=== PATIENT | female | born 1945 | race Caucasian/White ===

== ENCOUNTER → 2017-09-23 11:36 | Outpatient (CLI) | payer BC, SELFPAY ==
[2017-09-23 14:30] LABS: Thyroid Stim Hormone (TSH) 2.58 uIU/mL (0.358-3.74)
== END ==
PROVIDERS: Family Provider Family Medicine; PCP Family Medicine; Visit Provider Family Medicine
DX: L65.9 Nonscarring hair loss, unspecified (principal)
CPT/HCPCS: 36415; 84443

== ENCOUNTER 2018-03-30 16:05 | Inpatient (IN) | payer BC, MEDICARE, SELFPAY ==
[2018-03-30] VITALS (25 sets, daily range): BP systolic 78–211; BP diastolic 54–114; PULSE 76–119; RESP 12–19; TEMP 35.9–37.4; O2SAT 95–100; BMI 26.6; BMI 25.9
[2018-03-30] MEDS: DiphenhydrAMINE 50 MG/ML Syringe IV (16:10)
[2018-03-30] MEDS: MethylPREDNISolone 125 MG/2 ML Vial IV (16:10)
--- NOTE | 2018-03-30 16:10 | ED.RN ---
PT ARRIVES TO ED WITH THICK AND SWOLLEN TONGUE. ER PHYSICIAN TO ROOM IMMEDIATELY. PT PLACED ON MONITOR. VERBAL ORDERS FOR INTUBATION. PT IV ESTABLISHED. 50 MG BENADRYL GIVEN IVP AND 125 MG SOLUMEDROL IVP, BY Sarahi ALDRICH RN. 20 MG ETOMIDATE IVP GIVEN BY Elen GRAVES RN.
--- NOTE | 2018-03-30 16:13 | EKG12_ITS ---
Test Reason : Blood Pressure : / mmHG Vent. Rate : 077 BPM Atrial Rate : 077 BPM P-R Int : 116 ms QRS Dur : 160 ms QT Int : 500 ms P-R-T Axes : 084 -78 096 degrees QTc Int : 565 ms Atrial-sensed ventricular-paced rhythm Abnormal ECG Confirmed by VESTA VELA ([id number]), production editor FERNANDO PADRON ([id number]) on 04/05/2018 1:42:02 PM Referred By: RU Confirmed By:VESTA VELA
--- NOTE | 2018-03-30 16:14 | ED.RN ---
Addendum entered by Holly Peres 03/30/18 16:24: 1614 is correct time of medication administration. Original Note: 1414 rocuronium 100 mg ivp given by kristen jin rn.
[2018-03-30] MEDS: Propofol 10MG/Ml 1,000 MG/100 ML Bottle 2.241 MG CONT INF (16:20)
[2018-03-30] MEDS: Propofol 200 MG/20 ML Vial 70 MG IV BOLUS (16:20)
--- NOTE | 2018-03-30 16:23 | ED.VISSUMM ---
- ER Visit Summary Date of Service: 03/30/18 Chief Complaint: Angioedema History of Present Illness: The patient is a 72 F who presents with her with swelling of her tongue. Patient reportedly just woke from a nap with tongue swelling. She is complaining of difficulty swallowing and is having trouble talking. Patient did have cardiac bypass surgery March 22. She is a history of A. fib, hypothyroidism, coronary artery disease, CHF. Patient had been on lisinopril but this was stopped 3 days ago. She was recently started on Lasix, potassium, and Percocet. states that she has been on Percocet in the past with no problems. Physical Examination: Blood pressure is 137/77, temperature 96.7, heart rate 82, respiratory rate 19, pulse ox 95% on room air. Patient sitting upright in bed. It is difficult to understand her when she is speaking. Head neck examination reveals angioedema to the tongue. I am unable to visualize the posterior pharynx on exam. Heart is regular rate and rhythm. Lung sounds are grossly clear. She has a healing midline chest incision. Skin examination was no rash or lesions. Test Results: CBC returns a white count 11.7. Chemistry studies unremarkable. Portable chest x-ray has not yet been formally read. ET tube and NG tube appear to be in good position. She has what appears to be fluid at the right base. Emergency Department Course and Treatment: Decision was made to intubate the patient immediately upon evaluation. Patient was placed on nasal cannula. She was given 20 mg of etomidate. She was intubated on second attempt with a 6.5 tube with glide scope visualization. Good color change was noted on capnography and equal breath sounds were noted bilaterally. Patient was given rocuronium and propofol drip. Prior to intubation patient was given Solu-Medrol, Pepcid, and Benadryl. Patient was discussed with hospitalist as well as atg architect. Treatment Plan: [] Disposition: Admit Impression: Angioedema with intubation by ED physician This note was generated with [employer] dictation software. It may contain incorrect words, spelling, and punctuation that were not noted in review of the chart prior to signing ED Disposition - Plan for ED Patient: Disposition: Acute Care Hospital [facility] Chief Complaint: Allergic Reaction
--- NOTE | 2018-03-30 16:24 | NURSING ---
ICU ANGIOEDEMA DANNY
[2018-03-30] MEDS: Rocuronium Bromide 50 MG/5 ML Vial 100 MG IV (16:26)
--- NOTE | 2018-03-30 16:26 | ED.DCSUM_ITS ---
- ER Visit Summary Date of Service: 03/30/18 Chief Complaint: Angioedema History of Present Illness: The patient is a 72 F who presents with her with swelling of her tongue. Patient reportedly just woke from a nap with tongue swelling. She is complaining of difficulty swallowing and is having trouble talking. Patient did have cardiac bypass surgery March 22. She is a history of A. fib, hypothyroidism, coronary artery disease, CHF. Patient had been on lisinopril but this was stopped 3 days ago. She was recently started on Lasix, potassium, and Percocet. states that she has been on Percocet in the past with no problems. Physical Examination: Blood pressure is 137/77, temperature 96.7, heart rate 82 , respiratory rate 19, pulse ox 95% on room air. Patient sitting upright in bed. It is difficult to understand her when she is speaking. Head neck examination reveals angioedema to the tongue. I am unable to visualize the posterior pharynx on exam. Heart is regular rate and rhythm. Lung sounds are grossly clear. She has a healing midline chest incision. Skin examination was no rash or lesions. Test Results: CBC returns a white count 11.7. Chemistry studies unremarkable. Portable chest x-ray has not yet been formally read. ET tube and NG tube appear to be in good position. She has what appears to be fluid at the right base. Emergency Department Course and Treatment: Decision was made to intubate the patient immediately upon evaluation. Patient was placed on nasal cannula. She was given 20 mg of etomidate. She was intubated on second attempt with a 6.5 tube with glide scope visualization. Good color change was noted on capnography and equal breath sounds were noted bilaterally. Patient was given rocuronium and propofol drip. Prior to intubation patient was given Solu-Medrol , Pepcid, and Benadryl. Patient was discussed with hospitalist as well as microgrinder operator. Treatment Plan: [] Disposition: Admit Impression: Angioedema with intubation by ED physician This note was generated with [employer] dictation software. It may contain incorrect words, spelling, and punctuation that were not noted in review of the chart prior to signing ED Disposition - Plan for ED Patient: Disposition: Acute Care Hospital [facility] Chief Complaint: Allergic Reaction
[2018-03-30] MEDS: Etomidate 20 MG/10 ML Vial IV (16:27)
--- NOTE | 2018-03-30 16:30 | RAD_ITS ---
STUDY: X-RAY CHEST REASON FOR EXAM: Female, 72 years old. Respiratory failure TECHNIQUE: Single AP portable view of the chest. COMPARISON: 2016 FINDINGS: EKG leads overlie the chest. Stable appearance of a lesser gradient pacemaker. Patient has been intubated, tip of the ET tube is 5 cm above the aristides, NG tube tip noted in the body the stomach. Lungs are expanded with opacification in the right lung base associated pleural effusion. Follow-up recommended to assure resolution Sternal cerclage wires and vascular clips are present from a prior sternotomy and coronary artery bypass graft procedure (CABG). Normal mediastinum and kika. Normal visualized pulmonary arteries. Normal visualized aortic arch and descending thoracic aorta. Normal visualized thoracic spine. Normal visualized ribs, clavicles, and shoulders. There is no demonstrated abnormality of the visualized soft tissue structures of the upper abdomen. RAD/Chest 1 View (Portable) IMPRESSION: Right lower lobe infiltrate with pleural effusion. Follow-up recommended to assure resolution Support lines and tubes as described. ET tube tip 5 cm above the aristides, NG tube tip in the body of the stomach Electronically Signed: Dipak Schmidt MD at 16:47 EDT , Service support ,
[2018-03-30 16:36] LABS: Absolute Lymphocyte Count 1.83 X10^3/ul (0.83-4.51); Absolute Neutrophil Count 7.7 X10^3/uL (2.0-7.7); Basophil# 0.06 X10^3/uL; Eosinophil# 0.69 X10^3/uL; Hematocrit 38.6 % (37-47); Hemoglobin 12.6 g/dl (12.0-15.0); Lymphocyte # 1.83 X10^3/ul (4.0); Mean Corp Hgb Conc 32.6 g/gl (32-36); Mean Corpuscular Hgb 30.3 pg (27.0-32.0); Mean Corpuscular Volume 92.8 fL (81-99); Mean Platelet Vol. 9.7 fl (6.2-12.0); Monocyte# 1.24 X10^3/uL; Neutrophil # 7.69 X10^3/uL (2.7-7.7); Platelet Count 377 K/mm3 (150-450); RBC Distribution Width CV 14.2 % (11.6-14.6); RBC Distribution Width SD 46.8 fl (35.1-43.9); Red Blood Count 4.16 M/mm3 (4.2-5.4); White Blood Count 11.7 K/mm3 (4.4-11.0)
[2018-03-30 16:37] LABS: Differential Indicated SCAN CRITERIA MET; POSITIVE COUNT NO; POSITIVE DIFFERENTIAL NO; POSITIVE MORPHOLOGY YES
[2018-03-30 16:38] LABS: Anion Gap 5 (5-15); BUN 23 mg/dL (7-18); BUN/Creat Ratio 27.7 RATIO (10-20); Calcium,Total 8.6 mg/dL (8.5-10.1); Chloride 102 mmol/L (98-107); Creatinine, Serum 0.83 mg/dL (0.55-1.02); EST Glomerular Filtration Rate 72 mL/min (>60); Est Glom Filt Rate - Afr Amer 87 mL/min (>60); Glucose 94 mg/dL (74-106); Potassium 4.9 mmol/L (3.5-5.1); Sodium Level 136 mmol/L (136-145)
--- NOTE | 2018-03-30 16:42 | NURSING ---
ICU 2 ANGIOEDEMA KOTSONIA
--- NOTE | 2018-03-30 17:20 | ED.RN ---
PT HR AND BP INCREASING. PT MOVING RESTLESS. THIS RN INFORMED DR. VENCES. VERBAL ORDER FOR 50MG PROPOFOL BOLUS GIVEN THROUGH RIGHT AC IV. PT STARTING TO SETTLE. WILL CONTINUE TO MONITOR.
[2018-03-30 17:26] LABS: Basophil 1 % (0-1); Eosinophil 3 % (0-5); Lymphocyte 21 % (19-41); Monocyte 5 % (0-10); Neutrophil-Band 6 % (0-5); Neutrophil-Segmented 64 % (47-70); Total Cells Counted 100 (MANUAL DIFF)
[2018-03-30 17:27] LABS: Platelet Estimate ADEQUATE (ADEQ); Reactive Lymphocyte 1+; Red Cell Morphology NORM C+C NORMAL (NORM C&C)
[2018-03-30 17:28] LABS: Scan Smear per Review Criteria MANUAL DIFF
--- NOTE | 2018-03-30 18:13 | PCM.HP.STD ---
Problem List (1) Angioedema Status: Acute (2) Atrial fibrillation Status: Chronic (3) Valvular heart disease Status: Chronic (4) Hypothyroidism Status: Chronic Qualifiers: (5) Mitral stenosis Status: Chronic History of Present Illness Date of Admission: 03/30/18 Chief Complaint: Tongue swelling The patient is a 72 year old F with a h/o afib, valve repair and recent CABG for CAD presented to the ER with tongue swelling. She is currently intubated so history is obtained from the medical record. She does not appear to have a family h/o hereditary edema. She was recently on lisinopril and was told to stop it by her doctor on wednesday. She woke up today with tongue swelling after her nap. She was intubated in the ER. Past Medical History Past Medical History (Chronic Problems): Chronic Problems Atrial fibrillation (Chronic) Valvular heart disease (Chronic) Hypothyroidism (Chronic) Acute CHF (Chronic) Mitral stenosis (Chronic) Allergies sulfamethoxazole Allergy (Verified 03/30/18 16:13) Rash Home Medications: Ambulatory Orders Medication Instructions Recorded Levothyroxine [Synthroid] 100 mcg PO DAILY 10/21/15 Venlafaxine HCl [Effexor] 37.5 mg PO DAILY 10/21/15 Warfarin [Coumadin] 5 mg PO DAILY 10/21/15 Albuterol Inhaler [Ventolin Hfa] 1 puff INHALATION Q4H PRN PRN #1 09/25/16 inhaler Aspirin E.C. [Ecotrin] 81 mg PO DAILY@0800 03/30/18 Atorvastatin Calcium [Lipitor] 10 mg PO QHS 03/30/18 Docusate Sodium [Colace] 100 mg PO BID 03/30/18 Dofetilide [Tikosyn] 500 mcg PO BID 03/30/18 Ipratropium/Albuterol Sulfate 3 ml INHALATION Q4HWA.RT 03/30/18 [Duoneb] Metoprolol Tartrate [Lopressor 25 mg PO BID 03/30/18 (beta harpal)] Multivit with Calcium,Iron,Min 1 tab PO DAILY 03/30/18 [Multiple Vitamins For Women] Oxycodone HCl/Acetaminophen 1 tablet PO Q6H PRN PRN 03/30/18 [Percocet 5/325] Polyethylene Glycol 3350 [[id number]] 510 gm PO DAILY 03/30/18 Surgical History: no surgical history, - Smoking Status: Former smoker - *Family History Maternal History Items: No pertinent history Paternal History Items: No pertinent history Review of Systems Unable to obtain accurate/complete ROS d/t: intubation and sedation VTE Information - Inpt Only VTE Present on Admission: No Patient Problems: Active and Suspected Problems Angioedema (Acute) - Physical Exam General: - - sedated and intubated HEENT: Atraumatic, Normocephalic Oral: Moist Mucosa Neck: No JVD Lungs: Clear to auscultation, Normal air movement, No rhonchi, No wheeze, No rales Cardiovascular: Regular rate, Regular Rhythm, Normal S1, Normal S2 Abdomen: Soft, Non-Distended, No Hepato-splenomegaly Neurological: - - Sedated and intubated Psych/Mental Status: - - Cannot assess, sedated and intubated Vital Signs Temp Pulse Resp BP Pulse Ox 98.7 F 96 13 122/81 H 98 03/30/18 17:22 03/30/18 17:45 03/30/18 17:45 03/30/18 17:22 03/30/18 17:45 Oxygen Delivery Method Mechanical Ventilator Laboratory Tests Past 24 Hrs 03/30/18 18:00 MRSA (PCR) Pending Assessment/Plan All Active Problems Angioedema (Acute) Osteoma (Acute) Left leg pain (Acute) Atrial fibrillation with RVR (Resolved) 1. Angioedema likely d/t LOUIS-I - Currently intubated and oxygenating well - No good treatment for angioedema, so will support hemodynamically and monitor - NPO - IVF@100 - PT/OT 2. CAD s/p CABG/A-fib/HTN/HLD - She is currently on tikosyn for her afib - C/w Metoprolol as well as he statin - She has had it ablated previously - C/w coumadin and monitor INR - BMP in the am 3. Hypothyroidism - TSH in the morning - C/w synthroid 4. Depression - c/w effexor 5. COPD - C/w duonebs and albuterol PRN DVT: Coumadin Diet: NPO Code Visit Inpatient E&M: 40339 Init Hosp L3
[2018-03-30 19:34] LABS: M R Staph aureus DNA By PCR Negative (Negative)
[2018-03-30 19:35] LABS: Probe Check PASS; Specimen Processing Control PASS
[2018-03-30 20:10] LABS: International Normalized Ratio 1.4; Prothrombin Time (Protime)PT. 16.9 SECONDS (11.7-14.9)
[2018-03-30] MEDS: Atorvastatin Calcium 10 MG Tablet PO (21:27)
[2018-03-30] MEDS: Famotidine 20 MG Tablet GT (21:27)
[2018-03-30] MEDS: Dofetilide 250 MCG Capsule 500 MCG PO (21:27)
[2018-03-30] MEDS: 0.9% NaCl Peripheral Flush Adult/Peds IV (21:27)
[2018-03-30] MEDS: Chlorhexidine 15 ML PO (21:28)
[2018-03-30] MEDS: DiphenhydrAMINE 12.5 MG/5 ML UDC 50 MG GT (23:21)
[2018-03-31] VITALS (57 sets, daily range): BP systolic 72–143; BP diastolic 46–90; PULSE 63–90; RESP 4–22; TEMP 36.7–37.7; O2SAT 96–100
[2018-03-31] MEDS: 0.9% Normal Saline 1,000 ML 999 ML IV (02:33)
[2018-03-31 03:54] LABS: Hematocrit 33.5 % (37-47); Mean Corp Hgb Conc 32.8 g/gl (32-36); Mean Corpuscular Hgb 30.5 pg (27.0-32.0); Mean Corpuscular Volume 92.8 fL (81-99); Mean Platelet Vol. 9.5 fl (6.2-12.0); Platelet Count 345 K/mm3 (150-450); RBC Distribution Width CV 13.9 % (11.6-14.6); RBC Distribution Width SD 46.1 fl (35.1-43.9); Red Blood Count 3.61 M/mm3 (4.2-5.4); White Blood Count 15.2 K/mm3 (4.4-11.0)
[2018-03-31 03:55] LABS: Scan Indicated on CBC? Y/N NO
[2018-03-31 03:57] LABS: Anion Gap 7 (5-15); BUN 25 mg/dL (7-18); BUN/Creat Ratio 34.1 RATIO (10-20); Calcium,Total 7.3 mg/dL (8.5-10.1); Chloride 109 mmol/L (98-107); Creatinine, Serum 0.73 mg/dL (0.55-1.02); EST Glomerular Filtration Rate 83 mL/min (>60); Est Glom Filt Rate - Afr Amer 100 mL/min (>60); Glucose 145 mg/dL (74-106); Potassium 5.3 mmol/L (3.5-5.1); Sodium Level 140 mmol/L (136-145)
[2018-03-31 04:13] LABS: International Normalized Ratio 1.5; Partial Thromboplast Time 143.1 Seconds (24.1-36.2); Prothrombin Time (Protime)PT. 18.3 SECONDS (11.7-14.9)
[2018-03-31 04:51] LABS: Partial Thromboplast Time 104.6 Seconds (24.1-36.2)
[2018-03-31] MEDS: CHLORHEXIDINE GLUC 2% CLOTH 1 EACH TOWELETTE TOPICAL (04:58)
[2018-03-31] MEDS: DiphenhydrAMINE 12.5 MG/5 ML UDC 50 MG GT ×3 (05:01→17:56)
[2018-03-31] MEDS: 0.9% NaCl Peripheral Flush Adult/Peds IV ×5 (05:01→18:08)
[2018-03-31] MEDS: Levothyroxine 100 MCG Tablet PO (05:01)
[2018-03-31] MEDS: Ipratropium/Albuterol Sulfate 3 ML AMPUL.NEB INHALATION (06:34)
[2018-03-31] MEDS: Aspirin 81 MG TAB.CHEW PO (09:07)
[2018-03-31] MEDS: Chlorhexidine 15 ML PO ×2 (09:07→21:21)
[2018-03-31] MEDS: Multivitamins,Ther W-Minerals Tablet 1 TABLET PO (09:07)
[2018-03-31] MEDS: Famotidine 20 MG Tablet GT ×2 (09:08→21:20)
--- NOTE | 2018-03-31 09:28 | PCM.PN.HOSP ---
Patient Problems: Active and Suspected Problems Angioedema (Acute) Subjective: Seen and examined. Discussed with the patient and . The patient was admitted yesterday with tongue and airway swelling consistent with angioedema for which she was intubated in ER. Patient is awake and alert but still intubated because of airway swelling. She had mitral valve replacement, aortic valve replacement, tricuspid valve repair left atrial appendage ligation on March 22, [address] Crane in [facility]. Her coronaries were clear as per the patient. Vitals/I&O's: Vital Signs Temp Pulse Resp BP Pulse Ox 98.7 F 86 20 H 111/71 98 03/31/18 06:30 03/31/18 08:00 03/31/18 08:00 03/31/18 08:00 03/31/18 08:00 Oxygen Delivery Method Mechanical Ventilator Weight: 164 lb 0.383 oz Body Mass Index (BMI) 25.9 Intake and Output for Last 24 Hours 03/29/18 03/30/18 03/31/18 23:59 23:59 23:59 Intake Total 1896.5 / 1896.5 Output Total 350 / 350 Balance 1546.5 / 1546.5 General: Alert, Cooperative HEENT: Atraumatic, PERRLA, EOMI, Normocephalic Oral: - - Intubated Neck: Supple, No JVD, Negative Carotid Bruits Lungs: Wheezes, - - On vent support mainly for airway protection Cardiovascular: Regular rate, Normal S1, Normal S2, No murmurs, - - Open heart surgery scar is healing Abdomen: Bowel Sounds Present, Soft, Non Tender Extremities: No edema, Capillary Refill Less than 3 Seconds Skin: No rashes, No breakdown Musculoskeletal: No Tenderness to Palpation of Joints or Extremities, Arthritic Changes Neurological: Cranial nerves II-XII grossly intact Psych/Mental Status: Normal Affect, Appropriate Laboratory Results 03/30/18 18:00: MRSA (PCR) Negative 03/30/18 19:25: PT 16.9 H, INR 1.4 03/30/18 19:25: APTT 36.0 03/31/18 03:25: WBC 15.2 H, RBC 3.61 L, Hgb 11.0 L, Hct 33.5 L, MCV 92.8, MCH 30.5, MCHC 32.8, RDW 13.9, RDW Differential 46.1 H, Plt Count 345, MPV 9.5 03/31/18 03:25: Sodium 140, Potassium 5.3 H, Chloride 109 H, Carbon Dioxide 24.0, Anion Gap 7, BUN 25 H, Creatinine 0.73, Estim Creat Clear Calc 48.30, Est GFR (MDRD) Af Amer 100, Est GFR (MDRD) Non-Af 83, BUN/Creatinine Ratio 34.1 H, Glucose 145 H, Calcium 7.3 L 03/31/18 03:25: PT 18.3 H, INR 1.5 03/31/18 03:25: APTT 143.1 H* 03/31/18 04:20: APTT 104.6 H* 03/31/18 08:50: APTT Pending Current Medications Albuterol Sulfate (Ventolin Aerosols) 2.5 mg INHALATION Q4H PRN PRN Reason: SOB &/OR WHEEZING Albuterol/Ipratropium (Duoneb) 3 ml INHALATION Q4HWA.RT [facility] Last Admin: 03/31/18 06:34 Dose: 3 ml Aspirin (Aspirin, Baby) 81 mg PO DAILY@0800 [facility] Last Admin: 03/31/18 09:07 Dose: 81 mg Atorvastatin Calcium (Lipitor) 10 mg PO QHS [facility] Last Admin: 03/30/18 21:27 Dose: 10 mg Chlorhexidine Gluconate () 15 ml PO BID [facility] Last Admin: 03/31/18 09:07 Dose: 15 ml Chlorhexidine Gluconate () 1 each TOPICAL DAILY [facility] Last Admin: 03/31/18 04:58 Dose: 1 each Diphenhydramine HCl (Benadryl Liquid) 50 mg GT Q6 [facility] Last Admin: 03/31/18 05:01 Dose: 50 mg Dofetilide (Tikosyn) 500 mcg PO BID [facility] Last Admin: 03/30/18 21:27 Dose: 500 mcg Famotidine (Pepcid) 20 mg GT BID [facility] Last Admin: 03/31/18 09:08 Dose: 20 mg Heparin Sodium (Porcine) (Heparin Na) 0 unit IV UD PRN PRN Reason: Protocol Fentanyl () 100 mls @ 2.5 mls/hr IV .Q40H [facility] Last Admin: 03/31/18 04:57 Dose: 2.5 mls/hr Sodium Chloride () 250 mls @ 15 mls/hr IV .[id number] PRN PRN Reason: SALINE FLUSH Heparin Sodium/Sodium Chloride () 25,000 unit in 250 mls @ 11 mls/hr IV .[id number] [facility]; As Directed PRN Reason: Protocol Last Admin: 03/30/18 21:36 Dose: 11 mls/hr Dexmedetomidine HCl 400 mcg/ (Sodium Chloride) 100 mls @ 9.11 mls/hr IV .[id number] [facility] PRN Reason: 0.5 MCG/KG/HR Last Admin: 03/31/18 01:39 Dose: 9.11 mls/hr Norepinephrine Bitartrate 8 mg (/ Dextrose) 258 mls @ 9.67 mls/hr IV .[id number] [facility]; 5 MCG/MIN PRN Reason: Protocol Last Admin: 03/31/18 02:41 Dose: 9.67 mls/hr Levothyroxine Sodium (Synthroid) 100 mcg PO DAILY@0600 [facility] Last Admin: 03/31/18 05:01 Dose: 100 mcg Magnesium Hydroxide (Milk Of Magnesia) 30 ml PO DAILY PRN PRN PRN Reason: Constipation Methylprednisolone (Solu-Medrol) 40 mg IV Q6 [facility] Last Admin: 03/31/18 05:01 Dose: 40 mg Metoprolol Tartrate (Lopressor (Beta Roque)) 25 mg PO BID [facility] Last Admin: 03/30/18 22:28 Dose: Not Given Multivitamins/Minerals (Multivitamin With Minerals) 1 tablet PO DAILY@0800 [facility] Last Admin: 03/31/18 09:07 Dose: 1 tablet Polyethylene Glycol (Miralax) 17 gm PO DAILY PRN PRN Reason: CONSTIPATION Sodium Chloride () 5 - 30 ml IV UD PRN PRN Reason: SALINE FLUSH Last Admin: 03/31/18 09:07 Dose: 10 ml Venlafaxine HCl (Effexor Xr) 37.5 mg PO DAILY [facility] Warfarin Sodium (Coumadin (Pbkc)) 5 mg PO DAILY@1700 [facility] Medical Necessity - Tobacco Use Smoking Status: Former smoker Tobacco Use: Cigarettes Assessment/Plan All Active Problems Angioedema (Acute) Osteoma (Acute) Left leg pain (Acute) Atrial fibrillation with RVR (Resolved) This 72-year-old female with history of persistent A. fib mitral stenosis with regurgitation and aortic stenosis with recent surgery bioprosthetic aortic valve replacement, MVR, maze procedure left atrial appendage ligation and tricuspid valve repair pacemaker on March 14, 2018 was admitted after she had tongue and airway swelling which led to intubation in ER for airway protection. Patient denies history of failure to eat more. Occasions reviewed there was question of lisinopril causing angioedema but she has been on lisinopril for long time and her cardiac surgeon Dr. Crane does not think lisinopril being the culprit. She is on Tikosyn metoprolol, aspirin, Effexor and Coumadin as per home medications. 1. Airway edema suggestive of angioedema, exact etiology unclear: Currently intubated on ventilator support. Political Advisor on board. Patient still has some wheezing and airway swelling so needs further vent support. On IV Solu-Medrol 40 mg every 6 hourly. On fentanyl drip. 2. Cardiac conditions: persistent A. fib mitral stenosis with regurgitation and aortic stenosis with recent surgery bioprosthetic aortic valve replacement, bioprosthetic mitral valve replacement, maze procedure left atrial appendage ligation and tricuspid valve repair pacemaker on March 14, 2018. Continue the cardiac medications as listed above including Tikosyn, metoprolol, aspirin and Coumadin. On bridging IV heparin has INR is subtherapeutic. 3. Hypothyroidism: Synthroid. 4. Other comorbidities include COPD and depression: On DuoNeb and albuterol as needed. Continue Effexor. Due to prophylaxis: On IV heparin drip and Coumadin
--- NOTE | 2018-03-31 10:16 | PCM.CON.CC ---
Problem List (1) Angioedema Status: Acute Qualifiers: Encounter type: initial encounter Qualified Code(s): T78.3XXA - Angioneurotic edema, initial encounter (2) Valvular heart disease Status: Chronic (3) Hypothyroidism Status: Chronic Qualifiers: (4) Mitral stenosis Status: Chronic Reason for Consult Date of Consultation: 03/31/18 Reason for Consultation: Angioedema History of Present Illness: The patient is a 72 year old F, with past medical history listed below, who presented to [facility] [place] on 03/30/2018 secondary to abrupt swelling of her tongue. Patient reports she was of her usual health and ate breakfast without difficulty. In the afternoon, patient had some peanut butter cookies, but then went to take a nap. Upon waking from a nap, patient was noted to have severe swelling of her tongue. On presentation to the emergency room, patient was noted to be 95% on room air, but had very difficult time trying to vocalize. Patient was immediately intubated with a 6.5 endotracheal tube with glide scope visualization. Patient was admitted to the intensive care unit for further monitoring. In the intensive care unit, patient was placed on Pepcid, Benadryl and IV steroids. Patient has tolerated this well with improvement in tongue swelling. Patient was not able to have a spontaneous breathing trial this morning and is denying any pain. Patient is currently communicating through paper and pencil. Patient denies any previous histories of angioedema. Patient does state that she got a full body rash after a pain medication in the past. Patient was on lisinopril, but had stopped this on Wednesday. Patient denies any other allergic type reactions. Patient has never been intubated previously. Patient did have an aortic and mitral valve bioprosthetic replacement completed in February at [facility]. Patient does report that she recently was initiated on Percocet. Patient is unclear if this was the medication that caused the body rash in the past. Patient sees Dr. Dallas at baseline. Review of systems otherwise negative ?10 systems. Past Medical History Past Medical History (Chronic Problems): Chronic Problems Atrial fibrillation (Chronic) Valvular heart disease (Chronic) Hypothyroidism (Chronic) Acute CHF (Chronic) Mitral stenosis (Chronic) Allergies sulfamethoxazole Allergy (Verified 03/30/18 16:13) Rash Home Medications: Ambulatory Orders Medication Instructions Recorded Levothyroxine [Synthroid] 100 mcg PO DAILY 10/21/15 Venlafaxine HCl [Effexor] 37.5 mg PO DAILY 10/21/15 Warfarin [Coumadin] 5 mg PO DAILY 10/21/15 Albuterol Inhaler [Ventolin Hfa] 1 puff INHALATION Q4H PRN PRN #1 09/25/16 inhaler Aspirin E.C. [Ecotrin] 81 mg PO DAILY@0800 03/30/18 Atorvastatin Calcium [Lipitor] 10 mg PO QHS 03/30/18 Docusate Sodium [Colace] 100 mg PO BID 03/30/18 Dofetilide [Tikosyn] 500 mcg PO BID 03/30/18 Ipratropium/Albuterol Sulfate 3 ml INHALATION Q4HWA.RT 03/30/18 [Duoneb] Metoprolol Tartrate [Lopressor 25 mg PO BID 03/30/18 (beta harpal)] Multivit with Calcium,Iron,Min 1 tab PO DAILY 03/30/18 [Multiple Vitamins For Women] Oxycodone HCl/Acetaminophen 1 tablet PO Q6H PRN PRN 03/30/18 [Percocet 5/325] Polyethylene Glycol 3350 [[id number]] 510 gm PO DAILY 03/30/18 Surgical History: no surgical history, - Smoking Status: Former smoker Tobacco Use: Cigarettes - *Family History Maternal History Items: No pertinent history Paternal History Items: No pertinent history Review of Systems Comment: See HPI Patient Problems: Active and Suspected Problems Angioedema (Acute) Objective: Chest x-ray shows endotracheal tube high in the chest. OG is in appropriate position. - Physical Exam General: Alert, Cooperative, No apparent distress, - - Communicating through written word. Appears stated age. HEENT: Atraumatic, PERRLA, EOMI, Normocephalic Oral: Moist Mucosa, No Gingival or Mucosal Lesions/ Ulcerations, - - Significantly swollen tongue with deviation to the left. Neck: Supple, No JVD, No Nodes, Trachea Midline Lungs: Clear to auscultation, Normal air movement, No rhonchi, No wheeze, No rales Cardiovascular: Regular rate, Regular Rhythm, Normal S1, Normal S2, No murmurs, No rub noted, No Gallop Abdomen: Bowel Sounds Present, Soft, Non Tender, Non-Distended Extremities: No clubbing, No cyanosis, No edema, Capillary Refill Less than 3 Seconds Skin: Incision - Midsternal incision appears clean, dry and intact. No exudate is appreciated. No fluctuance is noted. There is no subcutaneous emphysema noted Musculoskeletal: No Tenderness to Palpation of Joints or Extremities, No Muscle Wasting Lymphatic: No Cervical, Supraclavicular, or Inguinal Adenopathy Neurological: Cranial nerves II-XII grossly intact, Neuro grossly intact, Motor Exam 5/5 strength throughout Psych/Mental Status: Normal Affect, Appropriate Vital Signs Temp Pulse Resp BP Pulse Ox 37.3 C 90 19 H 96/78 97 03/31/18 09:00 03/31/18 09:00 03/31/18 09:00 03/31/18 09:00 03/31/18 09:00 Oxygen Delivery Method Mechanical Ventilator Weight: 74.4 kg Body Mass Index (BMI) 25.9 Intake and Output for Last 24 Hours 03/29/18 03/30/18 03/31/18 23:59 23:59 23:59 Intake Total 1896.5 / 1896.5 Output Total 350 / 350 Balance 1546.5 / 1546.5 Laboratory Tests Past 24 Hrs 03/30/18 03/30/18 03/30/18 18:00 19:25 19:25 WBC RBC Hgb Hct MCV MCH MCHC RDW RDW Differential Plt Count MPV PT 16.9 H INR 1.4 APTT 36.0 Sodium Potassium Chloride Carbon Dioxide Anion Gap BUN Creatinine Estim Creat Clear Calc Est GFR (MDRD) Af Amer Est GFR (MDRD) Non-Af BUN/Creatinine Ratio Glucose Calcium MRSA (PCR) Negative 03/31/18 03/31/18 03/31/18 03:25 03:25 03:25 WBC 15.2 H RBC 3.61 L Hgb 11.0 L Hct 33.5 L MCV 92.8 MCH 30.5 MCHC 32.8 RDW 13.9 RDW Differential 46.1 H Plt Count 345 MPV 9.5 PT 18.3 H INR 1.5 APTT Sodium 140 Potassium 5.3 H Chloride 109 H Carbon Dioxide 24.0 Anion Gap 7 BUN 25 H Creatinine 0.73 Estim Creat Clear Calc 48.30 Est GFR (MDRD) Af Amer 100 Est GFR (MDRD) Non-Af 83 BUN/Creatinine Ratio 34.1 H Glucose 145 H Calcium 7.3 L MRSA (PCR) 03/31/18 03/31/18 03/31/18 03:25 04:20 08:50 WBC RBC Hgb Hct MCV MCH MCHC RDW RDW Differential Plt Count MPV PT INR APTT 143.1 H* 104.6 H* 58.0 H Sodium Potassium Chloride Carbon Dioxide Anion Gap BUN Creatinine Estim Creat Clear Calc Est GFR (MDRD) Af Amer Est GFR (MDRD) Non-Af BUN/Creatinine Ratio Glucose Calcium MRSA (PCR) Assessment/Plan Active and Suspected Problems Angioedema (Acute) RECOMMENDATIONS: 1. Continue Pepcid, Benadryl and Solu-Medrol 2. Spontaneous breathing trial with leak test tomorrow. 3. Okay to use pressure support of 8 during spontaneous breathing trial given small endotracheal tube size 4. Attempt to obtain records from [facility] 5. Obtain CT scan of the neck if not improved in 24 hours 6. Continue heparin drip until INR therapeutic IMPRESSIONS: 1. Suspected angioedema Unclear etiology at this time. Patient was taken off of LOUIS inhibitors 3 days prior to swelling. Patient did have exposure to a peanut products just prior to swelling. Unclear if this represents an allergic reaction, but patient did not have any reported hives. Patient will continue on prednisone, Benadryl and Pepcid for now. If patient is not improving by tomorrow, CT scan of the neck may be necessary for evaluation of possible sublingual abscess, but no sore throat or other constitutional symptoms have been noted prior to yesterday afternoon. Patient did have a leukocytosis on presentation, but increase in WBC count is likely secondary to steroids at this point. 2. Recent aortic valve and mitral valve bioprosthetic placement Patient's INR was subtherapeutic on presentation. Patient has been placed on heparin drip. Continue with Coumadin with a goal of INR of greater than 2.5. Surgical site appears to be appropriate at this time. No indication for transfer to the patient's surgeon for evaluation. 3. Coronary artery disease status post CABG/A. fib/hypertension/hyperlipidemia Continue with medical management. Patient has been taken off of metoprolol this morning secondary to some decreased blood pressures. Patient can continue on Tikosyn through the OG tube. 4. Hypothyroidism/depression/reported COPD Complicates care, management, recovery and prognosis. Okay to use aerosols as needed. TIME: 32 minutes critical care time spent addressing patient's suspected angioedema, management of anticoagulation, review of all data and collaboration with care team. (5:30 AM to 6:30 AM) Code Visit 9xxxx: [id number] Critical care first hour
[2018-03-31] MEDS: Dofetilide 250 MCG Capsule 500 MCG GT ×2 (11:46→21:20)
[2018-03-31] MEDS: Venlafaxine HCl 75 MG Tablet 37.5 MG GT ×2 (11:47→21:20)
[2018-03-31 14:34] LABS: Pathologist Review Reviewed
[2018-03-31] MEDS: Lactated Ringers 1,000 ML 999 ML IV (14:57)
[2018-03-31 15:12] LABS: Partial Thromboplast Time 103.4 Seconds (24.1-36.2)
[2018-03-31 20:08] LABS: Partial Thromboplast Time 57.7 Seconds (24.1-36.2)
[2018-03-31] MEDS: Atorvastatin Calcium 10 MG Tablet GT (21:20)
[2018-04-01] VITALS (26 sets, daily range): BP systolic 80–121; BP diastolic 51–77; PULSE 61–93; RESP 12–20; TEMP 36–36.8; O2SAT 93–100
[2018-04-01] MEDS: DiphenhydrAMINE 12.5 MG/5 ML UDC 50 MG GT ×2 (00:12→05:08)
[2018-04-01] MEDS: 0.9% NaCl Peripheral Flush Adult/Peds IV (00:12)
[2018-04-01 01:55] LABS: Partial Thromboplast Time 65.6 Seconds (24.1-36.2)
[2018-04-01 04:17] LABS: Absolute Lymphocyte Count 1.06 X10^3/ul (0.83-4.51); Absolute Neutrophil Count 12.1 X10^3/uL (2.0-7.7); Basophil# 0.01 X10^3/uL; Basophil% 0.1 % (0-1); Hematocrit 31.7 % (37-47); Hemoglobin 10.2 g/dl (12.0-15.0); Lymphocyte # 1.06 X10^3/ul (4.0); Lymphocyte % 7.8 % (19-41); Mean Corp Hgb Conc 32.2 g/gl (32-36); Mean Corpuscular Volume 93.2 fL (81-99); Mean Platelet Vol. 9.3 fl (6.2-12.0); Monocyte# 0.39 X10^3/uL; Monocyte% 2.9 % (0-10); Neutrophil # 12.09 X10^3/uL (2.7-7.7); Neutrophil % 88.8 % (47-70); Platelet Count 279 K/mm3 (150-450); RBC Distribution Width CV 14.2 % (11.6-14.6); RBC Distribution Width SD 47.8 fl (35.1-43.9); White Blood Count 13.6 K/mm3 (4.4-11.0)
[2018-04-01 04:18] LABS: POSITIVE COUNT NO; POSITIVE DIFFERENTIAL NO; POSITIVE MORPHOLOGY NO
[2018-04-01 04:24] LABS: International Normalized Ratio 1.8; Prothrombin Time (Protime)PT. 20.9 SECONDS (11.7-14.9)
[2018-04-01 04:26] LABS: Partial Thromboplast Time 63.6 Seconds (24.1-36.2)
[2018-04-01 04:32] LABS: Anion Gap 8 (5-15); BUN 29 mg/dL (7-18); BUN/Creat Ratio 37.9 RATIO (10-20); Calcium,Total 7.9 mg/dL (8.5-10.1); Chloride 108 mmol/L (98-107); Creatinine, Serum 0.76 mg/dL (0.55-1.02); EST Glomerular Filtration Rate 79 mL/min (>60); Est Glom Filt Rate - Afr Amer 96 mL/min (>60); Glucose 136 mg/dL (74-106); Magnesium 2.3 mg/dL (1.6-2.6); Sodium Level 142 mmol/L (136-145)
[2018-04-01] MEDS: Levothyroxine 100 MCG Tablet GT (05:08)
[2018-04-01] MEDS: CHLORHEXIDINE GLUC 2% CLOTH 1 EACH TOWELETTE TOPICAL (05:09)
--- NOTE | 2018-04-01 06:41 | NURSING ---
Extubated via respiratory therapist at 0627, fentanyl and precedex discontinued, restraints discontinued, patient tolerated well.
--- NOTE | 2018-04-01 06:52 | NURSING ---
Extubated via respiratory therapist at 0627, fentanyl and precedex discontinued, restraints discontinued, patient tolerated well.
--- NOTE | 2018-04-01 07:56 | PCM.PN.INT ---
Subjective: Patient did well overnight. No acute issues were reported. Patient was able to have a spontaneous breathing trial this morning and large leak was noted. Patient was successfully extubated under my direct supervision. No bleeding complications have been noted overnight. General: Alert, Oriented x3, Cooperative, No apparent distress, Well developed, Well nourished, - - Speaks in full sentences. HEENT: Atraumatic, PERRLA, EOMI, Normocephalic, - - No scleral icterus or injection noted Oral: Moist Mucosa, No Gingival or Mucosal Lesions/ Ulcerations, - - Slightly enlarged tongue Neck: Supple, No JVD, No Nodes, Trachea Midline Lungs: Clear to auscultation, Normal air movement, No rhonchi, No wheeze, No rales Cardiovascular: Regular rate, Regular Rhythm, Normal S1, Normal S2, No murmurs, No rub noted, No Gallop Abdomen: Bowel Sounds Present, Soft, Non Tender, Non-Distended Extremities: No clubbing, No cyanosis, No edema, Capillary Refill Less than 3 Seconds Skin: No rashes, No breakdown Musculoskeletal: No Tenderness to Palpation of Joints or Extremities, No Muscle Wasting Lymphatic: No Cervical, Supraclavicular, or Inguinal Adenopathy Neurological: Cranial nerves II-XII grossly intact, Neuro grossly intact, Motor Exam 5/5 strength throughout, Sensory exam intact to light touch and pain Psych/Mental Status: Alert and oriented to time, place, person, mood and affect Vital Signs Temp Pulse Resp BP Pulse Ox 36.7 C 79 12 88/59 L 93 04/01/18 07:00 04/01/18 07:21 04/01/18 07:00 04/01/18 07:00 04/01/18 07:00 Oxygen Delivery Method Room Air Weight: 74.6 kg Body Mass Index (BMI) 25.9 Intake and Output for Last 24 Hours 03/30/18 03/31/18 04/01/18 23:59 23:59 23:59 Intake Total 2319.5 / 2319.5 249.7 / 249.7 Output Total 600 / 600 350 / 350 Balance 1719.5 / 1719.5 -100.3 / -100.3 Labs (Last 48 Hours) 03/30/18 03/30/18 03/30/18 18:00 19:25 19:25 WBC RBC Hgb Hct MCV MCH MCHC RDW RDW Differential Plt Count MPV Immature Gran % (Auto) Neut % (Auto) Lymph % (Auto) [place] % (Auto) Eos % (Auto) Baso % (Auto) Absolute Neuts (auto) Absolute Lymphs (auto) Total Counted PT 16.9 H INR 1.4 APTT 36.0 Sodium Potassium Chloride Carbon Dioxide Anion Gap BUN Creatinine Estim Creat Clear Calc Est GFR (MDRD) Af Amer Est GFR (MDRD) Non-Af BUN/Creatinine Ratio Glucose Calcium Phosphorus Magnesium MRSA (PCR) Negative 03/31/18 03/31/18 03/31/18 03:25 03:25 03:25 WBC 15.2 H RBC 3.61 L Hgb 11.0 L Hct 33.5 L MCV 92.8 MCH 30.5 MCHC 32.8 RDW 13.9 RDW Differential 46.1 H Plt Count 345 MPV 9.5 Immature Gran % (Auto) Neut % (Auto) Lymph % (Auto) [place] % (Auto) Eos % (Auto) Baso % (Auto) Absolute Neuts (auto) Absolute Lymphs (auto) Total Counted PT 18.3 H INR 1.5 APTT Sodium 140 Potassium 5.3 H Chloride 109 H Carbon Dioxide 24.0 Anion Gap 7 BUN 25 H Creatinine 0.73 Estim Creat Clear Calc 48.30 Est GFR (MDRD) Af Amer 100 Est GFR (MDRD) Non-Af 83 BUN/Creatinine Ratio 34.1 H Glucose 145 H Calcium 7.3 L Phosphorus Magnesium MRSA (PCR) 03/31/18 03/31/18 03/31/18 03:25 04:20 08:50 WBC RBC Hgb Hct MCV MCH MCHC RDW RDW Differential Plt Count MPV Immature Gran % (Auto) Neut % (Auto) Lymph % (Auto) [place] % (Auto) Eos % (Auto) Baso % (Auto) Absolute Neuts (auto) Absolute Lymphs (auto) Total Counted PT INR APTT 143.1 H* 104.6 H* 58.0 H Sodium Potassium Chloride Carbon Dioxide Anion Gap BUN Creatinine Estim Creat Clear Calc Est GFR (MDRD) Af Amer Est GFR (MDRD) Non-Af BUN/Creatinine Ratio Glucose Calcium Phosphorus Magnesium MRSA (PCR) 03/31/18 03/31/18 04/01/18 14:20 19:45 01:35 WBC RBC Hgb Hct MCV MCH MCHC RDW RDW Differential Plt Count MPV Immature Gran % (Auto) Neut % (Auto) Lymph % (Auto) [place] % (Auto) Eos % (Auto) Baso % (Auto) Absolute Neuts (auto) Absolute Lymphs (auto) Total Counted PT INR APTT 103.4 H* 57.7 H 65.6 H Sodium Potassium Chloride Carbon Dioxide Anion Gap BUN Creatinine Estim Creat Clear Calc Est GFR (MDRD) Af Amer Est GFR (MDRD) Non-Af BUN/Creatinine Ratio Glucose Calcium Phosphorus Magnesium MRSA (PCR) 04/01/18 04/01/18 04/01/18 04:10 04:10 04:10 WBC 13.6 H RBC 3.40 L Hgb 10.2 L Hct 31.7 L MCV 93.2 MCH 30.0 MCHC 32.2 RDW 14.2 RDW Differential 47.8 H Plt Count 279 MPV 9.3 Immature Gran % (Auto) 0.400 Neut % (Auto) 88.8 H Lymph % (Auto) 7.8 L [place] % (Auto) 2.9 Eos % (Auto) 0.0 Baso % (Auto) 0.1 Absolute Neuts (auto) 12.1 H Absolute Lymphs (auto) 1.06 Total Counted Not Reportable PT 20.9 H INR 1.8 APTT 63.6 H Sodium 142 Potassium 5.0 Chloride 108 H Carbon Dioxide 26.0 Anion Gap 8 BUN 29 H Creatinine 0.76 Estim Creat Clear Calc 48.30 Est GFR (MDRD) Af Amer 96 Est GFR (MDRD) Non-Af 79 BUN/Creatinine Ratio 37.9 H Glucose 136 H Calcium 7.9 L Phosphorus 4.0 Magnesium 2.3 MRSA (PCR) Medical Necessity - Tobacco Use Smoking Status: Former smoker Tobacco Use: Cigarettes Assessment/Plan All Active Problems Angioedema (Acute) Osteoma (Acute) Left leg pain (Acute) Atrial fibrillation with RVR (Resolved) RECOMMENDATIONS: 1. Continue Pepcid, Benadryl and steroids for 5 days 2. Bedside swallow evaluation 3. Incentive spirometer and increased activity as tolerated 4. Continue with heparin drip until therapeutic INR 5. Okay was transitioned to prednisone therapy if patient passes bedside swallow eval IMPRESSIONS: 1. Suspected angioedema Unclear etiology at this time. Patient was taken off of LOUIS inhibitors 3 days prior to swelling. Patient did have exposure to a peanut products just prior to swelling. Unclear if this represents an allergic reaction, but patient did not have any reported hives. Patient should continue on prednisone, Benadryl and Pepcid for 5 days in total. Will monitor in the intensive care unit through the day, but likely okay to go to the floor later this evening. 2. Recent aortic valve and mitral valve bioprosthetic placement Patient's INR was subtherapeutic on presentation. Patient has been placed on heparin drip. Continue with Coumadin with a goal of INR of greater than 2.5. Surgical site appears to be appropriate at this time. No indication for transfer to the patient's surgeon for evaluation. 3. Coronary artery disease status post CABG/A. fib/hypertension/hyperlipidemia Continue with medical management. Patient has been taken off of metoprolol this morning secondary to some decreased blood pressures. Patient can continue on Tikosyn through the OG tube. 4. Hypothyroidism/depression/reported COPD Complicates care, management, recovery and prognosis. Okay to use aerosols as needed. TIME: 31 minutes critical care time spent addressing patient's suspected angioedema, management of anticoagulation, review of all data and collaboration with care team. (6 AM to 7 AM) Code Visit 9xxxx: [id number] Critical care first hour
--- NOTE | 2018-04-01 08:00 | PN_ITS ---
Subjective: Patient did well overnight. No acute issues were reported. Patient was able to have a spontaneous breathing trial this morning and large leak was noted. Patient was successfully extubated under my direct supervision. No bleeding complications have been noted overnight. General: Alert, Oriented x3, Cooperative, No apparent distress, Well developed, Well nourished, - - Speaks in full sentences. HEENT: Atraumatic, PERRLA, EOMI, Normocephalic, - - No scleral icterus or injection noted Oral: Moist Mucosa, No Gingival or Mucosal Lesions/ Ulcerations, - - Slightly enlarged tongue Neck: Supple, No JVD, No Nodes, Trachea Midline Lungs: Clear to auscultation, Normal air movement, No rhonchi, No wheeze, No rales Cardiovascular: Regular rate, Regular Rhythm, Normal S1, Normal S2, No murmurs, No rub noted, No Gallop Abdomen: Bowel Sounds Present, Soft, Non Tender, Non-Distended Extremities: No clubbing, No cyanosis, No edema, Capillary Refill Less than 3 Seconds Skin: No rashes, No breakdown Musculoskeletal: No Tenderness to Palpation of Joints or Extremities, No Muscle Wasting Lymphatic: No Cervical, Supraclavicular, or Inguinal Adenopathy Neurological: Cranial nerves II-XII grossly intact, Neuro grossly intact, Motor Exam 5/5 strength throughout, Sensory exam intact to light touch and pain Psych/Mental Status: Alert and oriented to time, place, person, mood and affect Vital Signs Temp Pulse Resp BP Pulse Ox 36.7 C 79 12 88/59 L 93 04/01/18 07:00 04/01/18 07:21 04/01/18 07:00 04/01/18 07:00 04/01/18 07:00 Oxygen Delivery Method Room Air Weight: 74.6 kg Body Mass Index (BMI) 25.9 Intake and Output for Last 24 Hours 03/30/18 03/31/18 04/01/18 23:59 23:59 23:59 Intake Total 2319.5 / 2319.5 249.7 / 249.7 Output Total 600 / 600 350 / 350 Balance 1719.5 / 1719.5 -100.3 / -100.3 Labs (Last 48 Hours) 03/30/18 03/30/18 03/30/18 18:00 19:25 19:25 WBC RBC Hgb Hct MCV MCH MCHC RDW RDW Differential Plt Count MPV Immature Gran % (Auto) Neut % (Auto) Lymph % (Auto) [place] % (Auto) Eos % (Auto) Baso % (Auto) Absolute Neuts (auto) Absolute Lymphs (auto) Total Counted PT 16.9 H INR 1.4 APTT 36.0 Sodium Potassium Chloride Carbon Dioxide Anion Gap BUN Creatinine Estim Creat Clear Calc Est GFR (MDRD) Af Amer Est GFR (MDRD) Non-Af BUN/Creatinine Ratio Glucose Calcium Phosphorus Magnesium MRSA (PCR) Negative 03/31/18 03/31/18 03/31/18 03:25 03:25 03:25 WBC 15.2 H RBC 3.61 L Hgb 11.0 L Hct 33.5 L MCV 92.8 MCH 30.5 MCHC 32.8 RDW 13.9 RDW Differential 46.1 H Plt Count 345 MPV 9.5 Immature Gran % (Auto) Neut % (Auto) Lymph % (Auto) [place] % (Auto) Eos % (Auto) Baso % (Auto) Absolute Neuts (auto) Absolute Lymphs (auto) Total Counted PT 18.3 H INR 1.5 APTT Sodium 140 Potassium 5.3 H Chloride 109 H Carbon Dioxide 24.0 Anion Gap 7 BUN 25 H Creatinine 0.73 Estim Creat Clear Calc 48.30 Est GFR (MDRD) Af Amer 100 Est GFR (MDRD) Non-Af 83 BUN/Creatinine Ratio 34.1 H Glucose 145 H Calcium 7.3 L Phosphorus Magnesium MRSA (PCR) 03/31/18 03/31/18 03/31/18 03:25 04:20 08:50 WBC RBC Hgb Hct MCV MCH MCHC RDW RDW Differential Plt Count MPV Immature Gran % (Auto) Neut % (Auto) Lymph % (Auto) [place] % (Auto) Eos % (Auto) Baso % (Auto) Absolute Neuts (auto) Absolute Lymphs (auto) Total Counted PT INR APTT 143.1 H* 104.6 H* 58.0 H Sodium Potassium Chloride Carbon Dioxide Anion Gap BUN Creatinine Estim Creat Clear Calc Est GFR (MDRD) Af Amer Est GFR (MDRD) Non-Af BUN/Creatinine Ratio Glucose Calcium Phosphorus Magnesium MRSA (PCR) 03/31/18 03/31/18 04/01/18 14:20 19:45 01:35 WBC RBC Hgb Hct MCV MCH MCHC RDW RDW Differential Plt Count MPV Immature Gran % (Auto) Neut % (Auto) Lymph % (Auto) [place] % (Auto) Eos % (Auto) Baso % (Auto) Absolute Neuts (auto) Absolute Lymphs (auto) Total Counted PT INR APTT 103.4 H* 57.7 H 65.6 H Sodium Potassium Chloride Carbon Dioxide Anion Gap BUN Creatinine Estim Creat Clear Calc Est GFR (MDRD) Af Amer Est GFR (MDRD) Non-Af BUN/Creatinine Ratio Glucose Calcium Phosphorus Magnesium MRSA (PCR) 04/01/18 04/01/18 04/01/18 04:10 04:10 04:10 WBC 13.6 H RBC 3.40 L Hgb 10.2 L Hct 31.7 L MCV 93.2 MCH 30.0 MCHC 32.2 RDW 14.2 RDW Differential 47.8 H Plt Count 279 MPV 9.3 Immature Gran % (Auto) 0.400 Neut % (Auto) 88.8 H Lymph % (Auto) 7.8 L [place] % (Auto) 2.9 Eos % (Auto) 0.0 Baso % (Auto) 0.1 Absolute Neuts (auto) 12.1 H Absolute Lymphs (auto) 1.06 Total Counted Not Reportable PT 20.9 H INR 1.8 APTT 63.6 H Sodium 142 Potassium 5.0 Chloride 108 H Carbon Dioxide 26.0 Anion Gap 8 BUN 29 H Creatinine 0.76 Estim Creat Clear Calc 48.30 Est GFR (MDRD) Af Amer 96 Est GFR (MDRD) Non-Af 79 BUN/Creatinine Ratio 37.9 H Glucose 136 H Calcium 7.9 L Phosphorus 4.0 Magnesium 2.3 MRSA (PCR) Medical Necessity - Tobacco Use Smoking Status: Former smoker Tobacco Use: Cigarettes Assessment/Plan All Active Problems Angioedema (Acute) Osteoma (Acute) Left leg pain (Acute) Atrial fibrillation with RVR (Resolved) RECOMMENDATIONS: 1. Continue Pepcid, Benadryl and steroids for 5 days 2. Bedside swallow evaluation 3. Incentive spirometer and increased activity as tolerated 4. Continue with heparin drip until therapeutic INR 5. Okay was transitioned to prednisone therapy if patient passes bedside swallow eval IMPRESSIONS: 1. Suspected angioedema Unclear etiology at this time. Patient was taken off of LOUIS inhibitors 3 days prior to swelling. Patient did have exposure to a peanut products just prior to swelling. Unclear if this represents an allergic reaction, but patient did not have any reported hives. Patient should continue on prednisone , Benadryl and Pepcid for 5 days in total. Will monitor in the intensive care unit through the day, but likely okay to go to the floor later this evening. 2. Recent aortic valve and mitral valve bioprosthetic placement Patient's INR was subtherapeutic on presentation. Patient has been placed on heparin drip. Continue with Coumadin with a goal of INR of greater than 2.5. Surgical site appears to be appropriate at this time. No indication for transfer to the patient's surgeon for evaluation. 3. Coronary artery disease status post CABG/A. fib/hypertension/ hyperlipidemia Continue with medical management. Patient has been taken off of metoprolol this morning secondary to some decreased blood pressures. Patient can continue on Tikosyn through the OG tube. 4. Hypothyroidism/depression/reported COPD Complicates care, management, recovery and prognosis. Okay to use aerosols as needed. TIME: 31 minutes critical care time spent addressing patient's suspected angioedema , management of anticoagulation, review of all data and collaboration with care team. (6 AM to 7 AM) Code Visit 9xxxx: [id number] Critical care first hour
--- NOTE | 2018-04-01 08:07 | PCM.PN.HOSP ---
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 No fever. Heart rate in 70s. Map 68-76. No acute issues overnight. Vitals/I&O's: Vital Signs Temp Pulse Resp BP Pulse Ox 98.1 F 79 12 88/59 L 93 04/01/18 07:00 04/01/18 07:21 04/01/18 07:00 04/01/18 07:00 04/01/18 07:00 Oxygen Delivery Method Room Air Weight: 164 lb 7.437 oz Body Mass Index (BMI) 25.9 Intake and Output for Last 24 Hours 03/30/18 03/31/18 04/01/18 23:59 23:59 23:59 Intake Total 2319.5 / 2319.5 249.7 / 249.7 Output Total 600 / 600 350 / 350 Balance 1719.5 / 1719.5 -100.3 / -100.3 General: Alert, Oriented x3, Cooperative HEENT: Atraumatic, PERRLA, EOMI, Normocephalic Neck: Supple, No JVD, Negative Carotid Bruits Lungs: Normal air movement, Wheezes Cardiovascular: Regular rate, Regular Rhythm, Normal S1, Normal S2, No murmurs, - - Open heart surgery scar healing well Abdomen: Bowel Sounds Present, Soft, Non Tender, Non-Distended Extremities: No edema, Capillary Refill Less than 3 Seconds Skin: No rashes, No breakdown Musculoskeletal: No Tenderness to Palpation of Joints or Extremities Neurological: Cranial nerves II-XII grossly intact Psych/Mental Status: Normal Affect, Appropriate Laboratory Results 03/31/18 08:50: APTT 58.0 H 03/31/18 14:20: APTT 103.4 H* 03/31/18 19:45: APTT 57.7 H 04/01/18 01:35: APTT 65.6 H 04/01/18 04:10: PT 20.9 H, INR 1.8, APTT 63.6 H 04/01/18 04:10: WBC 13.6 H, RBC 3.40 L, Hgb 10.2 L, Hct 31.7 L, MCV 93.2, MCH 30.0, MCHC 32.2, RDW 14.2, RDW Differential 47.8 H, Plt Count 279, MPV 9.3, Immature Gran % (Auto) 0.400, Neut % (Auto) 88.8 H, Lymph % (Auto) 7.8 L, [place] % (Auto) 2.9, Eos % (Auto) 0.0, Baso % (Auto) 0.1, Absolute Neuts (auto) 12.1 H, Absolute Lymphs (auto) 1.06, Total Counted Not Reportable 04/01/18 04:10: Sodium 142, Potassium 5.0, Chloride 108 H, Carbon Dioxide 26.0, Anion Gap 8, BUN 29 H, Creatinine 0.76, Estim Creat Clear Calc 48.30, Est GFR (MDRD) Af Amer 96, Est GFR (MDRD) Non-Af 79, BUN/Creatinine Ratio 37.9 H, Glucose 136 H, Calcium 7.9 L, Phosphorus 4.0, Magnesium 2.3 Current Medications Albuterol Sulfate (Ventolin Aerosols) 2.5 mg INHALATION Q4H PRN PRN Reason: SOB &/OR WHEEZING Aspirin (Aspirin, Baby) 81 mg GT DAILY [facility] Atorvastatin Calcium (Lipitor) 10 mg GT QHS [facility] Last Admin: 03/31/18 21:20 Dose: 10 mg Chlorhexidine Gluconate () 15 ml PO BID [facility] Last Admin: 03/31/18 21:21 Dose: 15 ml Chlorhexidine Gluconate () 1 each TOPICAL DAILY [facility] Last Admin: 04/01/18 05:09 Dose: 1 each Diphenhydramine HCl (Benadryl Liquid) 50 mg GT Q6 [facility] Last Admin: 04/01/18 05:08 Dose: 50 mg Dofetilide (Tikosyn) 500 mcg GT BID [facility] Last Admin: 03/31/18 21:20 Dose: 500 mcg Famotidine (Pepcid) 20 mg GT BID [facility] Last Admin: 03/31/18 21:20 Dose: 20 mg Heparin Sodium (Porcine) (Heparin Na) 0 unit IV UD PRN PRN Reason: Protocol Sodium Chloride () 250 mls @ 15 mls/hr IV .[id number] PRN PRN Reason: SALINE FLUSH Heparin Sodium/Sodium Chloride () 25,000 unit in 250 mls @ 11 mls/hr IV .[id number] [place]; As Directed PRN Reason: Protocol Last Admin: 03/31/18 20:22 Dose: Not Given Levothyroxine Sodium (Synthroid) 100 mcg GT DAILY@0600 [facility] Last Admin: 04/01/18 05:08 Dose: 100 mcg Magnesium Hydroxide (Milk Of Magnesia) 30 ml PO DAILY PRN PRN PRN Reason: Constipation Methylprednisolone (Solu-Medrol) 40 mg IV Q6 [facility] Last Admin: 04/01/18 05:08 Dose: 40 mg Metoprolol Tartrate (Lopressor (Beta Roque)) 25 mg GT BID [facility] Last Admin: 03/31/18 21:22 Dose: Not Given Polyethylene Glycol (Miralax) 17 gm PO DAILY PRN PRN PRN Reason: CONSTIPATION Sodium Chloride () 5 - 30 ml IV UD PRN PRN Reason: SALINE FLUSH Last Admin: 04/01/18 00:12 Dose: 20 ml Venlafaxine HCl (Effexor) 37.5 mg GT BID [facility] Last Admin: 03/31/18 21:20 Dose: 37.5 mg Warfarin Sodium (Coumadin (Pbkc)) 5 mg GT DAILY@1700 [facility] Last Admin: 03/31/18 17:38 Dose: 5 mg Medical Necessity - Tobacco Use Smoking Status: Former smoker Tobacco Use: Cigarettes Assessment/Plan All Active Problems Angioedema (Acute) Osteoma (Acute) Left leg pain (Acute) Atrial fibrillation with RVR (Resolved) This 72-year-old female with history of persistent A. fib mitral stenosis with regurgitation and aortic stenosis with recent surgery bioprosthetic aortic valve replacement, MVR, maze procedure left atrial appendage ligation and tricuspid valve repair pacemaker on March 14, 2018 was admitted after she had tongue and airway swelling which led to intubation in ER for airway protection. Patient denies history of failure to eat more. Occasions reviewed there was question of lisinopril causing angioedema but she has been on lisinopril for long time and her cardiac surgeon Dr. Crane does not think lisinopril being the culprit. She is on Tikosyn metoprolol, aspirin, Effexor and Coumadin as per home medications. 1. Airway edema suggestive of angioedema, exact etiology unclear: The patient is extubated. Boarding House Cook on board. On IV Solu-Medrol 40 mg every 6 hourly. Continue Pepcid and Benadryl for complete H1 and H2 blockage. 2. Cardiac conditions: persistent A. fib mitral stenosis with regurgitation and aortic stenosis with recent surgery bioprosthetic aortic valve replacement, bioprosthetic mitral valve replacement, maze procedure left atrial appendage ligation and tricuspid valve repair pacemaker on March 14, 2018. Continue the cardiac medications as listed above including Tikosyn, metoprolol, aspirin and Coumadin. On bridging IV heparin has INR is subtherapeutic. Nares 1.8. 3. Hypothyroidism: Synthroid. 4. Other comorbidities include COPD and depression: On DuoNeb and albuterol as needed. Continue Effexor. Due to prophylaxis: On IV heparin drip and Coumadin Code Visit Inpatient E&M: 06630 [facility] Hosp L3
[2018-04-01] MEDS: Dofetilide 250 MCG Capsule 500 MCG PO ×2 (09:32→23:02)
[2018-04-01] MEDS: Metoprolol Tartrate 25 MG Tablet PO ×2 (09:32→23:02)
[2018-04-01] MEDS: Aspirin 81 MG TAB.CHEW PO (09:33)
[2018-04-01] MEDS: Venlafaxine XR 37.5 MG Capsule PO (09:33)
[2018-04-01] MEDS: Famotidine 20 MG Tablet PO ×2 (09:37→23:02)
[2018-04-01] MEDS: predniSONE 20 MG Tablet 40 MG PO (09:37)
--- NOTE | 2018-04-01 10:17 | CASEMGMT ---
RN CM assessment completed. See Link. DC Plan: Home Intro role of CM to patient, and son. Pt is independent @ home, has walker if needed. Pt was to begin Home Health which was set up by previous hospital on dc. Pt and do not know name, but nurse's name is Rosita @ [phone]. Message left with RN CM call back information , but no pt identifiers left on message. Mindy MATHEWN RN ACM
[2018-04-01] MEDS: DiphenhydrAMINE 25 MG Capsule 50 MG PO ×3 (12:29→23:05)
--- NOTE | 2018-04-01 15:55 | CASEMGMT ---
DANDY CHASE Note: attempted call to number for home health nurse. no answer. Patient and do not have name of agency. Pt is ambulatory, can return home without home health tomorrow. DANDY CHASE business card given to patient and if [facility] needs any information on dc, they can contact and information can be faxed on Wednesday.Mindy WEN RN ACM
[2018-04-01] MEDS: Atorvastatin Calcium 10 MG Tablet PO (23:02)
[2018-04-02] MEDS: Acetaminophen 500 MG Tablet 1000 MG PO (01:52)
[2018-04-02 04:29] VITALS: BP 116/67; PULSE 80; RESP 18; TEMP 36.6; O2SAT 97
[2018-04-02] MEDS: DiphenhydrAMINE 25 MG Capsule 50 MG PO ×2 (05:41→11:57)
[2018-04-02] MEDS: Levothyroxine 100 MCG Tablet PO (05:41)
[2018-04-02] MEDS: 0.9% NaCl Peripheral Flush Adult/Peds IV (05:46)
[2018-04-02 07:21] LABS: International Normalized Ratio 1.7; Prothrombin Time (Protime)PT. 20.4 SECONDS (11.7-14.9)
[2018-04-02 07:31] LABS: Absolute Lymphocyte Count 1.64 X10^3/ul (0.83-4.51); Absolute Neutrophil Count 10.2 X10^3/uL (2.0-7.7); Eosinophil# 0.09 X10^3/uL; Eosinophils% 0.7 % (0-5); Hematocrit 31.9 % (37-47); Hemoglobin 10.1 g/dl (12.0-15.0); Lymphocyte # 1.64 X10^3/ul (4.0); Lymphocyte % 12.5 % (19-41); Mean Corp Hgb Conc 31.7 g/gl (32-36); Mean Corpuscular Hgb 29.8 pg (27.0-32.0); Mean Corpuscular Volume 94.1 fL (81-99); Monocyte# 1.05 X10^3/uL; Neutrophil # 10.24 X10^3/uL (2.7-7.7); Neutrophil % 78.1 % (47-70); Platelet Count 382 K/mm3 (150-450); RBC Distribution Width CV 14.4 % (11.6-14.6); RBC Distribution Width SD 46.6 fl (35.1-43.9); Red Blood Count 3.39 M/mm3 (4.2-5.4); White Blood Count 13.1 K/mm3 (4.4-11.0)
[2018-04-02 07:33] LABS: POSITIVE COUNT NO; POSITIVE DIFFERENTIAL NO; POSITIVE MORPHOLOGY NO
[2018-04-02 07:35] VITALS: O2SAT 98
[2018-04-02 07:36] LABS: Anion Gap 7 (5-15); BUN 30 mg/dL (7-18); BUN/Creat Ratio 39.8 RATIO (10-20); Calcium,Total 8.1 mg/dL (8.5-10.1); Chloride 106 mmol/L (98-107); Creatinine, Serum 0.75 mg/dL (0.55-1.02); EST Glomerular Filtration Rate 80 mL/min (>60); Est Glom Filt Rate - Afr Amer 97 mL/min (>60); Glucose 79 mg/dL (74-106); Potassium 4.2 mmol/L (3.5-5.1); Sodium Level 139 mmol/L (136-145)
[2018-04-02 07:37] VITALS: PULSE 70
[2018-04-02 08:01] LABS: Partial Thromboplast Time 51.3 Seconds (24.1-36.2)
--- NOTE | 2018-04-02 09:36 | PN_ITS ---
Subjective: Patient transferred out of the intensive care unit yesterday. No acute issues were reported overnight. Patient has not had any bleeding complications reported. Patient feels her tongue is back to its normal size. General: Alert, Oriented x3, Cooperative, No apparent distress, Well developed, Well nourished, - - Anxious, but speaking in full sentences without stridor or hoarseness. HEENT: Atraumatic, PERRLA, EOMI, Normocephalic, - - No scleral icterus or injection noted. Oral: Moist Mucosa, No Gingival or Mucosal Lesions/ Ulcerations, - - Tongue appears normal. Neck: Supple, No JVD, No Nodes, Trachea Midline Lungs: Clear to auscultation, Normal air movement, No rhonchi, No wheeze, No rales, - - No scleral icterus or injection noted. Cardiovascular: Regular rate, Regular Rhythm, Normal S1, Normal S2, No murmurs, No rub noted, No Gallop Abdomen: Bowel Sounds Present, Soft, Non Tender, Non-Distended Extremities: No clubbing, No cyanosis, No edema, Capillary Refill Less than 3 Seconds Skin: No rashes, No breakdown Musculoskeletal: No Tenderness to Palpation of Joints or Extremities Lymphatic: No Cervical, Supraclavicular, or Inguinal Adenopathy Neurological: Cranial nerves II-XII grossly intact, Neuro grossly intact, Motor Exam 5/5 strength throughout Psych/Mental Status: Alert and oriented to time, place, person, mood and affect Vital Signs Temp Pulse Resp BP Pulse Ox 36.6 C 70 18 116/67 98 04/02/18 04:29 04/02/18 07:37 04/02/18 04:29 04/02/18 04:29 04/02/18 07:35 Oxygen Delivery Method Room Air Weight: 74.5 kg Body Mass Index (BMI) 25.9 Intake and Output for Last 24 Hours 03/31/18 04/01/18 04/02/18 23:59 23:59 23:59 Intake Total 2319.5 / 2319.5 1137.7 / 1137.7 712 / 712 Output Total 600 / 600 400 / 400 500 / 500 Balance 1719.5 / 1719.5 737.7 / 737.7 212 / 212 Labs (Last 48 Hours) 03/31/18 03/31/18 03/31/18 08:50 14:20 19:45 WBC RBC Hgb Hct MCV MCH MCHC RDW RDW Differential Plt Count MPV Immature Gran % (Auto) Neut % (Auto) Lymph % (Auto) [place] % (Auto) Eos % (Auto) Baso % (Auto) Absolute Neuts (auto) Absolute Lymphs (auto) Total Counted PT INR APTT 58.0 H 103.4 H* 57.7 H Sodium Potassium Chloride Carbon Dioxide Anion Gap BUN Creatinine Estim Creat Clear Calc Est GFR (MDRD) Af Amer Est GFR (MDRD) Non-Af BUN/Creatinine Ratio Glucose Calcium Phosphorus Magnesium 04/01/18 04/01/18 04/01/18 01:35 04:10 04:10 WBC 13.6 H RBC 3.40 L Hgb 10.2 L Hct 31.7 L MCV 93.2 MCH 30.0 MCHC 32.2 RDW 14.2 RDW Differential 47.8 H Plt Count 279 MPV 9.3 Immature Gran % (Auto) 0.400 Neut % (Auto) 88.8 H Lymph % (Auto) 7.8 L [place] % (Auto) 2.9 Eos % (Auto) 0.0 Baso % (Auto) 0.1 Absolute Neuts (auto) 12.1 H Absolute Lymphs (auto) 1.06 Total Counted Not Reportable PT 20.9 H INR 1.8 APTT 65.6 H 63.6 H Sodium Potassium Chloride Carbon Dioxide Anion Gap BUN Creatinine Estim Creat Clear Calc Est GFR (MDRD) Af Amer Est GFR (MDRD) Non-Af BUN/Creatinine Ratio Glucose Calcium Phosphorus Magnesium 04/01/18 04/02/18 04/02/18 04:10 07:03 07:05 WBC 13.1 H RBC 3.39 L Hgb 10.1 L Hct 31.9 L MCV 94.1 MCH 29.8 MCHC 31.7 L RDW 14.4 RDW Differential 46.6 H Plt Count 382 MPV 9.0 Immature Gran % (Auto) 0.700 Neut % (Auto) 78.1 H Lymph % (Auto) 12.5 L [place] % (Auto) 8.0 Eos % (Auto) 0.7 Baso % (Auto) 0.0 Absolute Neuts (auto) 10.2 H Absolute Lymphs (auto) 1.64 Total Counted Not Reportable PT 20.4 H INR 1.7 APTT Sodium 142 Potassium 5.0 Chloride 108 H Carbon Dioxide 26.0 Anion Gap 8 BUN 29 H Creatinine 0.76 Estim Creat Clear Calc 48.30 Est GFR (MDRD) Af Amer 96 Est GFR (MDRD) Non-Af 79 BUN/Creatinine Ratio 37.9 H Glucose 136 H Calcium 7.9 L Phosphorus 4.0 Magnesium 2.3 04/02/18 04/02/18 07:05 07:05 WBC RBC Hgb Hct MCV MCH MCHC RDW RDW Differential Plt Count MPV Immature Gran % (Auto) Neut % (Auto) Lymph % (Auto) [place] % (Auto) Eos % (Auto) Baso % (Auto) Absolute Neuts (auto) Absolute Lymphs (auto) Total Counted PT INR APTT 51.3 H Sodium 139 Potassium 4.2 Chloride 106 Carbon Dioxide 26.0 Anion Gap 7 BUN 30 H Creatinine 0.75 Estim Creat Clear Calc 48.30 Est GFR (MDRD) Af Amer 97 Est GFR (MDRD) Non-Af 80 BUN/Creatinine Ratio 39.8 H Glucose 79 Calcium 8.1 L Phosphorus Magnesium Medical Necessity - Tobacco Use Smoking Status: Former smoker Tobacco Use: Cigarettes Assessment/Plan All Active Problems Angioedema (Acute) Osteoma (Acute) Left leg pain (Acute) Atrial fibrillation with RVR (Resolved) RECOMMENDATIONS: 1. Continue Pepcid, Benadryl and steroids for 5 days total 2. Patient should have an EpiPen on discharge. Defer to hospitalist on outpatient allergy evaluation. 3. Hemodynamically stable on room air. Will sign off from a critical care perspective. IMPRESSIONS: 1. Suspected angioedema Unclear etiology at this time. Patient was taken off of [place] inhibitors 3 days prior to swelling. Patient did have exposure to a peanut products just prior to swelling. Unclear if this represents an allergic reaction, but patient did not have any reported hives. Patient should continue on prednisone , Benadryl and Pepcid for 5 days in total. Patient can be discharged from my perspective. 2. Recent aortic valve and mitral valve bioprosthetic placement Patient's INR was subtherapeutic on presentation. Patient remains on heparin drip. Continue with Coumadin with a goal of INR of greater than 2.5. Surgical site appears to be appropriate at this time. No indication for transfer to the patient's surgeon for evaluation. 3. Coronary artery disease status post CABG/A. fib/hypertension/ hyperlipidemia Continue with medical management. Okay to resume baseline medications. 4. Hypothyroidism/depression/reported COPD Complicates care, management, recovery and prognosis. Okay to use aerosols as needed. Code Visit Inpatient E&M: 58902 Subs Hosp L2
[2018-04-02 09:59] VITALS: BP 139/77; PULSE 85; RESP 18; TEMP 36.9; O2SAT 99
[2018-04-02] MEDS: Heparin Injection (Vial) 5,000 UNIT/ML VIAL IV (10:01)
[2018-04-02 10:03] VITALS: PULSE 85
[2018-04-02] MEDS: predniSONE 20 MG Tablet 40 MG PO (10:03)
[2018-04-02] MEDS: Famotidine 20 MG Tablet PO (10:03)
[2018-04-02] MEDS: Metoprolol Tartrate 25 MG Tablet PO (10:03)
[2018-04-02] MEDS: Dofetilide 250 MCG Capsule 500 MCG PO (10:04)
[2018-04-02] MEDS: Venlafaxine XR 37.5 MG Capsule PO (10:04)
[2018-04-02] MEDS: Aspirin 81 MG TAB.CHEW PO (10:05)
--- NOTE | 2018-04-02 10:28 | CASEMGMT ---
Lovenox 80 mg four syringes prescribed. Per [facility] website, this is covered as a Tier 4 drug. Attending notified.
--- NOTE | 2018-04-02 11:00 | PCM.DC ---
- Discharge Diagnoses Current Active Problems: Current Active and Chronic Problems Angioedema (Acute) You will use the following diet at home:: Cardiac Your food should be the consistency of: Regular Call your doctor if you observe: Fever of 101 or Higher, Shortness of breath, Swelling in the ankles, Chest pain Additional Instructions: F/U Dr. Crane, Cardiac surgeon in 2 weeks. Need bridging Lovenox 1 mg/kg body weight until INR is more than 2. Advised by Dr. Crane to keep INR between 2 and 3 Allergies/Adverse Reactions: Allergies sulfamethoxazole Allergy (Verified 03/30/18 16:13) Rash Medications to take at Discharge Levothyroxine [Synthroid] 100 mcg PO DAILY 10/21/15 Venlafaxine HCl [Effexor] 37.5 mg PO DAILY 10/21/15 Warfarin [Coumadin] 5 mg PO DAILY 10/21/15 Albuterol Inhaler [Ventolin Hfa] 1 puff INHALATION Q4H PRN PRN #1 inhaler 09/25/16 Aspirin E.C. [Ecotrin] 81 mg PO DAILY@0800 03/30/18 Atorvastatin Calcium [Lipitor] 10 mg PO QHS 03/30/18 Docusate Sodium [Colace] 100 mg PO BID 03/30/18 Dofetilide [Tikosyn] 500 mcg PO BID 03/30/18 Ipratropium/Albuterol Sulfate [Duoneb] 3 ml INHALATION Q4HWA.RT 03/30/18 Metoprolol Tartrate [Lopressor (beta harpal)] 25 mg PO BID 03/30/18 Multivit with Calcium,Iron,Min [Multiple Vitamins For Women] 1 tab PO DAILY 03/30/18 Oxycodone HCl/Acetaminophen [Percocet 5-325] 1 tablet PO Q6H PRN PRN 03/30/18 Polyethylene Glycol 3350 [[id number]] 510 gm PO DAILY 03/30/18 DiphenhydrAMINE [Benadryl] 50 mg PO Q6 capsule 04/02/18 Enoxaparin Sodium [Lovenox] 80 mg SQ BID #4 syringe 04/02/18 Famotidine [Pepcid] 20 mg PO BID tablet 04/02/18 Prednisone 40 mg PO DAILY #2 tab 04/02/18 The following prescriptions were given: Prednisone 40 mg PO DAILY #2 tab Enoxaparin Sodium [Lovenox] 80 mg SQ BID #4 syringe Primary Care Physician: Michael Dallas MD [Primary Care Provider] - Please follow up with your Primary Care Physician in: in 1-2 weeks Test Results: Test results from this visit will be discussed in further detail at your follow-up appointment, if applicable.
--- NOTE | 2018-04-02 13:15 | DCINST_ITS ---
- Discharge Diagnoses Current Active Problems: Current Active and Chronic Problems Angioedema (Acute) You will use the following diet at home:: Cardiac Your food should be the consistency of: Regular Call your doctor if you observe: Fever of 101 or Higher, Shortness of breath, Swelling in the ankles, Chest pain Additional Instructions: F/U Dr. Crane, Cardiac surgeon in 2 weeks. Need bridging Lovenox 1 mg/kg body weight until INR is more than 2. Advised by Dr. Crane to keep INR between 2 and 3 Allergies/Adverse Reactions: Allergies sulfamethoxazole Allergy (Verified 03/30/18 16:13) Rash Medications to take at Discharge Levothyroxine [Synthroid] 100 mcg PO DAILY 10/21/15 Venlafaxine HCl [Effexor] 37.5 mg PO DAILY 10/21/15 Warfarin [Coumadin] 5 mg PO DAILY 10/21/15 Albuterol Inhaler [Ventolin Hfa] 1 puff INHALATION Q4H PRN PRN #1 inhaler Aspirin E.C. [Ecotrin] 81 mg PO DAILY@0800 03/30/18 Atorvastatin Calcium [Lipitor] 10 mg PO QHS 03/30/18 Docusate Sodium [Colace] 100 mg PO BID 03/30/18 Dofetilide [Tikosyn] 500 mcg PO BID 03/30/18 Ipratropium/Albuterol Sulfate [Duoneb] 3 ml INHALATION Q4HWA.RT 03/30/18 Metoprolol Tartrate [Lopressor (beta harpal)] 25 mg PO BID 03/30/18 Multivit with Calcium,Iron,Min [Multiple Vitamins For Women] 1 tab PO DAILY 12/10 Oxycodone HCl/Acetaminophen [Percocet 5-325] 1 tablet PO Q6H PRN PRN 03/30/18 Polyethylene Glycol 3350 [[id number]] 510 gm PO DAILY 03/30/18 DiphenhydrAMINE [Benadryl] 50 mg PO Q6 capsule 04/02/18 Enoxaparin Sodium [Lovenox] 80 mg SQ BID #4 syringe 04/02/18 Famotidine [Pepcid] 20 mg PO BID tablet 04/02/18 Prednisone 40 mg PO DAILY #2 tab 04/02/18 The following prescriptions were given: Prednisone 40 mg PO DAILY #2 tab Enoxaparin Sodium [Lovenox] 80 mg SQ BID #4 syringe Primary Care Physician: Michael Dallas MD [Primary Care Provider] - Please follow up with your Primary Care Physician in: in 1-2 weeks Test Results: Test results from this visit will be discussed in further detail at your follow- up appointment, if applicable.
--- NOTE | 2018-04-02 13:15 | PCM.DC.SUM ---
Discharge Date and Diagnosis - Problem List Patient Problems: Active and Suspected Problems Angioedema (Acute) Date of Admission: 03/30/18 Date of Discharge: 04/02/18 - Primary Discharge Diagnosis Active and Suspected Problems Angioedema (Acute) 1. Airway edema with angioedema, exact etiology unclear, possible lisinopril OR peanuts: The patient was intubated for airway protection. 2. Cardiac conditions: persistent A. fib mitral stenosis with regurgitation and aortic stenosis with recent surgery bioprosthetic aortic valve replacement, bioprosthetic mitral valve replacement, maze procedure left atrial appendage ligation and tricuspid valve repair pacemaker on March 14, 2018. - Secondary Discharge Diagnosis Chronic Problems Atrial fibrillation (Chronic) Valvular heart disease (Chronic) Hypothyroidism (Chronic) Acute CHF (Chronic) Mitral stenosis (Chronic) Hospital Course and Treatment Operations: None Summary of Care Provided: [] This 72-year-old female with history of persistent A. fib, mitral stenosis with regurgitation and aortic stenosis with recent surgery bioprosthetic aortic valve replacement, MVR, maze procedure left atrial appendage ligation and tricuspid valve repair pacemaker on March 14, 2018 was admitted after she had tongue and airway swelling which led to intubation in ER for airway protection. Patient denies history of failure to eat more. Occasions reviewed there was question of lisinopril causing angioedema but she has been on lisinopril for long time and her cardiac surgeon Dr. Crane does not think lisinopril being the culprit. She is on Tikosyn metoprolol, aspirin, Effexor and Coumadin as per home medications. Patient was seen and examined today General: Alert, Oriented x3, Cooperative HEENT: Atraumatic, PERRLA, EOMI, Normocephalic Neck: Supple, No JVD, Negative Carotid Bruits Lungs: Normal air movement, No Wheezes/rales or rhonchi Cardiovascular: Regular rate, Regular Rhythm, Normal S1, Normal S2, No murmurs, - Open heart surgery scar healing well Abdomen: Bowel Sounds Present, Soft, Non Tender, Non-Distended Extremities: No edema, Capillary Refill Less than 3 Seconds Skin: No rashes, No breakdown Musculoskeletal: No Tenderness to Palpation of Joints or Extremities Neurological: Cranial nerves II-XII grossly intact Psych/Mental Status: Normal Affect, Appropriate 1. Airway edema suggestive of angioedema, exact etiology unclear, possible lisinopril OR peanuts: The patient is extubated. Welfare Administrator on board. On IV Solu-Medrol 40 mg every 6 hourly. Continue Pepcid and Benadryl for complete H1 and H2 blockage. Medications was changed to oral prednisone yesterday. Patient was recommended 2 more days of prednisone 40 mg daily, Benadryl and Pepcid. Prescription sent to [facility] pharmacy. EpiPen prescription also sent to pharmacy. 2. Cardiac conditions: persistent A. fib mitral stenosis with regurgitation and aortic stenosis with recent surgery bioprosthetic aortic valve replacement, bioprosthetic mitral valve replacement, maze procedure left atrial appendage ligation and tricuspid valve repair pacemaker on March 14, 2018. Continue the cardiac medications as listed above including Tikosyn, metoprolol, aspirin and Coumadin. On bridging IV heparin has INR is subtherapeutic. INR remains subtherapeutic 1.7. Extra 3 mg Coumadin dose given in the morning. Patient discharged on Lovenox 80 mg every 12 hourly, total 5 syringes along with Coumadin 5 mg. Follow-up INR on Wednesday and check with PCP to titrate THE dose of Coumadin. 3. Hypothyroidism: Synthroid. 4. Other comorbidities include COPD and depression: On DuoNeb and albuterol as needed. Continue Effexor. DVT prophylaxis: On IV heparin drip and Coumadin Discharge medication reconciliation done. Discharge follow-up instructions completed. Total time spent, exact 35 minutes on discharge meds reconciliation, examination, review of blood test and discussion with the patient and her on follow-up instructions with the PCP and cardiac surgeon. Need to check INR and titrate the dose of Coumadin was emphasized to the patient. Call your doctor if you observe: Fever of 101 or Higher, Shortness of breath, Swelling in the ankles, Chest pain Home Medications: Medications to take at Discharge Levothyroxine [Synthroid] 100 mcg PO DAILY 10/21/15 Venlafaxine HCl [Effexor] 37.5 mg PO DAILY 10/21/15 Warfarin [Coumadin] 5 mg PO DAILY 10/21/15 Albuterol Inhaler [Ventolin Hfa] 1 puff INHALATION Q4H PRN PRN #1 inhaler 09/25/16 Aspirin E.C. [Ecotrin] 81 mg PO DAILY@0800 03/30/18 Atorvastatin Calcium [Lipitor] 10 mg PO QHS 03/30/18 Docusate Sodium [Colace] 100 mg PO BID 03/30/18 Dofetilide [Tikosyn] 500 mcg PO BID 03/30/18 Ipratropium/Albuterol Sulfate [Duoneb] 3 ml INHALATION Q4HWA.RT 03/30/18 Metoprolol Tartrate [Lopressor (beta harpal)] 25 mg PO BID 03/30/18 Multivit with Calcium,Iron,Min [Multiple Vitamins For Women] 1 tab PO DAILY 03/30/18 Oxycodone HCl/Acetaminophen [Percocet 5-325] 1 tablet PO Q6H PRN PRN 03/30/18 Polyethylene Glycol 3350 [[id number]] 510 gm PO DAILY 03/30/18 DiphenhydrAMINE [Benadryl] 50 mg PO Q6 capsule 04/02/18 Enoxaparin Sodium [Lovenox] 80 mg SQ BID #4 syringe 04/02/18 Epinephrine [Epi Pen] 0.3 mg IM X1 #10 syringe 04/02/18 Famotidine [Pepcid] 20 mg PO BID tablet 04/02/18 Prednisone 40 mg PO DAILY #4 tab 04/02/18 Following Prescrptions Were Given to Patient: Epinephrine [Epi Pen] 0.3 mg IM X1 #10 syringe Prednisone 40 mg PO DAILY #4 tab Enoxaparin Sodium [Lovenox] 80 mg SQ BID #4 syringe Primary Care Physician: Michael Dallas MD [Primary Care Provider] - Please follow up with your Primary Care Physician in: in 1-2 weeks Medical Necessity - Tobacco Use Smoking Status: Former smoker Tobacco Use: Cigarettes Meaningful Use Info Meaningful Use Diagnoses (Choose all that apply): None applicable Code Visit Inpatient E&M: 66786 Disch Hosp
[2018-04-02 14:50] VITALS: BP 115/71; PULSE 64; RESP 18; TEMP 36.7; O2SAT 99
--- NOTE | 2018-04-04 14:34 | CASEMGMT ---
DANDY CHASE DC Phone call. DC DATE: 04/02/18 Disposition: home STRATA 3 Intro role of CM to patient via phone. Discussed Dc instructions, prescriptions, f/u. Pt states appt has been made and she does not have questions. DANDY CHASE asked if there were any suggestions for improving care and pt related an experience in ER. DANDY CHASE assured her information would be given to appropriate person. No further questions per pt. Mindy WEN RN ACM
== END 2018-04-02 16:06 | disposition home or self-care (01) | DRG 916 ==
LOC: ED 16:23 → ICU 16:33 → MS3 04-01 15:08
PROVIDERS: Emergency Medicine; Internal Medicine Critical Care Medicine; Admitting Provider Family Medicine; Emergency Provider Emergency Medicine; Family Provider Family Medicine; PCP Family Medicine; Visit Provider Internal Medicine
DX: T78.3XXA Angioneurotic edema, initial encounter (principal); I48.1 Persistent atrial fibrillation; E03.9 Hypothyroidism, unspecified; I25.10 Atherosclerotic heart disease of native coronary artery without angina pectoris; Z95.1 Presence of aortocoronary bypass graft; Z87.891 Personal history of nicotine dependence; Z95.3 Presence of xenogenic heart valve; Z95.0 Presence of cardiac pacemaker; J44.9 Chronic obstructive pulmonary disease, unspecified; F32.9 Major depressive disorder, single episode, unspecified; Z79.01 Long term (current) use of anticoagulants; I10 Essential (primary) hypertension
CPT/HCPCS: 31500; 31720; 36415; 51702; 71045; 80048; 83735; 84100; 85025; 85027; 85610; 85730; 87641; 93005; 94002; 94003; 94640; 94660; 95831; 97116; 97162; 97166; 97530; 97535; 97802; 99251; 99285; J7030; J7040; J7120; A4216; G0463

== ENCOUNTER → 2018-06-21 09:29 | Outpatient (CLI) | payer BC, SELFPAY ==
--- NOTE | 2018-06-21 10:36 | PCM.CR.HP2 ---
CR - History & Physical - General Arrival date:: 06/21/18 Arrival time:: 09:30 Date of Referral:: 06/21/18 Date of CR Evaluation:: 06/21/18 Referring Physician: COLE TODD Primary Diagnosis: 2 VALVES REPLACED, ONE VALVE REPARED AND 'TWEAKED THE ABLATION' - History of Present Cardiac Event Onset Date: Enter Onset Date of cardiac illnesses in Comment field below Current stable Angina Pectoris:: No Acute Myocardial Infarction within 12 months:: No Coronary Artery Bypass Graft:: No Heart valve replacement or repair:: Yes - Feb, AVR AND TRICUSPID REPAIR PTCA or coronary stenting:: No Heart or Heart-Lung Transplant:: No Heart Failure EF <35%:: No Were there any complications?: 'ALLERGIC REACTION' NOT SURE OF CAUSE, 3 DAYS AFTER VALVE REPAIR - Medications Home Medications: Ambulatory Orders Medication Instructions Recorded Levothyroxine [Synthroid] 100 mcg PO DAILY 10/21/15 Venlafaxine HCl [Effexor] 37.5 mg PO DAILY 10/21/15 Warfarin [Coumadin] 5 mg PO DAILY 10/21/15 Albuterol Inhaler [Ventolin Hfa] 1 puff INHALATION Q4H PRN PRN #1 09/25/16 inhaler Aspirin E.C. [Ecotrin] 81 mg PO DAILY@0800 03/30/18 Atorvastatin Calcium [Lipitor] 10 mg PO QHS 03/30/18 Docusate Sodium [Colace] 100 mg PO BID 03/30/18 Dofetilide [Tikosyn] 500 mcg PO BID 03/30/18 Ipratropium/Albuterol Sulfate 3 ml INHALATION Q4HWA.RT 03/30/18 [Duoneb] Metoprolol Tartrate [Lopressor 25 mg PO BID 03/30/18 (beta harpal)] Multivit with Calcium,Iron,Min 1 tab PO DAILY 03/30/18 [Multiple Vitamins For Women] Oxycodone HCl/Acetaminophen 1 tab PO Q6H PRN PRN 03/30/18 [Percocet 5-325] Polyethylene Glycol 3350 510 gm PO DAILY 03/30/18 DiphenhydrAMINE [Benadryl] 50 mg PO Q6 cap 04/02/18 Enoxaparin Sodium [Lovenox] 80 mg SQ BID #4 syringe 04/02/18 Epinephrine [Epi Pen] 0.3 mg IM X1 #10 syringe 04/02/18 Famotidine [Pepcid] 20 mg PO BID tab 04/02/18 - Allergies Allergies/Adverse Reactions: Allergies sulfamethoxazole Allergy (Verified 05/26/18 06:56) Rash oxycodone Adverse Reaction (Verified 06/21/18 10:43) Swelling - Sleep Disorder Evaluation Hx of Sleep Apnea: No Do you snore loudly (louder than talking or can be heard through closed doors)?: No Do you often feel tired/ fatigued/ sleepy during daytime?: Yes Has anyone observed you stop breathing during sleep?: No History of Hypertension (for STOP score): No STOP Results: Negative Advanced Directives - Advanced Directives Power of Toucher Up: No Living Will: No Advance Directives Information Provided: No Advance Directives on File: No DNR Order?:: No Additional Comments:: PT STATES SHE HAS FORMS AT HOME. ENCOURAGED TO LOOK OVER, FILL OUT AND BRING COPY TO [facility] MEDICAL RECORDS. Past Medical History - Past Medical Illness Medical History: Past Medical History (Last Updated 06/21/18 @ 10:46 by Renee Hogan, DANDY) Wheezing (Acute) R06.2 Dyspnea (Acute) R06.00 Angioedema (Acute) T78.3XXA Osteoma (Acute) D16.9 Left leg pain (Acute) M79.605 Atrial fibrillation (Chronic) I48.91 Valvular heart disease (Chronic) Hypothyroidism (Chronic) E03.9 Atrial fibrillation with RVR (Resolved) I48.91 Acute CHF (Chronic) I50.9 Respiratory distress (Inactive) R06.00 Pneumonia (Inactive) J18.9 Acute respiratory insufficiency (Inactive) R06.89 Mitral stenosis (Chronic) I05.0 Pacemaker Z95.0 - Past Surgical History Surgical History: Past Surgical History (Last Updated 06/21/18 @ 10:46 by Renee Hogan RN) H/O thyroidectomy Z98.890 Surgical History: no surgical history, - - Family History Summary Family History: Family History (Last Reviewed 05/26/18 @ 06:55 by Shonna Birmingham) Mother Liver disease Alcohol abuse Lung disease Social History - Smoking History Smoking Status: Former smoker Years Smokin Packs Smoked per Day: 1 - LESS THAN 1 PPD - Alcohol Use Alcohol Usage: No - Substance Abuse Hx Substance Use: No - Occupation Occupation (List type of work in comments):: Retired - Hobbies, Recreation, Social Activities Hobbies: Other - STATES SHE HAD 7 DOGS THAT SHE TAKES CARE OF Recreational Activities: I am able to engage in all my recreational activities Social Environment - Status Marital Status: - Current Living Arrangements Living Environment:: Spouse - Children How many children do you have?: 2 Do any of your children live nearby?: Yes - ONE CHILD LIVES AT HOME IN [place] - Safety Do you feel safe in your surroundings?: Yes Review of Systems - Review of Systems Hints: Right click = Denies ([place]ash). Left click = Reports ([place]) Review of Present Symptoms: Reports: Shortness of Breath with Exertion - PT FEELS LIKE SHE HAS TO REST AFTER ACTIVIES., PVD - HX OF A FIB AND BLOOD CLOTS IN LEG AND ARM., Fatigue - PREVIOUSLY MENTIONED, Heart Arrhythmia/Irregularities - HAD ABLATION AND 'TWEAK' OF ABLATION, ALSO CURRENTLY TAKES DOFETILLDE, Sleep - Normal, Sexual Changes. Denies: Shortness of Breath at Rest, Operative Discomfort, Angina, Wound Healing, Dizziness/Lightheadedness, Appetite - Normal, Appetite - Special Diet - Pain Is Patient Pain Free?: No Pain Location: chest - INCISIONAL DISCOMFORT Pain Level: 10 Risk Factor Assessment - Vital Signs Temperature: 98.6 F Respiratory Rate: 16 Pulse Ox: 94 Blood Pressure: 144/88 - Pulse Pulse Rate: 74 Pulse Rhythm: Regular - Diabetes Nutrition Referral for Diabetes: No - Obesity Height: 1.7 m - 67 IN Weight:: 69.672 kg Weight in Pounds: 153.6 lbs Weight Source: Stated by Patient Body Mass Index (BMI): 24.0 Nutritional Referral for Obesity: No - Physical Inactivity Physical Inactivity: Reg Exercise 30 min/day - HAS BEEN DOING SOME TEADMILL, 15-20 MIN AT HOME. - Risk Stratification Risk Guidelines: Lowest Risk: Risk Factor for Smoking, Risk Factor for Dyslipidemia, Risk Factor for Diabetes, Risk Factor for Obesity, Risk Factor for Hypertension, Risk Factor for Sedentary Lifestyle, Risk Factor for Depression - For Smoking Smoking Risk Guidelines: Smoking Low Risk: None or quit greater than 6 months ago. Smoking Moderate Risk: Smoker or quit 6 months or less ago. Smoking High Risk: Smoker - For Dyslipidemia Dyslipidemia Risk Guidelines: Low Risk: Moderate Risk: High Risk: 15-25% fat 25.1-29% fat >/= 30% fat. <7% sat fat 7-9% sat fat >9% sat fat. <150 mg chol 150-299 mg chol >/= 300 mg chol. LDL <100 LDL 100-129 LDL >/= 130. Chol/HDL ratio <5.0 Chol/HDL ratio 5.0-6.0 Chol/HDL ratio >6.0. Triglycerides <100 Triglycerides 100-149 Triglycerides >/= 150 - For Diabetes Mellitus Diabetes Risk Guidelines: Diabetes Low Risk: HgA1c <6.5% and/or FBG <120. Diabetes Moderate Risk: HgA1c 6.6-7.9% and/or FBG 120-180. Diabetes High Risk: HgA1c >/= 8% and/or FBG >180 - For Obesity/Overweight Obesity/Overweight Risk Guidelines: Obesity Low Risk: BMI <25.0. Obesity Moderate Risk: BMI 25-29.9. Obesity High Risk: BMI >/= 30.0 - For Hypertension Hypertension Risk Guidelines: Hypertension Low Risk: Systolic <120 and Diastolic <80. Hypertension Moderate Risk: Systolic 120-139 and Diastolic 80-89. Hypertension High Risk: Systolic >/= 140 and Diastolic >/= 90 - For Sedentary Lifestyle Sedentary Lifestyle Risk Guidelines: Sedentary Lifestyle Low Risk: >/= 1,500 kcal/week. Sedentary Lifestyle Moderate Risk: 700-1,499 kcal/week. Sedentary Lifestyle High Risk: < 700 kcal/week - For Depression Depression Risk Guidelines: Depression Low Risk: Not clinically depressed. Depression Moderate Risk: Mildly depressed. Depression High Risk: Clinically depressed - Family History Family History: Family History (Last Reviewed 05/26/18 @ 06:55 by Shonna [place]) Mother Liver disease Alcohol abuse Lung disease Motivation - Motivation to Participate On a scale of 1 to 10, how prepared are you to commit to attending program?: 10 What do you see as barriers to successfully being able to complete the program?: NONE What do you see as the benefits of succesfully completing the program? In other words, what do you hope to get out of participating in the program?: HOPEFULLY MORE ENERGY AND STAMINA Are there issues you are dealing with that will interfere with completing the program?: NONE Do you have a spouse or signficant other, family or friends who will help support you to complete the program?: SPOUSE
[2018-06-21 11:04] VITALS: BP 144/88; PULSE 74; RESP 16; TEMP 37; O2SAT 94; BMI 24.0
--- NOTE | 2018-06-21 11:48 | PCM.CR.ITP ---
General Information - General Information Admitting Diagnosis: AVR AND TRICUSPID VALVE REPAIR Special Needs: NONE - Education/Goals Barriers to Learning: None Individual Counseling: Initial Assessment: High Blood Pressure Cardiac Rehabilitation Goals: 1. Maintain the individual as the primary focus of care. 2. To improve the patient's quality of life. 3. Identification of cardiac risk factors and provide cardiac risk factor management. 4. Enhance the psychosocial status of the patient. 5. Reconditioning enough to allow the patient to resume customary activities. 6. Control symptoms of cardiac disease Scale for measuring improvement of personal goals: Enter appropriate number in Comments. 2 = Unchanged. 3 = Slightly Better. 4 = Moderate Improvement. 5 = Met my Goal Personal Goals: Initial Assessment: Improve energy level, Participate in home exercise program, Improve muscle strength and endurance Exercise - Initial Assessment - Visit Date of Eval: 06/21/18 - START 06/24/18 - Stages of Change Stages of Change:: Action - Exercise Prescription Mode:: Treadmill, Biodyne, Airdyne, NuStep, Arm Ergometer Angina with exercise?: No Target Heart Rate:: 104-111 - Hypertension Do any of the following apply?: Yes, Medication Resting Blood Pressure:: 144/88 - Intervention Home Exercise/Activity Goal:: Moderate Exercise 30 min/day x 5 days/wk - Education Goals:: Warm-up, RPE KVNG Scale, S/S, Safe Exercise, Self-Monitoring - Exercise Program Goals Exercise Program Goals: Aerobic Activity >30 min Nutrition - Initial Assessment - Program Goals Nutrition Program Goals: LDL <70. Total Cholesterol <200. HDL >45. Triglycerides <150. HgbA1C <7%. BMI <25 - Visit Date of Assessment:: 06/21/18 - Stages of Change Stages of Change:: Action - Diabetes Diabetes:: No - Weight Management Height: 5 ft 7 in Weight:: 153 lb 9.6 oz - Intervention Referral to dietitian:: No Referral to Diabetic Clinic:: No - Education Gave educational materials for:: Healthy eating Tobacco - Initial Assessment - Program Goals Tobacco Program Goals: Complete smoking cessation. Attend education classes. Improve Knowledge Test score - Stage of Change Stages of Change:: Action - Learning Barriers Learning Barriers: Ready to Learn - Family Support Do you have family support?: Yes - Tobacco Use Tobacco Use: Non-smoker Do you use smokeless tobacco?: No - Intervention Smoking Cessation Referral:: No Education Schedule Given:: Yes - Education Gave educational material for:: Coronary artery disease, Risk factors, Sexuality, Medical compliance, Cardiac A&P, Angina signs & symptoms Psychosocial - Initial Assess - Target Goals Target Goals: Assess presence or absence of depression. Using a valid screening tool, maximizes coping skills. Positive support system - Stages of Change Stages of Change:: Action - Psychosocial Test Tool Used:: HANDS Depression Questionnaire - Intervention PS - Interventions: Yes Attend Stress Management Classes, No Referral to Mental Health, No Referral to [facility] Case Management, No Referral to Physician, No Uses Stress Management Skills - Education Gave educational materials for:: Coping techniques, Signs & symptoms of depression, Stress management, Relaxation techniques - Patient/Program Goal Preventative Medication(s):: Aspirin, Beta harpal - Assistive Devices Assistive Devices:: None Fall Risk Assessed:: No Patient Health Questionnaire Initial Assessment 1. Little interest or pleasure in doing things: Not at all 2. Feeling down, depressed, or hopeless: Not at all 3. Trouble falling or staying asleep, or sleeping too much: Nearly every day 4. Feeling tired or having little energy: Several days 5. Poor appetite or overeating: Not at all 6. Feeling bad about yourself -- or that you are a failure or have let yourself or your family down: Not at all 7. Trouble concentrating on things, such as reading the newspaper or watching television: Not at all 8. Moving or speaking so slowly that other people could have noticed. Or the opposite - being so fidgety or restless that you have been moving around a lot more than usual: Not at all 9. Thoughts that you would be better off , or of hurting yourself in some way: Not at all Total Score: 4 TROY-Q SV Test - Statements CAD is a disease of the arteries in the heart: False Examples of risk factors for heart disease: True Angina is chest pain or discomfort: True The benefits of resistance training include: True Eating more meat and dairy products: False Anti-platelet medications such as aspirin are important: True The only effective way to manage stress: False An exercise warm-up slowly increases heart rate: True Prepared, processed foods usually have high sodium: True Depression is common after a heart attack: True The statin medications lower cholesterol: I Don't Know To control blood pressure, lower the amount of sodium: True If someone gets chest discomfort during walking: False Transfats are partially hydrogenated vegetable oils: True Sleep apnea that is not treated increases the risk: False To control cholesterol, one should become a vegetarian: False Someone knows if he/she is exercising at the right level: True Diabetes cannot be prevented with exercise & health eating: False Stress is a large risk for heart attack: I Don't Know A diet that can help lower blood pressure is rich in: True - Total Score Total Correct Responses: 18 Self-Efficacy Initial Assessment We would like to know how confident you are in doing certain activities. Please select your confidence level for:: Select your confidence level for the following using the scale 1-10 where 1 is not at all confident and 10 is totally confident. Your score is the average of all 6 responses. Fatigue: How confident are you that you can keep the fatigue caused by your disease from interfering with the things you want to do? Select Number: 8 Physical Discomfort or Pain: How confident are you that you can keep the physical discomfort or pain of your disease from interfering with the things you want to do? Select Number: 9 Emotional Distress: How confident are you that you can keep the emotional distress caused by your disease from interfering with the things you want to do? Select Number: 10 Other Symptoms or Health Problems: How confident are you that you can keep other symptoms or health problems from interfering with the things you want to do? Select Number: 9 Different Tasks and Activities: How confident are you that you can do the different tasks and activities needed to manage your health condition so as to reduce your need to see a doctor? Select Number: 9 Medication: How confident are you that you can do things other than just taking medication to reduce how much your illness affects your everyday life? Select Number: 10 Total Score:: 9 Nutrition Survey - Nutrition Survey Instructions Scoring Instructions: Scoring is as follows: Yes = 1 points. No = 0 point. Patient score that is >/=12 is considered to be at potential nutritional risk and could benefit from a referral to a registered dietitian. - Nutrition Survey Initial Have you lost >10 lbs over the past 2 months without trying?: No Are you following a special diet at home for diabetes, low fat, or low salt?: No Are you interested in meeting with a dietitian for help understanding your diet?: No Do you eat less than 3 meals a day?: Yes Do you eat fatty meats (kim, sausage, ribs, etc), fried foods, desserts, large amounts of salad dressings, margarine, butter, or cheese most days?: No Do you have food allergies? [Enter types in comment field]: No Do you eat in restaurants more than 3 times a week?: No Do you season food with salt, seasoning salt, or garlic salt?: No Do you used canned, boxed, frozen meals, or soups, seasoning packets?: No Total Score:: 1
[2018-06-21 12:03] VITALS: BP 144/88
--- OUTSIDE RECORDS SUMMARY | 2018-08-02 23:27 | XMS RPT_ITS ---
:1945 Author Organization [facility] Support Name Relationship Address Phone MOSHE THAKUR Unavailable Unavailable + MARIUM HALL Unavailable Unavailable + LYN FARRELL Unavailable Unavailable + R Unavailable Unavailable Unavailable BUDALEJOMELISSA Unavailable [address] [facility] + [place] [address] R Unavailable Unavailable Unavailable BUDALEJOMELISSA Unavailable [address] [facility] + [place] [address] R Unavailable Unavailable Unavailable MELISSA FARRELL Unavailable [address] + [place] [address] MOSHE THAKUR Unavailable Unavailable + MARIUM HALL Unavailable Unavailable + LYN FARRELL Unavailable Unavailable + R Unavailable Unavailable Unavailable BUDALEJOMELISSA Unavailable [address] + [place] [address] MOSHE THAKUR Unavailable Unavailable + MARIUM HALL Unavailable Unavailable + LNY FARRELL Unavailable Unavailable + R Unavailable Unavailable Unavailable BUDALEJOMELISSA Unavailable [address] + [place] [address] MOSHE THAKUR Unavailable Unavailable + MARIUM HALL Unavailable Unavailable + LYN FARRELL Unavailable Unavailable + R Unavailable Unavailable Unavailable MELISSA FARRELL Unavailable [address] + [place] [address] MOSHE THAKUR Unavailable Unavailable + MARIUM HALL Unavailable Unavailable + LYN FARRELL Unavailable Unavailable + OFE, MOSHE Unavailable Unavailable + DEEPAK MARIUM Unavailable Unavailable + LYN FARRELL Unavailable Unavailable + OFE, MOSHE Unavailable Unavailable + DEEPAKMARIUM Unavailable Unavailable + LYN FARRELL Unavailable Unavailable + OFE, MOSHE Unavailable Unavailable + DEEPAKMARIUM Unavailable Unavailable + LYN FARRELL Unavailable Unavailable + OFE, MOSHE Unavailable Unavailable + DEEPAK MARIUM Unavailable Unavailable + LYN FARRELL Unavailable Unavailable + OFE, MOSHE Unavailable Unavailable + MARIUM HALL Unavailable Unavailable + LYN FARRELL Unavailable Unavailable + OFE, MOSHE Unavailable Unavailable + DEEPAK MARIUM Unavailable Unavailable + LYN FARRELL Unavailable Unavailable + OFE, MOSHE Unavailable Unavailable + DEEPAK MARIUM Unavailable Unavailable + LYN FARRELL Unavailable Unavailable + OFE, MOSHE Unavailable Unavailable + MARIUM HALL Unavailable Unavailable + LYN FARRELL Unavailable Unavailable + OFE, MOSHE Unavailable Unavailable + MARIUM HALL Unavailable Unavailable + BUDLYN Unavailable Unavailable + R Unavailable Unavailable Unavailable MELISSA FARRELL Unavailable [address] + [place] [address] R Unavailable Unavailable Unavailable MELISSA FARRELL Unavailable [address] + [place] [address] R Unavailable Unavailable Unavailable MELISSA FARRELL Unavailable [address] + [place] [address] R Unavailable Unavailable Unavailable BUDMELISSA LAMBERT Unavailable [address] + [place] [address] R Unavailable Unavailable Unavailable BUDMELISSA LAMBERT Unavailable [address] + [place] [address] R Unavailable Unavailable Unavailable BUDMELISSA LAMBERT Unavailable [address] + [place] [address] OFE, MOSHE Unavailable Unavailable + MARIUM HALL Unavailable Unavailable + BUDLYN Unavailable Unavailable + OFE, MOSHE Unavailable Unavailable + MARIUM HALL Unavailable Unavailable + BUD LYN Unavailable Unavailable + OFE, MOSHE Unavailable Unavailable + MARIUM HALL Unavailable Unavailable + LYN FARRELL Unavailable Unavailable + OFE, MOSHE Unavailable Unavailable + MARIUM HALL Unavailable Unavailable + LYN FARRELL Unavailable Unavailable + CLIFFFORD, MOSHE Unavailable Unavailable + MARIUM HALL Unavailable Unavailable + BUDSIDDHARTHAE Unavailable Unavailable + CLIFFFORD, MOSHE Unavailable Unavailable + MARIUM HALL Unavailable Unavailable + BUD LYN Unavailable Unavailable + CLIFFFORD, MOSHE Unavailable Unavailable + MARIUM HALL Unavailable Unavailable + LYN FARRELL Unavailable Unavailable + CLIFFFORD, MOSHE Unavailable Unavailable + MARIUM HALL Unavailable Unavailable + BUD LYN Unavailable Unavailable + CLIFFFORD, MOSHE Unavailable Unavailable + MARIUM HALL Unavailable Unavailable + LYN FARRELL Unavailable Unavailable + CLIFFFORD, MOSHE Unavailable Unavailable + MARIUM HALL Unavailable Unavailable + LYN FARRELL Unavailable Unavailable + CLIFFFORD, MOSHE Unavailable Unavailable + MARIUM HALL Unavailable Unavailable + LYN FARRELL Unavailable Unavailable + CLIFFFORD, MOSHE Unavailable Unavailable + MARIUM HALL Unavailable Unavailable + LYN FARRELL Unavailable Unavailable + CLIFFFORD, MOSHE Unavailable Unavailable + MARIUM HALL Unavailable Unavailable + LYN FARRELL Unavailable Unavailable + CLIFFFORD, MOSHE Unavailable Unavailable + MARIUM HALL Unavailable Unavailable + LYN FARRELL Unavailable Unavailable + CLIFFFORD, MOSHE Unavailable Unavailable + MARIUM HALL Unavailable Unavailable + LYN FARRELL Unavailable Unavailable + CLIFFFORD, MOSHE Unavailable Unavailable + MARIUM HALL Unavailable Unavailable + LYN FARRELL Unavailable Unavailable + CLIFFFORD, MOSHE Unavailable Unavailable + MARIUM HALL Unavailable Unavailable + LYN FARRELL Unavailable Unavailable + CLIFFFORD, MOSHE Unavailable Unavailable + MARIUM HALL Unavailable Unavailable + SIDDHARTHA FARRELLE Unavailable Unavailable + CLIFFFORD, MOSHE Unavailable Unavailable + MARIUM HALL Unavailable Unavailable + BUDLYN Unavailable Unavailable + CLIFFFORD, MOSHE Unavailable Unavailable + MARIUM HALL Unavailable Unavailable + LYN FARRELL Unavailable Unavailable + CLVARUN MOSHE Unavailable Unavailable + MARIUM HALL Unavailable Unavailable + LYN FARRELL Unavailable Unavailable + CLVARUN MOSHE Unavailable Unavailable + DEEPAK MARIUM Unavailable Unavailable + LYN FARRELL Unavailable Unavailable + R Unavailable Unavailable Unavailable MELISSA FARRELL Unavailable [address] + [place] [address] CLVARUN MOSHE Unavailable Unavailable + DEEPAK MARIUM Unavailable Unavailable + LYN FARRELL Unavailable Unavailable + NICCI MOSHE Unavailable Unavailable + DEEPAK MARIUM Unavailable Unavailable + LYN FARRELL Unavailable Unavailable + MOSHE GRAJEDA Unavailable Unavailable + DEEPAK MARIUM Unavailable Unavailable + LYN FARRELL Unavailable Unavailable + NICCI MOSHE Unavailable Unavailable + DEEPAK MARIUM Unavailable Unavailable + LYN FARRELL Unavailable Unavailable + CLVARUN MOSHE Unavailable Unavailable + DEEPAK MARIUM Unavailable Unavailable + LYN FARRELL Unavailable Unavailable + Care Team Providers Name Role Phone Michael Dallas Attending Unavailable Michael Dallas Primary Care Unavailable Michael Dallas Primary Care Unavailable Melvin Paige Admitting Unavailable Mario Wallace Consulting Unavailable Rell Jackson Attending Unavailable Melvin Paige Admitting Unavailable Melvin Paige Attending Unavailable Michael Dallas Primary Care Unavailable Mario Wallace Consulting Unavailable Melvin Paige Consulting Unavailable Melvin Paige Admitting Unavailable Rell Jackson Attending Unavailable Michael Dallas Primary Care Unavailable Mario Wallace Consulting Unavailable Manuel, Rell Consulting Unavailable Kotsonis, Melvin F Admitting Unavailable Manuel, Rell Attending Unavailable Burt, Michael Primary Care Unavailable Mario Wallace Consulting Unavailable Manuel, Rell Consulting Unavailable Rodrigo, Mario Attending Unavailable Kotsonis, Melvin F Referring Unavailable Rodrigo, Mario Attending Unavailable Kotsonis, Melvin F Referring Unavailable Teresa Roland Attending Unavailable Vahe Knutson D.O. Attending Unavailable Dallas, Michael Referring Unavailable Effron, Lonnie Attending Unavailable Effron, Lonnie Referring Unavailable Dallas, Michael Primary Care Unavailable Effron, Lonnie Attending Unavailable Effron, Lonnie Referring Unavailable Dallas, Michael Primary Care Unavailable Effron, Lonnie Attending Unavailable Effron, Lnonie Referring Unavailable Dallas, Michael Primary Care Unavailable Vahe Knutson D.O. 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 Ree Cummins Attending Unavailable Effron, Dr. Lonnie Flores Referring Unavailable UNKNOWN, PCP Primary Care Unavailable Hoit, Dr. Martín French Attending Unavailable UNKNOWN, PCP Referring Unavailable UNKNOWN, PCP Primary Care Unavailable Jerzy, Dr. Junior Fuentes Admitting Unavailable Jerzy, Dr. Junior Fuentes Attending Unavailable Effron, Dr. Lonnie Flores Referring Unavailable UNKNOWN, PCP Primary Care Unavailable Bozena, Dr. Ree Cummins Attending Unavailable UNKNOWN, PCP Referring Unavailable UNKNOWN, PCP Primary Care Unavailable Bozena, Dr. Ree Cummins Attending Unavailable Sleik, Dr. German Cordero Referring Unavailable UNKNOWN, PCP Primary Care Unavailable Effron, Dr. Lonnie Flores Attending Unavailable Sleik, Dr. German Cordero Referring Unavailable UNKNOWN, PCP Primary Care Unavailable Effron, Dr. Lonnie Flores Attending Unavailable Dallas, Dr. Michael Ponce Referring Unavailable UNKNOWN, PCP Primary Care Unavailable Effron, Dr. Lonnie Flores Attending Unavailable Sleik, Dr. German Cordero Referring Unavailable UNKNOWN, PCP Primary Care Unavailable Subramanian, Ms. Brandy Fair Admitting Unavailable Subramanian, Ms. Brandy Fair Attending Unavailable Jerzy, Dr. Junior Fuentes Referring Unavailable UNKNOWN, PCP Primary Care Unavailable Blayne, Dr. Louis Boykin Attending Unavailable UNKNOWN, PCP Primary Care Unavailable Blayne, Dr. Louis Boykin Admitting Unavailable Blayne, Dr. Louis Boykin Attending Unavailable Effron, Dr. Lonnie Flores Referring Unavailable UNKNOWN, PCP Primary Care Unavailable [place], Dr. Ree Cummins Attending Unavailable Effron, Dr. Lonnie Flores Referring Unavailable UNKNOWN, PCP Primary Care Unavailable [place], Dr. Ree Cummins Attending Unavailable UNKNOWN, PCP Referring Unavailable UNKNOWN, PCP Primary Care Unavailable Effron, Dr. Lonnie Flores Admitting Unavailable Effron, Dr. Lonnie Flores Attending Unavailable Blayne, Dr. Louis Boykin Referring Unavailable UNKNOWN, PCP Primary Care Unavailable Bozena, Dr. Ree Cummins Attending Unavailable Effron, Dr. Lonnie Flores Referring Unavailable UNKNOWN, PCP Primary Care Unavailable Blayne, Dr. Louis Boykin Admitting Unavailable Blayne, Dr. Louis Boykin Attending Unavailable Effron, Dr. Lonnie Flores Referring Unavailable UNKNOWN, PCP Primary Care Unavailable Blayne, Dr. Louis Boykin Attending Unavailable UNKNOWN, PCP Primary Care Unavailable Blayne, Dr. Louis Boykin Attending Unavailable UNKNOWN, PCP Primary Care Unavailable Blayne, Dr. Louis Boykin Attending Unavailable UNKNOWN, PCP Primary Care Unavailable Blayne, Dr. Louis Boykin Admitting Unavailable Blayne, Dr. Louis Boykin Attending Unavailable Effron, Dr. Lonnie Flores Referring Unavailable UNKNOWN, PCP Primary Care Unavailable [place], Dr. Ree Cummins Attending Unavailable Effron, Dr. Lonnie Flores Referring Unavailable UNKNOWN, PCP Primary Care Unavailable Effron, Dr. Lonnie Flores Attending Unavailable Effron, Dr. Lonnie Flores Referring Unavailable UNKNOWN, PCP Primary Care Unavailable [place], Dr. Ree Cummins Attending Unavailable *SELF, REFERRED Referring Unavailable UNKNOWN, PCP Primary Care Unavailable Effron, Dr. Lonnie Flores Admitting Unavailable Effron, Dr. Lonnie Flores Attending Unavailable Effron, Dr. Lonnie Flores Referring Unavailable UNKNOWN, PCP Primary Care Unavailable [place], Dr. Ree Cummins Attending Unavailable Effron, Dr. Lonnie Flores Referring Unavailable UNKNOWN, PCP Primary Care Unavailable Bozena, Dr. Ree Cummins Attending Unavailable Effron, Dr. Lonnie Flores Referring Unavailable UNKNOWN, PCP Primary Care Unavailable Bozena, Dr. Ree Cummins Attending Unavailable Effron, Dr. Lonnie Flores Referring Unavailable UNKNOWN, PCP Primary Care Unavailable [place], Dr. Ree Cummins Attending Unavailable Effron, Dr. Lonnie Flores Referring Unavailable UNKNOWN, PCP Primary Care Unavailable Bozena, Dr. Ree Cummins Attending Unavailable Effron, Dr. Lonnie Flores Referring Unavailable UNKNOWN, PCP Primary Care Unavailable [place], Dr. Ree Cummins Attending Unavailable Effron, Dr. Lonnie Flores Referring Unavailable UNKNOWN, PCP Primary Care Unavailable [place], Dr. Ree Cummins Attending Unavailable Effron, Dr. Lonnie Flores Referring Unavailable UNKNOWN, PCP Primary Care Unavailable Bozena, Dr. Ree Cummins Attending Unavailable UNKNOWN, PCP Referring Unavailable UNKNOWN, PCP Primary Care Unavailable [place], Dr. Ree Cummins Attending Unavailable *SELF, REFERRED Referring Unavailable UNKNOWN, PCP Primary Care Unavailable Bozena, Dr. Ree Cummins Attending Unavailable Effron, Dr. Lonnie Flores Referring Unavailable UNKNOWN, PCP Primary Care Unavailable Bozena, Dr. Ree Cummins Attending Unavailable UNKNOWN, PCP Referring Unavailable UNKNOWN, PCP Primary Care Unavailable [place], Dr. Ree Cummins Attending Unavailable Effron, Dr. Lonnie Flores Referring Unavailable UNKNOWN, PCP Primary Care Unavailable Bozena, Dr. Ree Cummins Attending Unavailable UNKNOWN, PCP Referring Unavailable UNKNOWN, PCP Primary Care Unavailable Effron, Dr. Lonnie Flores Attending Unavailable UNKNOWN, PCP Primary Care Unavailable Effron, Dr. Lonnie Flores Referring Unavailable Effron, Dr. Lonnie lFores Attending Unavailable Sleik, Dr. German Cordero Referring Unavailable UNKNOWN, PCP Primary Care Unavailable Effron, Dr. Lonnie Flores Attending Unavailable Sleik, Dr. German Cordero Referring Unavailable UNKNOWN, PCP Primary Care Unavailable [facility], Ms. Brandy Fair Admitting Unavailable [facility], Ms. Brandy Fair Attending Unavailable Jerzy, Dr. Junior Fuentes Referring Unavailable UNKNOWN, PCP Primary Care Unavailable PROBLEMS PROBLEMS DATE TYPE CONDITION / CODE ATTENDING STATUS SOURCE 07/06/2018 Unknown R91.1 - Solitary Vahe Brown, Active [facility] pulmonary nodule / [facility] R91.1(ICD-10) Hospital Repository 05/04/2018 Final diagnosis Unspecified atrial Ms. [facility] (discharge) fibrillation / [facility] I48.91(ICD-10) Repository 05/04/2018 Final diagnosis Encounter for Ms. [facility] (discharge) therapeutic drug [facility] level monitoring / Repository Z51.81(ICD-10) 05/04/2018 Final diagnosis Other collar runner Marilynn, . Manda Major (discharge) (current) drug [facility] therapy / Repository Z79.899(ICD-10) 05/04/2018 Final diagnosis Presence of cardiac Ms MarilynnCharles Active [place] (discharge) pacemaker / [facility] Z95.0(ICD-10) Repository 04/22/[address] Manda Pulido diagnosis (valve) stenosis / [facility] I35.0(ICD-10) Repository 04/22/[address] Manda Pulido diagnosis stenosis / [facility] I05.0(ICD-10) Repository 04/22/2018 Final diagnosis Nonrheumatic aortic Dr. Manda Pulido (discharge) (valve) stenosis / [facility] I35.0(ICD-10) Repository 04/22/2018 Final diagnosis Rheumatic mitral Dr. Manda Pulido (discharge) stenosis / [facility] I05.0(ICD-10) Repository 04/22/2018 Final diagnosis Other specified Dr. 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 Manda Pulido (discharge) other diseases of [facility] the circulatory Repository system / Z86.79(ICD-10) 04/19/2018 Final diagnosis Paroxysmal atrial Dr. Manda Seals [facility] (discharge) fibrillation / [facility] I48.0(ICD-10) Repository 04/12/2018 Final diagnosis Anaphylactic shock, Dr. Manda Crane (discharge) unspecified, initial [facility] encounter / Repository T78.2XXA(ICD-10) 04/12/2018 Final diagnosis Nonrheumatic aortic Dr. Manda Crane (discharge) (valve) [facility] insufficiency / Repository I35.1(ICD-10) 04/12/2018 Final diagnosis Rheumatic mitral Dr. 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 / I25.10(ICD-10) 04/14/2018 Unknown I48.91 - Unspecified Rodrigo, Mario Active [facility] atrial fibrillation Community / I48.91(ICD-10) Hospital Repository 04/14/2018 Unknown I10 - Essential Rodrigo, Mario Active [facility] (primary) Community hypertension / Hospital I10(ICD-10) Repository 04/14/2018 Unknown E78.5 - Rodrigo, Mario Active [facility] Hyperlipidemia, Community unspecified / Hospital E78.5(ICD-10) Repository 04/14/2018 Unknown E03.9 - Rodrigo, Mario Active [facility] Hypothyroidism, Community unspecified / Hospital E03.9(ICD-10) Repository 04/14/2018 Unknown F32.9 - Major Rodrigo, Mario Active [facility] depressive disorder, Community single episode, Hospital unspecified / Repository F32.9(ICD-10) 03/28/2018 Final diagnosis 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 Blayne Active [facility] (discharge) use of [facility] anticoagulants / Repository Z79.01(ICD-10) 03/28/[address] 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 Blayne Active [place] (discharge) edema / [facility] J81.0(ICD-10) Repository 03/28/[address] Blayne Active [facility] (discharge) posthemorrhagic [facility] anemia / D62(ICD-10) Repository 03/28/2018 Final diagnosis Atelectasis / Dr. Manda Pulido (discharge) J98.11(ICD-10) [facility] Repository 03/28/[address] Manda Pulido (discharge) hypothyroidism / [facility] E89.0(ICD-10) Repository 03/28/2018 Final diagnosis Thrombocytopenia, Dr. Manda Pulido [facility] (discharge) unspecified / [facility] D69.6(ICD-10) Repository 03/28/2018 Final diagnosis Hypokalemia / Dr. Manda Pulido (discharge) E87.6(ICD-10) [facility] Repository 03/28/2018 Final diagnosis Fluid overload, Dr. Manda Pulido [facility] (discharge) unspecified / [facility] E87.70(ICD-10) Repository 03/28/2018 Final diagnosis Hypomagnesemia / Dr. Manda Pulido (discharge) E83.42(ICD-10) [facility] Repository 03/28/2018 Final diagnosis Major depressive Dr. Manda Pulido [facility] (discharge) disorder, single [facility] episode, unspecified Repository / F32.9(ICD-10) 03/28/2018 Final diagnosis Essential (primary) Dr. Manda Pulido [facility] (discharge) hypertension / [facility] I10(ICD-10) Repository 03/28/2018 Final diagnosis Personal history of Dr. Manda Pulido (discharge) nicotine dependence [facility] / Z87.891(ICD-10) Repository 03/28/2018 Final diagnosis Personal history of Dr. Manda Pulido (discharge) malignant neoplasm [facility] of thyroid / Repository Z85.850(ICD-10) 03/28/2018 Final diagnosis Personal history of Dr. Manda Pulido (discharge) other venous [facility] thrombosis and Repository embolism / Z86.718(ICD-10) 03/08/[address] Manda Pulido diagnosis examination and [facility] observation for oth Repository reasons / Z04.8(ICD-10) 03/08/2018 Final diagnosis Encounter for Dr. Manda Pulido (discharge) examination and [facility] observation for oth Repository reasons / Z04.8(ICD-10) 03/08/[address] Manda Pulido [facility] diagnosis insufficiency / [facility] I07.1(ICD-10) Repository 03/08/2018 Final diagnosis Rheumatic tricuspid Dr. Blayne Active [facility] (discharge) insufficiency / [facility] I07.1(ICD-10) Repository 01/24/2018 Final diagnosis Embolism and Dr. Cole Active [facility] (discharge) thrombosis of [facility] arteries of the Repository upper extremities / I74.2(ICD-10) 11/16/2017 Active Encounter for NA Active [place] screening for [facility] osteoporosis / [place] Z13.820(ICD-10) Repository 11/16/2017 Active Encounter for NA Active [place] screening mammogram [facility] for malignant [place] neoplasm of breast / Repository Z12.31(ICD-10) 11/11/2017 Active Unknown / ISABELA FINLEY Active [place] UNK(Unknown) ([employer]) [facility] [place] Repository 09/30/[address] Jerzy [facility] diagnosis fibrillation / [facility] I48.1(ICD-10) [place] Repository 09/30/2017 Final diagnosis Persistent atrial Dr. Jerzy Active [facility] (discharge) fibrillation / [facility] I48.1(ICD-10) [place] Repository PROCEDURES PROCEDURES DATE CODE DESCRIPTION STATUS SOURCE 03/22/2018 [id number](ICD10- [id number] Completed [facility] Hospitals Repository 03/22/2018 [id number](ICD10- 50096OJ Completed [facility] Repository 03/22/2018 [id number](ICD10- 36KE66C Completed [facility] Repository 03/22/2018 [id number](ICD10- 38WD9PI Completed [facility] Repository 03/22/2018 [id number](ICD10- [id number] Completed [facility] Repository 03/22/2018 [id number](ICD10- [id number] Completed [facility] Repository RESULTS RESULTS OFFICE VISIT Observed: 07/12/2018 Status: UNK Source: [place] (CARDIOLOGY) 2:49 PM HOSPITALS REPOSITORY Chief Complaint MARSHALL FARRELL is being seen for a cardiovascular evaluation. History of Present Illness This 73-year-old woman is now 4 months status post elective mitral valve replacement, aortic valve replacement, tricuspid valve repair and a Maze procedure. Dofetilide has been resumed. After discharge from the hospital, she was admitted to an outside hospital with an anaphylactic reaction, and required intubation and assisted ventilation for several days. The reaction may have been secondary to oxyco done, lisinopril was also withdrawn. At her last office visit, we did not resume lisinopril and we discontinued atorvastatin. The patient does not have evidence for coronary artery disease. We resumed t he low-dose digoxin, which had been utilized for many years for control of the patient's atrial fibrillation. She was seen in Electrophysiology follow-up on May 04, 2018, and her medications were no t adjusted. There was some discussion of discontinuation of dofetilide, 6 months following surgery, since she did not undergo a Maze procedure. The patient is asymptomatic. She has been participating in phase II cardiac rehabilitation. She specifically denies palpitations and exertional chest discomfort. She is not dyspneic with usual daily activities. There are no spiritual/cultural practices/values/needs that are important to know Initial Fall Risk Screening: MARSHALL has not fallen in the last 6 months. Her fall did not result in injury. MARSHALL does not have a fear of falling. She does not need assistance with sitting, standing or walking. Does not need ass istance walking in her home. She does not need assistance in an unfamiliar setting. The patient is not using an assistive device. Advance directives: Living Will: No living will on file. Healthcare POA: No healthcare proxy on file. Domestic Violence Screen: Does not feel threatened or abused physically, emotionally or sexually. Do you feel UNSAFE? The patient feels safe in the home. Active Problems Aortic stenosis (424.1) (I35.0) September 05, 2015: Moderate aortic valve thickening, with mild aortic valve stenosis and mild aortic valve regurgitation. Peak gradient 38 mmHg, mean gradient 22.5 mmHg, aortic valve area 1.45 cm. 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 Atrial fibrillation (427.31) (I48.91) History of Catheter Ablation Atrial Fibrillation December 24, 2015: Catheter ablation of atrial fibrillation. Dr. Bertrand. Mitral stenosis (394.0) (I05.0) Moderate aortic regurgitation (424.1) (I35.1) Multiple Valve Surgery March 22, thousand 18: Mitral valve replacement, aortic valve replacement, tricuspid valve repair, Maze procedure. 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 Tricuspid regurgitation (397.0) (I07.1) Visit for monitoring Tikosyn therapy (V58.83,V58.69) (Z51.81,Z79.899) Warfarin anticoagulation (V58.61) (Z79.01) Abnormal finding in urine (791.9) (R82.90) Anaphylactic reaction (995.0) (T78.2XXA) possible relationship to oxycodone. Anxiety (300.00) (F41.9) Bone lesion (733.90) (M89.9) Bursitis of left hip (726.5) (M70.72) Chronic cough (786.2) (R05) Coagulopathy (286.9) (D68.9) Hypothyroidism (244.9) (E03.9) Malignant neoplasm of thyroid gland (193) (C73) Added by Problem List Migration; 2013-02-17; Moved to [facility] Jun 23 2013 9:06PM Surgical History History of Catheter Ablation Atrial Fibrillation December 24, 2015: Catheter ablation of atrial fibrillation. Dr. Bertrand. History of Elective Cardioversion April,. January,. September,. History of Thyroid Surgery Total Thyroidectomy September 2004 History of Transluminal Valvular Angioplasty Mitral Valve October,. 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) Current Meds Aspirin EC 81 MG Oral Tablet Delayed Release; TAKE 1 TABLET DAILY; Therapy: [id number] to (Evaluate:09Oct2018) Recorded Dispense: 30 Days ; #:30 Tablet Delayed Release; Refill: 5;For: Aortic stenosis; LARRY = N; Record; Last Updated By: Jennifer Paige; 07/12/2018 2:48:04 PM Multi For Her Oral Capsule; TAKE 1 CAPSULE DAILY; Therapy: (Recorded:40Van1953) to Recorded Dispense: 0 Days ; #: Sufficient Capsule; Refill: 0;For: Health Maintenance; LARRY = N; Record; Last Updated By: Jennifer Paige; 04/17/2015 10:40:35 AM Levothyroxine Sodium 100 MCG Oral Tablet; TAKE 1 TABLET IN THE AM ON AN EMPTY STOMACH; Therapy: 14Siu3342 to (Evaluate:54Qoq7467) Requested for: 06Ivh8910; Last Rx:[id number] Ordered Rx By: Sharif Srivastava; Dispense: 90 Days ; #:90 TAB; Refill: 3;For: Hypothyroidism; LARRY = N; Verified Transmission to [facility] Amoxicillin 500 MG Oral Tablet; TAKE 4 TABLETS 1 HOUR BEFORE DENTAL APPOINTMENT; Therapy: 17May2018 to (Evaluate:21May2018) Requested for: 17May2018; Last Rx:17May2018 Ordered Rx By: Lonnie Crane; Dispense: 2 Days ; #:8 Tablet; Refill: 1;For: Mitral stenosis; LARRY = N; Verified Transmission to [facility]; Last Updated By: Scar Aguillon; 05/17/2018 10:53:09 AM Digox 125 MCG Oral Tablet; TAKE 1 TABLET BY MOUTH DAILY; Therapy: [id number] to (Evaluate:07Jan2019) Recorded Rx By: Lonnie Crane; Dispense: 90 Days ; #:90 Tablet; Refill: 2;For: Paroxysmal atrial fibrillation; LARRY = N; Record Dofetilide 500 MCG Oral Capsule; Take 1 capsule twice daily; Therapy: 11Jan2017 to (Evaluate:10Jrf6753) Requested for: 21Jan2018; Last Rx:21Jan2018; Status: ACTIVE - Retrospective By Protocol Authorization Ordered Rx By: Junior Bertrand; Dispense: 90 Days ; #:180 Capsule; Refill: 1;For: Paroxysmal atrial fibrillation; LARRY = N; [facility]; Last Updated By: Movirtu; 01/21/2018 4:17:41 PM Metoprolol Tartrate 25 MG Oral Tablet; take 1 tablet by mouth twice a day; Therapy: 03Dec2015 to (Evaluate:17Jun2019) Requested for: 22Jun2018; Last Rx:22Jun2018 Ordered Rx By: Lonnie Crane; Dispense: 90 Days ; #:180 Tablet; Refill: 3;For: Paroxysmal atrial fibrillation; LARRY = N; Verified Transmission to [facility]; Last Updated By: Movirtu; 06/22/2018 11:01:24 AM Warfarin Sodium 5 MG Oral Tablet; TAKE 1/2 TAB ON WEDNESDAY- WEDNESDAY AND WEDNESDAY 2 TABS ON REMAINING DAYS OR DIRECTED; Therapy: 31Aug2013 to (Evaluate:03Dec2017) Requested for: 08Dec2016; Last Rx:08Dec2016 Ordered Rx By: Lonnie Crane; Dispense: 90 Days ; #:225 Tablet; Refill: 3;For: Paroxysmal atrial fibrillation; LARRY = N; Ver[facility] EpiPen 2-Mariusz 0.3 MG/0.3ML Injection Solution Auto-injector; INJECT 0.3ML INTRAMUSCULARLY DIRECTED; Therapy: 12Apr2018 to Recorded Dispense: 0 Days ; #: Sufficient Solution Auto-injector; Refill: 0; LARRY = N; Record; Last Updated By: Jennifer Paige; 04/12/2018 3:34:35 PM Venlafaxine HCl - 37.5 MG Oral Tablet; TAKE 1 TABLET DAILY; Therapy: 31Aug2013 to Recorded Dispense: 0 Days ; #: Sufficient Tablet; Refill: 0; LARRY = N; Record; Last Updated By: Jessica Chang; 08/31/2013 12:07:39 PM Allergies ciprofloxacin Adverse Reaction; Nausea; Recorded By: Jennifer Paige; 04/12/2018 3:28:09 PM Sulfa Drugs Allergy; Rash; Updated By: Jennifer Paige; 01/24/2018 2:29:43 PM Social History Exercises sporadically Walks 2 miles 3 -4 times weekly. Former smoker (V15.82) (Z87.891) Quit smoking 20-25 years ago. History of Full-time employment [employer] Retired Single-family home Review of Systems Constitutional: not feeling tired, no fever, no chills and no recent weight loss. ENT: no hearing loss. Cardiovascular: as noted in HPI. All other systems have been reviewed and are negative for the presenting complaint. Vitals Vital Signs Recorded: [id number] 02:10PM Heart Rate73 Cbnjbnmb062, LUE, Sitting Xhxcgywcs74, LUE, Sitting Height5 ft 6.5 in Zyavdw847 lb 9 oz BMI Lzxyccewag52.26 BSA Calculated1.79 O2 Yhskiapztk24, RA Pain Scale0/10 Physical Exam She appeared well. The neck veins were not distended at 30, and there were no bruits. The lungs were clear. The heart sounds were regular. Second sound was not prominent. There was a grade 2 systolic mu rmur along the LV outflow tract. No diastolic murmur. No S3. No peripheral edema. Results/Data ECG May 04, 2018 reviewed and shows electronic ventricular pacemaker. Diagnoses/Problems Aortic stenosis (424.1) (I35.0) September 05, 2015: Moderate aortic valve thickening, with mild aortic valve stenosis and mild aortic valve regurgitation. Peak gradient 38 mmHg, mean gradient 22.5 mmHg, aortic valve area 1.45 cm. Mitral stenosis (394.0) (I05.0) S/P AVR (aortic valve replacement) (V43.3) (Z95.2) S/P mitral valve replacement (V43.3) (Z95.2) Atrial fibrillation (427.31) (I48.91) Impressions The patient is doing remarkably well, nearly 4 months status post multiple valve surgery, as outlined. No evidence for recurrent atrial arrhythmia. She is comfortable with the current medication regimen . Since she remains on warfarin, low-dose aspirin can be withdrawn. We will check a metabolic panel and a magnesium level today. She will be seen in Electrophysiology follow-up next October, and we will s ee her next February, 1 year following surgery, with an echocardiogram at that visit to serve as a long-term baseline. Orders Aortic stenosis Stop: Aspirin EC 81 MG Oral Tablet Delayed Release Dispense: 30 Days ; #:30 Tablet Delayed Release; Refill: 5;For: Aortic stenosis; LARRY = N; Record; Last Updated By: Lonnie Crane; 07/12/2018 2:48:04 PM Aortic stenosis, Mitral stenosis, S/P AVR (aortic valve replacement), S/P mitral valve replacement, S/P tricuspid valve repair Echocardiogram; Status:Hold For - Exact Date,Scheduling; Requested for:With next appointment; Perform:[facility] ([place]);Ordered; For:Aortic stenosis, Mitral stenosis, S/P AVR (aortic valve replacement), S/P mitral valve replacement, S/P tricuspid valve repair; Ordered By:Lonnie Crane; Atrial fibrillation Basic Metabolic Panel; Specimen Source:Blood (BLD); Status:Active; Requested for:83Jul1542; Perform:Lab Services - Lab To Draw (Blood Test); Due:10Oct2018;Ordered; For:Atrial fibrillation; Ordered By:Lonnie Crane; Magnesium, Serum; Specimen Source:Blood (BLD); Status:Active; Requested for:52Ioc6298; Perform:Lab Services - Lab To Draw (Blood Test); Due:10Oct2018;Ordered; For:Atrial fibrillation; Ordered By:Lonnie Crane; Counseling The patient was counseled regarding diagnostic results and instructions for management. total time of encounter was 25 minutes and 15 minutes was spent counseling. Signatures Electronically signed by : Lonnie Crane MD; Jul 12 2018 2:49PM EST (Author) PULMONARY VISIT REPORT Observed: 07/06/2018 Status: F Source: [place] 10:29 AM [facility] REPOSITORY [facility] Pulmonary Medicine of [address] [place] [address] OFFICE VISIT Date of Service: 07/06/18 MR#: [id number] Acct: [id number] Name: MARSHALL FARRELL Rep #: [id number] : 1945 Provider: Vahe Knutson D.O. Age/Sex: 73/F Location: [facility] [place] Status: Signed Assessment AND Plan 1. Pulmonary nodule R91.1 Plan The patient has known subcentimeter pulmonary nodules noted on 2 separate CAT scans previously. Per the updated Fleischner Society recommendations, will obtain one last CT chest. If the patient's pulmonary nodules remain unchanged from prior chest imaging, no additional follow-up would be indicated. The patient will follow up with our nurse practitioner to review the results of her repeat CT chest. Orders Orders: Plan Detail Follow Up 1 Month (CSM) HPI HPI Comments Details: The patient is a 73-year-old female who presents to the clinic today for a routine scheduled follow-up office visit. If you recall, I initially saw the patient while she was admitted to the hospital in August 2016 with acute hypoxic respiratory insufficiency and atrial fibrillation. During that hospitalization, a CT of the chest showed emphysematous changes as well as a subcentimeter angulated density in the anterior right middle lobe. The patient is a former smoker and has been told previously that she had COPD. However, pulmonary function testing completed in October 2016 was essentially within normal limits. A walking oximetry study also completed at that time revealed no evidence of exertional hypoxemia. Alpha- 1 antitrypsin testing was negative. Methacholine challenge completed in November 2016 was negative for bronchial hyperresponsiveness. The patient subsequently underwent repeat chest imaging with a contrasted chest CT which demonstrated stable appearing bilateral lung nodules, which remained subcentimeter in size. Today, the patient reports that she recently underwent valvular heart surgery in February at [facility]. The residual shortness of breath that she had experienced previously has actually improved following surgery. She denies the presence of a cough, chest tightness or wheezing. Her weight has remained stable. She denies fevers, chills or night sweats. Intake Vital Signs07/06/18 Blood Pressure 140/80 H 07/06/18 Blood Pressure Location Lt brachial 07/06/18 Blood Pressure Position Sitting 07/06/18 Height 5 ft 7 in 07/06/18 Weight: 150 lb Intake Visit Reasons: 1 Y FU Accompanied by: Self Allergies sulfamethoxazole Allergy (Verified 07/06/18 09:27) Rash oxycodone Adverse Reaction (Verified 07/06/18 09:27) Swelling Medications Levothyroxine [Synthroid] 100 mcg PO DAILY 10/21/15 [History Confirmed 07/06/18] Venlafaxine HCl [Effexor] 37.5 mg PO DAILY 10/21/15 [History Confirmed 07/06/18] Warfarin [Coumadin] 5 mg PO DAILY 10/21/15 [History Confirmed 07/06/18] Albuterol Inhaler [Ventolin Hfa] 1 puff INHALATION Q4H PRN PRN #1 inhaler 09/25/16 [Rx Confirmed 07/06/18] Aspirin E.C. [Ecotrin] 81 mg PO DAILY@0800 03/30/18 [History Confirmed 07/06/18] Dofetilide [Tikosyn] 500 mcg PO BID 03/30/18 [History Confirmed 07/06/18] Metoprolol Tartrate [Lopressor (beta harpal)] 25 mg PO BID 03/30/18 [History Confirmed 07/06/18] Multivit with Calcium,Iron,Min [Multiple Vitamins For Women] 1 tab PO DAILY 03/30/18 [History Confirmed 07/06/18] PFSH Medical History Wheezing (Acute) Dyspnea (Acute) Angioedema (Acute) Osteoma (Acute) Left leg pain (Acute) Atrial fibrillation (Chronic) Valvular heart disease (Chronic) Hypothyroidism (Chronic) Atrial fibrillation with RVR (Resolved) Acute CHF (Chronic) Respiratory distress (Inactive) Pneumonia (Inactive) Acute respiratory insufficiency (Inactive) Mitral stenosis (Chronic) Pacemaker (Acute) Surgical History H/O thyroidectomy (Acute) Family History Mother Liver disease Alcohol abuse Lung disease Social History Smoking Status: Former smoker how long ago did patient quit smokin, 1ppd second hand exposure: Yes Review of Systems Const CONSTITUTIONAL: Negative anorexia, body ache, chills, daytime sleepiness, fever(s), night sweats, oral thrush, stops breathing during sleep, weight loss, sleeping in chair, fatigue, weight loss, weight gain, frequent colds, seasonal allergies, other, headache(s) or orthopnea EETM Ear Nose Throat Mouth: Positive hearing normal and nasal discharge; negative hard of hearing, hoarseness, dry mouth in morning, change in vision, itchy eyes, eye pain, swallowing Difficulty, ear pain, nose bleed, headache(s), mouth pain, nasal congestion, post nasal drip, sinus pain, sinus pressure, sore throat or other Cardio Cardiovascular: Positive murmur; negative chest pain, chest pain at rest, chest pain with activity, irregular heart rhythm, edema, shortness of breath when lying down, palpitations or other Resp Respiratory: Positive as per HPI and shortness of breath shortness of breath: Positive with activity; negative pain with cough, wheezing, chest congestion, cough, chest tightness, pain on inspiration, inhalers, increase use of rescue inhalers, snoring, apnea or other Gastro Gastrointestional: Negative bloody stools, change in appetite, difficulty swallowing, reflux, hematemesis, melena stool, loose stool, constipation or other Genitourinary: Negative blood in urine, nocturia, pain with urination or other Musc Musculoskeletal: Negative body pain, back pain, neck pain or other Skin/Breast Skin/Breast: Negative dry skin, itching, rash, unusual bruising, breast lump or other Neuro Neurological: Negative restless legs, confusion, weakness or other Psych Psychocological: Negative abnormal sleep pattern, anxiety, thoughts of hurting self/others, hopelessness or other Lymph Lymphatic: Negative easy bleeding, easy bruising, swollen lymph nodes or other Exam Const Constitutional: Positive conversant, cooperative, in no acute respiratory distress, well developed, well nourished and good hygiene Head Head: Positive normocephalic and atraumatic; negative cyanosis of lips/distal nose Eyes Eye: Positive clear conjunctiva; negative nystagmus or scleral abnormality Ears Ear: Positive hearing normal and external ears normal; negative hard of hearing Nose Nose: Positive external nose normal; negative epistaxis Mouth Mouth: Positive oral mucosae normal and posterior oropharynx is adequate; negative no lesions or post nasal drip Mallampati Score: II: Mallampati Score Neck Neck: Positive normal visual inspection and trachea midline; negative lymphadenopathy Chest Wall Chest: Positive symmetric chest movement Normal AP diameter. Resp lung sounds: Positive clear to auscultation and good air exchange; negative wheezes, rhonchi or rales Cardio Cardiac: Positive regular rate, regular rhythm, S1 normal, S2 normal and murmur; negative rub or gallop GI GI: Positive normal bowel sounds Soft without distention Genitourinary: Positive deferred Musc Musculoskeletal: Positive steady gait Skin Pulmonary Skin Exam: Positive intact; negative lesion, ulcers, dermal atrophy or rash Pulses Pulse: Yes Pedal pulses present: Extremities Extremities: No clubbing, No cyanosis, No edema Neuro Neurologic: Yes conversant, Yes no focal neuro deficits, Yes cooperative Lymph Lymphatic: No lymphadenopathy Psych Appearance: Positive grossly normal Mental Status: Positive mental status grossly normal Mood: Positive congruent mood Affect: Positive normal affect Coding Level of Care Code Off vis,est,level 3 Diagnoses Pulmonary nodule R91.1 07/06/18 1029 <Electronically signed by Vahe Knutson DO> Date Vahe Knutson DO Cosigner Signature: Date (if applicable) CC: Michael Dallas MD CR - HISTORY AND Observed: 06/21/2018 Status: F Source: [place] PHYSICAL 2:20 PM [facility] REPOSITORY [facility] Cardiac Rehab [address] [place] [address] CR - History AND Physical MR#: [id number] Acct: [id number] Name: MARSHALL FARRELL Rep #: [id number] : 1945 73 From: Renee Hogan RN PCP: Michael Dallas MD DOS: 06/21/18 CR - History AND Physical - General Arrival date:: 06/21/18 Arrival time:: 09:30 Date of Referral:: 06/21/18 Date of CR Evaluation:: 06/21/18 Referring Physician: COLE TODD Primary Diagnosis: 2 VALVES REPLACED, ONE VALVE REPARED AND 'TWEAKED THE ABLATION' - History of Present Cardiac Event Onset Date: Enter Onset Date of cardiac illnesses in Comment field below Current stable Angina Pectoris:: No Acute Myocardial Infarction within 12 months:: No Coronary Artery Bypass Graft:: No Heart valve replacement or repair:: Yes - Feb, AVR AND TRICUSPID REPAIR PTCA or coronary stenting:: No Heart or Heart-Lung Transplant:: No Heart Failure EF <35%:: No Were there any complications?: 'ALLERGIC REACTION' NOT SURE OF CAUSE, 3 DAYS AFTER VALVE REPAIR - Medications Home Medications: Ambulatory Orders Medication Instructions Recorded Levothyroxine [Synthroid] 100 mcg PO DAILY 10/21/15 - Allergies Allergies/Adverse Reactions: Allergies sulfamethoxazole Allergy (Verified 05/26/18 06:56) Rash oxycodone Adverse Reaction (Verified 06/21/18 10:43) Swelling - Sleep Disorder Evaluation Hx of Sleep Apnea: No Do you snore loudly (louder than talking or can be heard through closed doors)?: No Do you often feel tired/ fatigued/ sleepy during daytime?: Yes Has anyone observed you stop breathing during sleep?: No History of Hypertension (for STOP score): No STOP Results: Negative Advanced Directives - Advanced Directives Power of Retail Selling Floor Leader: No Living Will: No Advance Directives Information Provided: No Advance Directives on File: No DNR Order?:: No Additional Comments:: PT STATES SHE HAS FORMS AT HOME. ENCOURAGED TO LOOK OVER, FILL OUT AND BRING COPY TO [facility] MEDICAL RECORDS. Past Medical History - Past Medical Illness Medical History: Past Medical History (Last Updated 06/21/18 @ 10:46 by Renee Hogan RN) Wheezing (Acute) R06.2 Dyspnea (Acute) R06.00 Angioedema (Acute) T78.3XXA Osteoma (Acute) D16.9 Left leg pain (Acute) M79.605 Atrial fibrillation (Chronic) I48.91 Valvular heart disease (Chronic) Hypothyroidism (Chronic) E03.9 Atrial fibrillation with RVR (Resolved) I48.91 Acute CHF (Chronic) I50.9 Respiratory distress (Inactive) R06.00 Pneumonia (Inactive) J18.9 Acute respiratory insufficiency (Inactive) R06.89 Mitral stenosis (Chronic) I05.0 Pacemaker Z95.0 - Past Surgical History Surgical History: Past Surgical History (Last Updated 06/21/18 @ 10:46 by Renee Hogan RN) H/O thyroidectomy Z98.890 Surgical History: no surgical history, - - Family History Summary Family History: Family History (Last Reviewed 05/26/18 @ 06:55 by Shonna Patiño) Mother Liver disease Alcohol abuse Lung disease Social History - Smoking History Smoking Status: Former smoker Years Smokin Packs Smoked per Day: 1 - LESS THAN 1 PPD - Alcohol Use Alcohol Usage: No - Substance Abuse Hx Substance Use: No - Occupation Occupation (List type of work in comments):: Retired - Hobbies, Recreation, Social Activities Hobbies: Other - STATES SHE HAD 7 DOGS THAT SHE TAKES CARE OF Recreational Activities: I am able to engage in all my recreational activities Social Environment - Status Marital Status: - Current Living Arrangements Living Environment:: Spouse - Children How many children do you have?: 2 Do any of your children live nearby?: Yes - ONE CHILD LIVES AT HOME IN [place] - Safety Do you feel safe in your surroundings?: Yes Review of Systems - Review of Systems Hints: Right click = Denies (Slash). Left click = Reports ([place]) Review of Present Symptoms: Reports: Shortness of Breath with Exertion - PT FEELS LIKE SHE HAS TO REST AFTER ACTIVIES., PVD - HX OF A FIB AND BLOOD CLOTS IN LEG AND ARM., Fatigue - PREVIOUSLY MENTIONED, Heart Arrhythmia/Irregularities - HAD ABLATION AND 'TWEAK' OF ABLATION, ALSO CURRENTLY TAKES DOFETILLDE, Sleep - Normal, Sexual Changes. Denies: Shortness of Breath at Rest, Operative Discomfort, Angina, Wound Healing, Dizziness/Lightheadedness, Appetite - Normal, Appetite - Special Diet - Pain Is Patient Pain Free?: No Pain Location: chest - INCISIONAL DISCOMFORT Pain Level: 10 Risk Factor Assessment - Vital Signs Temperature: 98.6 F Respiratory Rate: 16 Pulse Ox: 94 Blood Pressure: 144/88 - Pulse Pulse Rate: 74 Pulse Rhythm: Regular - Diabetes Nutrition Referral for Diabetes: No - Obesity Height: 1.7 m - 67 IN Weight:: 69.672 kg Weight in Pounds: 153.6 lbs Weight Source: Stated by Patient Body Mass Index (BMI): 24.0 Nutritional Referral for Obesity: No - Physical Inactivity Physical Inactivity: Reg Exercise 30 min/day - HAS BEEN DOING SOME TEADMILL, 15-20 MIN AT HOME. - Risk Stratification Risk Guidelines: Lowest Risk: Risk Factor for Smoking, Risk Factor for Dyslipidemia, Risk Factor for Diabetes, Risk Factor for Obesity, Risk Factor for Hypertension, Risk Factor for Sedentary Lifestyle, Risk Factor for Depression - For Smoking Smoking Risk Guidelines: Smoking Low Risk: None or quit greater than 6 months ago. Smoking Moderate Risk: Smoker or quit 6 months or less ago. Smoking High Risk: Smoker - For Dyslipidemia Dyslipidemia Risk Guidelines: Low Risk: Moderate Risk: High Risk: 15-25% fat 25.1-29% fat >/= 30% fat. <7% sat fat 7-9% sat fat >9% sat fat. <150 mg chol 150-299 mg chol >/= 300 mg chol. LDL <100 LDL 100-129 LDL >/= 130. Chol/HDL ratio <5.0 Chol/HDL ratio 5.0-6.0 Chol/HDL ratio >6.0. Triglycerides <100 Triglycerides 100-149 Triglycerides >/= 150 - For Diabetes Mellitus Diabetes Risk Guidelines: Diabetes Low Risk: HgA1c <6.5% and/or FBG <120. Diabetes Moderate Risk: HgA1c 6.6-7.9% and/or FBG 120- 180. Diabetes High Risk: HgA1c >/= 8% and/or FBG >180 - For Obesity/Overweight Obesity/Overweight Risk Guidelines: Obesity Low Risk: BMI <25.0. Obesity Moderate Risk: BMI 25-29.9. Obesity High Risk: BMI >/= 30.0 - For Hypertension Hypertension Risk Guidelines: Hypertension Low Risk: Systolic <120 and Diastolic <80. Hypertension Moderate Risk: Systolic 120-139 and Diastolic 80-89. Hypertension High Risk: Systolic >/= 140 and Diastolic >/= 90 - For Sedentary Lifestyle Sedentary Lifestyle Risk Guidelines: Sedentary Lifestyle Low Risk: >/= 1,500 kcal/week. Sedentary Lifestyle Moderate Risk: 700-1,499 kcal/week. Sedentary Lifestyle High Risk: < 700 kcal/week - For Depression Depression Risk Guidelines: Depression Low Risk: Not clinically depressed. Depression Moderate Risk: Mildly depressed. Depression High Risk: Clinically depressed - Family History Family History: Family History (Last Reviewed 05/26/18 @ 06:55 by Shonna Patiño) Mother Liver disease Alcohol abuse Lung disease Motivation - Motivation to Participate On a scale of 1 to 10, how prepared are you to commit to attending program?: 10 What do you see as barriers to successfully being able to complete the program?: NONE What do you see as the benefits of succesfully completing the program? In other words, what do you hope to get out of participating in the program?: HOPEFULLY MORE ENERGY AND STAMINA Are there issues you are dealing with that will interfere with completing the program?: NONE Do you have a spouse or signficant other, family or friends who will help support you to complete the program?: SPOUSE 06/21/18 1106 <Electronically signed by Renee Hogan RN> Date Renee Hogan RN Outcome assessment reviewed. Exercise plan approved as documented. Treatment plan and goals support patient needs/abilities. Continue with current plan. I certify the patient demonstrates improvement and remains willing and capable of participation. the patient continues to benefit from cardiac rehab services/training. The patient may continue at current intensity, endurance and modality and progress per protocol. 06/21/18 1420 <Electronically signed by Frank Smith MD> Cosigner Signature: Date Frank Smith MD CC: Signed ANTICOAGULATION MONITORING Observed: 06/21/2018 Status: UNK [facility]: [facility] 2:02 PM HOSPITALS REPOSITORY Today's INR [id number] IO INR2.5 Target INR range2-3 SourceAMS History of Present Illness Patient identification verified with 2 patient identifiers. Anticoagulation Monitoring Service: [facility]. Enrollment/Re-enrollment date: September 04, 2018. The patient is being seen as a follow-up for anticoagulation monitoring. Target INR 2-3. Monitoring practitioner Lonnie Crane MD. INR monitoring is per [facility] protocol. The patient is on anticoagulation due to atrial fibrillation/flutter. The patient is currently taking warfarin Tablet strength and color: 5 mg(Roane) Interval History: Patient was last seen: June 07, 2018. Previous INR was 3. Incoming total weekly dose 45 mg. Today's Clinic INR: [facility] INR 2.5. Since last visit, the patient reports no bleeding. The patient did not experience clinically relevant bleeding. The patient did not experience other minor bleeding. Since last visit, The patient has not experienced thrombotic event. The patient reports no change in medication. She reports no change in alcohol consumption. She reports no change in Vitamin K consumption. The patient has taken Warfarin as directed. Management: The patient's INR is within target range. Will maintain dose. Next follow up appointment in 4 week(s). Outgoing total weekly dose 45 mg. Patient instructed to call in interim with questions, concerns and changes. Discussion/Summary You are currently taking Warfarin. Your tablet strength and color: 5 mg(Roane) Next Appointment: Friday, July 20, 2018. Time: 11: 30 am. Location: [facility], [address] [place] [address]. Your INR today is within range . You will continue to take your dose as instructed above. Visit information Please call in interim with questions, concerns and changes. Do tell your provider when you get sick, hurt, or get a cut that will not stop bleeding. If you have any bleeding, trauma, falls and/or other medical concerns, call your doctor or seek medical attention right away. Results/Data Coumadin Printed in Appendix #1 below. *Diagnosis/Problems 1. Atrial fibrillation (427.31) (I48.91) Signatures Electronically signed by : Tory Kent R.N.; Jun 21 2018 2:02PM EST (Author) Appendix #1 Coumadin Patient: MARSHALL FARRELL; : 1945; [id number] 01:[id number] 01:[id number] 02:[id number] 11:[id number] 10:35AM IO PT/INR PT + INR, Plasma PT/INR (POC) Coagulation Screen Current Dose New Dose Recheck in Patient Notified Comments IO INR2.5331.44.1 PT, INR Target INR -66-14-32-32-3 ANTICOAGULATION MONITORING Observed: 06/07/2018 Status: UNK [facility] 1:15 PM HOSPITALS REPOSITORY Today's INR [id number] IO INR3 Target INR range2-3 SourceAMS History of Present Illness Patient identification verified with 2 patient identifiers. Anticoagulation Monitoring Service: [facility]. Enrollment/Re-enrollment date: September 04, 2018. The patient is being seen as a follow-up for anticoagulation monitoring. Target INR 2-3. Monitoring practitioner Lonnie Crane MD. INR monitoring is per [facility] protocol. The patient is on anticoagulation due to atrial fibrillation/flutter. The patient is currently taking warfarin Tablet strength and color: 5 mg(Roane) Interval History: Patient was last seen: May 24, 2018. Previous INR was 3. Incoming total weekly dose 45 mg. Today's Clinic INR: [facility] INR 3. Since last visit, the patient reports no bleeding. The patient did not experience clinically relevant bleeding. The patient did not experience other minor bleeding. Since last visit, The patient has not experienced thrombotic event. The patient reports no change in medication. She reports no change in alcohol consumption. She reports no change in Vitamin K consumption. The patient has taken Warfarin as directed. Management: The patient's INR is within target range. Will maintain dose. Next follow up appointment in 2 week(s). Outgoing total weekly dose 45 mg. Patient instructed to call in interim with questions, concerns and changes. Discussion/Summary You are currently taking Warfarin. Your tablet strength and color: 5 mg(Roane) Next Appointment: Thursday, June 21, 2018. Time: 1: 15 pm. Location: [facility], [address] [place] [address]. Your INR today is within range . You will continue to take your dose as instructed above. Visit information Please call in interim with questions, concerns and changes. Do tell your provider when you get sick, hurt, or get a cut that will not stop bleeding. If you have any bleeding, trauma, falls and/or other medical concerns, call your doctor or seek medical attention right away. Results/Data Coumadin Printed in Appendix #1 below. *Diagnosis/Problems 1. Atrial fibrillation (427.31) (I48.91) Appendix #1 Coumadin Patient: MARSHALL FARRELL; : 1945; [id number] 01:[id number] 02:[id number] 11:[id number] 10:[id number] 10:[id number] 04:11AM IO PT/INR PT + INR, Plasma PT/INR (POC) Coagulation Screen Current Dose New Dose Recheck in Patient Notified Comments IO [id number] PT, INR1.3 Target INR [id number] ANTICOAGULATION MONITORING Observed: 05/24/2018 Status: UNK [facility]: [facility] 2:18 PM HOSPITALS REPOSITORY Today's INR [id number] IO INR3 Target INR range2-3 SourceAMS History of Present Illness Patient identification verified with 2 patient identifiers. Anticoagulation Monitoring Service: [facility]. Enrollment/Re-enrollment date: September 04, 2018. The patient is being seen as a follow-up for anticoagulation monitoring. Target INR 2-3. Monitoring practitioner Lonnie Crane MD. INR monitoring is per [facility] protocol. The patient is on anticoagulation due to atrial fibrillation/flutter. The patient is currently taking warfarin Tablet strength and color: 5 mg(Roane) Interval History: Patient was last seen: May 13, 2018. Previous INR was 1.4. Incoming total weekly dose 45 mg. Today's Clinic INR: [facility] INR 1.4. Since last visit, the patient reports no bleeding. The patient did not experience clinically relevant bleeding. The patient did not experience other minor bleeding. Since last visit, The patient has not experienced thrombotic event. The patient reports no change in medication. She reports no change in alcohol consumption. She reports no change in Vitamin K consumption. The patient has taken Warfarin as directed. Management: The patient's INR is within target range. Will maintain dose. Next follow up appointment in 2 week(s). PT LAST VISIT WAS 2 WEEKS AGO. Outgoing total weekly dose 45 mg. Patient instructed to call in interim with questions, concerns and changes. Patient educated on signs of bleeding/clotting. Discussion/Summary You are currently taking Warfarin. Your tablet strength and color: 5 mg(Roane) Next Appointment: Thursday, June 07, 2018. Time: 1: 00 pm. Location: [facility], [address] [place] [address]. Your INR today is within range . You will continue to take your dose as instructed above. Visit information Please call in interim with questions, concerns and changes. Do tell your provider when you get sick, hurt, or get a cut that will not stop bleeding. If you have any bleeding, trauma, falls and/or other medical concerns, call your doctor or seek medical attention right away. Results/Data Coumadin Printed in Appendix #1 below. *Diagnosis/Problems 1. Atrial fibrillation (427.31) (I48.91) Signatures Electronically signed by : Brandy Paulson R.N.; May 24 2018 2:18PM EST (Author) Appendix #1 Coumadin Patient: BUD MARSHALL; : 1945; [id number] 02:[id number] 11:[id number] 10:[id number] 10:[id number] 04:[id number] 04:11AM IO PT/INR PT + INR, Plasma PT/INR (POC) Coagulation Screen Current Dose New Dose Recheck in Patient Notified Comments IO [id number] PT, INR1.3 Target INR [id number] ANTICOAGULATION MONITORING Observed: 05/13/2018 Status: UNK [facility] 11:23 AM HOSPITALS REPOSITORY Today's INR [id number] IO INR1.4 Target INR range2-3 SourceAMS History of Present Illness Patient identification verified with 2 patient identifiers. Anticoagulation Monitoring Service: [facility]. Enrollment/Re-enrollment date: September 04, 2018. The patient is being seen as a follow-up for anticoagulation monitoring. Target INR 2-3. Monitoring practitioner Lonnie Crane MD. INR monitoring is per [facility] protocol. The patient is on anticoagulation due to atrial fibrillation/flutter. The patient is currently taking warfarin Tablet strength and color: 5 mg(Roane) Interval History: Patient was last seen: May 06, 2018. Previous INR was 4.1. Two doses were held and TWD was reduced at time of last appointment. Incoming total weekly dose 40 mg. Today's Clinic INR: [facility] INR 1.4. Since last visit, the patient reports no bleeding. The patient did not experience clinically relevant bleeding. The patient did not experience other minor bleeding. Since last visit, The patient has not experienced thrombotic event. The patient reports no change in medication. She reports no change in alcohol consumption. She reports no change in Vitamin K consumption. The patient has taken Warfarin as directed. Patient has taken 5 doses of warfarin since restarting warfarin post a 2 dose hold for supratherapeutic INR. Management: The patient's INR is subtherapeutic. Will increase TWD by approx. 10-15%. Next follow up appointment in 3-5 day(s). Outgoing total weekly dose 45 mg. Patient instructed to call in interim with questions, concerns and changes. Patient educated on signs of bleeding/clotting. Discussion/Summary You are currently taking Warfarin. Your tablet strength and color: 5 mg(Roane) Next Appointment: Friday, May 18, 2018. Time: 2: 45 pm. Location: [facility], . Your INR today is lower than your target range, you may be at risk for forming blood clots. Change your dosing as instructed above. Visit information Please call in interim with questions, concerns and changes. Do tell your provider when you get sick, hurt, or get a cut that will not stop bleeding. If you have any bleeding, trauma, falls and/or other medical concerns, call your doctor or seek medical attention right away. Results/Data Coumadin Printed in Appendix #1 below. *Diagnosis/Problems 1. Atrial fibrillation (427.31) (I48.91) Appendix #1 Coumadin Patient: MARSHALL FARRELL; : 1945; [id number] 11:[id number] 10:[id number] 10:[id number] 04:[id number] 02:20PM IO PT/INR PT + INR, Plasma PT/INR (POC) Coagulation Screen Current Dose New Dose Recheck in Patient Notified Comments IO [id number] PT, INR Target INR [id number] OFFICE VISIT Observed: 05/11/2018 Status: UNK Source: [facility] (CARDIOLOG[facility]) 10:03 AM HOSPITALS REPOSITORY Chief Complaint MARSHALL FARRELL is being seen for a 6mo month follow-up of atrial fibrillation and s/p Tikosyn loading. History of Present Illness Pleasant 72 yo WF with hx anxiety, AR, , embolism (ulnar, peroneal 2008), hypothyroid (partial thyroidectomy 2005), rheumatic mitral stenosis s/p valvuloplasty 2015, Dual chamber PPM (sick sinus syndr ome), PAF then became persistent had PVI + Tikosyn 11/2015. Was doing generally well from arrhythmia standpoint. She forgot to take her Tikosyn for several days and needed to be hospitalized to have relo ading. Her device was interrogated during hospital stay and was functioning wnl, battery life was at 2yrs. 11/03/17 1mo post Tikosyn reloading. She is doing overall well. Does have occasional flip flop, skip beats on occasion that take her breath away briefly, last a few seconds. Denies any sob at rest, MARKS , syncope, LH, edema, orthopnea, fever/chills, n/v. She has noticed since reloading Tikosyn a dull ache around the apex region of the heart that comes and goes for a minute, occurs about 5-10x day. No a ssociated symptoms with these. She has not changed her exercise or weight lifting routine. Her energy and stamina are unchanged. TODAY 6mo s/p Tikosyn reloading. She is 1 1/2 mo s/p OHS (MVR,AVR and TV repair w/ MAZE) by Dr. Pulido. She was readmitted for anaphylactic shock (LOUIS inhibitor vs oxycodone) that required intubation x2 days. Since then she has been feeling better. She was restarted back on low dose dig per Dr. Crane. Still with some fatigue, but small improvement in her endurance. Has not been exerting herself si nce surgery/healing. She would like to start cardiac rehab. Denies cp, sob, palpitations, LH, syncope, orthopnea, edema, fever/chills. ECG 11/03/17 A paced 64 bpm, V sensed, one PVC,1st degree AVB, TARA 250ms, QRS 84 ms, LAFB QTc 440ms (manual) ECG 09/30/17 SR 61 bpm, TARA 248ms, 1st degree AVB QRS 84ms, QTc 467ms, PACs ECHO 01/2018 EF 60-65%, mod LVH, sev MR, mod sev , mod TR RENE 09/27/17 no thrombus, EF 55% ECHO 05/2016 EF 55-60%, DD, LA sev dilat, MV mod thickened and rheumatic, mod-sev AR, mod AR CATH 01/2015 normal coronaries, norm LVF There are no spiritual/cultural practices/values/needs that are important to know Initial Fall Risk Screening: MARSHALL has not fallen in the last 6 months. Her fall did not result in injury. MARSHALL does not have a fear of falling. She does not need assistance with sitting, standing or walking. Does not need ass istance walking in her home. She does not need assistance in an unfamiliar setting. The patient is not using an assistive device. Advance directives: Living Will: No living will on file. Healthcare POA: No healthcare proxy on file. *Active Problems Abnormal finding in urine (791.9) (R82.90) Anaphylactic reaction (995.0) (T78.2XXA) possible relationship to oxycodone. Anxiety (300.00) (F41.9) Aortic stenosis (424.1) (I35.0) September 05, 2015: Moderate aortic valve thickening, with mild aortic valve stenosis and mild aortic valve regurgitation. Peak gradient 38 mmHg, mean gradient 22.5 mmHg, aortic valve area 1.45 cm. 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 Bone lesion (733.90) (M89.9) Bursitis of left hip (726.5) (M70.72) History of Catheter Ablation Atrial Fibrillation December 24, 2015: Catheter ablation of atrial fibrillation. Dr. Bertrand. Chronic cough (786.2) (R05) Coagulopathy (286.9) (D68.9) Hypothyroidism (244.9) (E03.9) Malignant neoplasm of thyroid gland (193) (C73) Added by Problem List Migration; 2013-02-17; Moved to 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 Tricuspid regurgitation (397.0) (I07.1) Warfarin anticoagulation (V58.61) (Z79.01) Atrial fibrillation (427.31) (I48.91) Surgical History History of Catheter Ablation Atrial Fibrillation December 24, 2015: Catheter ablation of atrial fibrillation. Dr. Bertrand. History of Elective Cardioversion April,. January,. September,. History of Thyroid Surgery Total Thyroidectomy September 2004 History of Transluminal Valvular Angioplasty Mitral Valve October,. 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) Current Meds Aspirin EC 81 MG Oral Tablet Delayed Release; TAKE 1 TABLET DAILY; Therapy: 51Dcp9377 to (Evaluate:09Oct2018) Recorded Dispense: 30 Days ; #:30 Tablet Delayed Release; Refill: 5;For: Aortic stenosis; LARRY = N; Record; Last Updated By: Jennifer Paige; 04/12/2018 3:31:56 PM Multi For Her Oral Capsule; TAKE 1 CAPSULE DAILY; Therapy: (Recorded:86Lxp9084) to Recorded Dispense: 0 Days ; #: Sufficient Capsule; Refill: 0;For: Health Maintenance; LARRY = N; Record; Last Updated By: Jennifer Paige; 04/17/2015 10:40:35 AM Levothyroxine Sodium 100 MCG Oral Tablet; TAKE 1 TABLET IN THE AM ON AN EMPTY STOMACH; Therapy: 10Axd7251 to (Evaluate:74Rdt1783) Requested for: 48Mur9969; Last Rx:[id number] Ordered Rx By: Sharif Srivastava; Dispense: 90 Days ; #:90 TAB; Refill: 3;For: Hypothyroidism; LARRY = N; Verified Transmission to [facility] Digox 125 MCG Oral Tablet; TAKE 1 TABLET BY MOUTH DAILY; Therapy: 94Wcz8199 to (Evaluate:07Jan2019) Recorded Rx By: Lonnie Crane; Dispense: 90 Days ; #:90 Tablet; Refill: 2;For: Paroxysmal atrial fibrillation; LARRY = N; Record Dofetilide 500 MCG Oral Capsule; Take 1 capsule twice daily; Therapy: 75Eoq3117 to (Evaluate:34Yqy8040) Requested for: 21Jan2018; Last Rx:21Jan2018; Status: ACTIVE - Retrospective By Protocol Authorization Ordered Rx By: Junior Bertrand; Dispense: 90 Days ; #:180 Capsule; Refill: 1;For: Paroxysmal atrial fibrillation; LARRY = N; Verified Transmission to [facility]; Last Updated By: Scar Aguillon; 01/21/2018 4:17:41 PM Metoprolol Tartrate 25 MG Oral Tablet; Take one tablet by mouth twice-a-day; Therapy: 03Dec2015 to (Last Rx:25Jun2017) Requested for: 25Jun2017 Ordered Rx By: Lonnie Crane; Dispense: 0 Days ; #:180 Tablet; Refill: 3;For: Paroxysmal atrial fibrillation; LARRY = N; Verified Transmission to [facility] Warfarin Sodium 5 MG Oral Tablet; TAKE 1/2 TAB ON WEDNESDAY- WEDNESDAY AND WEDNESDAY 2 TABS ON REMAINING DAYS OR DIRECTED; Therapy: 31Aug2013 to (Evaluate:03Dec2017) Requested for: 08Dec2016; Last Rx:08Dec2016 Ordered Rx By: Lonnie Crane; Dispense: 90 Days ; #:225 Tablet; Refill: 3;For: Paroxysmal atrial fibrillation; LARRY = N; Verified Transmission to [facility] EpiPen 2-Mariusz 0.3 MG/0.3ML Injection Solution Auto-injector; INJECT 0.3ML INTRAMUSCULARLY DIRECTED; Therapy: 12Apr2018 to Recorded Dispense: 0 Days ; #: Sufficient Solution Auto-injector; Refill: 0; LARRY = N; Record; Last Updated By: Jennifer Paige; 04/12/2018 3:34:35 PM Venlafaxine HCl - 37.5 MG Oral Tablet; TAKE 1 TABLET DAILY; Therapy: 31Aug2013 to Recorded Dispense: 0 Days ; #: Sufficient Tablet; Refill: 0; LARRY = N; Record; Last Updated By: Jessica Chang; 08/31/2013 12:07:39 PM Allergies ciprofloxacin Adverse Reaction; Nausea; Recorded By: Jennifer Paige; 04/12/2018 3:28:09 PM Sulfa Drugs Allergy; Rash; Updated By: Jennifer Paige; 01/24/2018 2:29:43 PM Family History Family history of Family history of lung cancer (V16.1) (Z80.1) Family history of lung cancer (V16.1) (Z80.1) Social History Exercises sporadically Walks 2 miles 3 -4 times weekly. Former smoker (V15.82) (Z87.891) Quit smoking 20-25 years ago. History of Full-time employment [employer] Single-family home Review of Systems Constitutional: as noted in HPI, not feeling poorly, not feeling tired, no fever and no chills. Eyes: no eyesight problems and no eye pain. ENT: no hearing loss, no sore throat and no nosebleeds. Cardiovascular: as noted in HPI, no tightness or heavy pressure, no shortness of breath, no lower extremity edema and no intermittent leg claudication. Respiratory: as noted in HPI, no chronic cough, no shortness of breath during exertion, no shortness of breath, no orthopnea and no postural nocturnal dyspnea. Gastrointestinal: no change in bowel habits, no diarrhea, no blood in stools, no nausea, no vomiting and no abdominal pain. Genitourinary: no urinary frequency and no hematuria. Musculoskeletal: no myalgias. Skin: no skin rashes and no skin lesions. Neurological: no dizziness, no seizures, no frequent falls and no fainting. Psychiatric: no depression, no anxiety and not suicidal. Endocrine: thyroid disorder, but no diabetes mellitus. Hematologic/Lymphatic: does not bruise easily. Vitals Vital Signs Recorded: 04May2018 11:15AM Heart Rate67 Bvoilwqg391, LUE, Sitting Ucwfcdzqa89, LUE, Sitting Height5 ft 6.5 in Jxsgpl968 lb 7 oz BMI Yvkowlizap08.92 BSA Calculated1.78 O2 Itcuflvrdu10 Physical Exam Constitutional: alert and in no acute distress. Eyes: no erythema, swelling or discharge from the eye . Neck: neck is supple, symmetric, trachea midline, no masses . Pulmonary: no increased work of breathing or signs of respiratory distress and lungs clear to auscultation. Cardiovascular: carotid pulses 2+ bilaterally with no bruit , JVP was normal, no thrills , the heart rate was normal the rhythm was regular, abnormal S1, abnormal S2. Holosystolic murmur heard best ove r apex but radiating throughout., pedal pulses 2+ bilaterally and no edema . Pacemaker/ICD Implant site has healed without signs of infection. Abdomen: abdomen non-tender, no masses and no hepatomegaly . Musculoskeletal: normal gait. Skin: skin warm and dry, normal skin turgor . Psychiatric judgment and insight is normal , oriented to person, place and time , recent and remote memory intact and normal mood and affect . Results/Data LABS 10/10/14 K 4.0, Mg 2.2, Cr. 0.6, INR 3.0, Dig 0.21 (not replaced in hospital) Scores and Scales GMG0QV2-FQGt 1. Heart Failure or EF is less than or equal to 35%? No (0 pt) 2. Hypertension? No (0 pt) 3. Age? Between 65-74 (1 pt) 4. Diabetes? No (0 pt) 5. Stroke, TIA, or Systemic Emboli? Yes (2 pt) 6. Vascular Disease? No (0 pt) 7. Gender? Female (1 pt) Total Risk Score: The OCF1GV3-EOXr Score is 4 which corresponds to High Risk. Diagnoses/Problems Visit for monitoring Tikosyn therapy (V58.83,V58.69) (Z51.81,Z79.899) Presence of cardiac pacemaker (V45.01) (Z95.0)1 April,: Indication was tachy-alden syndrome.1 History of Catheter Ablation Atrial Fibrillation1 December 24, 2015: Catheter ablation of atrial fibrillation. Dr. 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 S/p AVR, MVR and TV repair and MAZE 02/2018, had readmit for anaphylaxis (ACEI vs. oxycodone) intubated x2days, then good recovering. Pt 6mo s/p reloading of Tikosyn (forgot to take medication for 4 days) and s/p MVR/AVR, TV repair + MAZE doing well from arrhythmia standpoint so far. ECG today shows she is Atrial sensing and Vpacing. Historically she Vpaces approx 10-40% of time. 66 bpm w/ stable BP. QTc 540ms (PACED QRS) on Tikosyn. She is also on Digoxin and metoprolol. No bleeding on warfarin and INR remains stable. Will continue with antiarrhythmic while healing post op period and reevaluate possibly stopping Tikosyn at 6mo, although pt expresses she would like to stay on it indefinitely. Will also look at Vpacing burden at that time, may consider decreasing some of her AV robby blocking agents if this remains high. Plan: Continue Tikosyn for now Continue Digoxin Continue Metoprolol [facility] (close to [place] if possible) F/u EP 6mo w/ device check same day Labs in 6 mo if remains on Tikosyn (keep K >4, mg >2 and stable renal fxn) can do at PCP. Pt reviewed and plan discussed with Dr. Bertrand Plan: Continue Tikosyn 500 mcg q 12 hrs Continue Coumadin and f/u Coumadin clinic f/u EP 6 mo w/ device check same day labs 3-6 mo while on Tikosyn (recently done) make all providers aware on Tikosyn especially if changing any antidepressant/anxiety or QT prolonging medications Pt reviewed and discussed with collaborating physician Dr. Bertrand Orders Visit for monitoring Tikosyn therapy Electrocardiogram 12 Lead; Status:Active; Requested for:04May2018; Perform:[facility]; Due:02Aug2018;Ordered; For:Visit for monitoring Tikosyn therapy; Ordered By:Brandy Subramanian; Patient Instructions Continue Tikosyn for now Continue Digoxin Continue Metoprolol Continue Coumadin [facility] (close to [place] if possible) Dr. Crane office arranging F/u EP 6mo w/ device check same day .. If you have any questions please do not hesitate to contact my office. End of Encounter Meds Aspirin EC 81 MG Oral Tablet Delayed Release; TAKE 1 TABLET DAILY; Therapy: 38Wdx6769 to (Evaluate:09Oct2018) Recorded Digox 125 MCG Oral Tablet; TAKE 1 TABLET BY MOUTH DAILY; Therapy: 64Vyo9050 to (Evaluate:07Jan2019) Recorded Dofetilide 500 MCG Oral Capsule; Take 1 capsule twice daily; Therapy: 33Xqy1882 to (Evaluate:37Bfp0589) Requested for: 21Jan2018; Last Rx:21Jan2018; Status: ACTIVE - Retrospective By Protocol Authorization Ordered EpiPen 2-Mariusz 0.3 MG/0.3ML Injection Solution Auto-injector (EPINEPHrine); INJECT 0.3ML INTRAMUSCULARLY DIRECTED; Therapy: 65Gxy9885 to Recorded Levothyroxine Sodium 100 MCG Oral Tablet; TAKE 1 TABLET IN THE AM ON AN EMPTY STOMACH; Therapy: 35Ust0208 to (Evaluate:13Skq7593) Requested for: 55Dpa2728; Last Rx:84Phk1108 Ordered Metoprolol Tartrate 25 MG Oral Tablet; Take one tablet by mouth twice-a-day; Therapy: 08Gcv5442 to (Last Rx:23Ltd0695) Requested for: 66Lls1338 Ordered Multi For Her Oral Capsule; TAKE 1 CAPSULE DAILY; Therapy: (Recorded:05Igd2116) to Recorded Venlafaxine HCl - 37.5 MG Oral Tablet; TAKE 1 TABLET DAILY; Therapy: 29Ton2958 to Recorded Warfarin Sodium 5 MG Oral Tablet; TAKE 1/2 TAB ON WEDNESDAY-WEDNESDAY AND WEDNESDAY 2 TABS ON REMAINING DAYS OR DIRECTED; Therapy: 07Mly2710 to (Evaluate:98Ima1084) Requested for: 09Mpr1449; Last Rx:[id number] Ordered Signatures Electronically signed by : KRISTIN Car; May 11 2018 10:03AM EST (Author) ANTICOAGULATION MONITORING Observed: 05/06/2018 Status: UNK [facility]: [facility] 10:46 AM HOSPITALS REPOSITORY Today's INR [id number] IO INR4.1 Target INR range2-3 SourceAMS History of Present Illness Patient identification verified with 2 patient identifiers. Anticoagulation Monitoring Service: [facility]. Enrollment/Re-enrollment date: September 04, 2018. The patient is being seen as a follow-up for anticoagulation monitoring. Target INR 2-3. Monitoring practitioner Lonnie Crane MD. INR monitoring is per [facility] protocol. The patient is on anticoagulation due to atrial fibrillation/flutter. The patient is currently taking warfarin Tablet strength and color: 5 mg(Roane) Interval History: Patient was last seen: April 28, 2018. Previous INR was 3.2. TWD was reduced at time of last appointment; however, patient states that she misunderstood instructions and did not reduce dose as instructed. Incoming total weekly dose 45 mg. Today's Clinic INR: [facility] INR 4.1. Since last visit, the patient reports no bleeding. The patient did not experience clinically relevant bleeding. The patient did not experience other minor bleeding. Since last visit, The patient has not experienced thrombotic event. The patient reports no change in medication. She reports no change in alcohol consumption. She reports no change in Vitamin K consumption. The patient did not take Warfarin as directed. She took an extra tablet by mistake. See above notation. There is no identifiable cause for out of range INR. Management: The patient's INR is supratherapeutic. Hold 2 doses. Will decrease dose per protocol by approximately 15% Next follow up appointment in 1 week(s). Outgoing total weekly dose 40 mg. Patient instructed to call in interim with questions, concerns and changes. Patient educated on signs of bleeding/clotting. Patient educated on compliance with dosing, follow up appointments, and prescribed plan of care. Discussion/Summary You are currently taking Warfarin. Your tablet strength and color: 5 mg(Roane) Please do not take any warfarin today, Wednesday, May 06, 2018, or tomorrow, Wednesday, May 07, 2018. Next Appointment: Wednesday, May 13, 2018. Time: 10: 45 am. Location: [facility], [address] [place] [address]. Your INR today is higher than your target range, you may be at risk for bleeding. Please hold Coumadin/Warfarin dose(s) for 2 day(s). Change your dosing as instructed above. Visit information Please call in interim with questions, concerns and changes. Do tell your provider when you get sick, hurt, or get a cut that will not stop bleeding. If you have any bleeding, trauma, falls and/or other medical concerns, call your doctor or seek medical attention right away. Results/Data Coumadin Printed in Appendix #1 below. *Diagnosis/Problems 1. Atrial fibrillation (427.31) (I48.91) Signatures Electronically signed by : Tory Kent R.N.; May 06 2018 10:46AM EST (Author) Appendix #1 Coumadin Patient: MARSHALL FARRELL; : 1945; [id number] 10:57JY26Ybt4069 10:14CZ33Mlp9948 04:29VZ19Pgr1844 02:06SH01Qgg9025 03:49PM IO PT/INR PT + INR, Plasma PT/INR (POC) Coagulation Screen Current Dose New Dose Recheck in Patient Notified Comments IO INR4.13.22.93.61.6 PT, INR Target INR [id number] ANTICOAGULATION MONITORING Observed: 04/28/2018 Status: UNK [facility] 10:27 AM HOSPITALS REPOSITORY Today's INR [id number] IO INR3.2 Target INR range2-3 SourceAMS History of Present Illness Patient identification verified with 2 patient identifiers. Anticoagulation Monitoring Service: [facility]. Enrollment/Re-enrollment date: September 04, 2018. The patient is being seen as a follow-up for anticoagulation monitoring. Target INR 2-3. Monitoring practitioner Lonnei Crane MD. INR monitoring is per [facility] protocol. The patient is on anticoagulation due to atrial fibrillation/flutter. The patient is currently taking warfarin Tablet strength and color: 5 mg(Roane) Interval History: Patient was last seen: April 19, 2018. Previous INR was 2.9. Incoming total weekly dose 45 mg. Today's Clinic INR: [facility] INR 3.2. Since last visit, the patient reports no bleeding. The patient did not experience clinically relevant bleeding. The patient did not experience other minor bleeding. Since last visit, The patient has not experienced thrombotic event. The patient reports no change in medication. She reports no change in alcohol consumption. She reports no change in Vitamin K consumption. The patient has taken Warfarin as directed. Management: The patient's INR is supratherapeutic. Will decrease dose per protocol by approximately 5% Next follow up appointment in 1 week(s). Outgoing total weekly dose 42.5 mg. Patient instructed to call in interim with questions, concerns and changes. Patient educated on signs of bleeding/clotting. Discussion/Summary You are currently taking Warfarin. Your tablet strength and color: 5 mg(Roane) Next Appointment: Sunday, May 06, 2018. Time: 10: 30 am. Location: [facility], . Your INR today is higher than your target range, you may be at risk for bleeding. Change your dosing as instructed above. Visit information Please call in interim with questions, concerns and changes. Do tell your provider when you get sick, hurt, or get a cut that will not stop bleeding. If you have any bleeding, trauma, falls and/or other medical concerns, call your doctor or seek medical attention right away. Results/Data Coumadin Printed in Appendix #1 below. *Diagnosis/Problems 1. Atrial fibrillation (427.31) (I48.91) Signatures Electronically signed by : Tory Kent R.N.; Apr 28 2018 10:27AM EST (Author) Appendix #1 Coumadin Patient: MARSHALL FARRELL; : 1945; [id number] 10:69KE76Wds0236 04:11CX49Gfz4423 02:34ZF73Dtu5172 03:46CD42Zuq6054 04:11AM IO PT/INR PT + INR, Plasma PT/INR (POC) Coagulation Screen Current Dose New Dose Recheck in Patient Notified Comments IO INR3.22.93.61.6 PT, INR1.3 Target INR -04-81-32-3 OFFICE VISIT (CARDIAC Observed: 04/22/2018 Status: UNK Source: [facility]) 10:45 AM HOSPITALS REPOSITORY Chief Complaint Patient is here for P/OP visit. History of Present Illness There are no spiritual/cultural practices/values/needs that are important to know Initial Fall Risk Screening: MARSHALL has not fallen in the last 6 months. The patient is not using an assistive device. Advance directives: Living Will: No living will on file. Healthcare POA: No healthcare proxy on file. Active Problems Abnormal finding in urine (791.9) (R82.90) Anaphylactic reaction (995.0) (T78.2XXA) possible relationship to oxycodone. Anxiety (300.00) (F41.9) Aortic stenosis (424.1) (I35.0) September 05, 2015: Moderate aortic valve thickening, with mild aortic valve stenosis and mild aortic valve regurgitation. Peak gradient 38 mmHg, mean gradient 22.5 mmHg, aortic valve area 1.45 cm. 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 Atrial fibrillation (427.31) (I48.91) Bone lesion (733.90) (M89.9) Bursitis of left hip (726.5) (M70.72) History of Catheter Ablation Atrial Fibrillation December 24, 2015: Catheter ablation of atrial fibrillation. Dr. Bertrand. Chronic cough (786.2) (R05) Coagulopathy (286.9) (D68.9) Hypothyroidism (244.9) (E03.9) Malignant neoplasm of thyroid gland (193) (C73) Added by Problem List Migration; 2013-02-17; Moved to 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) Surgical History History of Catheter Ablation Atrial Fibrillation December 24, 2015: Catheter ablation of atrial fibrillation. Dr. Bertrand. History of Elective Cardioversion April,. January,. September,. History of Thyroid Surgery Total Thyroidectomy September 2004 History of Transluminal Valvular Angioplasty Mitral Valve October,. Family History Family history of Family history of lung cancer (V16.1) (Z80.1) Family history of lung cancer (V16.1) (Z80.1) Social History Exercises sporadically Walks 2 miles 3 -4 times weekly. Former smoker (V15.82) (Z87.891) Quit smoking 20-25 years ago. History of Full-time employment [employer] Retired Single-family home Allergies ciprofloxacin Adverse Reaction; Nausea; Recorded By: Jennifer Paige; 04/12/2018 3:28:09 PM Sulfa Drugs Allergy; Rash; Updated By: Jennifer Paige; 01/24/2018 2:29:43 PM Current Meds Aspirin EC 81 MG Oral Tablet Delayed Release; TAKE 1 TABLET DAILY; Therapy: 12Apr2018 to (Evaluate:09Oct2018) Recorded Dispense: 30 Days ; #:30 Tablet Delayed Release; Refill: 5;For: Aortic stenosis; LARRY = N; Record; Last Updated By: Jennifer Paige; 04/12/2018 3:31:56 PM Multi For Her Oral Capsule; TAKE 1 CAPSULE DAILY; Therapy: (Recorded:90Fzi5138) to Recorded Dispense: 0 Days ; #: Sufficient Capsule; Refill: 0;For: Health Maintenance; LARRY = N; Record; Last Updated By: Jennifer Paige; 04/17/2015 10:40:35 AM Levothyroxine Sodium 100 MCG Oral Tablet; TAKE 1 TABLET IN THE AM ON AN EMPTY STOMACH; Therapy: 87Nfb6031 to (Evaluate:30Unn2518) Requested for: 12Rde2015; Last Rx:[id number] Ordered Rx By: Sharif Srivastava; Dispense: 90 Days ; #:90 TAB; Refill: 3;For: Hypothyroidism; LARRY = N; Verified Transmission to [facility] Digox 125 MCG Oral Tablet; TAKE 1 TABLET BY MOUTH DAILY; Therapy: 12Apr2018 to (Evaluate:07Jan2019) Recorded Rx By: Lonnie Crane; Dispense: 90 Days ; #:90 Tablet; Refill: 2;For: Paroxysmal atrial fibrillation; LARYR = N; Record Dofetilide 500 MCG Oral Capsule; Take 1 capsule twice daily; Therapy: 11Jan2017 to (Evaluate:25Xhn2751) Requested for: 21Jan2018; Last Rx:21Jan2018; Status: ACTIVE - Retrospective By Protocol Authorization Ordered Rx By: Junior Bertrand; Dispense: 90 Days ; #:180 Capsule; Refill: 1;For: Paroxysmal atrial fibrillation; LARRY = N; [facility]; Last Updated By: Scar Aguillon; 01/21/2018 4:17:41 PM Metoprolol Tartrate 25 MG Oral Tablet; Take one tablet by mouth twice-a-day; Therapy: 03Dec2015 to (Last Rx:25Jun2017) Requested for: 25Jun2017 Ordered Rx By: Lonnie Crane; Dispense: 0 Days ; #:180 Tablet; Refill: 3;For: Paroxysmal atrial fibrillation; LARRY = N; Verified Transmission to [facility] Warfarin Sodium 5 MG Oral Tablet; TAKE 1/2 TAB ON WEDNESDAY- WEDNESDAY AND WEDNESDAY 2 TABS ON REMAINING DAYS OR DIRECTED; Therapy: 31Aug2013 to (Evaluate:03Dec2017) Requested for: 08Dec2016; Last Rx:08Dec2016 Ordered Rx By: Lonnie Crane; Dispense: 90 Days ; #:225 Tablet; Refill: 3;For: Paroxysmal atrial fibrillation; LARRY = N; Verified Transmission to [facility] EpiPen 2-Mariusz 0.3 MG/0.3ML Injection Solution Auto-injector; INJECT 0.3ML INTRAMUSCULARLY DIRECTED; Therapy: 12Apr2018 to Recorded Dispense: 0 Days ; #: Sufficient Solution Auto-injector; Refill: 0; LARRY = N; Record; Last Updated By: Jennifer Paige; 04/12/2018 3:34:35 PM Venlafaxine HCl - 37.5 MG Oral Tablet; TAKE 1 TABLET DAILY; Therapy: 31Aug2013 to Recorded Dispense: 0 Days ; #: Sufficient Tablet; Refill: 0; LARRY = N; Record; Last Updated By: Jessica Chang; 08/31/2013 12:07:39 PM Vitals Vital Signs Recorded: 22Apr2018 09:38AM Heart Rate66 Tyitwagd972, LUE, Sitting Qtsfpbije30, LUE, Sitting Height5 ft 6.5 in Tjcrbi286 lb 1 oz BMI Stzlhjmzyf53.49 BSA Calculated1.8 O2 Zmbhzhxmlv66 Diagnoses/Problems S/P tricuspid valve repair (V45.89) (Z98.890) S/P mitral valve replacement (V43.3) (Z95.2) S/P Maze operation for atrial fibrillation (V45.89) (Z98.890,Z86.79) S/P AVR (aortic valve replacement) (V43.3) (Z95.2) Provider Impressions 4 weeks following mitral valve replacement with 31 Epic, aortic valve replacement with 23 freestyle, tricuspid valve repair with 31 ATS and Maze procedure. Prior pacemaker implantation. Surprisingly une ventful recovery. Chest x-ray today shows normal cardiac silhouette with sharp costophrenic angles and clear lungs. And with us in one year. We will continue Coumadin but could ultimately be switched to other agents. cc: Lonnie Dallas M.D. Dear Lonnie, As you know, Samantha Nicolerito cardiac surgery at [facility] 03/22/18 for severe rheumatic valvular disease. At surgery the mitral valve was replaced with a 31 mm Epic p cardiac rehabili tation program. Physical examination discloses a stable sternum with well-healed incisions and chest x-ray is clear with sharp costophrenic angles and a normal size cardiac silhouette. I would like to see Marshall again in one year and will be happy to follow her through you in the interim. I will be happy to see her again at any time. If we can demonstrate atrial contraction we have t he option of discontinuing her Coumadin and, if it needs to be continued, could be switched to another agent if need be. Please do not hesitate to call if you have any other questions. Thanks again for having us involved with this very pleasant couple. Sincerely yours, Louis Pulido MDorcine stented prosthesis, the aortic valve with a 23 mm freestyle bioprosthetic aortic root in the modified sub-coronary position,and the tricuspid valve was repaired with a 31 ATS rin g interrupted at the site of the conducting bundle. A Maze procedure was performed with removal of the left atrial appendage as well. Despite the complexity of her surgery her postoperative recovery has been pleasantly uneventful. She returns today fully ambulatory and anxious to. End of Encounter Meds Aspirin EC 81 MG Oral Tablet Delayed Release; TAKE 1 TABLET DAILY; Therapy: 04Rxv5374 to (Evaluate:09Oct2018) Recorded Digox 125 MCG Oral Tablet; TAKE 1 TABLET BY MOUTH DAILY; Therapy: 27Nnl9917 to (Evaluate:07Jan2019) Recorded Dofetilide 500 MCG Oral Capsule; Take 1 capsule twice daily; Therapy: 11Jan2017 to (Evaluate:07Fou6994) Requested for: 21Jan2018; Last Rx:21Jan2018; Status: ACTIVE - Retrospective By Protocol Authorization Ordered EpiPen 2-Mariusz 0.3 MG/0.3ML Injection Solution Auto-injector; INJECT 0.3ML INTRAMUSCULARLY DIRECTED; Therapy: 12Apr2018 to Recorded Levothyroxine Sodium 100 MCG Oral Tablet; TAKE 1 TABLET IN THE AM ON AN EMPTY STOMACH; Therapy: 97Xqx5030 to (Evaluate:12Xfm8457) Requested for: 46Ajq3003; Last Rx:91Vql4483 Ordered Metoprolol Tartrate 25 MG Oral Tablet; Take one tablet by mouth twice-a-day; Therapy: 76Jib8065 to (Last Rx:83Fyo6979) Requested for: 85Puo4832 Ordered Multi For Her Oral Capsule; TAKE 1 CAPSULE DAILY; Therapy: (Recorded:90Lvk6239) to Recorded Venlafaxine HCl - 37.5 MG Oral Tablet; TAKE 1 TABLET DAILY; Therapy: 51Bqp9585 to Recorded Warfarin Sodium 5 MG Oral Tablet; TAKE 1/2 TAB ON WEDNESDAY-WEDNESDAY AND WEDNESDAY 2 TABS ON REMAINING DAYS OR DIRECTED; Therapy: 84Yog0381 to (Evaluate:19Tfx8167) Requested for: 52But5146; Last Rx:40Cov3799 Ordered CHEST 2 VIEW PA AND Observed: 04/22/2018 Status: F Source: [facility] 9:37 AM HOSPITALS REPOSITORY Patient Name: MARSHALL FARRELL STUDY: CHEST 2 VIEW PA AND LAT; 04/22/2018 9:37 am INDICATION: Signs/Symptoms: P/OP. COMPARISON: Chest x-ray dated 03/25/2018 ACCESSION NUMBER(S): [id number] ORDERING CLINICIAN: LOUIS PULIDO FINDINGS: Lines, tubes, and devices:Dual chamber left sided pacemaker device is present with leads terminating overlying the expected positions of the right atrium and right ventricle. Status post mitral and tricuspid valve repair. Lungs and pleura: The lungs are clear of focal consolidation. There are no sizeable pleural effusion or pneumothorax. Cardiomediastinal silhouette: Stable mildly enlarged cardiomediastinal silhouette. Other:No acute osseous abnormality. Status post median sternotomy. IMPRESSION: No acute cardiopulmonary process. Electronically signed by: STEFANIE MOSS MD ANTICOAGULATION MONITORING Observed: 04/19/2018 Status: UNK [facility] 4:07 PM HOSPITALS REPOSITORY Today's INR 17Fmj5427 IO INR2.9 Target INR range2-3 SourceAMS History of Present Illness Patient identification verified with 2 patient identifiers. Anticoagulation Monitoring Service: [facility]. Enrollment/Re-enrollment date: September 04, 2018. The patient is being seen as a follow-up for anticoagulation monitoring. Target INR 2-3. Monitoring practitioner Lonnie Crane MD. INR monitoring is per [facility] protocol. The patient is on anticoagulation due to atrial fibrillation/flutter. The patient is currently taking warfarin Tablet strength and color: 5 mg(Roane) Interval History: Patient was last seen: April 12, 2018. Previous INR was 3.6. One dose was held and TWD was reduced at time of last appointment. Incoming total weekly dose 45 mg. Today's Clinic INR: [facility] INR 2.9. Since last visit, the patient reports no bleeding. The patient did not experience clinically relevant bleeding. The patient did not experience other minor bleeding. Since last visit, The patient has not experienced thrombotic event. The patient reports no change in medication. She reports no change in alcohol consumption. She reports no change in Vitamin K consumption. The patient has taken Warfarin as directed. Management: The patient's INR is within target range. Will maintain dose. Next follow up appointment in 1 week(s). Outgoing total weekly dose 45 mg. Patient instructed to call in interim with questions, concerns and changes. Discussion/Summary You are currently taking Warfarin. Your tablet strength and color: 5 mg(Roane) Next Appointment: Thursday, April 26, 2018. Time: 2: 15 pm. Location: [facility], . Your INR today is within range . You will continue to take your dose as instructed above. Visit information Please call in interim with questions, concerns and changes. Do tell your provider when you get sick, hurt, or get a cut that will not stop bleeding. If you have any bleeding, trauma, falls and/or other medical concerns, call your doctor or seek medical attention right away. Results/Data Coumadin Printed in Appendix #1 below. *Diagnosis/Problems 1. Paroxysmal atrial fibrillation (427.31) (I48.0) Signatures Electronically signed by : Tory Kent R.N.; Apr 19 2018 4:07PM EST (Author) Appendix #1 Coumadin Patient: MARSHALL FARRELL; : 1945; [id number] 04:72BL24Gnb2530 02:44KK04Flh7811 03:81UK35Ncm8018 04:06CP19Gzr5755 04:47AM IO PT/INR PT + INR, Plasma PT/INR (POC) Coagulation Screen Current Dose New Dose Recheck in Patient Notified Comments IO INR2.93.61.6 PT, INR1.3 1.1 Target INR -71-66-3 OFFICE VISIT Observed: 04/12/2018 Status: UNK Source: [facility] (CARDIOLOGY) 3:58 PM HOSPITALS REPOSITORY Chief Complaint MARSHALL FARRELL is being seen for a cardiovascular evaluation. History of Present Illness The patient presents for an initial cardiology visit, 3 weeks following elective mitral valve replacement, aortic valve replacement, tricuspid valve repair and a Maze procedure. Dofetilide was resumed. She was discharged on the sixth postoperative day. She was readmitted to an outside hospital with an anaphylactic reaction, and required intubation and assisted ventilation for more than 2 days. The reaction may have been too oxycodone. However, lisinop ril was also withdrawn. She is now doing quite well, and she notes minimal incisional discomfort and no significant dyspnea. There are no spiritual/cultural practices/values/needs that are important to know Initial Fall Risk Screening: MARSHALL has not fallen in the last 6 months. Her fall did not result in injury. MARSHALL does not have a fear of falling. She does not need assistance with sitting, standing or walking. Does not need ass istance walking in her home. She does not need assistance in an unfamiliar setting. The patient is not using an assistive device. Advance directives: Living Will: No living will on file. Healthcare POA: No healthcare proxy on file. Domestic Violence Screen: Does not feel threatened or abused physically, emotionally or sexually. Do you feel UNSAFE? The patient feels safe in the home. Depression/Suicide Screening: During the past 2 weeks, the patient has not felt down, depressed or hopeless. During the past 2 weeks, the patient has not felt little interest or pleasure in doing things. She has no thoughts of harming self. She has not had thoughts of harming others. Patient Education: The patient denies that they or the person with them has problems with hearing, speaking, seeing, moving around or learning The patient is comfortable filling out medical forms. Tobacco Screening: MARSHALL does not use tobacco. Has not used tobacco in the past 6 months. Active Problems Aortic stenosis (424.1) (I35.0) September 05, 2015: Moderate aortic valve thickening, with mild aortic valve stenosis and mild aortic valve regurgitation. Peak gradient 38 mmHg, mean gradient 22.5 mmHg, aortic valve area 1.45 cm. 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 Atrial fibrillation (427.31) (I48.91) History of Catheter Ablation Atrial Fibrillation December 24, 2015: Catheter ablation of atrial fibrillation. Dr. Bertrand. 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 Tricuspid regurgitation (397.0) (I07.1) Warfarin anticoagulation (V58.61) (Z79.01) Abnormal finding in urine (791.9) (R82.90) Anaphylactic reaction (995.0) (T78.2XXA) Anxiety (300.00) (F41.9) Bone lesion (733.90) (M89.9) Bursitis of left hip (726.5) (M70.72) Chronic cough (786.2) (R05) Coagulopathy (286.9) (D68.9) Hypothyroidism (244.9) (E03.9) Malignant neoplasm of thyroid gland (193) (C73) Added by Problem List Migration; 2013-02-17; Moved to [facility] Jun 23 2013 9:06PM Surgical History History of Catheter Ablation Atrial Fibrillation December 24, 2015: Catheter ablation of atrial fibrillation. Dr. Bertrand. History of Elective Cardioversion April,. January,. September,. History of Thyroid Surgery Total Thyroidectomy September 2004 History of Transluminal Valvular Angioplasty Mitral Valve October,. 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) Current Meds Aspirin EC 81 MG Oral Tablet Delayed Release; TAKE 1 TABLET DAILY; Therapy: 24Luk2371 to (Evaluate:09Oct2018) Recorded Dispense: 30 Days ; #:30 Tablet Delayed Release; Refill: 5;For: Aortic stenosis; LARRY = N; Record; Last Updated By: Jennifer Paige; 04/12/2018 3:31:56 PM Multi For Her Oral Capsule; TAKE 1 CAPSULE DAILY; Therapy: (Recorded:30Xwh7687) to Recorded Dispense: 0 Days ; #: Sufficient Capsule; Refill: 0;For: Health Maintenance; LARRY = N; Record; Last Updated By: Jennifer Paige; 04/17/2015 10:40:35 AM Levothyroxine Sodium 100 MCG Oral Tablet; TAKE 1 TABLET IN THE AM ON AN EMPTY STOMACH; Therapy: 93Lbp0385 to (Evaluate:56Tfb4446) Requested for: 19Iye3260; Last Rx:70Pdp4319 Ordered Rx By: Sharif Srivastava; Dispense: 90 Days ; #:90 TAB; Refill: 3;For: Hypothyroidism; LARRY = N; Verified Transmission to [facility] Digox 125 MCG Oral Tablet; TAKE 1 TABLET BY MOUTH DAILY; Therapy: 63Vzm2276 to (Evaluate:07Jan2019) Recorded Rx By: Lonnie Crane; Dispense: 90 Days ; #:90 Tablet; Refill: 2;For: Paroxysmal atrial fibrillation; LARRY = N; Record Dofetilide 500 MCG Oral Capsule; Take 1 capsule twice daily; Therapy: 11Jan2017 to (Evaluate:84Ppm4608) Requested for: 21Jan2018; Last Rx:21Jan2018; Status: ACTIVE - Retrospective By Protocol Authorization Ordered Rx By: Junior Bertrand; Dispense: 90 Days ; #:180 Capsule; Refill: 1;For: Paroxysmal atrial fibrillation; LARRY = N; Verified Transmission to [facility]; Last Updated By: Scar Aguillon; 01/21/2018 4:17:41 PM Metoprolol Tartrate 25 MG Oral Tablet; Take one tablet by mouth twice-a-day; Therapy: 03Dec2015 to (Last Rx:25Jun2017) Requested for: 25Jun2017 Ordered Rx By: Lonnie Crane; Dispense: 0 Days ; #:180 Tablet; Refill: 3;For: Paroxysmal atrial fibrillation; LARRY = N; Verified Transmission to [facility] Warfarin Sodium 5 MG Oral Tablet; TAKE 1/2 TAB ON WEDNESDAY- WEDNESDAY AND WEDNESDAY 2 TABS ON REMAINING DAYS OR DIRECTED; Therapy: 31Aug2013 to (Evaluate:03Dec2017) Requested for: 08Dec2016; Last Rx:08Dec2016 Ordered Rx By: Lonnie Crane; Dispense: 90 Days ; #:225 Tablet; Refill: 3;For: Paroxysmal atrial fibrillation; LARRY = N; Verified Transmission to [facility] Atorvastatin Calcium 10 MG Oral Tablet; take 1 tablet by mouth EVERY NIGHT AT BEDTIME; Therapy: 12Apr2018 to (Evaluate:09Zeh9317) Recorded Dispense: 90 Days ; #:90 Tablet; Refill: 3; LARRY = N; Record; Last Updated By: Jennifer Paige; 04/12/2018 3:47:03 PM EpiPen 2-Mariusz 0.3 MG/0.3ML Injection Solution Auto-injector; INJECT 0.3ML INTRAMUSCULARLY DIRECTED; Therapy: 20Kjj2195 to Recorded Dispense: 0 Days ; #: Sufficient Solution Auto-injector; Refill: 0; LARRY = N; Record; Last Updated By: Jennifer Paige; 04/12/2018 3:34:35 PM Venlafaxine HCl - 37.5 MG Oral Tablet; TAKE 1 TABLET DAILY; Therapy: 13Goa9018 to Recorded Dispense: 0 Days ; #: Sufficient Tablet; Refill: 0; LARRY = N; Record; Last Updated By: Jessica Chang; 08/31/2013 12:07:39 PM Allergies Sulfa Drugs Allergy; Rash; Updated By: Jennifer Paige; 01/24/2018 2:29:43 PM Family History Family history of Family history of lung cancer (V16.1) (Z80.1) Family history of lung cancer (V16.1) (Z80.1) Social History Exercises sporadically Walks 2 miles 3 -4 times weekly. Former smoker (V15.82) (Z87.891) Quit smoking 20-25 years ago. History of Full-time employment [employer] Retired Single-family home Vitals Vital Signs Recorded: 98Bzv4397 03:17PM Heart Rate72 Jtbwlyhm090, RUE, Sitting Fewpnsxjd57, RUE, Sitting Height5 ft 6.5 in Eexrpl719 lb 6 oz BMI Efdvlxdurp97.38 BSA Calculated1.8 O2 Icpidzcvxw28, RA Physical Exam She was alert and oriented, and in no acute distress. The neck veins were not distended. The lungs were clear. The heart sounds were regular. There was a grade 3 ejection systolic murmur along the LV ou tflow tract. The midline incision was well approximated and was nontender. There was no edema. All Results/Data Complete Blood Count + Hamuyueuzoiv03Wvq9552 04:11AMNon Ambulatory, Provider Ordering Provider: FRANCIS LOGAN [id number] Test NameResultFlagReference White Blood Cell Count8.5 x10E9/L4.4 - 11.3 Red Blood Cell Count3.67 x10E12/LLSee Below Reference Range: 4.00 - 5.20 Nucleated Erythrocyte Count0.0 /100 WBC0.0-0.0 Oxygjlmihq46.2 g/dLLSee Below Reference Range: 12.0 - 16.0 HCT34.0 %LSee Below Reference Range: 36.0 - 46.0 MCV93 fL80 - 100 MCHC32.9 g/dLSee Below Reference Range: 32.0 - 36.0 Platelet Afqiw951 x10E9/L150 - 450 RDW-CV13.4 %See Below Reference Range: 11.5 - 14.5 Neutrophil %65.8 %See Below Reference Range: 40.0 - 80.0 % Automated Immature Gran1.1 %0.0 - 0.9 Percent differential counts (%) should be interpreted in the context of the absolute cell counts (cells/L). Lymphocyte %14.8 %See Below Reference Range: 13.0 - 44.0 Monocyte %11.7 %2.0 - 10.0 Eosinophil %5.9 %0.0 - 6.0 Basophil %0.7 %0.0 - 2.0 Neutrophil Count5.58 x10E9/LHSee Below Reference Range: 1.60 - 5.50 Lymphocyte Count1.25 x10E9/LSee Below Reference Range: 0.80 - 3.00 Monocyte Count0.99 x10E9/LHSee Below Reference Range: 0.05 - 0.80 Eosinophil Count0.50 x10E9/LHSee Below Reference Range: 0.00 - 0.40 Basophil Count0.06 x10E9/LSee Below Reference Range: 0.00 - 0.10 Diagnoses/Problems Anaphylactic reaction (995.0) (T78.2XXA) possible relationship to oxycodone. Paroxysmal atrial fibrillation (427.31) (I48.0) Aortic stenosis (424.1) (I35.0) September 05, 2015: Moderate aortic valve thickening, with mild aortic valve stenosis and mild aortic valve regurgitation. Peak gradient 38 mmHg, mean gradient 22.5 mmHg, aortic valve area 1.45 cm. Atrial fibrillation (427.31) (I48.91) History of Catheter Ablation Atrial Fibrillation December 24, 2015: Catheter ablation of atrial fibrillation. Dr. Bertrand. 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 We are pleased that she had a very uncomplicated hospital course. We anticipate substantial clinical improvement. We reviewed her medication list. We discontinued atorvastatin, since she does not have any coronary vascular disease. We resumed a low-dose of digoxin, which had been utilized for many years for control of the atrial fibrillation. He continues on metoprolol, dofetilide, aspirin and warfarin anticoagulation. Follow-up will be in 3 months. Orders Unlinked Stop: Atorvastatin Calcium 10 MG Oral Tablet Dispense: 90 Days ; #:90 Tablet; Refill: 3; LARRY = N; Record; Last Updated By: Lonnie Crane; 04/12/2018 3:47:03 PM Patient Instructions Discontinue atorvastatin. Do not resume lisinopril. Begin digoxin 0.125 mg daily. Follow-up with cardiothoracic surgery. Return visit in 3 months. Call with questions. End of Encounter Meds Aspirin EC 81 MG Oral Tablet Delayed Release; TAKE 1 TABLET DAILY; Therapy: 16Zpv3802 to (Evaluate:09Oct2018) Recorded Digox 125 MCG Oral Tablet; TAKE 1 TABLET BY MOUTH DAILY; Therapy: 27Quh8049 to (Evaluate:07Jan2019) Recorded Dofetilide 500 MCG Oral Capsule; Take 1 capsule twice daily; Therapy: 11Jan2017 to (Evaluate:81Mys6929) Requested for: 21Jan2018; Last Rx:21Jan2018; Status: ACTIVE - Retrospective By Protocol Authorization Ordered EpiPen 2-Mariusz 0.3 MG/0.3ML Injection Solution Auto-injector; INJECT 0.3ML INTRAMUSCULARLY DIRECTED; Therapy: 77Pwi0558 to Recorded Levothyroxine Sodium 100 MCG Oral Tablet; TAKE 1 TABLET IN THE AM ON AN EMPTY STOMACH; Therapy: 00Qgj1069 to (Evaluate:76Srp8560) Requested for: 15Lnn2050; Last Rx:13Dqd0738 Ordered Metoprolol Tartrate 25 MG Oral Tablet; Take one tablet by mouth twice-a-day; Therapy: 99Gko4819 to (Last Rx:62Shl2218) Requested for: 95Uxh8201 Ordered Multi For Her Oral Capsule; TAKE 1 CAPSULE DAILY; Therapy: (Recorded:83Gpm6234) to Recorded Venlafaxine HCl - 37.5 MG Oral Tablet; TAKE 1 TABLET DAILY; Therapy: 52Opt6866 to Recorded Warfarin Sodium 5 MG Oral Tablet; TAKE 1/2 TAB ON WEDNESDAY-WEDNESDAY AND WEDNESDAY 2 TABS ON REMAINING DAYS OR DIRECTED; Therapy: 46Cgc2004 to (Evaluate:38Dvk3084) Requested for: 78Nfn6895; Last Rx:71Yiy2060 Ordered Signatures Electronically signed by : Lonnie Crane MD; Apr 12 2018 3:58PM EST (Author) ANTICOAGULATION MONITORING Observed: 04/12/2018 Status: UNK [facility]: [facility] 2:29 PM HOSPITALS REPOSITORY Today's INR 89Dcp0357 IO INR3.6 Target INR range2-3 SourceAMS History of Present Illness Patient identification verified with 2 patient identifiers. Anticoagulation Monitoring Service: [facility]. Enrollment/Re-enrollment date: September 04, 2018. The patient is being seen as a follow-up for anticoagulation monitoring. Target INR 2-3. Monitoring practitioner Lonnie Crane MD. INR monitoring is per AMS protocol. The patient is on anticoagulation due to atrial fibrillation/flutter. The patient is currently taking warfarin Tablet strength and color: 5 mg(Roane) Interval History: Patient was last seen: April 05, 2018. Previous INR was 1.6. Incoming total weekly dose 47.5 mg. Today's Clinic INR: AMS INR 3.6. Since last visit, the patient reports no bleeding. The patient did not experience clinically relevant bleeding. The patient did not experience other minor bleeding. Since last visit, The patient has not experienced thrombotic event. The patient reports no change in medication. The patient stopped or started narcotics. She reports no change in alcohol consumption. She reports changes in Vitamin K consumption. PT HAS NOT HAD AN APPETITE AND HAS NOT EATEN MANY GREEN VEGETABLES SINCE SURGERY. PT WILL RESUME CONSISTENT AMOUNT OF VITAMIN K RICH FOODS TODAY. The patient has taken Warfarin as directed. Management: The patient's INR is supratherapeutic. Hold 1 dose. Will decrease dose per protocol by approximately Next follow up appointment in 1 week(s). Outgoing total weekly dose 45 mg. Patient instructed to call in interim with questions, concerns and changes. Discussion/Summary You are currently taking Warfarin. Your tablet strength and color: 5 mg(Roane) Next Appointment: April 19, 2018. Time: 3: 45 pm. Location: [facility], . Your INR today is higher than your target range, you may be at risk for bleeding. Please hold Coumadin/Warfarin dose(s) for 1 day(s). Change your dosing as instructed above. RESUME CONSISTENT AMOUNT OF GREEN VEGETABLES. Visit information Please call in interim with questions, concerns and changes. Do tell your provider when you get sick, hurt, or get a cut that will not stop bleeding. If you have any bleeding, trauma, falls and/or other medical concerns, call your doctor or seek medical attention right away. Results/Data Coumadin Printed in Appendix #1 below. *Diagnosis/Problems 1. Atrial fibrillation (427.31) (I48.91) Signatures Electronically signed by : Ashley Alonzo R.N.; Apr 12 2018 2:29PM EST (Author) Appendix #1 Coumadin Patient: MARSHALL FARRELL; : 1945; [id number] 02:34CR05Teg7942 03:08HS85Rva7286 04:26OL83Jzj6450 04:72PX87Gwf9352 01:20PM IO PT/INR PT + INR, Plasma PT/INR (POC) Coagulation Screen Current Dose New Dose Recheck in Patient Notified Comments IO INR3.61.6 PT, INR1.3 1.1 1.1 Target INR range2-32-3 DISCHARGE SUMMARY Observed: 04/08/2018 Status: F Source: [place] 7:55 AM [facility] Medical Records Department [address] [place] [address] Discharge Summary 04/02/18 1315 MR#: [id number] Acct: [id number] Name: MARSHALL FARRELL Rep #: [id number] : 1945 72 From: Rell Jackson MD PCP: Michael Dallas MD Status: DIS IN Y Location[place] [facility] [facility] [place] [id number] ADDENDUM by Rell Jackson MD on 04/08/18 at 0755 Code Visit Angioedema with transient anaphylactic shock: pt was on levophed drip for short time because of angioedema and anaphylactic shock 04/08/18 0755 <Electronically signed by Rell Jackson MD> Date Rell Jackson MD cc: Michael Dallas MD; Rell Jackson MD * Signed Discharge Date and Diagnosis - Problem List Patient Problems: Active and Suspected Problems Angioedema (Acute) Date of Admission: 03/30/18 Date of Discharge: 04/02/18 - Primary Discharge Diagnosis Active and Suspected Problems Angioedema (Acute) 1. Airway edema with angioedema, exact etiology unclear, possible lisinopril OR peanuts: The patient was intubated for airway protection. 2. Cardiac conditions: persistent A. fib mitral stenosis with regurgitation and aortic stenosis with recent surgery bioprosthetic aortic valve replacement, bioprosthetic mitral valve replacement, maze procedure left atrial appendage ligation and tricuspid valve repair pacemaker on March 14, 2018. - Secondary Discharge Diagnosis Chronic Problems Atrial fibrillation (Chronic) Valvular heart disease (Chronic) Hypothyroidism (Chronic) Acute CHF (Chronic) Mitral stenosis (Chronic) Hospital Course and Treatment Operations: None Summary of Care Provided: [] This 72-year-old female with history of persistent A. fib, mitral stenosis with regurgitation and aortic stenosis with recent surgery bioprosthetic aortic valve replacement, MVR, maze procedure left atrial appendage ligation and tricuspid valve repair pacemaker on March 14, 2018 was admitted after she had tongue and airway swelling which led to intubation in ER for airway protection. Patient denies history of failure to eat more. Occasions reviewed there was question of lisinopril causing angioedema but she has been on lisinopril for long time and her cardiac surgeon Dr. Crane does not think lisinopril being the culprit. She is on Tikosyn metoprolol, aspirin, Effexor and Coumadin as per home medications. Patient was seen and examined today General: Alert, Oriented x3, Cooperative HEENT: Atraumatic, PERRLA, EOMI, Normocephalic Neck: Supple, No JVD, Negative Carotid Bruits Lungs: Normal air movement, No Wheezes/rales or rhonchi Cardiovascular: Regular rate, Regular Rhythm, Normal S1, Normal S2, No murmurs, - Open heart surgery scar healing well Abdomen: Bowel Sounds Present, Soft, Non Tender, Non-Distended Extremities: No edema, Capillary Refill Less than 3 Seconds Skin: No rashes, No breakdown Musculoskeletal: No Tenderness to Palpation of Joints or Extremities Neurological: Cranial nerves II-XII grossly intact Psych/Mental Status: Normal Affect, Appropriate 1. Airway edema suggestive of angioedema, exact etiology unclear, possible lisinopril OR peanuts: The patient is extubated. Oncology Pharmacist on board. On IV Solu-Medrol 40 mg every 6 hourly. Continue Pepcid and Benadryl for complete H1 and H2 blockage. Medications was changed to oral prednisone yesterday. Patient was recommended 2 more days of prednisone 40 mg daily, Benadryl and Pepcid. Prescription sent to [facility] pharmacy. EpiPen prescription also sent to pharmacy. 2. Cardiac conditions: persistent A. fib mitral stenosis with regurgitation and aortic stenosis with recent surgery bioprosthetic aortic valve replacement, bioprosthetic mitral valve replacement, maze procedure left atrial appendage ligation and tricuspid valve repair pacemaker on March 14, 2018. Continue the cardiac medications as listed above including Tikosyn, metoprolol, aspirin and Coumadin. On bridging IV heparin has INR is subtherapeutic. INR remains subtherapeutic 1.7. Extra 3 mg Coumadin dose given in the morning. Patient discharged on Lovenox 80 mg every 12 hourly, total 5 syringes along with Coumadin 5 mg. Follow-up INR on Wednesday and check with PCP to titrate THE dose of Coumadin. 3. Hypothyroidism: Synthroid. 4. Other comorbidities include COPD and depression: On DuoNeb and albuterol as needed. Continue Effexor. DVT prophylaxis: On IV heparin drip and Coumadin Discharge medication reconciliation done. Discharge follow- up instructions completed. Total time spent, exact 35 minutes on discharge meds reconciliation, examination, review of blood test and discussion with the patient and her on follow-up instructions with the PCP and cardiac surgeon. Need to check INR and titrate the dose of Coumadin was emphasized to the patient. Call your doctor if you observe: Fever of 101 or Higher, Shortness of breath, Swelling in the ankles, Chest pain Home Medications: Medications to take at Discharge Levothyroxine [Synthroid] 100 mcg PO DAILY 10/21/15 Venlafaxine HCl [Effexor] 37.5 mg PO DAILY 10/21/15 Warfarin [Coumadin] 5 mg PO DAILY 10/21/15 Albuterol Inhaler [Ventolin Hfa] 1 puff INHALATION Q4H PRN PRN #1 inhaler 09/25/16 Aspirin E.C. [Ecotrin] 81 mg PO DAILY@0800 03/30/18 Atorvastatin Calcium [Lipitor] 10 mg PO QHS 03/30/18 Docusate Sodium [Colace] 100 mg PO BID 03/30/18 Dofetilide [Tikosyn] 500 mcg PO BID 03/30/18 Ipratropium/Albuterol Sulfate [Duoneb] 3 ml INHALATION Q4HWA.RT 03/30/18 Metoprolol Tartrate [Lopressor (beta harpal)] 25 mg PO BID 03/30/18 Multivit with Calcium,Iron,Min [Multiple Vitamins For Women] 1 tab PO DAILY 03/30/18 Oxycodone HCl/Acetaminophen [Percocet 5-325] 1 tablet PO Q6H PRN PRN 03/30/18 Polyethylene Glycol 3350 [Dvj3283] 510 gm PO DAILY 03/30/18 DiphenhydrAMINE [Benadryl] 50 mg PO Q6 capsule 04/02/18 Enoxaparin Sodium [Lovenox] 80 mg SQ BID #4 syringe 04/02/18 Epinephrine [Epi Pen] 0.3 mg IM X1 #10 syringe 04/02/18 Famotidine [Pepcid] 20 mg PO BID tablet 04/02/18 Prednisone 40 mg PO DAILY #4 tab 04/02/18 Following Prescrptions Were Given to Patient: Epinephrine [Epi Pen] 0.3 mg IM X1 #10 syringe Prednisone 40 mg PO DAILY #4 tab Enoxaparin Sodium [Lovenox] 80 mg SQ BID #4 syringe Primary Care Physician: Michael Dallas MD [Primary Care Provider] - Please follow up with your Primary Care Physician in: in 1- 2 weeks Medical Necessity - Tobacco Use Smoking Status: Former smoker Tobacco Use: Cigarettes Meaningful Use Info Meaningful Use Diagnoses (Choose all that apply): None applicable Code Visit Inpatient E AND M: 14013 Disch Hosp 04/02/18 1606 <Electronically signed by Rell Jackson MD> Date Rell Jackson MD Cosigner Signature (if applicable): Date CC: Michael Dallas MD; Rell Jackson MD Signed ANTICOAGULATION MONITORING Observed: 04/05/2018 Status: UNK [facility] 4:01 PM HOSPITALS REPOSITORY Today's INR [id number] IO INR1.6 Target INR range2-3 SourceAMS History of Present Illness Patient identification verified with 2 patient identifiers. Anticoagulation Monitoring Service: [facility]. Enrollment/Re-enrollment date: September 04, 2018. The patient is being seen as a follow-up for anticoagulation monitoring. Target INR 2-3. Monitoring practitioner Lonnie Crane MD. INR monitoring is per AMS protocol. The patient is on anticoagulation due to atrial fibrillation/flutter. The patient is currently taking warfarin Tablet strength and color: 5 mg(Roane) Interval History: Patient was last seen: February 15, 2018. Previous INR was 2.4. Several INRs via lab have been reported since last appointment; most recent INR 1.3 on March 28, 2018. Patient recently underwent aortic and mitral valve replacement, tricuspi d valve repair, resection of left atrial appendage with Maze procedure. Patient was re-hospitalized s/p discharge from surgery for treatment of angioedema with intubation s/p a possible reaction to a narcotic medication. Incoming total weekly dose 47.5 mg. Today's Clinic INR: AMS INR 1.6. Since last visit, the patient reports no bleeding. The patient did not experience clinically relevant bleeding. The patient did not experience other minor bleeding. Since last visit, The patient has not experienced thrombotic event. The patient reports a change in medication. The patient stopped or started narcotics. Patient was taking narcotic pain medication s/p surgery; however, has since discontinued use. Patient is no longer taking Lisinopril. She reports no change in alcohol consumption. She reports no change in Vitamin K consumption. The patient did not take Warfarin as directed. She missed 1 or more doses for a procedure. She reports a dose was missed since last visit. See above notations. Patient restarted warfarin therapy s/p marvin ve surgery; however, missed at least one dose during re-hospitalization and intubation. Management: The patient's INR is supratherapeutic. Will maintain current dose. Next follow up appointment in 2-4 day(s). Outgoing total weekly dose 47.5 mg. Patient instructed to call in interim with questions, concerns and changes. Patient educated on interactions between medications and warfarin. Patient educated on signs of bleeding/clotting. Discussion/Summary You are currently taking Warfarin. Your tablet strength and color: 5 mg(Roane) Next Appointment: Sunday, April 08, 2018. Time: 11: 00 am. Location: [facility], . Your INR today is lower than your target range, you may be at risk for forming blood clots. Maintain your dose as you were taking it. Visit information Please call in interim with questions, concerns and changes. Do tell your provider when you get sick, hurt, or get a cut that will not stop bleeding. Taking a new medication may change your INR. Please inform your provider of any medication changes. If you have any bleeding, trauma, falls and/or other medical concerns, call your doctor or seek medical attention right away. Results/Data Coumadin Printed in Appendix #1 below. *Diagnosis/Problems 1. Atrial fibrillation (427.31) (I48.91) Signatures Electronically signed by : Tory Kent R.N.; Apr 05 2018 4:01PM EST (Author) Appendix #1 Coumadin Patient: MARSHALL FARRELL; : 1945; [id number] 03:[id number] 04:[id number] 04:[id number] 01:01VH34Lup3303 10:00AM IO PT/INR PT + INR, Plasma PT/INR (POC) Coagulation Screen Current Dose New Dose Recheck in Patient Notified Comments IO INR1.6 PT, INR1.3 1.1 1.1 1.1 Target INR range2-3 12 LEAD ELECTROCARDIOGRAM Observed: 04/05/2018 Status: F Source: [place] 1:42 PM [facility] REPOSITORY [facility] Cardiovascular Services [address] [place] [address] 12 Lead EKG 03/30/18 1638 MR#: [id number] Acct: [id number] Name: MARSHALL FARRELL Rep #: [id number] : 1945 72 From: Kobe Vela MD Attending Dr: Rell Jackson MD Status: DIS IN Ordering Dr: Iraj Javed MD Date: 03/30/18 Location: [facility] Sex: F C Admitted: 03/30/18 Test Reason : Blood Pressure : / mmHG Vent. Rate : 077 BPM Atrial Rate : 077 BPM P-R Int : 116 ms QRS Dur : 160 ms QT Int : 500 ms P-R-T Axes : 084 -78 096 degrees QTc Int : 565 ms Atrial-sensed ventricular-paced rhythm Abnormal ECG Confirmed by KOBE VELA ([id number]), deputy editor in chief FERNANDO PADRON ([id number]) on 04/05/2018 1:42:02 PM Referred By: RU Confirmed By:KOBE VELA 04/05/18 1342 Date Kobe Vela MD CC: Michael Dallas MD; Rell Jackson MD; Iraj Javed MD Signed DISCHARGE INSTRUCTION Observed: 04/02/2018 Status: F Source: [place] 1:15 PM [facility] REPOSITORY [facility] Medical Records Department [address] [place] [address] Instructions for Home/Discharge Instructions 04/02/18 1100 MR#: [id number] Acct: [id number] Name: BUDMARSHALL J Rep #: [id number] : 1945 72 From: Rell Jackson MD PCP: Michael Dallas MD Status: ADM IN ADDENDUM by Rell Jackson MD on 04/02/18 at 1315 To check INR on 04/04/2018 and follow with PCP to adjust the dose of Coumadin accordingly. Date Rell Jackson MD cc: Mario Wallace MD; Michael Dallas MD * Signed - Discharge Diagnoses Current Active Problems: Current Active and Chronic Problems Angioedema (Acute) You will use the following diet at home:: Cardiac Your food should be the consistency of: Regular Call your doctor if you observe: Fever of 101 or Higher, Shortness of breath, Swelling in the ankles, Chest pain Additional Instructions: F/U Dr. Crane, Cardiac surgeon in 2 weeks. Need bridging Lovenox 1 mg/kg body weight until INR is more than 2. Advised by Dr. Crane to keep INR between 2 and 3 Allergies/Adverse Reactions: Allergies sulfamethoxazole Allergy (Verified 03/30/18 16:13) Rash Medications to take at Discharge Levothyroxine [Synthroid] 100 mcg PO DAILY 10/21/15 Venlafaxine HCl [Effexor] 37.5 mg PO DAILY 10/21/15 Warfarin [Coumadin] 5 mg PO DAILY 10/21/15 Albuterol Inhaler [Ventolin Hfa] 1 puff INHALATION Q4H PRN PRN #1 inhaler 09/25/16 Aspirin E.C. [Ecotrin] 81 mg PO DAILY@0800 03/30/18 Atorvastatin Calcium [Lipitor] 10 mg PO QHS 03/30/18 Docusate Sodium [Colace] 100 mg PO BID 03/30/18 Dofetilide [Tikosyn] 500 mcg PO BID 03/30/18 Ipratropium/Albuterol Sulfate [Duoneb] 3 ml INHALATION Q4HWA.RT 03/30/18 Metoprolol Tartrate [Lopressor (beta harpal)] 25 mg PO BID 03/30/18 Multivit with Calcium,Iron,Min [Multiple Vitamins For Women] 1 tab PO DAILY 03/30/18 Oxycodone HCl/Acetaminophen [Percocet 5-325] 1 tablet PO Q6H PRN PRN 03/30/18 Polyethylene Glycol 3350 [Zyh2113] 510 gm PO DAILY 03/30/18 DiphenhydrAMINE [Benadryl] 50 mg PO Q6 capsule 04/02/18 Enoxaparin Sodium [Lovenox] 80 mg SQ BID #4 syringe 04/02/18 Famotidine [Pepcid] 20 mg PO BID tablet 04/02/18 Prednisone 40 mg PO DAILY #2 tab 04/02/18 The following prescriptions were given: Prednisone 40 mg PO DAILY #2 tab Enoxaparin Sodium [Lovenox] 80 mg SQ BID #4 syringe Primary Care Physician: Michael Dallas MD [Primary Care Provider] - Please follow up with your Primary Care Physician in: in 1- 2 weeks Test Results: Test results from this visit will be discussed in further detail at your follow-up appointment, if applicable. 04/02/18 1315 <Electronically signed by Rell Jackson MD> Date Rell Jackson MD CC: Mario Wallace MD; Michael Dallas MD PROTHROMBIN TIME W/INR Collected: 04/02/2018 Status: F Source: [place] 7:05 AM [facility] REPOSITORY TYPE CODE TESTS RESULT OUT OF RANGE REFERENCE UNITS LAB L300.4150 11.7-14.9 SECONDS High PROTIME 20.4 LAB L300.4200 Normal INR 1.7 Performed By: #### L300.3900 #### [facility] [address] [place], [address] BASIC METABOLIC Collected: 04/02/2018 Status: F Source: [place] PROFILE (BMP) 7:05 AM [facility] REPOSITORY TYPE CODE TESTS RESULT OUT OF RANGE REFERENCE UNITS LAB L501.0100 74-106 mg/dL Normal GLU 79 Result Comment: Please note revised GLUCOSE reference range effective 2017. LAB L501.1000 7-18 mg/dL High BUN 30 LAB L501.1100 0.55-1.02 mg/dL Normal CREAT,SERUM 0.75 Result Comment: The validity of the calculated GFR AND GFRAA in patients over 70 years has not been determined. Clinical correlation is essential. LAB L501.1110 >60 mL/min Normal EST GFR 80 Result Comment: Non- GFR Calc LAB L501.1115 >60 mL/min Normal EST GFR - AA 97 Result Comment: GFR Calc LAB L501.1255 ml/min Normal Estimated CRCL 48.30 LAB L501.1300 10-20 RATIO High BUN/CRE 39.8 LAB L501.2200 8.5-10 mg/dL Low .1 CA 8.1 LAB L501.5300 136-14 mmol/L Normal 5 NA 139 LAB L501.5600 3.5-5. mmol/L Normal 1 K 4.2 LAB L501.5900 98-107 mmol/L Normal CL 106 LAB L501.6100 21.0-3 mmol/L Normal 2.0 CO2 26.0 LAB L501.6200 5-15 Normal GAP 7 Performed By: #### L500.2500 #### [facility] [address] [place], [address] PARTIAL THROMBOPLAST Collected: 04/02/2018 Status: F Source: [place] TIME 7:05 AM [facility] REPOSITORY TYPE CODE TESTS RESULT OUT OF REFERENCE UNITS RANGE LAB L300.4310 24.1-36.2 Seconds High PTT 51.3 Performed By: #### L300.4310 #### [facility] [address] [place], [address] CBC W/DIFF, AUTOMATED Collected: 04/02/2018 Status: F Source: [place] 7:03 AM [facility] REPOSITORY TYPE CODE TESTS RESULT OUT OF RANGE REFERENCE UNITS LAB L100.1000 4.4-11.0 K/mm3 High WBC 13.1 LAB L100.1200 4.2-5.4 M/mm3 Low RBC 3.39 LAB L100.1300 12.0-15.0 g/dl Low HGB 10.1 LAB L100.1400 37-47 % Low HCT 31.9 LAB L100.1500 81-99 fL Normal MCV 94.1 LAB L100.1600 27.0-32.0 pg Normal MCH 29.8 LAB L100.1700 32-36 g/gl Low MCHC 31.7 LAB L100.1810 11.6-14.6 % Normal RDW CV 14.4 LAB L100.1820 35.1-43.9 fl High RDW SD 46.6 LAB L100.1900 150-450 K/mm3 Normal PLT 382 LAB L100.2000 6.2-12.0 fl Normal MPV 9.0 LAB L100.2100 47-70 % High NEUT% 78.1 LAB L100.2200 19-41 % Low LY% 12.5 LAB L100.2300 0-10 % Normal MONO% 8.0 LAB L100.2400 0-5 % Normal EO% 0.7 LAB L100.2500 0-1 % Normal BASO% 0.0 LAB L100.2550 0.0-0.9 % Normal IM GRAN % 0.700 Result Comment: IG% - Immature Granulocytes (promyelocytes, myelocytes and metamyelocytes) > 1% indicates that a LEFT SHIFT is Present. LAB L100.2620 2.0-7.7 X10 3/uL High Absolute Neut 10.2 LAB L100.2720 0.83-4.51 X10 3/ul Normal Absolute Lymph 1.64 Performed By: #### L100.0100 #### [facility] [address] [facility] [place], [address] CONSULTATION Observed: 04/01/2018 Status: F Source: [place] 5:33 AM [facility] REPOSITORY [facility] Medical Records Department [address] [place] [address] Consultation 03/31/18 1016 MR#: [id number] Acct: [id number] Name: MARSHALL FARRELL Rep #: [id number] : 1945 72 From: Mario Wallace MD PCP: Michael Dallas MD Status: ADM IN Y Location: ICU ICU02-1 Problem List (1) Angioedema Status: Acute Qualifiers: Encounter type: initial encounter Qualified Code(s): T78.3XXA - Angioneurotic edema, initial encounter (2) Valvular heart disease Status: Chronic (3) Hypothyroidism Status: Chronic Qualifiers: (4) Mitral stenosis Status: Chronic Reason for Consult Date of Consultation: 03/31/18 Reason for Consultation: Angioedema History of Present Illness: The patient is a 72 year old F, with past medical history listed below, who presented to [facility] on 03/30/2018 secondary to abrupt swelling of her tongue. Patient reports she was of her usual health and ate breakfast without difficulty. In the afternoon, patient had some peanut butter cookies, but then went to take a nap. Upon waking from a nap, patient was noted to have severe swelling of her tongue. On presentation to the emergency room, patient was noted to be 95% on room air, but had very difficult time trying to vocalize. Patient was immediately intubated with a 6.5 endotracheal tube with glide scope visualization. Patient was admitted to the intensive care unit for further monitoring. In the intensive care unit, patient was placed on Pepcid, Benadryl and IV steroids. Patient has tolerated this well with improvement in tongue swelling. Patient was not able to have a spontaneous breathing trial this morning and is denying any pain. Patient is currently communicating through paper and pencil. Patient denies any previous histories of angioedema. Patient does state that she got a full body rash after a pain medication in the past. Patient was on lisinopril, but had stopped this on Wednesday. Patient denies any other allergic type reactions. Patient has never been intubated previously. Patient did have an aortic and mitral valve bioprosthetic replacement completed in February at [facility]. Patient does report that she recently was initiated on Percocet. Patient is unclear if this was the medication that caused the body rash in the past. Patient sees Dr. Dallas at baseline. Review of systems otherwise negative 10 systems. Past Medical History Past Medical History (Chronic Problems): Chronic Problems Atrial fibrillation (Chronic) Valvular heart disease (Chronic) Hypothyroidism (Chronic) Acute CHF (Chronic) Mitral stenosis (Chronic) Allergies sulfamethoxazole Allergy (Verified 03/30/18 16:13) Rash Home Medications: Ambulatory Orders Medication Instructions Recorded Levothyroxine [Synthroid] 100 mcg PO DAILY 10/21/15 Surgical History: no surgical history, - Smoking Status: Former smoker Tobacco Use: Cigarettes - *Family History Maternal History Items: No pertinent history Paternal History Items: No pertinent history Review of Systems Comment: See HPI Patient Problems: Active and Suspected Problems Angioedema (Acute) Objective: Chest x-ray shows endotracheal tube high in the chest. OG is in appropriate position. - Physical Exam General: Alert, Cooperative, No apparent distress, - - Communicating through written word. Appears stated age. HEENT: Atraumatic, PERRLA, EOMI, Normocephalic Oral: Moist Mucosa, No Gingival or Mucosal Lesions/ Ulcerations, - - Significantly swollen tongue with deviation to the left. Neck: Supple, No JVD, No Nodes, Trachea Midline Lungs: Clear to auscultation, Normal air movement, No rhonchi, No wheeze, No rales Cardiovascular: Regular rate, Regular Rhythm, Normal S1, Normal S2, No murmurs, No rub noted, No Gallop Abdomen: Bowel Sounds Present, Soft, Non Tender, Non-Distended Extremities: No clubbing, No cyanosis, No edema, Capillary Refill Less than 3 Seconds Skin: Incision - Midsternal incision appears clean, dry and intact. No exudate is appreciated. No fluctuance is noted. There is no subcutaneous emphysema noted Musculoskeletal: No Tenderness to Palpation of Joints or Extremities, No Muscle Wasting Lymphatic: No Cervical, Supraclavicular, or Inguinal Adenopathy Neurological: Cranial nerves II-XII grossly intact, Neuro grossly intact, Motor Exam 5/5 strength throughout Psych/Mental Status: Normal Affect, Appropriate Vital Signs Temp Pulse Resp BP Pulse Ox 37.3 C 90 19 H 96/78 97 03/31/18 09:00 03/31/18 09:00 03/31/18 09:00 03/31/18 09:00 03/31/18 09:00 Oxygen Delivery Method Mechanical Ventilator Weight: 74.4 kg Body Mass Index (BMI) 25.9 Intake and Output for Last 24 Hours Intake Total 1896.5 / 1896.5 Output Total 350 / 350 Balance 1546.5 / 1546.5 Laboratory Tests Past 24 Hrs WBC RBC Hgb WBC 15.2 H RBC 3.61 L Hgb 11.0 L Hct 33.5 L MCV 92.8 MCH 30.5 MCHC 32.8 RDW 13.9 RDW Differential 46.1 H WBC RBC Hgb Assessment/Plan Active and Suspected Problems Angioedema (Acute) RECOMMENDATIONS: 1. Continue Pepcid, Benadryl and Solu-Medrol 2. Spontaneous breathing trial with leak test tomorrow. 3. Okay to use pressure support of 8 during spontaneous breathing trial given small endotracheal tube size 4. Attempt to obtain records from [facility] 5. Obtain CT scan of the neck if not improved in 24 hours 6. Continue heparin drip until INR therapeutic IMPRESSIONS: 1. Suspected angioedema Unclear etiology at this time. Patient was taken off of [place] inhibitors 3 days prior to swelling. Patient did have exposure to a peanut products just prior to swelling. Unclear if this represents an allergic reaction, but patient did not have any reported hives. Patient will continue on prednisone, Benadryl and Pepcid for now. If patient is not improving by tomorrow, CT scan of the neck may be necessary for evaluation of possible sublingual abscess, but no sore throat or other constitutional symptoms have been noted prior to yesterday afternoon. Patient did have a leukocytosis on presentation, but increase in WBC count is likely secondary to steroids at this point. 2. Recent aortic valve and mitral valve bioprosthetic placement Patient's INR was subtherapeutic on presentation. Patient has been placed on heparin drip. Continue with Coumadin with a goal of INR of greater than 2.5. Surgical site appears to be appropriate at this time. No indication for transfer to the patient's surgeon for evaluation. 3. Coronary artery disease status post CABG/A. fib/hypertension/hyperlipidemia Continue with medical management. Patient has been taken off of metoprolol this morning secondary to some decreased blood pressures. Patient can continue on Tikosyn through the OG tube. 4. Hypothyroidism/depression/reported COPD Complicates care, management, recovery and prognosis. Okay to use aerosols as needed. TIME: 32 minutes critical care time spent addressing patient's suspected angioedema, management of anticoagulation, review of all data and collaboration with care team. (5:30 AM to 6:30 AM) Code Visit 9xxxx: [id number] Critical care first hour 04/01/18 0533 <Electronically signed by Mario Wallace MD> Date Mario Wallace MD Cosigner Signature (if applicable): Date CC: Mario Wallace MD; Michael Dallas MD Signed CBC W/DIFF, AUTOMATED Collected: 04/01/2018 Status: F Source: [place] 4:10 AM [facility] REPOSITORY TYPE CODE TESTS RESULT OUT OF RANGE REFERENCE UNITS LAB L100.1000 4.4-11.0 K/mm3 High WBC 13.6 LAB L100.1200 4.2-5.4 M/mm3 Low RBC 3.40 LAB L100.1300 12.0-15.0 g/dl Low HGB 10.2 LAB L100.1400 37-47 % Low HCT 31.7 LAB L100.1500 81-99 fL Normal MCV 93.2 LAB L100.1600 27.0-32.0 pg Normal MCH 30.0 LAB L100.1700 32-36 g/gl Normal MCHC 32.2 LAB L100.1810 11.6-14.6 % Normal RDW CV 14.2 LAB L100.1820 35.1-43.9 fl High RDW SD 47.8 LAB L100.1900 150-450 K/mm3 Normal PLT 279 LAB L100.2000 6.2-12.0 fl Normal MPV 9.3 LAB L100.2100 47-70 % High NEUT% 88.8 LAB L100.2200 19-41 % Low LY% 7.8 LAB L100.2300 0-10 % Normal MONO% 2.9 LAB L100.2400 0-5 % Normal EO% 0.0 LAB L100.2500 0-1 % Normal BASO% 0.1 LAB L100.2550 0.0-0.9 % Normal IM GRAN % 0.400 Result Comment: IG% - Immature Granulocytes (promyelocytes, myelocytes and metamyelocytes) > 1% indicates that a LEFT SHIFT is Present. LAB L100.2620 2.0-7.7 X10 3/uL High Absolute Neut 12.1 LAB L100.2720 0.83-4.51 X10 3/ul Normal Absolute Lymph 1.06 Performed By: #### L100.0100 #### [facility] [address] [place], [address] PROTHROMBIN TIME W/INR Collected: 04/01/2018 Status: F Source: [place] 4:10 AM [facility] REPOSITORY TYPE CODE TESTS RESULT OUT OF RANGE REFERENCE UNITS LAB L300.4150 11.7-14.9 SECONDS High PROTIME 20.9 LAB L300.4200 Normal INR 1.8 Performed By: #### L300.3900, L300.4310 #### [facility] [address] [place], [address] PARTIAL THROMBOPLAST Collected: 04/01/2018 Status: F Source: [place] TIME 4:10 AM [facility] REPOSITORY TYPE CODE TESTS RESULT OUT OF REFERENCE UNITS RANGE LAB L300.4310 24.1-36.2 Seconds High PTT 63.6 Performed By: #### L300.3900, L300.4310 #### [facility] [address] [place], [place], [address] BASIC METABOLIC Collected: 04/01/2018 Status: F Source: [place] PROFILE (BMP) 4:10 AM [facility] REPOSITORY TYPE CODE TESTS RESULT OUT OF RANGE REFERENCE UNITS LAB L501.0100 74-106 mg/dL High GLU 136 Result Comment: Fasting Glucose result greater than or equal to 126 mg/dL suggests DIABETES MELLITUS per A.D.A. criteria. Please note revised GLUCOSE reference range effective 2017. LAB L501.1000 7-18 mg/dL High BUN 29 LAB L501.1100 0.55-1.02 mg/dL Normal CREAT,SERUM 0.76 Result Comment: The validity of the calculated GFR AND GFRAA in patients over 70 years has not been determined. Clinical correlation is essential. LAB L501.1110 >60 mL/min Normal EST GFR 79 Result Comment: Non- GFR Calc LAB L501.1115 >60 mL/min Normal EST GFR - AA 96 Result Comment: GFR Calc LAB L501.1255 ml/min Normal Estimated CRCL 48.30 LAB L501.1300 10-20 RATIO High BUN/CRE 37.9 LAB L501.2200 8.5-10 mg/dL Low .1 CA 7.9 LAB L501.5300 136-14 mmol/L Normal 5 NA 142 LAB L501.5600 3.5-5. mmol/L Normal 1 K 5.0 LAB L501.5900 98-107 mmol/L High CL 108 LAB L501.6100 21.0-3 mmol/L Normal 2.0 CO2 26.0 LAB L501.6200 5-15 Normal GAP 8 Performed By: #### L500.2500, L501.2300, L501.5200 #### [facility] [address] [place], [place], [address] PHOSPHORUS Collected: 04/01/2018 Status: F Source: [place] 4:10 AM [facility] REPOSITORY TYPE CODE TESTS RESULT OUT OF RANGE REFERENCE UNITS LAB L501.2300 2.5-4.9 mg/dL Normal PHOS 4.0 Performed By: #### L500.2500, L501.2300, L501.5200 #### [facility] [address] [place], [address] MAGNESIUM Collected: 04/01/2018 Status: F Source: [place] 4:10 AM [facility] REPOSITORY TYPE CODE TESTS RESULT OUT OF RANGE REFERENCE UNITS LAB L501.5200 1.6-2.6 mg/dL Normal MG 2.3 Performed By: #### L500.2500, L501.2300, L501.5200 #### [facility] [address] [place], [address] PARTIAL THROMBOPLAST Collected: 04/01/2018 Status: F Source: [place] TIME 1:35 AM [facility] REPOSITORY TYPE CODE TESTS RESULT OUT OF REFERENCE UNITS RANGE LAB L300.4310 24.1-36.2 Seconds High PTT 65.6 Performed By: #### L300.4310 #### [facility] [address] [place], [address] PARTIAL THROMBOPLAST Collected: 03/31/2018 Status: F Source: [place] TIME 7:45 PM [facility] REPOSITORY TYPE CODE TESTS RESULT OUT OF REFERENCE UNITS RANGE LAB L300.4310 24.1-36.2 Seconds High PTT 57.7 Performed By: #### L300.4310 #### [facility] [address] [place], [address] PARTIAL THROMBOPLAST Collected: 03/31/2018 Status: C Source: [place] TIME 2:20 PM [facility] REPOSITORY TYPE CODE TESTS RESULT OUT OF REFERENCE UNITS RANGE LAB L300.4310 24.1-36.2 Seconds High alert PTT 103.4 Result Comment: CRITICAL VALUE VERIFIED. CALLED TO SHONNA PATIÑO 03/31/18 Imelda Mendenhall. RESULTS READ BACK BY SHONNA . AMENDED REPORT 03/31/18 1512 PTT previously reported as: 103.4 *H Seconds Performed By: #### L300.4310 #### [facility] [address] [place], [address] PARTIAL THROMBOPLAST Collected: 03/31/2018 Status: F Source: [place] TIME 8:50 AM [facility] REPOSITORY TYPE CODE TESTS RESULT OUT OF REFERENCE UNITS RANGE LAB L300.4310 24.1-36.2 Seconds High PTT 58.0 Performed By: #### L300.4310 #### [facility] [address] [place], [place], [address] PARTIAL THROMBOPLAST Collected: 03/31/2018 Status: F Source: [place] TIME 4:20 AM [facility] REPOSITORY TYPE CODE TESTS RESULT OUT OF REFERENCE UNITS RANGE LAB L300.4310 24.1-36.2 Seconds High alert PTT 104.6 Result Comment: CRITICAL VALUE VERIFIED. CALLED TO DANDY NEVES ICU 03/31/18 0451 Candy Chavira. RESULTS READ BACK BY SAME . Performed By: #### L300.4310 #### [facility] [address] [place], [place], [id number] CBC-COMPLETE BLOOD CNT Collected: 03/31/2018 Status: F Source: NO DIFF 3:25 AM [facility] REPOSITORY TYPE CODE TESTS RESULT OUT OF RANGE REFERENCE UNITS LAB L100.1000 4.4-11.0 K/mm3 High WBC 15.2 LAB L100.1200 4.2-5.4 M/mm3 Low RBC 3.61 LAB L100.1300 12.0-15.0 g/dl Low HGB 11.0 LAB L100.1400 37-47 % Low HCT 33.5 LAB L100.1500 81-99 fL Normal MCV 92.8 LAB L100.1600 27.0-32.0 pg Normal MCH 30.5 LAB L100.1700 32-36 g/gl Normal MCHC 32.8 LAB L100.1810 11.6-14.6 % Normal RDW CV 13.9 LAB L100.1820 35.1-43.9 fl High RDW SD 46.1 LAB L100.1900 150-450 K/mm3 Normal PLT 345 LAB L100.2000 6.2-12.0 fl Normal MPV 9.5 Performed By: #### L100.0500 #### [facility] [address] [place], [place], [id number] BASIC METABOLIC Collected: 03/31/2018 Status: F Source: [place] PROFILE (BMP) 3:25 AM [facility] REPOSITORY TYPE CODE TESTS RESULT OUT OF RANGE REFERENCE UNITS LAB L501.0100 74-106 mg/dL High GLU 145 Result Comment: Fasting Glucose result greater than or equal to 126 mg/dL suggests DIABETES MELLITUS per A.D.A. criteria. Please note revised GLUCOSE reference range effective 2017. LAB L501.1000 7-18 mg/dL High BUN 25 LAB L501.1100 0.55-1.02 mg/dL Normal CREAT,SERUM 0.73 Result Comment: The validity of the calculated GFR AND GFRAA in patients over 70 years has not been determined. Clinical correlation is essential. LAB L501.1110 >60 mL/min Normal EST GFR 83 Result Comment: Non- GFR Calc LAB L501.1115 >60 mL/min Normal EST GFR - AA 100 Result Comment: GFR Calc LAB L501.1255 ml/min Normal Estimated CRCL 48.30 LAB L501.1300 10-20 RATIO High BUN/CRE 34.1 LAB L501.2200 8.5-10 mg/dL Low .1 CA 7.3 LAB L501.5300 136-14 mmol/L Normal 5 NA 140 LAB L501.5600 3.5-5. mmol/L High 1 K 5.3 LAB L501.5900 98-107 mmol/L High CL 109 LAB L501.6100 21.0-3 mmol/L Normal 2.0 CO2 24.0 LAB L501.6200 5-15 Normal GAP 7 Performed By: #### L500.2500 #### [facility] [address] [place], [place], [address] PROTHROMBIN TIME W/INR Collected: 03/31/2018 Status: F Source: [place] 3:25 AM [facility] REPOSITORY TYPE CODE TESTS RESULT OUT OF RANGE REFERENCE UNITS LAB L300.4150 11.7-14.9 SECONDS High PROTIME 18.3 LAB L300.4200 Normal INR 1.5 Performed By: #### L300.3900 #### [facility] [address] [place], [address] PARTIAL THROMBOPLAST Collected: 03/31/2018 Status: F Source: [place] TIME 3:25 AM [facility] REPOSITORY TYPE CODE TESTS RESULT OUT OF REFERENCE UNITS RANGE LAB L300.4310 24.1-36.2 Seconds High alert PTT 143.1 Result Comment: CRITICAL VALUE VERIFIED. CALLED TO DANDY SALDAÑA ICU 03/31/18 0411 Candy Chavira. RESULTS READ BACK BY SAME . Performed By: #### L300.4310 #### [facility] [address] [facility] [place], [address] EMERGENCY DEPARTMENT Observed: 03/31/2018 Status: F Source: [place] SUMMARY 12:43 AM [facility] REPOSITORY [facility] Medical Records Department [address] [place] [address] Emergency Department Summary 03/30/18 1623 MR#: [id number] Acct: [id number] Name: MARSHALL FARRELL Rep #: [id number] : 1945 72 From: Ginna Patel MD PCP: Michael Dallas MD Status: ADM IN - ER Visit Summary Date of Service: 03/30/18 Chief Complaint: Angioedema History of Present Illness: The patient is a 72 F who presents with her with swelling of her tongue. Patient reportedly just woke from a nap with tongue swelling. She is complaining of difficulty swallowing and is having trouble talking. Patient did have cardiac bypass surgery March 22. She is a history of A. fib, hypothyroidism, coronary artery disease, CHF. Patient had been on lisinopril but this was stopped 3 days ago. She was recently started on Lasix, potassium, and Percocet. states that she has been on Percocet in the past with no problems. Physical Examination: Blood pressure is 137/77, temperature 96.7, heart rate 82, respiratory rate 19, pulse ox 95% on room air. Patient sitting upright in bed. It is difficult to understand her when she is speaking. Head neck examination reveals angioedema to the tongue. I am unable to visualize the posterior pharynx on exam. Heart is regular rate and rhythm. Lung sounds are grossly clear. She has a healing midline chest incision. Skin examination was no rash or lesions. Test Results: CBC returns a white count 11.7. Chemistry studies unremarkable. Portable chest x-ray has not yet been formally read. ET tube and NG tube appear to be in good position. She has what appears to be fluid at the right base. Emergency Department Course and Treatment: Decision was made to intubate the patient immediately upon evaluation. Patient was placed on nasal cannula. She was given 20 mg of etomidate. She was intubated on second attempt with a 6.5 tube with glide scope visualization. Good color change was noted on capnography and equal breath sounds were noted bilaterally. Patient was given rocuronium and propofol drip. Prior to intubation patient was given Solu-Medrol, Pepcid, and Benadryl. Patient was discussed with hospitalist as well as automotive parts interpreter. Treatment Plan: [] Disposition: Admit Impression: Angioedema with intubation by ED physician This note was generated with [employer] dictation software. It may contain incorrect words, spelling, and punctuation that were not noted in review of the chart prior to signing ED Disposition - Plan for ED Patient: Disposition: Acute Care Hospital [facility] Chief Complaint: Allergic Reaction What to do if you have Problems For any increased pain, shortness of breath, bleeding, nausea or vomiting, chest pain, or any unexpected problems, contact your Primary Care Provider. Call [facility] ([phone]) or report to the closest Emergency Room. Call 911 if necessary. 03/31/18 0043 <Electronically signed by Ginna Patel MD> Date Ginna Patel MD Cosigner Signature (If Indicated): Date CC: Michael Dallas MD PROTHROMBIN TIME W/INR Collected: 03/30/2018 Status: F Source: [place] 7:25 PM [facility] REPOSITORY TYPE CODE TESTS RESULT OUT OF RANGE REFERENCE UNITS LAB L300.4150 11.7-14.9 SECONDS High PROTIME 16.9 LAB L300.4200 Normal INR 1.4 Performed By: #### L300.3900 #### [facility] [address] [place], [address] PARTIAL THROMBOPLAST Collected: 03/30/2018 Status: F Source: [place] TIME 7:25 PM [facility] REPOSITORY TYPE CODE TESTS RESULT OUT OF RANGE REFERENCE UNITS LAB L300.4310 24.1-36.2 Seconds Normal PTT 36.0 Performed By: #### L300.4310 #### [facility] [address] [place], [address] HISTORY AND PHYSICAL Observed: 03/30/2018 Status: F Source: [place] EXAM 6:34 PM [facility] REPOSITORY [facility] Medical Records Department [address] [place] [address] History and Physical 03/30/18 1813 MR#: [id number] Acct: [id number] Name: MARSHALL FARRELL Rep #: [id number] : 1945 72 From: Melvin Paige MD PCP: Michael Dallas MD Status: ADM IN Y Location: ICU ICU02-1 Problem List (1) Angioedema Status: Acute (2) Atrial fibrillation Status: Chronic (3) Valvular heart disease Status: Chronic (4) Hypothyroidism Status: Chronic Qualifiers: (5) Mitral stenosis Status: Chronic History of Present Illness Date of Admission: 03/30/18 Chief Complaint: Tongue swelling The patient is a 72 year old F with a h/o afib, valve repair and recent CABG for CAD presented to the ER with tongue swelling. She is currently intubated so history is obtained from the medical record. She does not appear to have a family h/o hereditary edema. She was recently on lisinopril and was told to stop it by her doctor on wednesday. She woke up today with tongue swelling after her nap. She was intubated in the ER. Past Medical History Past Medical History (Chronic Problems): Chronic Problems Atrial fibrillation (Chronic) Valvular heart disease (Chronic) Hypothyroidism (Chronic) Acute CHF (Chronic) Mitral stenosis (Chronic) Allergies sulfamethoxazole Allergy (Verified 03/30/18 16:13) Rash Home Medications: Ambulatory Orders Medication Instructions Recorded Levothyroxine [Synthroid] 100 mcg PO DAILY 10/21/15 Surgical History: no surgical history, - Smoking Status: Former smoker - *Family History Maternal History Items: No pertinent history Paternal History Items: No pertinent history Review of Systems Unable to obtain accurate/complete ROS d/t: intubation and sedation VTE Information - Inpt Only VTE Present on Admission: No Patient Problems: Active and Suspected Problems Angioedema (Acute) - Physical Exam General: - - sedated and intubated HEENT: Atraumatic, Normocephalic Oral: Moist Mucosa Neck: No JVD Lungs: Clear to auscultation, Normal air movement, No rhonchi, No wheeze, No rales Cardiovascular: Regular rate, Regular Rhythm, Normal S1, Normal S2 Abdomen: Soft, Non-Distended, No Hepato-splenomegaly Neurological: - - Sedated and intubated Psych/Mental Status: - - Cannot assess, sedated and intubated Vital Signs Temp Pulse Resp BP Pulse Ox 98.7 F 96 13 122/81 H 98 03/30/18 17:22 03/30/18 17:45 03/30/18 17:45 03/30/18 17:22 03/30/18 17:45 Oxygen Delivery Method Mechanical Ventilator Laboratory Tests Past 24 Hrs MRSA (PCR) Pending Assessment/Plan All Active Problems Angioedema (Acute) Osteoma (Acute) Left leg pain (Acute) Atrial fibrillation with RVR (Resolved) 1. Angioedema likely d/t LOUIS-I - Currently intubated and oxygenating well - No good treatment for angioedema, so will support hemodynamically and monitor - NPO - IVF@100 - PT/OT 2. CAD s/p CABG/A-fib/HTN/HLD - She is currently on tikosyn for her afib - C/w Metoprolol as well as he statin - She has had it ablated previously - C/w coumadin and monitor INR - BMP in the am 3. Hypothyroidism - TSH in the morning - C/w synthroid 4. Depression - c/w effexor 5. COPD - C/w duonebs and albuterol PRN DVT: Coumadin Diet: NPO Code Visit Inpatient E AND M: 07001 Init Hosp L3 03/30/18 3762 <Electronically signed by Mevlin Paige MD> Date Melvin Paige MD [facility] Signature: Date (if applicable) CC: Melvin Paige MD; Michael Dallas MD Signed M R STAPH AUREUS Collected: 03/30/2018 Status: F Source: [place] DNA BY PCR 6:00 PM [facility] REPOSITORY TYPE CODE TESTS RESULT OUT OF RANGE REFERENCE UNITS LAB L8200.1100 Negative Normal MRSA Negative RESULT Performed By: #### L8200.1000 #### [facility] [address] [facility] [place], [address] CHEST 1 VIEW Observed: 03/30/2018 Status: F Source: [place] (PORTABLE) 4:15 PM [facility] REPOSITORY [facility] Imaging Services [address] [place] [address] Chest 1 View (Portable) MR#: [id number] Acct: [id number] Name: KATRINA FARRELLKyler Smith Rep #: [id number] : 1945 F 72 From: Ruddy Schmidt MD PCP: Michael Dallas MD Status: DIS IN Study: Chest 1 View (Portable) Date of Exam: 03/30/18 Exam# [id number] Ordering Dr: Iraj Javed MD STUDY: X-RAY CHEST REASON FOR EXAM: Female, 72 years old. Respiratory failure TECHNIQUE: Single AP portable view of the chest. COMPARISON: 2016 FINDINGS: EKG leads overlie the chest. Stable appearance of a lesser gradient pacemaker. Patient has been intubated, tip of the ET tube is 5 cm above the aristides, NG tube tip noted in the body the stomach. Lungs are expanded with opacification in the right lung base associated pleural effusion. Follow-up recommended to assure resolution Sternal cerclage wires and vascular clips are present from a prior sternotomy and coronary artery bypass graft procedure (CABG). Normal mediastinum and kika. Normal visualized pulmonary arteries. Normal visualized aortic arch and descending thoracic aorta. Normal visualized thoracic spine. Normal visualized ribs, clavicles, and shoulders. There is no demonstrated abnormality of the visualized soft tissue structures of the upper abdomen. RAD/Chest 1 View (Portable) IMPRESSION: Right lower lobe infiltrate with pleural effusion. Follow- up recommended to assure resolution Support lines and tubes as described. ET tube tip 5 cm above the aristides, NG tube tip in the body of the stomach Electronically Signed: Dipak Schmidt MD at 16:47 EDT , Service support , CC: Michael Dallas MD; Iraj Javed MD Bed Control Specialist: Signed CBC W/DIFF, AUTOMATED Collected: 03/30/2018 Status: C Source: [place] 4:13 PM [facility] REPOSITORY TYPE CODE TESTS RESULT OUT OF RANGE REFERENCE UNITS LAB L100.1000 4.4-11.0 K/mm3 High WBC 11.7 LAB L100.1200 4.2-5.4 M/mm3 Low RBC 4.16 LAB L100.1300 12.0-15.0 g/dl Normal HGB 12.6 LAB L100.1400 37-47 % Normal HCT 38.6 LAB L100.1500 81-99 fL Normal MCV 92.8 LAB L100.1600 27.0-32.0 pg Normal MCH 30.3 LAB L100.1700 32-36 g/gl Normal MCHC 32.6 LAB L100.1810 11.6-14.6 % Normal RDW CV 14.2 LAB L100.1820 35.1-43.9 fl High RDW SD 46.8 LAB L100.1900 150-450 K/mm3 Normal PLT 377 LAB L100.2000 6.2-12.0 fl Normal MPV 9.7 LAB L100.2620 2.0-7.7 X10 3/uL Normal Absolute Neut 7.7 LAB L100.2720 0.83-4.51 X10 3/ul Normal Absolute Lymph 1.83 LAB L100.3100 MANUAL DIFF Normal CELLS COUNTED 100 LAB L100.3200 47-70 % 64 Normal SEGS LAB L100.3300 0-5 % High 6 BAND LAB L100.3800 19-41 % 21 Normal LYMPH LAB L100.3900 0-10 % 5 Normal MONOCYTE LAB L100.4000 0-5 % 3 Normal EOS LAB L100.4100 0-1 % 1 Normal BASOPHIL LAB L100.4700 1+ Normal REACTIVE LYMPH LAB L100.5500 ADEQ Normal PLT EST ADEQUATE LAB L100.7000 NORM C AND C NORMAL Normal RED CELL MORPH NORM C+C LAB L100.9900 Normal PATH REV Reviewed Result Comment: Leukocytosis. Clinical correlation necessary. Samy Murillo M.D. 03/31/18 AMENDED REPORT 03/31/18 1434 PATH REV previously reported as: Kelly yadav Performed By: #### L100.0100 #### [facility] [address] [place], [address] BASIC METABOLIC Collected: 03/30/2018 Status: F Source: [place] PROFILE ([facility]) 4:13 PM [facility] REPOSITORY TYPE CODE TESTS RESULT OUT OF RANGE REFERENCE UNITS LAB L501.0100 74-106 mg/dL Normal GLU 94 Result Comment: Please note revised GLUCOSE reference range effective 2017. LAB L501.1000 7-18 mg/dL High BUN 23 LAB L501.1100 0.55-1.02 mg/dL Normal CREAT,SERUM 0.83 Result Comment: The validity of the calculated GFR AND GFRAA in patients over 70 years has not been determined. Clinical correlation is essential. LAB L501.1110 >60 mL/min Normal EST GFR 72 Result Comment: Non- GFR Calc LAB L501.1115 >60 mL/min Normal EST GFR - AA 87 Result Comment: GFR Calc LAB L501.1255 ml/min Normal Estimated CRCL 58.20 LAB L501.1300 10-20 RATIO High BUN/CRE 27.7 LAB L501.2200 8.5-10 mg/dL Normal .1 CA 8.6 LAB L501.5300 136-14 mmol/L Normal 5 NA 136 LAB L501.5600 3.5-5. mmol/L Normal 1 K 4.9 Result Comment: Slight Hemolysis, Result may be falsely increased. LAB L501.5900 98-107 mmol/L Normal CL 102 LAB L501.6100 21.0-32.0 mmol/L Normal CO2 29.0 LAB L501.6200 5-15 Normal 5 GAP Performed By: #### L500.2500 #### [facility] [place], [address] DISCHARGE SUMMARY Observed: 03/28/2018 Status: COMPLETED Source: [place] 10:26 [facility]IT[facility] Send Summary: Discharge Summary Providers: Provider RoleProvider Name ? AttendingLouis Pulido Note Recipients: Lonnie Crane MD Nielsen, Michael gAuero MD - [id number] [] Discharge: Summary: Admission Date: .22-Mar-2018 05:37:00 Discharge Date: 28-Mar-2018 Attending Physician at Discharge: Louis Pulido Admission Reason: Elective MV replacement; AV replacement(1) Final Discharge Diagnoses: Aortic valve stenosis, Bioprosthetic aortic valve replacement during current hospitalization, Bioprosthetic mitral valve replacement, current hospitalization, Mitral stenosis with regurgitation, Persistent atrial fibrillation, S/P Maze operation for atrial fibrillation, S/P tricuspid valve repair, Procedures: Date: 22-Mar-2018 14:18:00 Procedure Name: Mitral Valve replacement with 31 mm Epic valve Aortic Valve replacement with 23 mm freestyle valve Tricuspid valve repair with 31mm ATS ring MAZE procedure Left atrial appendage ligation Condition at Discharge: Satisfactory Disposition at Discharge: Home Health Care - New Vital Signs: T PRBPSpO2 [id number]/7194% Date/Time03/28 8:009 8:009 8:009 8:009 8:00 Range(36.1C - 36.8C ) (74 - 85 ) (18 - 18 ) (98 - 119 )/ (62 - 82 ) (92% - 96% ) Physical Exam: Constitutional: sitting up in chair, alert and cooperative; NAD Eyes: Sclera clear ENMT: mucous membranes moist Head/Neck: Neck supple Respiratory/Thorax: resps unlabored, lungs diminished bilaterally; on room air sternum stable Cardiovascular: RRR, no murmurs Tele: Paced 80s Gastrointestinal: Round, soft, non-tender, no masses palpable, +BS. Postop BM 03/26 Genitourinary: voiding without difficulty Musculoskeletal: MORAN, generalized weakness Extremities: no edema, well perfused Neurological: alert, oriented x3; no focal deficits Psychological: Appropriate mood and behavior Skin: [place], warm and dry. 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 Hospital Course: Marshall Farrell is a 72 year old female with a past medical history significant for rheumatic disease as a child, mitral stenosis (s/p balloon valvuloplasty in 2015), severe mitral regurgitation, moderate tricuspid regurgitation, aortic regurgitation with preserved LV and RV function, and paroxysmal atrial fibrillation with peripheral emboli to right and left leg but no cerebral symptoms. She remains on treatment for atrial fibrillation with dofetilide. Her most recent ECHO (January 2017) showed normal ejection fraction with moderate aortic stenosis (dimensionless index of 0.36), mild to moderate tricuspid regurgitation, and moderate mitral valve stenosis. Since taking difetilide, she notes a dull ache around the apex region of the heart that lasts a minute, occurs 5-10x a day, and has no associated symptoms. She denies SOB at rest, MARKS syncope, LH, edema, orthopnea, fevers/chills, nausea/vomiting. She was [facility] s/p MVR, AVR, TVR, resection of left atrial appendage with Maze procedure with Dr. Pulido on 03/22/2018. 03/22/18 OPERATION/PROCEDURE: with Dr. Pulido 1. Mitral valve replacement: #31 Epic. 2. Aortic valve replacement: #23 freestyle. 3. Tricuspid valve repair: #31 ATS ring. 4. Maze procedure. CTICU course: uncomplicated Transferred to T3 03/23 Floor Course: -diuresed for volume overload s/p cardiac surgery; preop weight 69.1 kg, discharge weight 70.8 kg -continue lasix 20 mg by mouth x 10 days after discharge with potassium supplement -EP consulted for afib, was started on amiodarone which was discontinued before restarting Tikosyn -holding home digoxin -started coumadin for valve procedure and afib, goal INR 2- 3, anticipated duration at least 6 weeks for valves or longer if indicated for afib -started ASA, low dose statin; continued BB -holding home lisinopril, can restart as BP allows -post-op device check for PPM -PT eval recommended home with PT at discharge -discharged patient home with family assistance, home care nurse, and PT 03/28 HISTORY: PMHx: Aortic insufficiency (moderate) aortic stenosis paroxysmal atrial fibrillation (s/p ablation 2015) DVT RUE/RLE s/p embolization R ulnar and peroneal arteries (2008) HTN Mitral regurgitation (moderate) Mitral stenosis (moderate, s/p balloon valvuloplastry 2015 Rheumatic heart disease 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, 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 Depression SHx: Thyroidectomy (2004) Subcutaneous pacemaker insertion (1999) Translumial valvular angioplasty of mitral (2015) SoHx: No EtOH, drugs Quit smoking 1997 (pack year?) FHx: Lung cancer Allergies: Sulfamethoxazole (rash) Ciprofloxacin (other) Home medications: Digoxin 125 mcg daily dofetilide 500 mcg daily levothyroxine 100 mcg daily Lisinopril 10 mg daily metoprolol 25 mg twice daily multivitamin 1 tab daily venlafaxine 37.5 mg daily warfarin 5 mg Mon/Fri and 7.5mg on remaining days Immunizations: Immunizations: 27-Sep-2017 .Influenza- Influenza Virus: Immunizations, 27-Sep-2017 .Pneumonia- Pneumococcal polysaccharide vaccine: Immunizations, 2017 Discharge Information: and Continuing Care: Discharge Instructions: Activity: activity as tolerated. Continue to increase activity and use incentive spirometer, cough and deep breathing. Pace activities as tolerated. Avoid heavy physical exertion and lifting. Balance rest periods with activity. All refills will be obtained from the Primary Care Physician or Mending Carrier. For chest tightness or pain, extreme shortness of breath, coughing up frothy sputum or fainting. GO DIRECTLY TO THE EMERGENCY ROOM OR CALL 911 IF YOU HAVE ANY OF THESE SYMPTOMS. No pushing, pulling, or lifting objects greater than 10 pounds for 3 months. MAY shower. MAY NOT drive for 4 to 6 weeks, until follow up visit with the surgeon. Maintain a daily weight log. Use same scale, before breakfast, after voiding Please notify the cardiac surgeon's office if you are readmitted to any hospital within 30 days Nutrition/Diet: Low Sodium Labs: Lab Test(s): Basic Metabolic Panel, CBC, Magnesium Date To Be Drawn: Once the week following discharge Call Results To: Dr. Crane and Dr Vora Comments: do not draw PT/INR, to be followed at [facility] Coumadin [facility] Wound Care: Cleanse incisions with soap and water daily. No dressing, leave open to air. No lotions, creams or tub soaks Respiratory: Oxygen: Incentive spirometer 10x/hr while awake Additional Orders: Vital Signs: Every visit Weight: daily Infectious Disease: PPD Status: not given MRSA: no VRE: no C. Diff: no Other Resistant Organism: no Isolation Type: none Home Care Certification: Home Care Agency: Home Team Skilled Disciplines Ordered: RN/AUXILIARY OPERATOR, PT Home Care Services: Home Care Skilled Service: assessment, follow up teaching, labs, medication, Rehab (PT/OT/SP eval and treat), weight check, wound care Follow Up Appointments: Coumadin (Warfarin) Follow-Up Monitoring: Follow-Up Monitoring Locations (Clinic): [facility], [address], [address] [place] [address], [facility], phone: [phone] Physician/Dept/Service: [facility] Follow-Up Appointment 01: Physician/Dept/Service: Dr. Michael Dallas, PCP Scheduled Date/Time: 31-Mar-2018 15:00 Location: [address] , [address], [place]. [address] Follow-Up Appointment 02: Physician/Dept/Service: Dr. Lonnie Crane, Cardiology Scheduled Date/Time: 12-Apr-2018 15:00 Location: [facility], [address], [address] [address] Follow-Up Appointment 03: Physician/Dept/Service: Dr. Pulido- Cardiac Surgeon Location: [facility], [address] Discharge Medications: Home Medication levothyroxine 100 mcg (0.1 mg) oral tablet - 1 tab(s) orally once a day venlafaxine 37.5 mg oral tablet - 1 cap(s) orally once a day Multiple Vitamins oral tablet - 1 tab(s) orally once a day dofetilide 500 mcg oral capsule - 1 cap(s) orally every 12 hours Aspirin Enteric Coated 81 mg oral delayed release tablet - 1 tab(s) orally once a day metoprolol tartrate 25 mg oral tablet - 1 tab(s) orally every 12 hours warfarin 5 mg oral tablet - 1 tab(s) orally once a day; goal INR 2-3 atorvastatin 10 mg oral tablet - 1 tab(s) orally once a day Lasix 20 mg oral tablet - 1 tab(s) orally once a day x 10 days K-Tab 20 mEq oral tablet, extended release - 1 tab(s) orally once a day x 10 days ; to be taken with lasix PRN Medication Percocet 5/325 oral tablet - 1 tab(s) orally every 6 hours x 5 days, As Needed for severe surgical pain. May take regular Tylenol when no longer taking Percocet. G89.18 Colace 100 mg oral capsule - 1 cap(s) orally 2 times a day, As Needed - for constipation. May buy over the counter. polyethylene glycol 3350 oral powder for reconstitution - 17 gram(s) orally once a day, As Needed - for constipation. May buy over the counter. Lab Results - Pending: None Radiology Results - Pending: None Signature/Cosignature/Attestation: Provider/Team Contact Info-Pager [id number] cardiac surgery Electronic Signatures: Radha Howe (PAC) (Signed 28-Mar-2018 10:32) Authored: Immunizations, Signature/Cosignature/Attestation, Ongoing Care, Summary Content, Send Summary Louis Pulido) (Signed 07-Apr-2018 13:26) Co-Signer: Immunizations, Signature/Cosignature/Attestation, Ongoing Care, Summary Content, Send Summary Last Updated: 07-Apr-2018 13:26 by Louis Pulido) DAILY PROGRESS Observed: Status: COMPLETED Source: [facility] 03/28/2018 10:21 [facility] Service: Electrophysiology Subjective Data: MARSHALL FARRELL is a 72 year old Female who is Hospital Day # 7 and POD #6 for Mitral Valve replacement with 31 mm Epic valve;Aortic Valve replacement with 23 mm freestyle valve;Tricuspid valve repair with 31mm ATS ring;MAZE procedure;Left atrial appendage ligation. Overnight Events: Patient had an uneventful night. Objective Data: Objective Information: ---- Intake and Output ----- Mn/Dy/Year TimeIntakeOutputNet Mar 28, 2018 6:00 [id number] Mar 27, 2018 10:00 [id number] Mar 27, 2018 2:00 [id number] The Intake and Output Totals for the last 24 hours are: [facility] [id number] Physical Exam: Constitutional: Well developed, awake/alert/oriented x3, no distress, alert and cooperative Head/Neck: Neck supple, no apparent injury, thyroid without mass or tenderness, No JVD, trachea midline, no bruits Respiratory/Thorax: Patent airways, CTAB, normal breath sounds with good chest expansion, thorax symmetric Cardiovascular: Regular, rate and rhythm, no murmurs, 2+ equal pulses of the extremities, normal S 1and S 2 Gastrointestinal: Nondistended, soft, non-tender, no rebound tenderness or guarding, no masses palpable, no organomegaly, +BS, no bruits Musculoskeletal: ROM intact, no joint swelling, normal strength Skin: Warm and dry, no lesions, no rashes. Medication: Medications: Continuous Medications No continuous medications are active Scheduled Medications 1. Acetaminophen: 650 mg Oral Every 6 Hours 2. Aspirin Chewable: 81 mg Oral Daily 3. Atorvastatin: 10 mg Oral Daily 4. Dofetilide: 500 microgram(s) Oral Every 12 Hours 5. Furosemide Injectable: 40 mg IntraVenous Push 2 Times a Day 6. Heparin SubCutaneous: 5000 unit(s) SubCutaneous Every 8 Hours 7. Iron Polysaccharide Complex: 150 mg Oral Daily 8. Levothyroxine: 100 microgram(s) Oral Daily 9. Metoprolol Tartrate: 25 mg Oral Every 12 Hours 10. Multivitamin with Minerals: 1 tablet(s) Oral Daily 11. Polyethylene Glycol: 17 gram(s) Oral 3 Times a Day 12. Sodium Chloride 0.9% Injectable Flush: 1.5 mL IntraVenous Flush Every 8 Hours and as Needed 13. Venlafaxine: 37.5 mg Oral Daily 14. Warfarin: 5 mg Oral Daily PRN Medications 1. Bisacodyl Rectal: 10 mg Rectal Daily 2. Ondansetron Injectable: 4 mg IntraVenous Push Every 8 Hours 3. oxyCODONE Immediate Release: 2.5 mg Oral Every 4 Hours 4. oxyCODONE Immediate Release: 5 mg Oral Every 4 Hours Assessment and Plan: Assessment: 72 year-old F who was here for Mitral Valve replacement with 31 mm Epic valve; Aortic Valve replacement with 23 mm freestyle valve; Tricuspid valve repair with 31mm ATS ring; MAZE procedure; and Left atrial appendage ligation. PMHx of rheumatic disease c/b mitral stenosis (s/p balloon valvuloplasty in 2016), severe MR, moderate TR, AR with preserved LV and RV function, and paroxysmal Afib (on Dofetilide 500 mcg BID as outpt- currently held) c/b peripheral emboli to right and left leg but no cerebral symptoms. EP consulted regarding afib management. EKG V-paced and QTC 465 at baseline. Today's QTc is stable. Recommendations - Continue dofetilide 500mg BID - Stable for discharge today from an EP standpoint. Signature/Cosignature/Attestation: Attending AttestationI saw and evaluated the patient. I personally obtained the schultz and critical portions of the history and physical exam or was physically present for schultz and critical portions performed by the resident/fellow. I reviewed the resident/fellow?s documentation and discussed the patient with the resident/fellow. I agree with the resident/fellow?s medical decision making as documented in the resident?s note. I personally evaluated the patient (as noted in the above attestation) on 28-Mar-2018 Comments/ Additional Findings I spent 25 minutes with this patient. Greater than 50% of this time was spent in counseling and/or coordination of care Electronic Signatures: Anthony Peacock ( (Fellow)) (Signed 28-Mar-2018 10:25) Authored: Service, Subjective Data, Objective Data, Assessment and Plan, Signature/Cosignature/Attestation Reese Calzada) (Signed 28-Mar-2018 18:31) Authored: Signature/Cosignature/Attestation Co-Signer: Service, Subjective Data, Objective Data, Assessment and Plan, Signature/Cosignature/Attestation Last Updated: 28-Mar-2018 18:31 by Reese Calzada) DAILY PROGRESS Observed: 03/28/2018 Status: COMPLETED Source: [facility] 8:13 AM [facility] REPOSITORY Service: Cardiac Surgery Subjective Data: MARSHALL FARRELL is a 72 year old Female who is Hospital Day # 7 and POD #6 for Mitral Valve replacement with 31 mm Epic valve;Aortic Valve replacement with 23 mm freestyle valve;Tricuspid valve repair with 31mm ATS ring;MAZE procedure;Left atrial appendage ligation. Overnight Events: Patient had an uneventful night. Additional Information: States that she is feeling well this am, endorses incisional pain but it is well controlled with pain medications; eager for discharge Objective Data: Objective Information: T PRBPSpO2 [id number]% Date/Time03/28 4: 4: 4: 4: 4:00 Range(36.1C - 36.8C ) (74 - 85 ) (18 - 18 ) (98 - 119 )/ (62 - 82 ) (92% - 96% ) Weights 03/28 4:00: Weight in kg (Weight (kg)) 70.8 03/28 4:00: Weight in lbs ((lbs)) 156.1 ---- Intake and Output ----- Mn/Dy/Year TimeIntakeOutputNet Mar 28, 2018 6:00 [id number] Mar 27, 2018 10:00 [id number] Mar 27, 2018 2:00 [id number] The Intake and Output Totals for the last 24 hours are: IntakeOutputNet [id number] Physical Exam: Constitutional: sitting up in chair, alert and cooperative; NAD Eyes: Sclera clear ENMT: mucous membranes moist Head/Neck: Neck supple Respiratory/Thorax: resps unlabored, lungs diminished bilaterally; on room air sternum stable Cardiovascular: RRR, no murmurs Tele: Paced 80s Gastrointestinal: Round, soft, non-tender, no masses palpable, +BS. Postop BM 03/26 Genitourinary: voiding without difficulty Musculoskeletal: MORAN, generalized weakness Extremities: no edema, well perfused Neurological: alert, oriented x3; no focal deficits Psychological: Appropriate mood and behavior Skin: [place], warm and dry. Midline sternotomy incision, well approximated, LELIA, no erythema or drainage. Medication: Medications: Continuous Medications No continuous medications are active Scheduled Medications 1. Acetaminophen: 650 mg Oral Every 6 Hours 2. Aspirin Chewable: 81 mg Oral Daily 3. Atorvastatin: 10 mg Oral Daily 4. Dofetilide: 500 microgram(s) Oral Every 12 Hours 5. Furosemide Injectable: 40 mg IntraVenous Push 2 Times a Day 6. Heparin SubCutaneous: 5000 unit(s) SubCutaneous Every 8 Hours 7. Iron Polysaccharide Complex: 150 mg Oral Daily 8. Levothyroxine: 100 microgram(s) Oral Daily 9. Metoprolol Tartrate: 25 mg Oral Every 12 Hours 10. Multivitamin with Minerals: 1 tablet(s) Oral Daily 11. Polyethylene Glycol: 17 gram(s) Oral 3 Times a Day 12. Potassium Chloride Extended Release: 40 mEq Oral Once 13. Sodium Chloride 0.9% Injectable Flush: 1.5 mL IntraVenous Flush Every 8 Hours and as Needed 14. Venlafaxine: 37.5 mg Oral Daily 15. Warfarin: 5 mg Oral Daily PRN Medications 1. Bisacodyl Rectal: 10 mg Rectal Daily 2. Ondansetron Injectable: 4 mg IntraVenous Push Every 8 Hours 3. oxyCODONE Immediate Release: 2.5 mg Oral Every 4 Hours 4. oxyCODONE Immediate Release: 5 mg Oral Every 4 Hours Recent Lab Results: Results: I have reviewed these laboratory results: Coagulation Screen 28-Mar-2018 04:11:00 ResultValue Prothrombin Time, Plasma 14.2 H International Normalized Ratio, Plasma 1.3 H Activated Partial Thromboplastin Time 26 Complete Blood Count + Differential 28-Mar-2018 04:11:00 ResultValue White Blood Cell Count 8.5 Nucleated Erythrocyte Count 0.0 Red Blood Cell Count 3.67 L HGB 11.2 L HCT 34.0 L MCV 93 MCHC 32.9 PLT 204 RDW-CV 13.4 Neutrophil % 65.8 Immature Granulocytes % 1.1 Lymphocyte % 14.8 Monocyte % 11.7 Eosinophil % 5.9 Basophil % 0.7 Neutrophil Count 5.58 H Lymphocyte Count 1.25 Monocyte Count 0.99 H Eosinophil Count 0.50 H Basophil Count 0.06 Renal Function Panel 28-Mar-2018 04:11:00 ResultValue Glucose, Serum 108 H NA 137 K 4.0 CL 100 Bicarbonate, Serum 26 Anion Gap, Serum 15 BUN 17 CREAT 0.57 GFR-Non >60 GFR- >60 Calcium, Serum 8.4 L Phosphorus, Serum 2.8 ALB 3.3 L Magnesium, Serum 28-Mar-2018 04:11:00 ResultValue Magnesium, Serum 2.09 Radiology Results: Results: Xray Chest 2 View PA + Lateral [Mar 25 2018 2:06PM] Impression: 1. Persistent bibasilar pleural effusion and atelectasis. No sizable pneumothorax. 2. Postsurgical changes and medical appliances as described above. Assessment and Plan: Comorbidities: Comorbidity: anemia Anemia: acute blood loss anemia Assessment: Marshall Farrell is a 72 year old female with a past medical history significant for rheumatic disease as a child, mitral stenosis (s/p balloon valvuloplasty in 2016), severe mitral regurgitation, moderate tricuspid regurgitation, aortic regurgitation with preserved LV and RV function, and paroxysmal atrial fibrillation with peripheral emboli to right and left leg but no cerebral symptoms. She remains on treatment for atrial fibrillation with dofetilide. Her most recent ECHO (January 2017) showed normal ejection fraction with moderate aortic stenosis (dimensionless index of 0.36), mild to moderate tricuspid regurgitation, and moderate mitral valve stenosis. Since taking difetilide, she notes a dull ache around the apex region of the heart that lasts a minute, occurs 5-10x a day, and has no associated symptoms. She denies SOB at rest, MARKS syncope, LH, edema, orthopnea, fevers/chills, nausea/vomiting. She was admitted to [facility]ICU s/p MVR, AVR, TVR, resection of left atrial appendage with Maze procedure with Dr. Pulido on 03/22/2018. 03/22/18 OPERATION/PROCEDURE: with Dr. Pulido 1. Mitral valve replacement: #31 Epic. 2. Aortic valve replacement: #23 freestyle. 3. Tricuspid valve repair: #31 ATS ring. 4. Maze procedure. CTICU course: uncomplicated Transferred to T3 03/23 Impression and Plan POD #6 s/p AVR. 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 If QTc stable 03/28 likely ok for discharge from their standpoint -03/28 EP reviewed EKG from this am, states ok to discharge today - holding home digoxin - continue AC with Coumadin, goal INR 2.0- 3.0 - adjust as needed Acute postop blood loss anemia - Hct 34, 37.9, 30.2, 33.5 - Mv and iron - daily CBC while in hospital Fluid Volume status- Preop wt 69.1 - wt 70.8, x, (76.2, 75.3) - Lasix 40mg IV BID - Add ACEi as BP permits - replace lytes as needed for hypokalemia/ hypomagnesemia - replaced K 9/ - daily weights; I and O's - daily renal panel Hx Surgical Hypothyroidism s/p Follicular Carcinoma and thyroidectomy - continue synthroid - follow up with PCP for TSH level after discharge Hx Hypertension - SBP last 24 hours 100s-110s -continue BB - continue holding lisinopril 10mg daily -adjust medications as needed Hx Depression - continue venlafaxine 37.5mg daily Dispo - PT recs home with PT - not ready for discharge - anticipate discharge today after input from EP Signature/Cosignature/Attestation: Provider/Team Contact Info-Pager [id number] cardiac surgery Electronic Signatures: Radha Howe (PAC) (Signed 28-Mar-2018 08:37) Authored: Service, Subjective Data, Objective Data, Assessment and Plan, Signature/Cosignature/Attestation Last Updated: 28-Mar-2018 08:37 by Radha Howe (PAC) CBC AND DIFFERENTIAL Collected: 03/28/2018 Status: F Source: [place] 4:11 AM [facility] REPOSITORY TYPE CODE TESTS RESULT OUT OF REFERENCE UNITS RANGE LAB WBCR(LOINC 4.4 - 11.3 x10E9/L ) WBC 8.5 LAB NRBC(LOINC 0.0-0.0 /100 WBC ) NUCLEATED RBC 0.0 LAB RBCCT(LOIN 4.00 - 5.20 x10E12/L C) Low RBC 3.67 LAB HGB(LOINC) 12.0 - 16.0 g/dL Low HGB 11.2 LAB HCT(LOINC) 36.0 - 46.0 % Low HCT 34.0 LAB MCV(LOINC) 80 - 100 fL MCV 93 LAB MCHC2(LOIN 32.0 - 36.0 g/dL C) MCHC 32.9 LAB PLTCT(LOIN 150 - 450 x10E9/L C) PLT 204 LAB RDWCV(LOIN 11.5 - 14.5 % C) RDW-CV 13.4 LAB NEUT(LOINC 40.0 - 80.0 % ) % NEUTROPHIL 65.8 LAB IG(LOINC) 0.0 - 0.9 % % AUTOMATED 1.1 IMMATURE GRAN Result Comment: Percent differential counts (%) should be interpreted in the context of the absolute cell counts (cells/L). LAB LYMPH(LOINC) 13.0 - % 44.0 % LYMPHOCYTE 14.8 LAB MONO(LOINC) 2.0 - 10.0 % % MONOCYTE 11.7 LAB EOS(LOINC) 0.0 - 6.0 % % EOSINOPHIL 5.9 LAB BASO(LOINC) 0.0 - 2.0 % % BASOPHIL 0.7 LAB #NEUT(LOINC) 1.60 - x10E9/L 5.50 NEUTROPHIL High 5.58 LAB #LYMP(LOINC) 0.80 - x10E9/L 3.00 LYMPHOCYTE 1.25 LAB #MONO(LOINC) 0.05 - x10E9/L 0.80 MONOCYTE High 0.99 LAB #EOS(LOINC) 0.00 - x10E9/L 0.40 EOSINOPHIL High 0.50 LAB #BASO(LOINC) 0.00 - x10E9/L 0.10 BASOPHIL 0.06 Performed By: #### CBCDF #### [facility] [id number] [place] [address] COAGULATION SCREEN Collected: 03/28/2018 Status: F Source: [place] 4:11 [facility] REPOSITORY TYPE CODE TESTS RESULT OUT OF REFERENCE UNITS RANGE LAB PT(LOINC) 9.8 - 12.7 sec PROTHROMBIN High TIME 14.2 LAB INR(LOINC) 0.9 - 1.1 PT, INR High 1.3 LAB APTT(LOINC 25 - 36 sec ) APTT 26 Result Comment: THE APTT IS NO LONGER USED FOR MONITORING UNFRACTIONATED HEPARIN THERAPY. FOR MONITORING HEPARIN THERAPY, USE THE HEPARIN ASSAY. Performed By: #### COAGS #### [facility] [address] [place] [address] MAGNESIUM Collected: 03/28/2018 Status: F Source: [place] 4:11 [facility] REPOSITORY TYPE CODE TESTS RESULT OUT OF REFERENCE UNITS RANGE LAB MG(LOINC) 1.60 - 2.40 mg/dL MAGNESIUM 2.09 Performed By: #### MG #### [facility] [address] [place] [address] RENAL FUNCTION PANEL Collected: 03/28/2018 Status: F Source: [place] 4:11 [facility] REPOSITORY TYPE CODE TESTS RESULT OUT OF REFERENCE UNITS RANGE LAB GLU(LOINC) 74 - 99 mg/dL GLUCOSE High 108 LAB SOD(LOINC) 136 - 145 mmol/L SODIUM 137 LAB K(LOINC) 3.5 - 5.3 mmol/L POTASSIUM 4.0 LAB CHLOR(LOIN 98 - 107 mmol/L C) CHLORIDE 100 LAB BIC(LOINC) 21 - 32 mmol/L BICARBONATE 26 LAB ANGAP(LOIN 10 - 20 mmol/L C) ANION GAP 15 LAB UREA(LOINC 6 - 23 mg/dL ) UREA NITROGEN 17 LAB CREA(LOINC 0.50 - 1.05 mg/dL ) CREATININE 0.57 LAB GFRFN(LOIN >60 mL/min/1.7 C) 3m2 GFR-NON AM. >60 LAB GFRAA(LOIN >60 mL/min/1.7 C) 3m2 GFR- AM. >60 Result Comment: CALCULATIONS OF ESTIMATED GFR ARE PERFORMED USING THE MDRD STUDY EQUATION FOR THE IDMS-TRACEABLE CREATININE METHODS. CLIN CHEM 2007;53:766-72 LAB CA(LOINC) 8.6 - 10.6 mg/dL CALCIUM Low 8.4 LAB PHOS(LOINC) 2.5 - 4.9 mg/dL PHOSPHORUS 2.8 Result Comment: The performance characteristics of phosphorus testing in heparinized plasma have been validated by the individual laboratory site where testing is performed. Testing on heparinized plasma is not approved by the FDA; however, such approval is not necessary. LAB ALB(LOINC) 3.4 - 5.0 g/dL Low ALBUMIN 3.3 Performed By: #### RENAL #### [facility] [address] [place] [address] GLUCOSE-POCT Collected: 03/27/2018 Status: F Source: [place] 1:36 PM [facility] REPOSITORY TYPE CODE TESTS RESULT OUT OF RANGE REFERENCE UNITS LAB GLUP(LOINC) 74 - 99 mg/dL High 109 GLUCOSE-POCT Performed By: #### GLUPO #### [facility] [address] [place] [address] DAILY PROGRESS Observed: 03/27/2018 Status: COMPLETED Source: [facility]IAC SURGERY 12:55 PM [facility] REPOSITORY Service: Cardiac Surgery Subjective Data: MARSHALL FARRELL is a 72 year old Female who is Hospital Day # 6 and POD #5 for Mitral Valve replacement with 31 mm Epic valve;Aortic Valve replacement with 23 mm freestyle valve;Tricuspid valve repair with 31mm ATS ring;MAZE procedure;Left atrial appendage ligation. Overnight Events: Patient had an uneventful night. Additional Information: feeling well EP following for tikosyn Objective Data: Objective Information: T PRBPSpO2 [id number]/6796% Date/Time03/27 11: 11: 11: 11: 11:00 Range(36.2C - 36.7C ) (70 - 94 ) (18 - 20 ) (101 - 139 )/ (65 - 82 ) (92% - 96% ) ---- Intake and Output ----- Mn/Dy/Year [facility]Int[facility]Outro[facility] hospital[facility] Mar 27, 2018 6:00 [id number] Mar 26, 2018 10:00 [id number] Mar 26, 2018 2:00 [id number] The Intake and Output Totals for the last 24 hours are: [facility] hospital[facility] [id number] Physical Exam: Constitutional: in chair, appears comfortable, NAD Eyes: Sclera clear ENMT: mucous membranes moist, no apparent injury, no lesions seen Head/Neck: Neck supple, no apparent injury, no JVD, trachea midline. Respiratory/Thorax: resps unlabored, lungs diminished bilaterally sternum stable Cardiovascular: Regular, rate and rhythm, no murmurs, 2+ equal pulses of the extremities, no S3, S4. Tele: Paced 70s Gastrointestinal: Round, soft, non-tender, no masses palpable, +BS. Postop BM 03/26 Genitourinary: voiding clear yellow without difficulty, denies dysuria Musculoskeletal: MORAN Extremities: trace edema, well perfused Neurological: alert, oriented x3, MORAN, no focal deficits Psychological: Appropriate mood and behavior Skin: [place], warm and dry. Midline sternotomy incision, well approximated, no erythema or drainage. Medication: Medications: Continuous Medications No continuous medications are active Scheduled Medications 1. Acetaminophen: 650 mg Oral Every 6 Hours 2. Aspirin Chewable: 81 mg Oral Daily 3. Atorvastatin: 10 mg Oral Daily 4. Dofetilide: 500 microgram(s) Oral Every 12 Hours 5. Furosemide Injectable: 40 mg IntraVenous Push 2 Times a Day 6. Heparin SubCutaneous: 5000 unit(s) SubCutaneous Every 8 Hours 7. Insulin Lispro Customizable Corrective Scale: unit(s) SubCutaneous 3 Times a Day With Meals 8. Iron Polysaccharide Complex: 150 mg Oral Daily 9. Levothyroxine: 100 microgram(s) Oral Daily 10. Metoprolol Tartrate: 25 mg Oral Every 12 Hours 11. Multivitamin with Minerals: 1 tablet(s) Oral Daily 12. Polyethylene Glycol: 17 gram(s) Oral 3 Times a Day 13. Potassium Chloride Extended Release: 40 mEq Oral Every 6 Hours 14. Sodium Chloride 0.9% Injectable Flush: 1.5 mL IntraVenous Flush Every 8 Hours and as Needed 15. Venlafaxine: 37.5 mg Oral Daily 16. Warfarin: 5 mg Oral Daily PRN Medications 1. Bisacodyl Rectal: 10 mg Rectal Daily 2. Dextrose 50% in Water Injectable: 25 gram(s) IntraVenous Push Every 15 Minutes 3. Glucagon Injectable: 1 mg IntraMuscular Every 15 Minutes 4. Ondansetron Injectable: 4 mg IntraVenous Push Every 8 Hours 5. oxyCODONE Immediate Release: 2.5 mg Oral Every 4 Hours 6. oxyCODONE Immediate Release: 5 mg Oral Every 4 Hours Recent Lab Results: Results: I have reviewed these laboratory results: Coagulation Screen 27-Mar-2018 04:47:00 ResultValue Prothrombin Time, Plasma 12.4 International Normalized Ratio, Plasma 1.1 Activated Partial Thromboplastin Time 27 Complete Blood Count + Differential 27-Mar-2018 04:47:00 ResultValue White Blood Cell Count 8.2 Nucleated Erythrocyte Count 0.0 Red Blood Cell Count 4.10 HGB 12.4 HCT 37.9 MCV 92 MCHC 32.7 PLT 230 RDW-CV 13.7 Neutrophil % 73.8 Immature Granulocytes % 0.7 Lymphocyte % 14.1 Monocyte % 7.9 Eosinophil % 2.8 Basophil % 0.7 Neutrophil Count 6.04 H Lymphocyte Count 1.16 Monocyte Count 0.65 Eosinophil Count 0.23 Basophil Count 0.06 Renal Function Panel 27-Mar-2018 04:47:00 ResultValue Glucose, Serum 105 H NA 137 K 3.9 CL 98 Bicarbonate, Serum 31 Anion Gap, Serum 12 BUN 17 CREAT 0.62 GFR-Non >60 GFR- >60 Calcium, Serum 8.8 Phosphorus, Serum 2.1 L ALB 3.7 Magnesium, Serum 27-Mar-2018 04:47:00 ResultValue Magnesium, Serum 2.32 Radiology Results: Results: Xray Chest 2 View PA + Lateral [Mar 25 2018 2:06PM] Impression: 1. Persistent bibasilar pleural effusion and atelectasis. No sizable pneumothorax. 2. Postsurgical changes and medical appliances as described above. Assessment and Plan: Comorbidities: Comorbidity: anemia Anemia: acute blood loss anemia Assessment: Marshall Farrell is a 72 year old female with a past medical history significant for rheumatic disease as a child, mitral stenosis (s/p balloon valvuloplasty in 2015), severe mitral regurgitation, moderate tricuspid regurgitation, aortic regurgitation with preserved LV and RV function, and paroxysmal atrial fibrillation with peripheral emboli to right and left leg but no cerebral symptoms. She remains on treatment for atrial fibrillation with dofetilide. Her most recent ECHO (January 2017) showed normal ejection fraction with moderate aortic stenosis (dimensionless index of 0.36), mild to moderate tricuspid regurgitation, and moderate mitral valve stenosis. Since taking difetilide, she notes a dull ache around the apex region of the heart that lasts a minute, occurs 5-10x a day, and has no associated symptoms. She denies SOB at rest, MARKS syncope, LH, edema, orthopnea, fevers/chills, nausea/vomiting. She was admitted to [facility] CTICU s/p MVR, AVR, TVR, resection of left atrial appendage with Maze procedure with Dr. Pulido on 03/22/2018. 03/22/18 OPERATION/PROCEDURE: with Dr. Pulido 1. Mitral valve replacement: #31 Epic. 2. Aortic valve replacement: #23 freestyle. 3. Tricuspid valve repair: #31 ATS ring. 4. Maze procedure. CTICU course: uncomplicated Transferred to T3 03/23 Impression and Plan POD #5 s/p AVR. 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 If QTc stable 03/28 likely ok for discharge from their standpoint - holding home digoxin - continue AC with Coumadin, goal INR 2.0- 3.0 - adjust as needed Acute postop blood loss anemia - Hct 37.9, 30.2, 33.5 - Mv and iron - daily CBC while in hospital Fluid Volume status- Preop wt 69.1 - wt not done (76.2, 75.3) - Lasix 40mg IV BID - Add ACEi as BP permits - replace lytes as needed for hypokalemia/ hypomagnesemia - daily weights; I and O's - daily renal panel Hx Surgical Hypothyroidism s/p Follicular Carcinoma and thyroidectomy - continue synthroid - follow up with PCP for TSH level after discharge Hx Hypertension - SBP last 24 hours 112- 135 - continue holding lisinopril 10mg daily Hx Depression - continue venlafaxine 37.5mg daily Dispo - PT recs home with PT - not ready for discharge - anticipate discharge 1-2 days after Tikosyn reload complete and further diuresis Signature/Cosignature/Attestation: Provider/Team Contact Info-Pager [id number] cardiac surgery Electronic Signatures: Isabela Edwards ([employer]) (Signed 27-Mar-2018 13:04) Authored: Service, Subjective Data, Objective Data, Assessment and Plan, Signature/Cosignature/Attestation Last Updated: 27-Mar-2018 13:04 by Isabela Edwards ([employer]) DAILY PROGRESS Observed: Status: COMPLETED Source: [facility] 03/27/2018 9:57 AM [facility]IT[facility] REPOSITORY Service: Electrophysiology Subjective Data: MARSHALL FARRELL is a 72 year old Female who is Hospital Day # 6 and POD #5 for Mitral Valve replacement with 31 mm Epic valve;Aortic Valve replacement with 23 mm freestyle valve;Tricuspid valve repair with 31mm ATS ring;MAZE procedure;Left atrial appendage ligation. Overnight Events: Patient had an uneventful night. Objective Data: Objective Information: ---- Intake and Output ----- Mn/Dy/Year TimeIntakeOutputNet Mar 27, 2018 6:00 [id number] Mar 26, 2018 10:00 [id number] Mar 26, 2018 2:00 [id number] The Intake and Output Totals for the last 24 hours are: IntakeOutputNet [id number] Physical Exam: Constitutional: Well developed, awake/alert/oriented x3, no distress, alert and cooperative Head/Neck: Neck supple, no apparent injury, thyroid without mass or tenderness, No JVD, trachea midline, no bruits Respiratory/Thorax: Patent airways, CTAB, normal breath sounds with good chest expansion, thorax symmetric Cardiovascular: Regular, rate and rhythm, no murmurs, 2+ equal pulses of the extremities, normal S 1and S 2 Gastrointestinal: Nondistended, soft, non-tender, no rebound tenderness or guarding, no masses palpable, no organomegaly, +BS, no bruits Musculoskeletal: ROM intact, no joint swelling, normal strength Skin: Warm and dry, no lesions, no rashes. Medication: Medications: Continuous Medications No continuous medications are active Scheduled Medications 1. Acetaminophen: 650 mg Oral Every 6 Hours 2. Aspirin Chewable: 81 mg Oral Daily 3. Atorvastatin: 10 mg Oral Daily 4. Dofetilide: 500 microgram(s) Oral Every 12 Hours 5. Furosemide Injectable: 40 mg IntraVenous Push 2 Times a Day 6. Heparin SubCutaneous: 5000 unit(s) SubCutaneous Every 8 Hours 7. Insulin Lispro Customizable Corrective Scale: unit(s) SubCutaneous 3 Times a Day With Meals 8. Iron Polysaccharide Complex: 150 mg Oral Daily 9. Levothyroxine: 100 microgram(s) Oral Daily 10. Metoprolol Tartrate: 25 mg Oral Every 12 Hours 11. Multivitamin with Minerals: 1 tablet(s) Oral Daily 12. Polyethylene Glycol: 17 gram(s) Oral 3 Times a Day 13. Potassium Chloride Extended Release: 40 mEq Oral Every 6 Hours 14. Sodium Chloride 0.9% Injectable Flush: 1.5 mL IntraVenous Flush Every 8 Hours and as Needed 15. Venlafaxine: 37.5 mg Oral Daily 16. Warfarin: 5 mg Oral Daily PRN Medications 1. Bisacodyl Rectal: 10 mg Rectal Daily 2. Dextrose 50% in Water Injectable: 25 gram(s) IntraVenous Push Every 15 Minutes 3. Glucagon Injectable: 1 mg IntraMuscular Every 15 Minutes 4. Ondansetron Injectable: 4 mg IntraVenous Push Every 8 Hours 5. oxyCODONE Immediate Release: 2.5 mg Oral Every 4 Hours 6. oxyCODONE Immediate Release: 5 mg Oral Every 4 Hours Recent Lab Results: Results: I have reviewed these laboratory results: Coagulation Screen 27-Mar-2018 04:47:00 ResultValue Prothrombin Time, Plasma 12.4 International Normalized Ratio, Plasma 1.1 Activated Partial Thromboplastin Time 27 Complete Blood Count + Differential 27-Mar-2018 04:47:00 ResultValue White Blood Cell Count 8.2 Nucleated Erythrocyte Count 0.0 Red Blood Cell Count 4.10 HGB 12.4 HCT 37.9 MCV 92 MCHC 32.7 PLT 230 RDW-CV 13.7 Neutrophil % 73.8 Immature Granulocytes % 0.7 Lymphocyte % 14.1 Monocyte % 7.9 Eosinophil % 2.8 Basophil % 0.7 Neutrophil Count 6.04 H Lymphocyte Count 1.16 Monocyte Count 0.65 Eosinophil Count 0.23 Basophil Count 0.06 Renal Function Panel 27-Mar-2018 04:47:00 ResultValue Glucose, Serum 105 H NA 137 K 3.9 CL 98 Bicarbonate, Serum 31 Anion Gap, Serum 12 BUN 17 CREAT 0.62 GFR-Non >60 GFR- >60 Calcium, Serum 8.8 Phosphorus, Serum 2.1 L ALB 3.7 Magnesium, Serum 27-Mar-2018 04:47:00 ResultValue Magnesium, Serum 2.32 Assessment and Plan: Assessment: 72 year-old F who was here for Mitral Valve replacement with 31 mm Epic valve; Aortic Valve replacement with 23 mm freestyle valve; Tricuspid valve repair with 31mm ATS ring; MAZE procedure; and Left atrial appendage ligation. PMHx of rheumatic disease c/b mitral stenosis (s/p balloon valvuloplasty in 2016), severe MR, moderate TR, AR with preserved LV and RV function, and paroxysmal Afib (on Dofetilide 500 mcg BID as outpt- currently held) c/b peripheral emboli to right and left leg but no cerebral symptoms. EP consulted regarding afib management. EKG V-paced and QTC 465 at baseline. Today's QTc is 487ms. Recommendations: - Continue dofetilide 500 mg BID 8AM and 8PM. Currently has received 2 doses. - Avoid hypokalemia and hypomagnesemia (goal serum K > 4, Mg > 2) - Please avoid any medication that can prolong QT - Please obtain EKG per order - Since we are just restarting her home dose of Tikosyn, if ECG normal tomorrow, she will be stable for discharge. Signature/Cosignature/Attestation: Attending AttestationI saw and evaluated the patient. I personally obtained the schultz and critical portions of the history and physical exam or was physically present for schultz and critical portions performed by the resident/fellow. I reviewed the resident/fellow?s documentation and discussed the patient with the resident/fellow. I agree with the resident/fellow?s medical decision making as documented in the resident?s note. I personally evaluated the patient (as noted in the above attestation) on 27-Mar-2018 Comments/ Additional Findings I spent 25 minutes with this patient. Greater than 50% of this time was spent in counseling and/or coordination of care Electronic Signatures: Anthony Peacock (Fellow)) (Signed 27-Mar-2018 12:05) Authored: Service, Subjective Data, Objective Data, Assessment and Plan, Signature/Cosignature/Attestation Reese Calzada) (Signed 27-Mar-2018 18:06) Authored: Signature/Cosignature/Attestation Co-Signer: Service, Subjective Data, Objective Data, Assessment and Plan, Signature/Cosignature/Attestation Last Updated: 27-Mar-2018 18:06 by Reese Calzada) GLUCOSE-POCT Collected: 03/27/2018 Status: F Source: [place] 7:57 [facility]POS[facility] TYPE CODE TESTS RESULT OUT OF RANGE REFERENCE UNITS LAB GLUP(LOINC) 74 - 99 mg/dL 97 GLUCOSE-POCT Performed By: #### GLUPO #### [facility] [address] [place] [address] CBC AND DIFFERENTIAL Collected: 03/27/2018 Status: F Source: [place] 4:47 [facility] REPOSITORY TYPE CODE TESTS RESULT OUT OF REFERENCE UNITS RANGE LAB WBCR(LOINC 4.4 - 11.3 x10E9/L ) WBC 8.2 LAB NRBC(LOINC 0.0-0.0 /100 WBC ) NUCLEATED RBC 0.0 LAB RBCCT(LOIN 4.00 - 5.20 x10E12/L C) RBC 4.10 LAB HGB(LOINC) 12.0 - 16.0 g/dL HGB 12.4 LAB HCT(LOINC) 36.0 - 46.0 % HCT 37.9 LAB MCV(LOINC) 80 - 100 fL MCV 92 LAB MCHC2(LOIN 32.0 - 36.0 g/dL C) MCHC 32.7 LAB PLTCT(LOIN 150 - 450 x10E9/L C) PLT 230 LAB RDWCV(LOIN 11.5 - 14.5 % C) RDW-CV 13.7 LAB NEUT(LOINC 40.0 - 80.0 % ) % NEUTROPHIL 73.8 LAB IG(LOINC) 0.0 - 0.9 % % AUTOMATED 0.7 IMMATURE GRAN Result Comment: Percent differential counts (%) should be interpreted in the context of the absolute cell counts (cells/L). LAB LYMPH(LOINC) 13.0 - % 44.0 % LYMPHOCYTE 14.1 LAB MONO(LOINC) 2.0 - 10.0 % % MONOCYTE 7.9 LAB EOS(LOINC) 0.0 - 6.0 % % EOSINOPHIL 2.8 LAB BASO(LOINC) 0.0 - 2.0 % % BASOPHIL 0.7 LAB #NEUT(LOINC) 1.60 - x10E9/L 5.50 NEUTROPHIL High 6.04 LAB #LYMP(LOINC) 0.80 - x10E9/L 3.00 LYMPHOCYTE 1.16 LAB #MONO(LOINC) 0.05 - x10E9/L 0.80 MONOCYTE 0.65 LAB #EOS(LOINC) 0.00 - x10E9/L 0.40 EOSINOPHIL 0.23 LAB #BASO(LOINC) 0.00 - x10E9/L 0.10 BASOPHIL 0.06 Performed By: #### CBCDF #### [facility] [address] [place] [address] COAGULATION SCREEN Collected: 03/27/2018 Status: F Source: [address] REPOSITORY TYPE CODE TESTS RESULT OUT OF REFERENCE UNITS RANGE LAB PT(LOINC) 9.8 - 12.7 sec PROTHROMBIN TIME 12.4 LAB INR(LOINC) 0.9 - 1.1 PT, INR 1.1 LAB APTT(LOINC 25 - 36 sec ) APTT 27 Result Comment: THE APTT IS NO LONGER USED FOR MONITORING UNFRACTIONATED HEPARIN THERAPY. FOR MONITORING HEPARIN THERAPY, USE THE HEPARIN ASSAY. Performed By: #### COAGS #### [facility] [address] [place] [id number] MAGNESIUM Collected: 03/27/2018 Status: F Source: [address] REPOSITORY TYPE CODE TESTS RESULT OUT OF REFERENCE UNITS RANGE LAB MG(LOINC) 1.60 - 2.40 mg/dL MAGNESIUM 2.32 Performed By: #### MG #### [facility] [address] [place] [id number] RENAL FUNCTION PANEL Collected: 03/27/2018 Status: F Source: [address] REPOSITORY TYPE CODE TESTS RESULT OUT OF REFERENCE UNITS RANGE LAB GLU(LOINC) 74 - 99 mg/dL GLUCOSE High 105 LAB SOD(LOINC) 136 - 145 mmol/L SODIUM 137 LAB K(LOINC) 3.5 - 5.3 mmol/L POTASSIUM 3.9 LAB CHLOR(LOIN 98 - 107 mmol/L C) CHLORIDE 98 LAB BIC(LOINC) 21 - 32 mmol/L BICARBONATE 31 LAB ANGAP(LOIN 10 - 20 mmol/L C) ANION GAP 12 LAB UREA(LOINC 6 - 23 mg/dL ) UREA NITROGEN 17 LAB CREA(LOINC 0.50 - 1.05 mg/dL ) CREATININE 0.62 LAB GFRFN(LOIN >60 mL/min/1.7 C) 3m2 GFR-NON AM. >60 LAB GFRAA(LOIN >60 mL/min/1.7 C) 3m2 GFR- AM. >60 Result Comment: CALCULATIONS OF ESTIMATED GFR ARE PERFORMED USING THE MDRD STUDY EQUATION FOR THE IDMS-TRACEABLE CREATININE METHODS. CLIN CHEM 2007;53:766-72 LAB CA(LOINC) 8.6 - 10.6 mg/dL CALCIUM 8.8 LAB PHOS(LOINC) 2.5 - 4.9 mg/dL PHOSPHORUS Low 2.1 Result Comment: The performance characteristics of phosphorus testing in heparinized plasma have been validated by the individual laboratory site where testing is performed. Testing on heparinized plasma is not approved by the FDA; however, such approval is not necessary. LAB ALB(LOINC) 3.4 - 5.0 g/dL ALBUMIN 3.7 Performed By: #### RENAL #### [facility] [address] [place] [address] COAGULATION SCREEN Collected: 03/27/2018 Status: CANCELLED Source: [place] 12:30 [facility] REPOSITORY Order Comment: TEST COAGULATION SCREEN WAS CANCELLED, 03/28/2018 19:50 NO SPECIMEN RECEIVED IN LAB. TYPE CODE TESTS RESULT OUT OF REFERENCE UNITS RANGE LAB PT(LOINC) PROTHROMBIN TIME Canceled LAB INR(LOINC) PT, INR Canceled LAB APTT(LOINC ) APTT Canceled Result Comment: THE APTT IS NO LONGER USED FOR MONITORING UNFRACTIONATED HEPARIN THERAPY. FOR MONITORING HEPARIN THERAPY, USE THE HEPARIN ASSAY. Performed By: #### COAGS #### [facility] [address] [place] [address] MAGNESIUM Collected: 03/27/2018 Status: CANCELLED Source: [place] 12:30 [facility] REPOSITORY Order Comment: TEST MAGNESIUM WAS CANCELLED, 03/28/2018 19:50 NO SPECIMEN RECEIVED IN LAB. TYPE CODE TESTS RESULT OUT OF REFERENCE UNITS RANGE LAB MG(LOINC) MAGNESIUM Canceled Performed By: #### MG #### [facility] [address] [place] [address] CBC AND DIFFERENTIAL Collected: 03/27/2018 Status: CANCELLED Source: [place] 12:30 [facility] REPOSITORY Order Comment: TEST CBC AND DIFFERENTIAL WAS CANCELLED, 03/28/2018 19:50 NO SPECIMEN RECEIVED IN LAB. TYPE CODE TESTS RESULT OUT OF REFERENCE UNITS RANGE LAB WBCR(LOINC ) WBC Canceled LAB NRBC(LOINC ) NUCLEATED RBC Canceled LAB RBCCT(LOIN C) RBC Canceled LAB HGB(LOINC) HGB Canceled LAB HCT(LOINC) HCT Canceled LAB MCV(LOINC) MCV Canceled LAB MCHC2(LOIN C) MCHC Canceled LAB PLTCT(LOIN C) PLT Canceled LAB RDWCV(LOIN C) RDW-CV Canceled LAB NEUT(LOINC ) % NEUTROPHIL Canceled LAB IG(LOINC) % AUTOMATED Canceled IMMATURE GRAN Result Comment: Percent differential counts (%) should be interpreted in the context of the absolute cell counts (cells/L). LAB LYMPH(LOINC) % LYMPHOCYTE Canceled LAB MONO(LOINC) % MONOCYTE Canceled LAB EOS(LOINC) % EOSINOPHIL Canceled LAB BASO(LOINC) % BASOPHIL Canceled LAB #NEUT(LOINC) NEUTROPHIL Canceled LAB #LYMP(LOINC) LYMPHOCYTE Canceled LAB #MONO(LOINC) MONOCYTE Canceled LAB #EOS(LOINC) EOSINOPHIL Canceled LAB #BASO(LOINC) BASOPHIL Canceled LAB MDIF(LOINC) DIFFERENTIAL Canceled Performed By: #### CBCDF #### [facility] [address] [place] [address] RENAL FUNCTION PANEL Collected: 03/27/2018 Status: CANCELLED Source: [place] 12:30 AM [facility] REPOSITORY Order Comment: TEST RENAL FUNCTION PANEL WAS CANCELLED, 03/28/2018 19:50 NO SPECIMEN RECEIVED IN LAB. TYPE CODE TESTS RESULT OUT OF REFERENCE UNITS RANGE LAB GLU(LOINC) GLUCOSE Canceled LAB SOD(LOINC) SODIUM Canceled LAB K(LOINC) POTASSIUM Canceled LAB CHLOR(LOIN C) CHLORIDE Canceled LAB BIC(LOINC) BICARBONATE Canceled LAB ANGAP(LOIN C) ANION GAP Canceled LAB UREA(LOINC ) UREA NITROGEN Canceled LAB CREA(LOINC ) CREATININE Canceled LAB GFRFN(LOIN C) GFR-NON AM. Canceled LAB GFRAA(LOIN C) GFR- AM. Canceled Result Comment: CALCULATIONS OF ESTIMATED GFR ARE PERFORMED USING THE MDRD STUDY EQUATION FOR THE IDMS-TRACEABLE CREATININE METHODS. CLIN CHEM 2007;53:766-72 LAB CA(LOINC) CALCIUM Canceled LAB PHOS(LOINC) PHOSPHORUS Canceled Result Comment: The performance characteristics of phosphorus testing in heparinized plasma have been validated by the individual laboratory site where testing is performed. Testing on heparinized plasma is not approved by the FDA; however, such approval is not necessary. LAB ALB(LOINC) Canceled ALBUMIN Performed By: #### RENAL #### [facility] [address] [place] [id number] GLUCOSE-POCT Collected: 03/26/2018 Status: F Source: [place] 8:23 PM [facility] REPOSITORY TYPE CODE TESTS RESULT OUT OF RANGE REFERENCE UNITS LAB GLUP(LOINC) 74 - 99 mg/dL High 106 GLUCOSE-POCT Performed By: #### GLUPO #### [facility] [address] [place] [id number] CLINICAL INTERVENTION - Observed: 03/26/2018 Status: UNK Source: [facility] 6[facility]55 [facility] REPOSITORY Pharmacist's Clinical Intervention: Active and Pending Medications: Potassium Chloride Extended Release, Tablet, Extended Release DOSE = 20 mEq Oral Once Clinician Notes: please give with a snack, 26-Mar-2018, Active Pharmacist intervention: Contacted physician, Spoke with Jarek Vaz SKI PATROLLER. Explained that I saw patient's k level was 4.5 and was questioning if she would like to give another dose. Per SKI PATROLLER, lab was slightly hemolyzed as well as patient is getting 40mg IV lasix tonight, which previously dropped postassium 1.0 point. Wished to continue with order Type of recommendation: Order clarification Time Required: 1 - 5 minutes Electronic Signatures: Ozzy De La Cruz ([facility]) (Signed 26-Mar-2018 18:57) Authored: Pharmacist's Clinical Intervention Last Updated: 26-Mar-2018 18:57 by Ozzy De La Cruz ([facility]) GLUCOSE-POCT Collected: 03/26/2018 Status: F Source: [place] 6:13 PM [facility] REPOSITORY TYPE CODE TESTS RESULT OUT OF RANGE REFERENCE UNITS LAB GLUP(LOINC) 74 - 99 mg/dL High 120 GLUCOSE-POCT Performed By: #### GLUPO #### [facility] [address] [place] [address] POTASSIUM Collected: 03/26/2018 Status: F Source: [place] 5:09 PM [facility] REPOSITORY TYPE CODE TESTS RESULT OUT OF REFERENCE UNITS RANGE LAB K(LOINC) 3.5 - 5.3 mmol/L POTASSIUM 4.5 Result Comment: MILD HEMOLYSIS DETECTED. The result may be falsely elevated due to hemolysis or other interferents. Clinical correlation is recommended. Repeat testing may be considered. Performed By: #### K #### [facility] [address] [place] [address] DAILY PROGRESS Observed: Status: COMPLETED Source: [place] NOTE-ELECTROPHYSIOLOGY 03/26/2018 1:22 PM [facility] REPOSITORY Service: Electrophysiology Subjective Data: MARSHALL FARRELL is a 72 year old Female who is Hospital Day # 5 and POD #4 for Mitral Valve replacement with 31 mm Epic valve;Aortic Valve replacement with 23 mm freestyle valve;Tricuspid valve repair with 31mm ATS ring;MAZE procedure;Left atrial appendage ligation. Overnight Events: Patient had an uneventful night. Objective Data: Objective Information: ---- Intake and Output ----- Mn/Dy/Year TimeIntakeOutputNet Mar 26, 2018 6:00 [id number] Mar 25, 2018 10:00 [id number] Mar 25, 2018 2:00 [id number] The Intake and Output Totals for the last 24 hours are: IntakeOutputNet [id number] Physical Exam: Constitutional: Well developed, awake/alert/oriented x3, no distress, alert and cooperative Head/Neck: Neck supple, no apparent injury, thyroid without mass or tenderness, No JVD, trachea midline, no bruits Respiratory/Thorax: Patent airways, CTAB, normal breath sounds with good chest expansion, thorax symmetric Cardiovascular: Regular, rate and rhythm, no murmurs, 2+ equal pulses of the extremities, normal S 1and S 2 Gastrointestinal: Nondistended, soft, non-tender, no rebound tenderness or guarding, no masses palpable, no organomegaly, +BS, no bruits Musculoskeletal: ROM intact, no joint swelling, normal strength Skin: Warm and dry, no lesions, no rashes. Medication: Medications: Continuous Medications No continuous medications are active Scheduled Medications 1. Acetaminophen: 650 mg Oral Every 6 Hours 2. Aspirin Chewable: 81 mg Oral Daily 3. Atorvastatin: 10 mg Oral Daily 4. Furosemide Injectable: 40 mg IntraVenous Push 2 Times a Day 5. Heparin SubCutaneous: 5000 unit(s) SubCutaneous Every 8 Hours 6. Insulin Lispro Customizable Corrective Scale: unit(s) SubCutaneous 3 Times a Day With Meals 7. Iron Polysaccharide Complex: 150 mg Oral Daily 8. Levothyroxine: 100 microgram(s) Oral Daily 9. Metoprolol Tartrate: 25 mg Oral Every 12 Hours 10. Multivitamin with Minerals: 1 tablet(s) Oral Daily 11. Polyethylene Glycol: 17 gram(s) Oral 3 Times a Day 12. Sodium Chloride 0.9% Injectable Flush: 1.5 mL IntraVenous Flush Every 8 Hours and as Needed 13. Venlafaxine: 37.5 mg Oral Daily 14. Warfarin: 2.5 mg Oral Daily PRN Medications 1. Bisacodyl Rectal: 10 mg Rectal Daily 2. Dextrose 50% in Water Injectable: 25 gram(s) IntraVenous Push Every 15 Minutes 3. Glucagon Injectable: 1 mg IntraMuscular Every 15 Minutes 4. Ondansetron Injectable: 4 mg IntraVenous Push Every 8 Hours 5. oxyCODONE Immediate Release: 2.5 mg Oral Every 4 Hours 6. oxyCODONE Immediate Release: 5 mg Oral Every 4 Hours Currently Suspended Medications 1. Dofetilide: 500 microgram(s) Oral Every 12 Hours Assessment and Plan: Assessment: 72 year-old F who is Hospital Day # 4 and ICU Day #4 and POD #4 for Mitral Valve replacement with 31 mm Epic valve;Aortic Valve replacement with 23 mm freestyle valve; Tricuspid valve repair with 31mm ATS ring; MAZE procedure; and [facility] append[facility] stenosis (s/p balloon valvuloplasty in 2016), severe MR, moderate TR, AR with preserved LV and RV function, and paroxysmal Afib (on Dofetilide 500 mcg BID as outpt- currently held) c/b peripheral emboli to right and left leg but no cerebral symptoms. EP consulted regarding afib management Currently V-paced and on IV amiodarone ggt. Patient was in afib elle-op and was placed on IV amiodarone for Afib in the OR. Digoxin and dofetilide currently held. Pt currently w/ V-paced HR 80s, weaned off pressors. EKG V-paced and QTC 465 at baseline. Did not recieve Tikosyn yesterday. Recommendations: - started dofetilide 500 mg BID 8AM and 8PM. first dose will be 8PM, order placed - Avoid hypokalemia and hypomagnesemia (goal serum K > 4, Mg > 2) - Please avoid any medication that can prolong QT - Please obtain EKG per order Signature/Cosignature/Attestation: Attending AttestationI saw and evaluated the patient. I personally obtained the schultz and critical portions of the history and physical exam or was physically present for schultz and critical portions performed by the resident/fellow. I reviewed the resident/fellow?s documentation and discussed the patient with the resident/fellow. I agree with the resident/fellow?s medical decision making as documented in the resident?s note. I personally evaluated the patient (as noted in the above attestation) on 26-Mar-2018 Comments/ Additional Findings I spent 25 minutes with this patient. Greater than 50% of this time was spent in counseling and/or coordination of care Electronic Signatures: Anthony Peacock (Fellow)) (Signed 26-Mar-2018 13:28) Authored: Service, Subjective Data, Objective Data, Assessment and Plan, Signature/Cosignature/Attestation Reese Calzada) (Signed 27-Mar-2018 18:05) Authored: Signature/Cosignature/Attestation Co-Signer: Service, Subjective Data, Objective Data, Assessment and Plan, Signature/Cosignature/Attestation Last Updated: 27-Mar-2018 18:05 by Reese Calzada) CBC AND DIFFERENTIAL Collected: 03/26/2018 Status: F Source: [place] 1:20 [facility] REPOSITORY TYPE CODE TESTS RESULT OUT OF REFERENCE UNITS RANGE LAB WBCR(LOINC 4.4 - 11.3 x10E9/L ) WBC 8.0 LAB NRBC(LOINC 0.0-0.0 /100 WBC ) NUCLEATED RBC 0.0 LAB RBCCT(LOIN 4.00 - 5.20 x10E12/L C) Low RBC 3.77 LAB HGB(LOINC) 12.0 - 16.0 g/dL Low HGB 11.4 LAB HCT(LOINC) 36.0 - 46.0 % Low HCT 35.0 LAB MCV(LOINC) 80 - 100 fL MCV 93 LAB MCHC2(LOIN 32.0 - 36.0 g/dL C) MCHC 32.6 LAB PLTCT(LOIN 150 - 450 x10E9/L C) PLT 171 LAB RDWCV(LOIN 11.5 - 14.5 % C) RDW-CV 13.8 LAB NEUT(LOINC 40.0 - 80.0 % ) % NEUTROPHIL 72.2 LAB IG(LOINC) 0.0 - 0.9 % % AUTOMATED 0.6 IMMATURE GRAN Result Comment: Percent differential counts (%) should be interpreted in the context of the absolute cell counts (cells/L). LAB LYMPH(LOINC) 13.0 - % 44.0 % LYMPHOCYTE 13.1 LAB MONO(LOINC) 2.0 - 10.0 % % MONOCYTE 9.4 LAB EOS(LOINC) 0.0 - 6.0 % % EOSINOPHIL 4.2 LAB BASO(LOINC) 0.0 - 2.0 % % BASOPHIL 0.5 LAB #NEUT(LOINC) 1.60 - x10E9/L 5.50 NEUTROPHIL High 5.79 LAB #LYMP(LOINC) 0.80 - x10E9/L 3.00 LYMPHOCYTE 1.05 LAB #MONO(LOINC) 0.05 - x10E9/L 0.80 MONOCYTE 0.75 LAB #EOS(LOINC) 0.00 - x10E9/L 0.40 EOSINOPHIL 0.34 LAB #BASO(LOINC) 0.00 - x10E9/L 0.10 BASOPHIL 0.04 Performed By: #### CBCDF #### [facility] [address] [place] [address] MAGNESIUM Collected: 03/26/2018 Status: F Source: [place] 1:20 [facility] REPOSITORY TYPE CODE TESTS RESULT OUT OF REFERENCE UNITS RANGE LAB MG(LOINC) 1.60 - 2.40 mg/dL MAGNESIUM 2.33 Performed By: #### MG #### [facility] [address] [place] [address] RENAL FUNCTION PANEL Collected: 03/26/2018 Status: F Source: [place] 1:20 [facility] REPOSITORY TYPE CODE TESTS RESULT OUT OF REFERENCE UNITS RANGE LAB GLU(LOINC) 74 - 99 mg/dL GLUCOSE 95 LAB SOD(LOINC) 136 - 145 mmol/L SODIUM 139 LAB K(LOINC) 3.5 - 5.3 mmol/L POTASSIUM 3.5 LAB CHLOR(LOIN 98 - 107 mmol/L C) CHLORIDE 98 LAB BIC(LOINC) 21 - 32 mmol/L BICARBONATE 30 LAB ANGAP(LOIN 10 - 20 mmol/L C) ANION GAP 15 LAB UREA(LOINC 6 - 23 mg/dL ) UREA NITROGEN 20 LAB CREA(LOINC 0.50 - 1.05 mg/dL ) CREATININE 0.56 LAB GFRFN(LOIN >60 mL/min/1.7 C) 3m2 GFR-NON AM. >60 LAB GFRAA(LOIN >60 mL/min/1.7 C) 3m2 GFR- AM. >60 Result Comment: CALCULATIONS OF ESTIMATED GFR ARE PERFORMED USING THE MDRD STUDY EQUATION FOR THE IDMS-TRACEABLE CREATININE METHODS. CLIN CHEM 2007;53:766-72 LAB CA(LOINC) 8.6 - 10.6 mg/dL CALCIUM Low 8.3 LAB PHOS(LOINC) 2.5 - 4.9 mg/dL PHOSPHORUS Low 2.3 Result Comment: The performance characteristics of phosphorus testing in heparinized plasma have been validated by the individual laboratory site where testing is performed. Testing on heparinized plasma is not approved by the FDA; however, such approval is not necessary. LAB ALB(LOINC) 3.4 - 5.0 g/dL ALBUMIN 3.7 Performed By: #### RENAL #### [facility] [address] [place] [address] COAGULATION SCREEN Collected: 03/26/2018 Status: F [facility]: [facility] 1[facility] RE[facility] TYPE CODE TESTS RESULT OUT OF REFERENCE UNITS RANGE LAB PT(LOINC) 9.8 - 12.7 sec PROTHROMBIN TIME 12.3 LAB INR(LOINC) 0.9 - 1.1 PT, INR 1.1 LAB APTT(LOINC 25 - 36 sec ) APTT 27 Result Comment: THE APTT IS NO LONGER USED FOR MONITORING UNFRACTIONATED HEPARIN THERAPY. FOR MONITORING HEPARIN THERAPY, USE THE HEPARIN ASSAY. Performed By: #### COAGS #### [facility] [address] [place] [address] CLINICAL EVENT Observed: 03/26/2018 Status: UNK Source: [place] NOTE-EPICARDIAL WIRE PULL 1:07 PM [facility] REPOSITORY Event: Topic: epicardial wire pull Details: Epicardial wires pulled out at 1230 w/o difficulty. Pt tolerated procedure well w/o evidence of immediate complication. BRx1hr with q15min VS. TELE x4hrs post pull. Provider / Team Contact Information: Provider/Team Contact Info-Pager Number: cardiac surgery [phone] Electronic Signatures: Jarek Vaz ([employer]) (Signed 26-Mar-2018 13:08) Authored: Event, Provider / Team Contact Information Last Updated: 26-Mar-2018 13:08 by Jarek Vaz ([employer]) GLUCOSE-POCT Collected: 03/26/2018 Status: F Source: [place] 11:34 AM [facility] REPOSITORY TYPE CODE TESTS RESULT OUT OF RANGE REFERENCE UNITS LAB GLUP(LOINC) 74 - 99 mg/dL High 152 GLUCOSE-POCT Performed By: #### GLUPO #### [facility] [address] [place] [address] DAILY PROGRESS Observed: 03/26/2018 Status: COMPLETED Source: [facility]CARDIAC SURGERY 10:46 AM [facility] REPOSITORY Service: Cardiac Surgery Subjective Data: MARSHALL FARRELL is a 72 year old Female who is Hospital Day # 5 and POD #4 for Mitral Valve replacement with 31 mm Epic valve;Aortic Valve replacement with 23 mm freestyle valve;Tricuspid valve repair with 31mm ATS ring;MAZE procedure;Left atrial appendage ligation. Overnight Events: Patient had an uneventful night. Objective Data: Objective Information: ---- Intake and Output ----- Mn/Dy/Year TimeIntakeOutputNet Mar 26, 2018 6:00 [id number] Mar 25, 2018 10:00 [id number] Mar 25, 2018 2:00 [id number] The Intake and Output Totals for the last 24 hours are: IntakeOutcesarNet [id number] T PRBPSpO2 [id number]/7997% Date/Time03/26 6: 6: 6:4503/26 6:4503/26 6:45 Range(36C - 36.5C ) (72 - 80 ) (18 - 20 ) (112 - 139 )/ (67 - 79 ) (92% - 97% ) Pain with Activity reported at 03/26 8:40: 6 Pain at Rest reported at 03/26 8:40: 6 Weights 03/26 3:00: Weight in kg (Weight (kg)) 76.2 03/26 3:00: Weight in lbs ((lbs)) 168.1 Physical Exam: Constitutional: Awake and alert, oriented x3, sitting in the chair in no distress, cooperative. Eyes: Sclera clear ENMT: mucous membranes moist, no apparent injury, no lesions seen Head/Neck: Neck supple, no apparent injury, no JVD, trachea midline. Respiratory/Thorax: Lungs diminished bibasilar with coarse crackles bilaterally, thorax symmetric. Instructed IS, on RA. sternum stable Cardiovascular: Regular, rate and rhythm, no murmurs, 2+ equal pulses of the extremities, no S3, S4. Tele: Paced 70s Gastrointestinal: Round, soft, non-tender, no masses palpable, +BS. No BM yet Genitourinary: voiding clear yellow without difficulty, denies dysuria Musculoskeletal: ROM intact, no joint swelling, weak. Extremities: Well perfused, 1+ bilateral lower extremity edema. Neurological: alert and oriented x3, intact senses, motor, response and reflexes, weak. Psychological: Appropriate mood and behavior Skin: [place], warm and dry. Midline sternotomy incision, well approximated, no erythema or drainage. Pacemaker wires capped. Medication: Medications: Continuous Medications No continuous medications are active Scheduled Medications 1. Acetaminophen: 650 mg Oral Every 6 Hours 2. Aspirin Chewable: 81 mg Oral Daily 3. Atorvastatin: 10 mg Oral Daily 4. Furosemide Injectable: 40 mg IntraVenous Push 2 Times a Day 5. Heparin SubCutaneous: 5000 unit(s) SubCutaneous Every 8 Hours 6. Insulin Lispro Customizable Corrective Scale: unit(s) SubCutaneous 3 Times a Day With Meals 7. Iron Polysaccharide Complex: 150 mg Oral Daily 8. Levothyroxine: 100 microgram(s) Oral Daily 9. Metoprolol Tartrate: 25 mg Oral Every 12 Hours 10. Multivitamin with Minerals: 1 tablet(s) Oral Daily 11. Polyethylene Glycol: 17 gram(s) Oral 3 Times a Day 12. Sodium Chloride 0.9% Injectable Flush: 1.5 mL IntraVenous Flush Every 8 Hours and as Needed 13. Venlafaxine: 37.5 mg Oral Daily 14. Warfarin: 2.5 mg Oral Daily PRN Medications 1. Bisacodyl Rectal: 10 mg Rectal Daily 2. Dextrose 50% in Water Injectable: 25 gram(s) IntraVenous Push Every 15 Minutes 3. Glucagon Injectable: 1 mg IntraMuscular Every 15 Minutes 4. Ondansetron Injectable: 4 mg IntraVenous Push Every 8 Hours 5. oxyCODONE Immediate Release: 2.5 mg Oral Every 4 Hours 6. oxyCODONE Immediate Release: 5 mg Oral Every 4 Hours Currently Suspended Medications 1. Dofetilide: 500 microgram(s) Oral Every 12 Hours Recent Lab Results: Results: I have reviewed these laboratory results: Glucose_POCT 26-Mar-2018 06:47:00 ResultValue Glucose-POCT 97 Assessment and Plan: Comorbidities: Comorbidity: anemia Anemia: acute blood loss anemia Assessment: Marshall Farrell is a 72 year old female with a past medical history significant for rheumatic disease as a child, mitral stenosis (s/p balloon valvuloplasty in 2016), severe mitral regurgitation, moderate tricuspid regurgitation, aortic regurgitation with preserved LV and RV function, and paroxysmal atrial fibrillation with peripheral emboli to right and left leg but no cerebral symptoms. She remains on treatment for atrial fibrillation with dofetilide. Her most recent ECHO (January 2017) showed normal ejection fraction with moderate aortic stenosis (dimensionless index of 0.36), mild to moderate tricuspid regurgitation, and moderate mitral valve stenosis. Since taking difetilide, she notes a dull ache around the apex region of the heart that lasts a minute, occurs 5-10x a day, and has no associated symptoms. She denies SOB at rest, MARKS syncope, LH, edema, orthopnea, fevers/chills, nausea/vomiting. She was admitted to [facility] CTICU s/p MVR, AVR, TVR, resection of left atrial appendage with Maze procedure with Dr. Pulido on 03/22/2018. 03/22/18 OPERATION/PROCEDURE: with Dr. Pulido 1. Mitral valve replacement: #31 Epic. 2. Aortic valve replacement: #23 freestyle. 3. Tricuspid valve repair: #31 ATS ring. 4. Maze procedure. CTICU course: uncomplicated Transferred to T3 03/23 Impression and Plan POD#4 s/p AVR. 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; Paroxsymal Afib - paced 70s - Metoprolol 25mg PO BID - EP consulted in CTICU for Afib - 03/26 Transfer to for reload home Dofetilide 500mg PO BID per EP discretion - 03/26 amiodarone level prior to restarting Tikosyn, QTC, recalculated by EP, okay to start Tikosyn - holding home digoxin - continue AC with Coumadin, goal INR 2.0- 3.0 - adjust as needed Acute postop blood loss anemia - Hct 30.2, 33.5 - Mv and iron - daily CBC while in hospital Fluid Volume status- Preop wt 69.1 - wt 76.2, 75.3 - Lasix 40mg IV BID - Add ACEi as BP permits - replace lytes as needed for hypokalemia/ hypomagnesemia - daily weights; I and O's - daily renal panel Hx Surgical Hypothyroidism s/p Follicular Carcinoma and thyroidectomy - continue synthroid - follow up with PCP for TSH level after discharge Hx Hypertension - SBP last 24 hours 112- 135 - continue holding lisinopril 10mg daily Hx Depression - continue venlafaxine 37.5mg daily Dispo - PT recs home with PT - not ready for discharge - anticipate discharge after Tikosyn reload complete and further diuresis Signature/Cosignature/Attestation: Provider/Team Contact Info-Pager Numbercardiac surgery [phone] Electronic Signatures: Jarek Vaz ([employer]) (Signed 26-Mar-2018 14:53) Authored: Service, Subjective Data, Objective Data, Assessment and Plan, Signature/Cosignature/Attestation Last Updated: 26-Mar-2018 14:53 by Jarek Vaz ([employer]) CBC Collected: 03/26/2018 Status: F Source: [facility] 10:00 AM [facility] REPOSITORY TYPE CODE TESTS RESULT OUT OF REFERENCE UNITS RANGE LAB WBCR(LOINC 4.4 - 11.3 x10E9/L ) WBC 8.0 LAB NRBC(LOINC 0.0-0.0 /100 WBC ) NUCLEATED RBC 0.0 LAB RBCCT(LOIN 4.00 - 5.20 x10E12/L C) Low RBC 3.28 LAB HGB(LOINC) 12.0 - 16.0 g/dL Low HGB 10.0 LAB HCT(LOINC) 36.0 - 46.0 % Low HCT 30.2 LAB MCV(LOINC) 80 - 100 fL MCV 92 LAB MCHC2(LOIN 32.0 - 36.0 g/dL C) MCHC 33.1 LAB PLTCT(LOIN 150 - 450 x10E9/L C) Low PLT 146 LAB RDWCV(LOIN 11.5 - 14.5 % C) RDW-CV 13.9 Performed By: #### CBC #### [facility] [address] [place] [address] PT/INR Collected: 03/26/2018 Status: F Source: [facility] 10:00 [facility]ITALS REPOSITORY TYPE CODE TESTS RESULT OUT OF REFERENCE UNITS RANGE LAB PT(LOINC) 9.8 - 12.7 sec PROTHROMBIN TIME 12.5 LAB INR(LOINC) 0.9 - 1.1 PT, INR 1.1 Performed By: #### PTINR #### [facility] [address] [place] [address] MAGNESIUM Collected: 03/26/2018 Status: F Source: [facility] 10:00 [facility]ITALS REPOSITORY TYPE CODE TESTS RESULT OUT OF REFERENCE UNITS RANGE LAB MG(LOINC) 1.60 - 2.40 mg/dL MAGNESIUM 2.29 Performed By: #### MG #### [facility] [address] [place] [address] RENAL FUNCTION PANEL Collected: 03/26/2018 Status: F Source: [facility] 10:00 [facility] REPOSITORY TYPE CODE TESTS RESULT OUT OF REFERENCE UNITS RANGE LAB GLU(LOINC) 74 - 99 mg/dL GLUCOSE High 128 LAB SOD(LOINC) 136 - 145 mmol/L SODIUM 136 LAB K(LOINC) 3.5 - 5.3 mmol/L POTASSIUM 3.7 LAB CHLOR(LOIN 98 - 107 mmol/L C) CHLORIDE 101 LAB BIC(LOINC) 21 - 32 mmol/L BICARBONATE 31 LAB ANGAP(LOIN 10 - 20 mmol/L C) Low ANION GAP 8 LAB UREA(LOINC 6 - 23 mg/dL ) UREA NITROGEN 21 LAB CREA(LOINC 0.50 - 1.05 mg/dL ) Low CREATININE 0.48 LAB GFRFN(LOIN >60 mL/min/1.7 C) 3m2 GFR-NON AM. >60 LAB GFRAA(LOIN >60 mL/min/1.7 C) 3m2 GFR- AM. >60 Result Comment: CALCULATIONS OF ESTIMATED GFR ARE PERFORMED USING THE MDRD STUDY EQUATION FOR THE IDMS-TRACEABLE CREATININE METHODS. CLIN CHEM 2007;53:766-72 LAB CA(LOINC) 8.6 - 10.6 mg/dL CALCIUM 8.6 LAB PHOS(LOINC) 2.5 - 4.9 mg/dL PHOSPHORUS Low 2.1 Result Comment: The performance characteristics of phosphorus testing in heparinized plasma have been validated by the individual laboratory site where testing is performed. Testing on heparinized plasma is not approved by the FDA; however, such approval is not necessary. LAB ALB(LOINC) 3.4 - 5.0 g/dL Low ALBUMIN 3.2 Performed By: #### RENAL #### [facility] [address] [place] [address] EMR ADDON Collected: 03/26/2018 Status: F Source: [facility] 9:15 AM [facility] REPOSITORY TYPE CODE TESTS RESULT OUT OF REFERENCE UNITS RANGE LAB EMRAC(LOIN C) ADDON CONFIRMATION REQUEST REC'D Performed By: #### EMRAD #### NO LOCATION NEEDED GLUCOSE-POCT Collected: 03/26/2018 Status: F Source: [facility] 6:47 AM [facility] REPOSITORY TYPE CODE TESTS RESULT OUT OF RANGE REFERENCE UNITS LAB GLUP(LOINC) 74 - 99 mg/dL 97 GLUCOSE-POCT Performed By: #### GLUPO #### [facility] [address] [place] [address] CLINICAL INTERVENTION - Observed: 03/25/2018 Status: UNK Source: [facility] 10:24 PM [facility]IT[facility] REPOSITORY Pharmacist's Clinical Intervention: Active and Pending Medications: Dofetilide, Capsule (TIKOSYN) DOSE = 500 microgram(s) Oral Every 12 Hours, 25-Mar-2018, Active Pharmacist intervention: Contacted physician, Contacted nurse Expected outcome and basis: Patient was on a amiodarone drip for 36 to 48 hours as of 2 days ago. Order placed to restart patients home tikosyn dose. Talked with resident and nurse decided to hold for now and see what EP wants in the morning. Time Required: 10-30 minutes Electronic Signatures: Alfonzo Bowen () (Signed 25-Mar-2018 22:26) Authored: Pharmacist's Clinical Intervention Last Updated: 25-Mar-2018 22:26 by Alfonzo Bowen () GLUCOSE-POCT Collected: 03/25/2018 Status: F Source: [facility] 8:41 PM [facility] REPOSITORY TYPE CODE TESTS RESULT OUT OF RANGE REFERENCE UNITS LAB GLUP(LOINC) 74 - 99 mg/dL 97 GLUCOSE-POCT Performed By: #### GLUPO #### [facility] [address] [place] [id number] DAILY PROGRESS Observed: Status: COMPLETED Source: [facility] NOTE-ELECTROPHYSIOLOGY 03/25/2018 4:21 PM [facility]OSPITALS REPOSITORY Service: Electrophysiology Subjective Data: MARSHALL FARRELL is a 72 year old Female who is Hospital Day # 4 and POD #3 for Mitral Valve replacement with 31 mm Epic valve;Aortic Valve replacement with 23 mm freestyle valve;Tricuspid valve repair with 31mm ATS ring;MAZE procedure;Left atrial appendage ligation. doing well this morning. no palpitations. Overnight Events: Patient had an uneventful night. Objective Data: Objective Information: T PRBPSpO2 [id number]/7693% Date/Time03/25 14: 14: 14: 14: 14:46 Range(36.2C - 36.7C ) (67 - 80 ) (12 - 20 ) (109 - 132 )/ (65 - 76 ) (92% - 100% ) As of 25-Mar-2018 06:52:00, patient is on 2 L/min of oxygen via nasal cannula. Physical Exam: Constitutional: Well developed, awake/alert/oriented x3, no distress, alert and cooperative Respiratory/Thorax: Patent airways, CTAB, normal breath sounds with good chest expansion, thorax symmetric Cardiovascular: V-paced with grade 1/6 systolic murmurs, 2+ equal pulses of the extremities, normal S 1and S 2 Extremities: normal extremities, no cyanosis edema, contusions or wounds, no clubbing Medication: Medications: Continuous Medications No continuous medications are active Scheduled Medications 1. Acetaminophen: 650 mg Oral Every 6 Hours 2. Aspirin Chewable: 81 mg Oral Daily 3. Dofetilide: 500 microgram(s) Oral Every 12 Hours 4. Heparin SubCutaneous: 5000 unit(s) SubCutaneous Every 8 Hours 5. Insulin Lispro Customizable Corrective Scale: unit(s) SubCutaneous 3 Times a Day With Meals 6. Iron Polysaccharide Complex: 150 mg Oral Daily 7. Levothyroxine: 100 microgram(s) Oral Daily 8. Metoprolol Tartrate: 25 mg Oral Every 12 Hours 9. Multivitamin with Minerals: 1 tablet(s) Oral Daily 10. Polyethylene Glycol: 17 gram(s) Oral 3 Times a Day 11. Sodium Chloride 0.9% Injectable Flush: 1.5 mL IntraVenous Flush Every 8 Hours and as Needed 12. Venlafaxine: 37.5 mg Oral Daily 13. Warfarin: 2.5 mg Oral Daily PRN Medications 1. Bisacodyl Rectal: 10 mg Rectal Daily 2. Dextrose 50% in Water Injectable: 25 gram(s) IntraVenous Push Every 15 Minutes 3. Glucagon Injectable: 1 mg IntraMuscular Every 15 Minutes 4. Ondansetron Injectable: 4 mg IntraVenous Push Every 8 Hours 5. oxyCODONE Immediate Release: 5 mg Oral Every 4 Hours Recent Lab Results: Results: I have reviewed these laboratory results: Complete Blood Count + Differential 25-Mar-2018 07:53:00 ResultValue White Blood Cell Count 10.3 Nucleated Erythrocyte Count 0.0 Red Blood Cell Count 3.39 L HGB 10.3 L HCT 33.5 L MCV 99 MCHC 30.7 L PLT 118 L RDW-CV 14.2 Neutrophil % 81.5 Immature Granulocytes % 0.5 Lymphocyte % 7.5 Monocyte % 8.4 Eosinophil % 1.9 Basophil % 0.2 Neutrophil Count 8.36 H Lymphocyte Count 0.77 L Monocyte Count 0.86 H Eosinophil Count 0.20 Basophil Count 0.02 Renal Function Panel 25-Mar-2018 07:53:00 ResultValue Glucose, Serum 105 H NA 136 K 4.7 CL 101 Bicarbonate, Serum 30 Anion Gap, Serum 10 BUN 21 CREAT 0.56 GFR-Non >60 GFR- >60 Calcium, Serum 8.6 Phosphorus, Serum 2.2 L ALB 3.3 L Magnesium, Serum 25-Mar-2018 07:53:00 ResultValue Magnesium, Serum 2.49 H Radiology Results: Results: Impression: 1. Persistent bibasilar pleural effusion and atelectasis. No sizable pneumothorax. 2. Postsurgical changes and medical appliances as described above. Xray Chest 2 View PA + Lateral [Mar 25 2018 2:06PM] Assessment and Plan: Assessment: 72 year-old F who is Hospital Day # 4 and ICU Day #4 and POD #4 for Mitral Valve replacement with 31 mm Epic valve;Aortic Valve replacement with 23 mm freestyle valve; Tricuspid valve repair with 31mm ATS ring; MAZE procedure; and Left atrial appendage ligation. PMHx of rheumatic disease c/b mitral stenosis (s/p balloon valvuloplasty in 2016), severe MR, moderate TR, AR with preserved LV and RV function, and paroxysmal Afib (on Dofetilide 500 mcg BID as outpt- currently held) c/b peripheral emboli to right and left leg but no cerebral symptoms. EP consulted regarding afib management Currently V-paced and on IV amiodarone ggt. Patient was in afib elle-op and was placed on IV amiodarone for Afib in the OR. Digoxin and dofetilide currently held. Pt currently w/ V-paced HR 80s, weaned off pressors. EKG V-paced and QTC 465 at basline OVERALL RECOMMENDATIONS: - started dofetilide 500 mg BID 8AM and 8PM. first dose will be 8PM, order placed - Avoid hypokalemia and hypomagnesemia (goal serum K > 4, Mg > 2) - Please avoid any medication that can prolong QT - Please obtain EKG per order The Case was discussed with Dr. Calzada and He agrees with the plan. Signature/Cosignature/Attestation: Attending AttestationI saw and evaluated the patient. I personally obtained the schultz and critical portions of the history and physical exam or was physically present for schultz and critical portions performed by the resident/fellow. I reviewed the resident/fellow?s documentation and discussed the patient with the resident/fellow. I agree with the resident/fellow?s medical decision making as documented in the resident?s note. I personally evaluated the patient (as noted in the above attestation) on 25-Mar-2018 Comments/ Additional Findings I spent 25 minutes with this patient. Greater than 50% of this time was spent in counseling and/or coordination of care Electronic Signatures: Ricco Lui (Fellow)) (Signed 25-Mar-2018 17:25) Authored: Service, Assessment/Plan Review, Subjective Data, Objective Data, Assessment and Plan Reese Calzada) (Signed 27-Mar-2018 18:03) Authored: Signature/Cosignature/Attestation Co-Signer: Service, Assessment/Plan Review, Subjective Data, Objective Data, Assessment and Plan Last Updated: 27-Mar-2018 18:03 by Reese Calzada) DAILY PROGRESS Observed: 03/25/2018 Status: COMPLETED [facility] 2:34 PM [facility]ALS REPOSITORY Service: Cardiac Surgery Subjective Data: MARSHALL FARRELL is a 72 year old Female who is Hospital Day # 4 and POD #3 for Mitral Valve replacement with 31 mm Epic valve; Aortic Valve replacement with 23 mm freestyle valve;Tricuspid valve repair with 31mm ATS ring;MAZE procedure;Left atrial appendage ligation. Overnight Events: Patient had an uneventful night. Additional Information: Pt transferred out of CTICU last night Objective Data: Objective Information: ---- Intake and Output ----- Mn/Dy/Year TimeIntakeOutputNet Mar 25, 2018 2:00 [id number] Mar 25, 2018 6:00 [id number] Mar 24, 2018 10:00 [id number] The Intake and Output Totals for the last 24 hours are: IntakeOutputNet [id number] T PRBPSpO2 Value36.52108519/7692% Date/Time03/25 10: 10: 10: 10: 10:40 Range(36C - 36.7C ) (65 - 79 ) (12 - 20 ) (109 - 124 )/ (65 - 76 ) (92% - 100% ) As of 25-Mar-2018 06:52:00, patient is on 2 L/min of oxygen via nasal cannula. Direct Arterial Blood Pressure [id number](130 - 149)03/24 19:00 Diastolic (mm Hg)67(64 - 73)03/24 19:00 Mean (mm Hg)91(85 - 97)03/24 19:00 Pulse Pressure (mm Hg)74(65 - 78)03/24 19:00 Weights 03/25 3:40: Weight in kg (Weight (kg)) 75.3 03/25 3:40: Weight in lbs ((lbs)) 166.2 Physical Exam: Constitutional: Sitting in chair; Alert and Oriented X3; NAD Eyes: sclera clear Respiratory/Thorax: Diminished breath sounds at the bases; Non productive cough; Sternum stable Cardiovascular: RRR, S1S2 Tele SR- 80's AV wires capped Gastrointestinal: Soft, nontender, Nondistended, +BS; Awaiting Post op BM Genitourinary: voiding Musculoskeletal: MORAN Extremities: no edema Neurological: No focal deficits Psychological: Appropriate mood and behavior Skin: Warm and dry Midsternal incision [employer]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 Acetaminophen: 650 mg Oral Every 6 Hours 2. Aspirin Chewable: 81 mg Oral Daily 3. Heparin SubCutaneous: 5000 unit(s) SubCutaneous Every 8 Hours 4. Insulin Lispro Customizable Corrective Scale: unit(s) SubCutaneous 3 Times a Day With Meals 5. Iron Polysaccharide Complex: 150 mg Oral Daily 6. Levothyroxine: 100 microgram(s) Oral Daily 7. Metoprolol Tartrate: 25 mg Oral Every 12 Hours 8. Multivitamin with Minerals: 1 tablet(s) Oral Daily 9. Polyethylene Glycol: 17 gram(s) Oral 3 Times a Day 10. Sodium Chloride 0.9% Injectable Flush: 1.5 mL IntraVenous Flush Every 8 Hours and as Needed 11. Venlafaxine: 37.5 mg Oral Daily 12. Warfarin: 2.5 mg Oral Daily PRN Medications 1. Bisacodyl Rectal: 10 mg Rectal Daily 2. Dextrose 50% in Water Injectable: 25 gram(s) IntraVenous Push Every 15 Minutes 3. Glucagon Injectable: 1 mg IntraMuscular Every 15 Minutes 4. Ondansetron Injectable: 4 mg IntraVenous Push Every 8 Hours 5. oxyCODONE Immediate Release: 5 mg Oral Every 4 Hours Recent Lab Results: Results: I have reviewed these laboratory results: Coagulation Screen 25-Mar-2018 07:53:00 ResultValue Prothrombin Time, Plasma 11.9 International Normalized Ratio, Plasma 1.1 Activated Partial Thromboplastin Time 26 Complete Blood Count + Differential 25-Mar-2018 07:53:00 ResultValue White Blood Cell Count 10.3 Nucleated Erythrocyte Count 0.0 Red Blood Cell Count 3.39 L HGB 10.3 L HCT 33.5 L MCV 99 MCHC 30.7 L PLT 118 L RDW-CV 14.2 Neutrophil % 81.5 Immature Granulocytes % 0.5 Lymphocyte % 7.5 Monocyte % 8.4 Eosinophil % 1.9 Basophil % 0.2 Neutrophil Count 8.36 H Lymphocyte Count 0.77 L Monocyte Count 0.86 H Eosinophil Count 0.20 Basophil Count 0.02 Renal Function Panel 25-Mar-2018 07:53:00 ResultValue Glucose, Serum 105 H NA 136 K 4.7 CL 101 Bicarbonate, Serum 30 Anion Gap, Serum 10 BUN 21 CREAT 0.56 GFR-Non >60 GFR- >60 Calcium, Serum 8.6 Phosphorus, Serum 2.2 L ALB 3.3 L Magnesium, Serum 25-Mar-2018 07:53:00 ResultValue Magnesium, Serum 2.49 H Radiology Results: Results: Impression: 1. Persistent bibasilar pleural effusion and atelectasis. No sizable pneumothorax. 2. Postsurgical changes and medical appliances as described above. Xray Chest 2 View PA + Lateral [Mar 25 2018 2:06PM] Assessment and Plan: Assessment: Marshall Farrell is a 72 year old female with a past medical history significant for rheumatic disease as a child, mitral stenosis (s/p balloon valvuloplasty in 2016), severe mitral regurgitation, moderate tricuspid regurgitation, aortic regurgitation with preserved LV and RV function, and paroxysmal atrial fibrillation with peripheral emboli to right and left leg but no cerebral symptoms. She remains on treatment for atrial fibrillation with dofetilide. Her most recent ECHO (January 2017) showed normal ejection fraction with moderate aortic stenosis (dimensionless index of 0.36), mild to moderate tricuspid regurgitation, and moderate mitral valve stenosis. Since taking difetilide, she notes a dull ache around the apex region of the heart that lasts a minute, occurs 5-10x a day, and has no associated symptoms. She denies SOB at rest, MARKS syncope, LH, edema, orthopnea, fevers/chills, nausea/vomiting. She was admitted to [facility] CTICU s/p MVR, AVR, TVR, resection of left atrial appendage with Maze procedure with Dr. Pulido on 03/22/2018. 03/22/18 OPERATION/PROCEDURE: with Dr. Pulido 1. Mitral valve replacement: #31 Epic. 2. Aortic valve replacement: #23 freestyle. 3. Tricuspid valve repair: #31 ATS ring. 4. Maze procedure. CTICU course: uncomplicated Transferred to T3 03/23 Impression and Plan POD#3 s/p AVR. 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; Paroxsymal Afib - NSR 60-70's - Metoprolol 25mg PO BID - EP consulted in CTICU for Afib - Holding home Dofetilide 500mg PO BID for now; Resume at EP discretion - holding home digoxin - adjust as needed Acute postop blood loss anemia - Hct 33.5 - Mv and iron - daily CBC while in hospital Fluid Volume status- Preop wt 69.1 - wt 75.3 - Lasix 40mg IV X1 - Add ACEi as BP permits -replace lytes as needed for hypokalemia/ hypomagnesemia - daily weights; I and O's - daily renal panel Hx Surgical Hypothyroidism s/p Follicular Carcinoma and thyroidectomy - continue synthroid - follow up with PCP for TSH level after discharge Hx Hypertension - SBP last 24 hours 109-112 - continue holding lisinopril 10mg daily Hx Depression - continue venlafaxine 37.5mg daily Dispo - PT recs home with PT - not ready for discharge - anticipate discharge next 1-2 days Signature/Cosignature/Attestation: Provider/Team Contact Info-Pager Numbercardiac surgery [phone] Electronic Signatures: Jennifer Walsh ([employer]) (Signed 25-Mar-2018 17:57) Authored: Service, Subjective Data, Objective Data, Assessment and Plan, Signature/Cosignature/Attestation Last Updated: 25-Mar-2018 17:57 by Jennifer Walsh ([employer]) GLUCOSE-POCT Collected: 03/25/2018 Status: F Source: [facility] 2:26 PM [facility]OSPITALS REPOSITORY TYPE CODE TESTS RESULT OUT OF RANGE REFERENCE UNITS LAB GLUP(LOINC) 74 - 99 mg/dL High 102 GLUCOSE-POCT Performed By: #### GLUPO #### [facility] [address] [place] [address] TH CHEST 2 VIEW PA Observed: 03/25/2018 Status: F Source: [facility] 2:00 PM HOSPITALS REPOSITORY Patient Name: MARSHALL FARRELL STUDY: TH CHEST 2 VIEW PA AND LAT; 03/25/2018 2:00 pm INDICATION: Signs/Symptoms: s/p AVR, MVR , Tv repair; Dual energy. COMPARISON: 03/24/2018 ACCESSION NUMBER(S): [id number] ORDERING CLINICIAN: JENNIFER WALSH FINDINGS: Left subclavian pacer/defibrillator is in place with wires in cardiac chambers. Interval removal of right IJ central venous catheter sheath. Status post median sternotomy and cardiac valve replacement/repair. The cardiacsilhouette size is enlarged, unchanged. Persistent bibasilar opacity. No edema or pneumothorax. No acute osseous abnormality. IMPRESSION: 1. Persistent bibasilar pleural effusion and atelectasis. No sizable pneumothorax. 2. Postsurgical changes and medical appliances as described above. Electronically signed by: XU MCGEE MD DISCHARGE PROFILE2 Observed: 03/25/2018 Status: UNK Source: [facility] 8:43 AM [facility]OSPITALS REPOSITORY Discharge Orders: Anticipated Discharge Date: ? Anticipated Discharge [id number] Problem List: Additional Dx: ? Persistent atrial fibrillation: Catalog Name: Persistent atrial fibrillation ? Mitral stenosis with regurgitation: Catalog Name: Rheumatic mitral stenosis with insufficiency Prelim Disch Dx: ? S/P Maze operation for atrial fibrillation: Catalog Name: Other specified postprocedural states ? S/P tricuspid valve repair: Catalog Name: Other specified postprocedural states ? Aortic valve stenosis: Catalog Name: Nonrheumatic aortic (valve) stenosis ? Bioprosthetic mitral valve replacement, current hospitalization: Catalog Name: Presence of other heart-valve replacement ? Bioprosthetic aortic valve replacement during current hospitalization: Catalog Name: Presence of other heart-valve replacement Significant Events: Surgical Procedure: Clinical Events This Visit, 22-Mar-2018, Mitral Valve replacement with 31 mm Epic valve;Aortic Valve replacement with 23 mm freestyle valve;Tricuspid valve repair with 31mm ATS ring;MAZE procedure;Left atrial appendage ligation Hospital Providers: Provider RoleProvider Name ? AttendingLouis Pulido DNAR: ? DNAR Statusnone Activity: activity as tolerated. Labs 1: ? Lab Test(s)Basic Metabolic Panel, CBC, Magnesium ? Date To Be DrawnOnce the week following discharge ? Call Results ToDr. Crane and Dr Vora ? Commentsdo not draw PT/INR, to be followed at [facility] Oxygen: Other Instructions Incentive spirometer 10x/hr while awake. Additional Orders: ? Vital SignsEvery visit ? Weightdaily Call Provider If (Homegoing Patients): Any new concerning symptoms. CABG / Valve: Activity: - Continue to increase activity and use incentive spirometer, cough and deep breathing. - Pace activities as tolerated. Avoid heavy physical exertion and lifting. Balance rest periods with activity. - All refills will be obtained from the Primary Care Physician or Mending Carrier. - For chest tightness or pain, extreme shortness of breath, coughing up frothy sputum or fainting. GO DIRECTLY TO THE EMERGENCY ROOM OR CALL 911 IF YOU HAVE ANY OF THESE SYMPTOMS. - No pushing, pulling, or lifting objects greater than 10 pounds for 3 months. - MAY shower. - MAY NOT drive for 4 to 6 weeks, until follow up visit with the surgeon. - Maintain a daily weight log. Use same scale, before breakfast, after voiding. Please notify the cardiac surgeon's office if you are readmitted to any hospital within 30 days. Wound Care Instructions: - Cleanse incisions with soap and water daily. No dressing, leave open to air. No lotions, creams or tub soaks. Call Provider If: - Redness, drainage or other problems with incisions, notify the Cardiac Surgeon. - Signs and symptoms of Heart Failure: call your Mending Carrier if you have weight gain of 3 pounds or more in less than 3 days; shortness of breath at rest, with activity, or when lying flat; dizziness or fainting. - Signs and symptoms of Heart Failure: call your Mending Carrier for frequent coughing; swelling of feet, ankles, legs or abdomen; fatigue and loss of energy; change in appetite. Diet: ? DietLow Sodium Hospital Course (Home Care/Gold Form): Hospital Course: ? Hospital Course: include significant abnormal lab values Marshall Farrell is a 72 year old female with a past medical history significant for rheumatic disease as a child, mitral stenosis (s/p balloon valvuloplasty in 2016), severe mitral regurgitation, moderate tricuspid regurgitation, aortic regurgitation with preserved LV and RV function, and paroxysmal atrial fibrillation with peripheral emboli to right and left leg but no cerebral symptoms. She remains on treatment for atrial fibrillation with dofetilide. Her most recent ECHO (January 2017) showed normal ejection fraction with moderate aortic stenosis (dimensionless index of 0.36), mild to moderate tricuspid regurgitation, and moderate mitral valve stenosis. Since taking difetilide, she notes a dull ache around the apex region of the heart that lasts a minute, occurs 5-10x a day, and has no associated symptoms. She denies SOB at rest, MARKS syncope, LH, edema, orthopnea, fevers/chills, nausea/vomiting. She was admitted to [facility]ICU s/p MVR, AVR, TVR, resection of left atrial appendage with Maze procedure with Dr. Pulido on 03/22/2018. 03/22/18 OPERATION/PROCEDURE: with Dr. Pulido 1. Mitral valve replacement: #31 Epic. 2. Aortic valve replacement: #23 freestyle. 3. Tricuspid valve repair: #31 ATS ring. 4. Maze procedure. 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 PPD Statusnot given ? MRSAno ? VREno ? C. Diffno ? Other Resistant Organismno ? Isolation Typenone Home Care Orders: Face to Face Certification: Home Care Services Needed: yes Home Care Agency: [facility] [employer] Ordered: RN/AUXILIARY OPERATOR, PT Face to Face Encounter Completed: yes Date of Encounter: 25-Mar-2018 Medical Necessity for Homecare (based on clinical findings): Short-term retirement is needed to monitor for signs and symptoms of decomposition/adverse events as s/p aortic valve replacement, mitral valve replacement, TV repair and Maze. Patient at high risk for re-hospitalization. Physical therapy services needed to restore ability to walk without support and establish home exercise program as patient is at high risk for falls. Homebound Status: homebound Homebound Due to:: Patient with recent cardiac surgery. Patient experiences dyspnea with minimal exertion. Ambulates limited distance. The totality of these findings support a considerable and taxing effort to leave home due to limited mobility and pain. Also unable to drive for 1 month due to sternal precautions. Face to Face Completed and Home Care Orders Reviewed: I certify that this patient is under my care. I have reviewed the information included in the face to face and certify that the home care services ordered are medically necessary for this patient. Home Care Services: ? Home Care Skilled Serviceassessment, follow up teaching, labs, medication, Rehab (PT/OT/SP eval and treat), weight check, wound care ? Type of Assessments/p Aortic valve replacement ? Assessment: First Home Care VisitHome Care to determine ? Teaching: First Home Care VisitHome Care to determine ? Lab Instructionsplease see lab orders ? Med Compliance: First Home Care VisitHome Care to determine ? Rehab: First Home Care VisitHome Care to determine ? Weight Check: First Home Care VisitHome Care to determine ? Wound Care: First Home Care VisitHome Care to determine Provider FINAL REVIEW of Orders: Final Review: ? Final Review of Medication Reconciliation and Orders Completedby PA ? Reviewing ProviderHAYDEE Colin at 28-Mar-2018 08:44:15 ? Name/Contact Info for Questions About Discharge OrdersDr. Pulido [phone] Appointments: Coumadin (Warfarin) Follow-Up Monitoring: ? Follow-Up Monitoring Locations (Clinic)[facility], [address], [address], [address], phone: [phone] ? Physician/Dept/ServiceMedimartinez coumadin clinic ? Commentsyou should have your INR checked 1-2 days after discharge from hospital Follow-Up Appointment 01: ? Physician/Dept/ServiceDrCharles Dallas, PCP ? Scheduled Date/[id number] 15:00 ? [address] , [address], [place]. [address] ? Phone [phone] ? CommentsPlease arrive 10-15 minutes early, bring photo ID, insurance card, discharge summary, and list of current medications and dosages. If unable to keep this appointment, please call to cancel. Follow-Up Appointment 02: ? Physician/Dept/ServiceDr. Lonnie Crane, Cardiology ? Scheduled Date/[id number] 15:00 ? [facility] [address], [address], [place] [address] ? Phone [phone] ? CommentsPlease arrive 10-15 minutes early, bring photo ID, insurance card, discharge summary, and list of current medications and dosages. If unable to keep this appointment, please call to cancel. Follow-Up Appointment 03: ? Physician/Dept/ServiceDr. Pulido- Cardiac Surgeon ? [facility], [address] ? Phone [phone] ? CommentsSept at 9:30am for chest xray; then 10:00 am for appointment with Dr. Pulido Electronic Signatures: Johnnie Hall (CLIN COOR) (Signed 25-Mar-2018 08:44) Authored: Discharge Orders, Gold Form - Cloth Calender Summary Radha Howe (PAC) (Signed 28-Mar-2018 08:44) Authored: Discharge Orders, Hospital Course (Home Care/Gold Form), Home Care Orders, Provider FINAL REVIEW of Orders Steffi George (PT SVS REP) (Signed 25-Mar-2018 09:30) Authored: Discharge Orders, Appointments Isabela Edwards (STEAM FITTER-ASSISTANT COUNTY ENGINEER) (Signed 27-Mar-2018 13:07) Authored: Hospital Course (Home Care/Gold Form), Provider FINAL REVIEW of Orders, Appointments Jillian Jennifer (STEAM FITTER-ASSISTANT COUNTY ENGINEER) (Signed 25-Mar-2018 14:34) Authored: Discharge Orders, CABG / Valve, Hospital Course (Home Care/Gold Form), Home Care Orders, Provider FINAL REVIEW of Orders, Appointments Last Updated: 28-Mar-2018 08:44 by Radha Howe (PAC) GLUCOSE-POCT Collected: 03/25/2018 Status: F Source: [place] 8:06 [facility] REPOSITORY TYPE CODE TESTS RESULT OUT OF RANGE REFERENCE UNITS LAB GLUP(LOINC) 74 - 99 mg/dL High 111 GLUCOSE-POCT Performed By: #### GLUPO #### [facility] [address] [place] [address] CBC AND DIFFERENTIAL Collected: 03/25/2018 Status: F Source: [place] 7:53 AM [facility]ALS REPOSITORY TYPE CODE TESTS RESULT OUT OF REFERENCE UNITS RANGE LAB WBCR(LOINC 4.4 - 11.3 x10E9/L ) WBC 10.3 LAB NRBC(LOINC 0.0-0.0 /100 WBC ) NUCLEATED RBC 0.0 LAB RBCCT(LOIN 4.00 - 5.20 x10E12/L C) Low RBC 3.39 LAB HGB(LOINC) 12.0 - 16.0 g/dL Low HGB 10.3 LAB HCT(LOINC) 36.0 - 46.0 % Low HCT 33.5 LAB MCV(LOINC) 80 - 100 fL MCV 99 LAB MCHC2(LOIN 32.0 - 36.0 g/dL C) Low MCHC 30.7 LAB PLTCT(LOIN 150 - 450 x10E9/L C) Low PLT 118 LAB RDWCV(LOIN 11.5 - 14.5 % C) RDW-CV 14.2 LAB NEUT(LOINC 40.0 - 80.0 % ) % NEUTROPHIL 81.5 LAB IG(LOINC) 0.0 - 0.9 % % AUTOMATED 0.5 IMMATURE GRAN Result Comment: Percent differential counts (%) should be interpreted in the context of the absolute cell counts (cells/L). LAB LYMPH(LOINC) 13.0 - 44.0 % % LYMPHOCYTE 7.5 LAB MONO(LOINC) 2.0 - 10.0 % % MONOCYTE 8.4 LAB EOS(LOINC) 0.0 - 6.0 % % EOSINOPHIL 1.9 LAB BASO(LOINC) 0.0 - 2.0 % % BASOPHIL 0.2 LAB #NEUT(LOINC) 1.60 - 5.50 x10E9/L NEUTROPHIL High 8.36 LAB #LYMP(LOINC) 0.80 - 3.00 x10E9/L Low LYMPHOCYTE 0.77 LAB #MONO(LOINC) 0.05 - 0.80 x10E9/L MONOCYTE High 0.86 LAB #EOS(LOINC) 0.00 - 0.40 x10E9/L EOSINOPHIL 0.20 LAB #BASO(LOINC) 0.00 - 0.10 x10E9/L BASOPHIL 0.02 Performed By: #### CBCDF #### [facility] [address] [place] [address] COAGULATION SCREEN Collected: 03/25/2018 Status: F Source: [place] [address] [place] [address] REPOSITORY TYPE CODE TESTS RESULT OUT OF REFERENCE UNITS RANGE LAB PT(LOINC) 9.8 - 12.7 sec PROTHROMBIN TIME 11.9 LAB INR(LOINC) 0.9 - 1.1 PT, INR 1.1 LAB APTT(LOINC 25 - 36 sec ) APTT 26 Result Comment: THE APTT IS NO LONGER USED FOR MONITORING UNFRACTIONATED HEPARIN THERAPY. FOR MONITORING HEPARIN THERAPY, USE THE HEPARIN ASSAY. Performed By: #### COAGS #### [facility] [address] [place] [address] MAGNESIUM Collected: 03/25/2018 Status: F Source: [place] 7:[facility] REPOSITORY TYPE CODE TESTS RESULT OUT OF REFERENCE UNITS RANGE LAB MG(LOINC) 1.60 - 2.40 mg/dL High MAGNESIUM 2.49 Performed By: #### MG #### [facility] [address] [place] [address] RENAL FUNCTION PANEL Collected: 03/25/2018 Status: F Source: [place] 7:53 [facility] REPOSITORY TYPE CODE TESTS RESULT OUT OF REFERENCE UNITS RANGE LAB GLU(LOINC) 74 - 99 mg/dL GLUCOSE High 105 LAB SOD(LOINC) 136 - 145 mmol/L SODIUM 136 LAB K(LOINC) 3.5 - 5.3 mmol/L POTASSIUM 4.7 LAB CHLOR(LOIN 98 - 107 mmol/L C) CHLORIDE 101 LAB BIC(LOINC) 21 - 32 mmol/L BICARBONATE 30 LAB ANGAP(LOIN 10 - 20 mmol/L C) ANION GAP 10 LAB UREA(LOINC 6 - 23 mg/dL ) UREA NITROGEN 21 LAB CREA(LOINC 0.50 - 1.05 mg/dL ) CREATININE 0.56 LAB GFRFN(LOIN >60 mL/min/1.7 C) 3m2 GFR-NON AM. >60 LAB GFRAA(LOIN >60 mL/min/1.7 C) 3m2 GFR- AM. >60 Result Comment: CALCULATIONS OF ESTIMATED GFR ARE PERFORMED USING THE MDRD STUDY EQUATION FOR THE IDMS-TRACEABLE CREATININE METHODS. CLIN CHEM 2007;53:766-72 LAB CA(LOINC) 8.6 - 10.6 mg/dL CALCIUM 8.6 LAB PHOS(LOINC) 2.5 - 4.9 mg/dL PHOSPHORUS Low 2.2 Result Comment: The performance characteristics of phosphorus testing in heparinized plasma have been validated by the individual laboratory site where testing is performed. Testing on heparinized plasma is not approved by the FDA; however, such approval is not necessary. LAB ALB(LOINC) 3.4 - 5.0 g/dL Low ALBUMIN 3.3 Performed By: #### RENAL #### [facility] [address] [place] [address] RENAL FUNCTION PANEL Collected: 03/24/2018 Status: CANCELLED Source: [place] 7:57 PM [facility] REPOSITORY Order Comment: TEST RENAL FUNCTION PANEL WAS CANCELLED, 03/28/2018 03:37 No specimen received. TYPE CODE TESTS RESULT OUT OF REFERENCE UNITS RANGE LAB GLU(LOINC) GLUCOSE Canceled LAB SOD(LOINC) SODIUM Canceled LAB K(LOINC) POTASSIUM Canceled LAB CHLOR(LOIN C) CHLORIDE Canceled LAB BIC(LOINC) BICARBONATE Canceled LAB ANGAP(LOIN C) ANION GAP Canceled LAB UREA(LOINC ) UREA NITROGEN Canceled LAB CREA(LOINC ) CREATININE Canceled LAB GFRFN(LOIN C) GFR-NON AM. Canceled LAB GFRAA(LOIN C) GFR- AM. Canceled Result Comment: CALCULATIONS OF ESTIMATED GFR ARE PERFORMED USING THE MDRD STUDY EQUATION FOR THE IDMS-TRACEABLE CREATININE METHODS. CLIN CHEM 2007;53:766-72 LAB CA(LOINC) CALCIUM Canceled LAB PHOS(LOINC) PHOSPHORUS Canceled Result Comment: The performance characteristics of phosphorus testing in heparinized plasma have been validated by the individual laboratory site where testing is performed. Testing on heparinized plasma is not approved by the FDA; however, such approval is not necessary. LAB ALB(LOINC) Canceled ALBUMIN Performed By: #### RENAL #### [facility] [address] [place] [address] MAGNESIUM Collected: 03/24/2018 Status: F Source: [place] [address] [place] [address] REPOSITORY TYPE CODE TESTS RESULT OUT OF REFERENCE UNITS RANGE LAB MG(LOINC) 1.60 - 2.40 mg/dL High MAGNESIUM 2.63 Performed By: #### MG #### [facility] [address] [place] [address] RENAL FUNCTION PANEL Collected: 03/24/2018 Status: F Source: [place] [address] [place] [address] REPOSITORY TYPE CODE TESTS RESULT OUT OF REFERENCE UNITS RANGE LAB GLU(LOINC) 74 - 99 mg/dL GLUCOSE High 111 LAB SOD(LOINC) 136 - 145 mmol/L SODIUM 137 LAB K(LOINC) 3.5 - 5.3 mmol/L POTASSIUM 4.1 LAB CHLOR(LOIN 98 - 107 mmol/L C) CHLORIDE 100 LAB BIC(LOINC) 21 - 32 mmol/L BICARBONATE 31 LAB ANGAP(LOIN 10 - 20 mmol/L C) ANION GAP 10 LAB UREA(LOINC 6 - 23 mg/dL ) UREA NITROGEN 22 LAB CREA(LOINC 0.50 - 1.05 mg/dL ) CREATININE 0.66 LAB GFRFN(LOIN >60 mL/min/1.7 C) 3m2 GFR-NON AM. >60 LAB GFRAA(LOIN >60 mL/min/1.7 C) 3m2 GFR- AM. >60 Result Comment: CALCULATIONS OF ESTIMATED GFR ARE PERFORMED USING THE MDRD STUDY EQUATION FOR THE IDMS-TRACEABLE CREATININE METHODS. CLIN CHEM 2007;53:766-72 LAB CA(LOINC) 8.6 - 10.6 mg/dL CALCIUM 8.7 LAB PHOS(LOINC) 2.5 - 4.9 mg/dL PHOSPHORUS Low 2.1 Result Comment: The performance characteristics of phosphorus testing in heparinized plasma have been validated by the individual laboratory site where testing is performed. Testing on heparinized plasma is not approved by the FDA; however, such approval is not necessary. LAB ALB(LOINC) 3.4 - 5.0 g/dL ALBUMIN 3.5 Performed By: #### RENAL #### [facility] [address] [place] [address] GLUCOSE-POCT Collected: 03/24/2018 Status: F Source: [place] 3:42 PM [facility] REPOSITORY TYPE CODE TESTS RESULT OUT OF RANGE REFERENCE UNITS LAB GLUP(LOINC) 74 - 99 mg/dL High 135 GLUCOSE-POCT Performed By: #### GLUPO #### [facility] [address] [place] [address] DAILY PROGRESS NOTE Observed: 03/24/2018 Status: COMPLETED Source: [facility] 1:59 PM HOSPITALS REPOSITORY Subjective Data: ID Statement: MARSHALL FARRELL is a 72 year old Female who is Hospital Day # 3 and ICU Day #3 and POD #2 for Mitral Valve replacement with 31 mm Epic valve;Aortic Valve replacement with 23 mm freestyle valve;Tricuspid valve repair with 31mm ATS ring;MAZE procedure;Left atrial appendage ligation. Overnight: - Borderline low MAPs in 50s; Ca and levo given and resolved. Levo weaned. - 250 crystalloid for low urine output and borderline MPAs - CBC stable - ABG stable - Central line out. Objective Data: ? Objective Information T PRBPSpO2 [id number]% Date/Time03/24 12: 13: 13: 13:00 Range(36C - 36.6C ) (66 - 78 ) (10 - 23 ) (94% - 99% ) As of 24-Mar-2018 12:00:00, patient is on 4 L/min of oxygen via nasal cannula. Direct Arterial Blood Pressure [id number](99 - 143)03/24 13:00 Diastolic (mm Hg)67(44 - 67)03/24 13:00 Mean (mm Hg)88(61 - 88)03/24 13:00 Pulse Pressure (mm Hg)67(55 - 86)03/24 13:00 Drain and tube details (included in I&O totals) 250 cc Chest Tube( 24-Mar-2018 06:00:00 ) 1190 cc Indwelling Catheter - Urethral( 24-Mar-2018 06:00:00 ) ---- Intake and Output ----- Mn/Dy/Year TimeIntakeOutputNet Mar 24, 2018 2:00 [phone] Mar 24, 2018 6:00 [phone] Mar 23, 2018 10:00 [phone] The Intake and Output Totals for the last 24 hours are: [facility]OutAt[facility] [id number] Physical Exam: Physical Exam: Neurological: a/o x3 Cardiovascular: Regular rate and rhythm. Temporary pacer off. Incision clean, dry, and intact with no drainage. Respiratory/Thorax: Course breath sounds bilaterally Genitourinary: Carbone in place, draining clear yellow urine Gastrointestinal: Soft, non-tender, non-distended. Skin: Warm, dry Musculoskeletal: Symmetric muscle bulk bilaterally Constitutional: Pleasant appearing, no in acute distress. Eyes: EOMI Head/Neck: RIJ MAC w/ PAC removed; dressing in place. Extremities: No edema or cyanosis. Psychological: appropriate affect Allergies: Allergies: ? sulfamethoxazole: Rash ? Cipro: Other Medications: Medications: Continuous Medications 1. Amiodarone 360 mg/ D5W 200 mL Premix Infusion: 0.5 mg/min IntraVenous <Continuous> 2. PLASMA-LYTE Infusion: 1000 mL IntraVenous <Continuous> Scheduled Medications 1. Aspirin Chewable: 81 mg Oral Daily 2. Heparin SubCutaneous: 5000 unit(s) SubCutaneous Every 8 Hours 3. Insulin Lispro Customizable Corrective Scale: unit(s) SubCutaneous 3 Times a Day With Meals 4. Levothyroxine: 100 microgram(s) Oral Daily 5. Metoprolol Tartrate: 25 mg Oral Every 12 Hours 6. Polyethylene Glycol: 17 gram(s) Oral Daily 7. Sodium Chloride 0.9% Injectable Flush: 1.5 mL IntraVenous Flush Every 8 Hours and as Needed 8. Venlafaxine: 37.5 mg Oral Daily 9. Warfarin: 2.5 mg Oral Daily PRN Medications 1. Acetaminophen: 650 mg Oral Every 4 Hours 2. Bisacodyl Rectal: 10 mg Rectal Daily 3. Calcium Chloride IVPB: 0.5 gram(s) IntraVenous Piggyback Every 8 Hours 4. Calcium Chloride IVPB: 1 gram(s) IntraVenous Piggyback Every 8 Hours 5. Dextrose 50% in Water Injectable: 25 gram(s) IntraVenous Push Every 15 Minutes 6. Glucagon Injectable: 1 mg IntraMuscular Every 15 Minutes 7. hydrALAZINE Injectable: 10 mg IntraVenous Push Every 4 Hours 8. Magnesium Sulfate 2 gram/Sterile Water 50 mL Premix Soln: 2 gram(s) IntraVenous Piggyback Every 6 Hours 9. Magnesium Sulfate 4 gram/Sterile Water 100 mL Premix Soln: 4 gram(s) IntraVenous Piggyback Every 6 Hours 10. Ondansetron Injectable: 4 mg IntraVenous Push Every 8 Hours 11. oxyCODONE Immediate Release: 5 mg Oral Every 4 Hours 12. Potassium Chloride 20 mEq/Sterile Water 100 mL Premix IVPB: 20 mEq IntraVenous Piggyback Every 6 Hours 13. Potassium Chloride 40 mEq/Sterile Water 100 mL Premix IVPB: 40 mEq IntraVenous Piggyback Every 6 Hours Recent Lab Results: Results: CBC: 03/24/2018 03:05 \ Hgb / \ 10.8 L / WBC Plt 13.8 H 120 L / Hct \ / 32.3 L \ RBC: 3.53 L MCV: 92 RFP: 03/24/2018 03:05 NA+ Cl- BUN / 139 104 21 / Glucose 139 H K+ HCO3- Creat \ 3.6 27 0.62 \ Calcium : 8.7Anion Gap : 12 Albumin : 3.4 Phos : 3.6 Coagulation: 03/24/2018 03:05 PT / 11.9 / -------< INR < 1.1 PTT\ 25 \ Recent Arterial Blood Gas Results 03/24/2018 03:10 [id number] 24 h range: ( 68 - 98 ) pH7.46 24 h range: ( 7.43 - 7.49 ) aSQ352 24 h range: ( 31 - 39 ) SO299 24 h range: ( 97 - 99 ) Base Excess3.0 24 h range: ( 0.7 - 3 ) Jxqtuoiidqx71.0 24 h range: ( 23.6 - 27 ) I have reviewed these laboratory results: Glucose_POCT 24-Mar-2018 07:58:00 ResultValue Glucose-POCT 120 H Arterial Full Panel 24-Mar-2018 03:10:00 ResultValue pH, Arterial 7.46 H pCO2, Arterial 38 pO2, Arterial 87 Patient-Temperature 37.0 SO2, Arterial 99 HCT 31.0 L Sodium-Level 136 Potassium-Level 3.4 L Chloride-Level 104 Calcium, Ionized-Level 1.17 Glucose-Level 138 H Lactate-Level 1.0 Base Excess-Blood 3.0 Bicarbonate, Calculated, Arterial 27.0 H HGB, Calculated 10.5 L Anion Gap-Level 8 L Coagulation Screen 24-Mar-2018 03:05:00 ResultValue Prothrombin Time, Plasma 11.9 International Normalized Ratio, Plasma 1.1 Activated Partial Thromboplastin Time 25 Complete Blood Count 24-Mar-2018 03:05:00 ResultValue White Blood Cell Count 13.8 H Nucleated Erythrocyte Count 0.0 Red Blood Cell Count 3.53 L HGB 10.8 L HCT 32.3 L MCV 92 MCHC 33.4 PLT 120 L RDW-CV 14.4 Renal Function Panel 24-Mar-2018 03:05:00 ResultValue Glucose, Serum 139 H NA 139 K 3.6 CL 104 Bicarbonate, Serum 27 Anion Gap, Serum 12 BUN 21 CREAT 0.62 GFR-Non >60 GFR- >60 Calcium, Serum 8.7 Phosphorus, Serum 3.6 ALB 3.4 Calcium, Ionized Level 24-Mar-2018 03:05:00 ResultValue Calcium, Ionized Level 1.13 Magnesium, Serum 24-Mar-2018 03:05:00 ResultValue Magnesium, Serum 2.62 H Results: I have reviewed this radiology result: Impression: 1. Medical appliances as described above. 2. Faint patchy airspace opacity in bilateral lungs which is likely due to pulmonary edema or areas of atelectasis. Suggestion of trace bilateral pleural effusion. No sizable pneumothorax. Xray Chest 1 View [Mar 24 2018 9:27AM] Assessment and Plan: Daily Risk Screen: ? Does patient have a central line?no ? Does patient have an indwelling urinary catheter?yes ? Plan for indwelling urinary catheter removal today?yes ? Is the patient intubated?no Other: Diagnosis: Plan NEURO: No history of neurologic deficits. Hx of depression on home venlafaxine. --> - Serial neuro and pain assessments - PRN fentanyl for pain - PO oxycodone and Tylenol for pain - PT Consult, OOB to chair as tolerated, ambulate through unit as tolerated - CAM ICU score qshift - Sleep/wake cycle hygiene - Continue home venlafaxine 35.5 mg daily CV: Patient has a history of moderate aortic insufficiency, , pAFib, moderate MR, moderate mitral stenosis (s/p balloon valvuloplasty), tachybrady syndrome (s/p PPM placement), HTN. LV function normal on postbypass echo. Arrived to ICU on NG 33.33 mcg/min, amiodarone 1 mg/min (was loaded in OR); paced DDD @ 90. Temporary pacer wires now off, ggt off. --> - Continuous EKG and ABP monitoring - Titrate gtts to maintain goal MAP 70-90 - Hx PPM - EP consulted and will stop amio, start dofetilide in a few days. amio was initiated for post-pump aflutter. - Home PPM settings DDD 60-130 - Continue ASA, statin, subQ heparin, warfarin 2.5, metoprolol 25 Q12hr - PRN Hydralazine 10mg - Hold home lisinopril 10mg, digoxin 125mcg, and dofetilide 500mcg - EP consulted. Recommend discontinuing amiodarone 0.5mg/min, plan to restart dofetilide early next week. - EKG prior to EP consult PULM: No history of pulmonary disease. Former smoker, unknown pack years. CXR with evidence of b/l pleural effusions, pulmonary edema, and atelectasis. On 4L NC --> - Wean FiO2 maintaining SpO2 >92%. - ABGs prn - IS q1h and OOB to ambulate/chair GI: Passed swallow study, on regular diet --> - ADAT - Colace and miralax bowel regimen : No history of renal disease. Baseline serum creatinine 0.83. I/O positive 637 overnight, urine output appropriate, K replaced overnight --> - Lasix 10mg IV this am, net negative goal - Continue carbone catheter for strict I/Os. - Goal UOP 0.5ml/kg/hr - RFP as clinically indicated - Replete electrolytes per SICU protocol ENDO: No hx of DM. Hx of acquired hypothyroidism s/p thyroid surgery for follicular carcinoma - Maintain BG <180, insulin per SICU protocol - Continue home levothyroxine 100mcg HEME: Acute blood loss anemia and thrombocytopenia improving. Received 4 FFP, 2x5 pk platelets, 330 cell saver in OR. H/H and platelets acceptable. --> - CBC, coagulation panel, and fibrinogen post op and as clinically indicated - Continue 81mg ASA, subQ heparin, warfarin. - SCDs for DVT prophylaxis. ID: Afebrile, no current indications of infection --> - Trend temp q4h - Periop Cefuroxime 1.5g x 5 doses; now finished. Proph: SCDs Lines: Left Brach Shena - 03/22 Dispo: SICU white team care for now SICU WHITE TEAM PHONE [id number] Code Status: ? Code StatusFull Code Signature/Cosignature/Attestation: Comments/ Additional Findings follow up with EP otherwise lasix today, transfer tomorrow assuming stable. Electronic Signatures: Carlos Cassidy) (Signed 24-Mar-2018 17:49) Authored: Assessment and Plan, Signature/Cosignature/Attestation Co-Signer: Subjective Data, Objective Data, Assessment and Plan, Signature/Cosignature/Attestation Silvia Berry (MED Factor 14) (Signed 24-Mar-2018 17:25) Authored: Subjective Data, Objective Data, Assessment and Plan, Signature/Cosignature/Attestation Last Updated: 24-Mar-2018 17:49 by Carlos Cassidy) GLUCOSE-POCT Collected: 03/24/2018 Status: F Source: [place] 11:04 AM [facility] REPOSITORY TYPE CODE TESTS RESULT OUT OF RANGE REFERENCE UNITS LAB GLUP(LOINC) 74 - 99 mg/dL High 166 GLUCOSE-POCT Performed By: #### GLUPO #### [facility] [address] [place] [address] CONSULT-ELECTROPHYSIOLOGY Observed: Status: COMPLETED Source: 03/24/2018 8:48 AM [facility] REPOSITORY Service: Service: Electrophysiology Consult: Consult requested by (Attending Name): Dr. Pulido Reason: Afib History of Present Illness: Admission Reason: Elective MV replacement; AV replacement HPI: Marshall Farrell is a 72 year-old F who is Hospital Day # 3 and ICU Day #3 and POD #2 for Mitral Valve replacement with 31 mm Epic valve;Aortic Valve replacement with 23 mm freestyle valve;Tricuspid valve repair with 31mm ATS ring;MAZE procedure; and Left atrial appendage ligation. PMHx of rheumatic disease c/b mitral stenosis (s/p balloon valvuloplasty in 2015), severe MR, moderate TR, AR with preserved LV and RV function, and paroxysmal Afib (on Dofetalide 500 mcg BID as outpt- currently held) c/b peripheral emboli to right and left leg but no cerebral symptoms. TTE (January 2017) showed normal ejection fraction with moderate aortic stenosis (dimensionless index of 0.36), mild to moderate tricuspid regurgitation, and moderate mitral valve stenosis. She denies SOB at rest, MARKS syncope, LH, edema, orthopnea, fevers/chills, nausea/vomiting. She was admitted to [facility] s/p MVR, AVR, TVR, resection of left atrial appendage with Maze procedure with Dr. Pulido on 03/22/2018. EP consulted regarding afib management Currently V-paced and on IV amiodarone ggt. Patient was in afib elle-op and was placed on IV amiodarone. Digoxin and dofetilide currently held. Pt currently w/ HR 80s, weaned off pressors. PMHx: - Aortic insufficiency (moderate) - Aortic stenosis - paroxysmal atrial fibrillation (s/p ablation 2015) - DVT RUE/RLE s/p embolization R ulnar and peroneal arteries (2008) - HTN - Mitral regurgitation (moderate) - Mitral stenosis (moderate, s/p balloon valvuloplastry 2016 - Rheumatic heart disease - 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, indication for tachy-alden syndrome) - Follicular thyroid cancer s/p thyroidectomy and TAYLOR (2004) - Surgical hypothyroidism - Depression SHx: - Thyroidectomy (2004) - Subcutaneous pacemaker insertion (1999) - Translumial valvular angioplasty of mitral (2015) SHx: - No EtOH, drugs - Quit smoking 1997 (pack year?) FHx: - Lung cancer Allergies: - Sulfamethoxazole (rash) - Ciprofloxacin (other) Home medications: Digoxin 125 mcg daily, dofetilide 500 mcg daily, levothyroxine 100 mcg daily, Lisinopril 10 mg daily, metoprolol 25 mg twice daily, multivitamin 1 tab daily, venlafaxine 37.5 mg daily, warfarin 5 mg ? tab Mon/Wed/Wed and 2 tabs on remaining days, dofetilide 500 mcg daily Review Family/Social History and ROS: Review Family/Social History and ROS: I have reviewed the family and social history and review of systems from the History and Physical. Family History: Family History: reviewed and not pertinent to presenting problem Social History: Social History: denies smoking, alcohol and drug use Incomplete ROS: Pt somnolent, but interactive unable to obtain full ROS (see HPI) All Other Systems: All other systems reviewed and are negative Allergies: ? sulfamethoxazole: Rash ? Cipro: Other Objective: Objective Information: T PRBPSpO2 [id number]% Date/Time03/24 8: 8: 8: 8:00 Range(36C - 36.7C ) (66 - 90 ) (10 - 24 ) (94% - 99% ) As of 24-Mar-2018 04:00:00, patient is on 4 L/min of oxygen via nasal cannula. Cardiac Hemodynamics Cardiac Output (L/min)6.2(2.5 - 6.2)03/23 12:00 Cardiac Index (L/min/m2)3.2(2.9 - 5.5)03/23 12:00 SVO2 %73(69 - 74)03/23 12:00 Direct Arterial Blood Pressure Tetryhpw986(99 - 159)03/24 8:00 Diastolic (mm Hg)57(44 - 76)03/24 8:00 Mean (mm Hg)79(61 - 100)03/24 8:00 Pulse Pressure (mm Hg)69(55 - 88)03/24 8:00 PAP Eouhnpvn81(42 - 47)03/23 14:00 Diastolic (mm Hg)23(20 - 27)03/23 14:00 Mean (mm Hg)34(31 - 34)03/23 14:00 ---- Intake and Output ----- Mn/Dy/Year [facility]Out[facility] Mar 24, 2018 6:00 [id number] Mar 23, 2018 10:00 [id number] Mar 23, 2018 2:00 [id number] The Intake and Output Totals for the last 24 hours are: IntakeOutputNet [id number] Intake Output Enteral - Oral 540 mL Urine 1190 mL IV Fluids 1070 mL Chest Tubes 250 mL Medicated IV Drips 467.2 mL Physical Exam: Constitutional: awake and interactive, NAD Eyes: EOMI Head/Neck: No appreciable JVD Respiratory/Thorax: CTAB Cardiovascular: V-paced. No appreciable murmur. Gastrointestinal: Soft, non-tender Genitourinary: Carbone in place, draining clear yellow urine Musculoskeletal: Moves all 4 extremities spontaneously Extremities: Warm Neurological: no focal neuro deficits. Psychological: Appropriate mood and behavior Skin: warm, dry Medications: Medications: Continuous Medications 1. Amiodarone 360 mg/ D5W 200 mL Premix Infusion: 0.5 mg/min IntraVenous <Continuous> 2. PLASMA-LYTE Infusion: 1000 mL IntraVenous <Continuous> Scheduled Medications 1. Aspirin Chewable: 81 mg Oral Daily 2. Heparin SubCutaneous: 5000 unit(s) SubCutaneous Every 8 Hours 3. hydrALAZINE Injectable: 10 mg IntraVenous Push Every 4 Hours 4. Insulin Lispro Customizable Corrective Scale: unit(s) SubCutaneous 3 Times a Day With Meals 5. Levothyroxine: 100 microgram(s) Oral Daily 6. Metoprolol Tartrate: 25 mg Oral Every 12 Hours 7. PLASMA-LYTE IV Bolus: 500 mL IntraVenous Piggyback Once 8. Polyethylene Glycol: 17 gram(s) Oral Daily 9. Potassium Chloride Extended Release: 20 mEq Oral Once 10. Sodium Chloride 0.9% Injectable Flush: 1.5 mL IntraVenous Flush Every 8 Hours and as Needed 11. Venlafaxine: 37.5 mg Oral Daily 12. Warfarin: 2.5 mg Oral Daily PRN Medications 1. Acetaminophen: 650 mg Oral Every 4 Hours 2. Bisacodyl Rectal: 10 mg Rectal Daily 3. Calcium Chloride IVPB: 0.5 gram(s) IntraVenous Piggyback Every 8 Hours 4. Calcium Chloride IVPB: 1 gram(s) IntraVenous Piggyback Every 8 Hours 5. Dextrose 50% in Water Injectable: 25 gram(s) IntraVenous Push Every 15 Minutes 6. Glucagon Injectable: 1 mg IntraMuscular Every 15 Minutes 7. Magnesium Sulfate 2 gram/Sterile Water 50 mL Premix Soln: 2 gram(s) IntraVenous Piggyback Every 6 Hours 8. Magnesium Sulfate 4 gram/Sterile Water 100 mL Premix Soln: 4 gram(s) IntraVenous Piggyback Every 6 Hours 9. Ondansetron Injectable: 4 mg IntraVenous Push Every 8 Hours 10. oxyCODONE Immediate Release: 5 mg Oral Every 4 Hours 11. Potassium Chloride 20 mEq/Sterile Water 100 mL Premix IVPB: 20 mEq IntraVenous Piggyback Every 6 Hours 12. Potassium Chloride 40 mEq/Sterile Water 100 mL Premix IVPB: 40 mEq IntraVenous Piggyback Every 6 Hours Recent Lab Results: Results: I have reviewed these laboratory results: Complete Blood Count 24-Mar-2018 03:05:00 ResultValue White Blood Cell Count 13.8 H Nucleated Erythrocyte Count 0.0 Red Blood Cell Count 3.53 L HGB 10.8 L HCT 32.3 L MCV 92 MCHC 33.4 PLT 120 L RDW-CV 14.4 Renal Function Panel 24-Mar-2018 03:05:00 ResultValue Glucose, Serum 139 H NA 139 K 3.6 CL 104 Bicarbonate, Serum 27 Anion Gap, Serum 12 BUN 21 CREAT 0.62 GFR-Non >60 GFR- >60 Calcium, Serum 8.7 Phosphorus, Serum 3.6 ALB 3.4 Magnesium, Serum 24-Mar-2018 03:05:00 ResultValue Magnesium, Serum 2.62 H Radiology Results: Results: Impression: 1. Interval removal of right apical chest tube with no sizable pneumothorax 2. Bibasilar atelectasis with suggestion of trace bilateral pleural effusion. 3. Interval improvement in perihilar congestion and interstitial pulmonary edema. Xray Chest 1 View [Mar 23 2018 3:31PM] Conclusion: CONCLUSIONS: 1. The left ventricular systolic function is normal. 2. Moderately increased left ventricular septal thickness. 3. The left atrium is severely dilated. 4. The mitral valve is severely thickened. 5. Moderate mitral valve regurgitation. 6. Severe aortic valve stenosis. 7. There is moderate to severe aortic valve cusp calcification. 8. There is moderate aortic valve regurgitation. 9. No left atrial thrombus. 10. There is no evidence of a patent foramen ovale. POST CARDIOPULMONARY BYPASS REPORT: Patient is being paced. Patient is on an epinephrine drip. LV function is unchanged from pre-pump exam. RVfunction is unchanged from pre-pump exam. A stentless bioprosthetic valve is now seen in the aortic position, is well seated, with good leaflet motion. There is no aortic regurgitation. There is no elle-prosthetic aortic regurgitation. A bioprosthetic valve is now seen in the mitral position, is well seated, with good leaflet motion. There is no mitral regurgitation. There is no elle-prosthetic mitral regurgitation. A tricuspid ring is now in place and is well seated. There is no evidence of tricuspid stenosis. There is trace tricuspid regurgitation. No evidence of post aortic cannulation dissection. Intraoperative Transesophageal Echo [Mar 22 2018 4:24PM] Assessment: ASSESSMENT AND RECOMMENDATIONS: 72 year-old F who is Hospital Day # 3 and ICU Day #3 and POD #2 for Mitral Valve replacement with 31 mm Epic valve;Aortic Valve replacement with 23 mm freestyle valve;Tricuspid valve repair with 31mm ATS ring; MAZE procedure; and Left atrial appendage ligation. PMHx of rheumatic disease c/b mitral stenosis (s/p balloon valvuloplasty in 2016), severe MR, moderate TR, AR with preserved LV and RV function, and paroxysmal Afib (on Dofetalide 500 mcg BID as outpt- currently held) c/b peripheral emboli to right and left leg but no cerebral symptoms. EP consulted regarding afib management Currently V-paced and on IV amiodarone ggt. Patient was in afib elle-op and was placed on IV amiodarone for Afib in the OR. Digoxin and dofetilide currently held. Pt currently w/ V-paced HR 80s, weaned off pressors. OVERALL RECOMMENDATIONS: - Please discontinue amiodarone for now for re-initiation of dofetilide tomorrow if her QT is not prolonged compare to baseline. - Avoid hypokalemia and hypomagnesemia (goal serum K > 4, Mg > 2) - Please avoid any medication that can prolong QT - Please obtain EKG in the AM The patient was seen by Willy Dobson (On-call Fellow) and By me in the morning and the case was discussed with Dr. Calzada who agrees with plan. Signature/Cosignature/Attestation: Attending AttestationI saw and evaluated the patient. I personally obtained the schultz and critical portions of the history and physical exam or was physically present for schultz and critical portions performed by the resident/fellow. I reviewed the resident/fellow?s documentation and discussed the patient with the resident/fellow. I agree with the resident/fellow?s medical decision making as documented in the resident?s note. I personally evaluated the patient (as noted in the above attestation) on 24-Mar-2018 Comments/ Additional Findings I spent 50 minutes with this patient. Greater than 50% of this time was spent in counseling and/or coordination of care Electronic Signatures: Ladarius Dobson (Fellow)) (Signed 24-Mar-2018 08:56) Authored: Service, History of Present Illness, Review Family/Social History and ROS, Allergies, Objective, Assessment/Recommendations Ricco Lui (Fellow)) (Signed 24-Mar-2018 20:56) Authored: Review Family/Social History and ROS, Objective, Assessment/Recommendations Reese Calzada) (Signed 24-Mar-2018 21:46) Authored: Review Family/Social History and ROS, Signature/Cosignature/Attestation Co-Signer: Objective, Assessment/Recommendations Last Updated: 24-Mar-2018 21:46 by Reese Calzada) GLUCOSE-POCT Collected: 03/24/2018 Status: F Source: [place] 7:58 AM [facility] REPOSITORY TYPE CODE TESTS RESULT OUT OF RANGE REFERENCE UNITS LAB GLUP(LOINC) 74 - 99 mg/dL High 120 GLUCOSE-POCT Performed By: #### GLUPO #### [facility] [id number] [place] [address] TH CHEST 1 VIEW Observed: 03/24/2018 Status: F Source: [place] 4:01 AM [facility] REPOSITORY Patient Name: MARSHALL FARRELL STUDY: TH CHEST 1 VIEW; 03/24/2018 4:01 am INDICATION: Signs/Symptoms: AM rounds. COMPARISON: 03/23/2018 ACCESSION NUMBER(S): [id number] ORDERING CLINICIAN: JOLEEN HOLT FINDINGS: Right IJ central venous catheter sheath is projecting over the mid SVC. Left subclavian pacer/defibrillator is stable. Patient is status post median sternotomy and cardiac valve replacement/repair. The cardiac silhouette size is persistently enlarged. Faint patchy airspace opacity in bilateral lungs. There is suggestion of trace bilateral pleural effusion. No sizable pneumothorax. No acute osseous abnormality. IMPRESSION: 1. Medical appliances as described above. 2. Faint patchy airspace opacity in bilateral lungs which is likely due to pulmonary edema or areas of atelectasis. Suggestion of trace bilateral pleural effusion. No sizable pneumothorax. Electronically signed by: XU MCGEE MD ARTERIAL FULL PANEL Collected: 03/24/2018 Status: F Source: [place] 3:10 AM [facility] REPOSITORY TYPE CODE TESTS RESULT OUT OF REFERENCE UNITS RANGE LAB PHART(LOIN 7.38 - 7.42 C) pH High 7.46 LAB PCO2A(LOIN 38 - 42 mmHg C) PCO2 38 LAB PO2A(LOINC 85 - 95 mmHg ) PO2 87 LAB TEMP(LOINC degrees C ) PATIENT TEMPERATURE 37.0 Result Comment: NOTE: PATIENT RESULTS ARE NOT CORRECTED FOR TEMPERATURE. LAB SO2%A(LOINC) 94 - 100 % SO2 99 LAB HCTN(LOINC) 36.0 - % Low 46.0 HCT 31.0 LAB SODN(LOINC) 136 - 145 mmol/L SODIUM 136 LAB POTN(LOINC) 3.5 - 5.3 mmol/L Low POTASSIUM 3.4 LAB CHLN(LOINC) 98 - 107 mmol/L CHLORIDE 104 LAB IONCA(LOINC) 1.10 - mmol/L 1.33 CALCIUM,IONIZED 1.17 LAB GLUN(LOINC) 74 - 99 mg/dL GLUCOSE High 138 LAB LACTN(LOINC) 0.4 - 2.0 mmol/L LACTATE 1.0 LAB BSEXB(LOINC) -2.0 - 3.0 mmol/L BASE EXCESS-BLOOD 3.0 LAB BICAR(LOINC) 22.0 - mmol/L 26.0 BICARB, High CALCULATED 27.0 LAB HGBNC(LOINC) 12.0 - g/dL Low 16.0 HGB,CALCULATED 10.5 LAB ANGPN(LOINC) 10 - 25 mmol/L Low ANION GAP 8 Performed By: #### AFPA3 #### [facility] [address] [place] [id number] CBC Collected: 03/24/2018 Status: F Source: [place] 3:05 AM [facility] REPOSITORY TYPE CODE TESTS RESULT OUT OF REFERENCE UNITS RANGE LAB WBCR(LOINC 4.4 - 11.3 x10E9/L ) WBC High 13.8 LAB NRBC(LOINC 0.0-0.0 /100 WBC ) NUCLEATED RBC 0.0 LAB RBCCT(LOIN 4.00 - 5.20 x10E12/L C) Low RBC 3.53 LAB HGB(LOINC) 12.0 - 16.0 g/dL Low HGB 10.8 LAB HCT(LOINC) 36.0 - 46.0 % Low HCT 32.3 LAB MCV(LOINC) 80 - 100 fL MCV 92 LAB MCHC2(LOIN 32.0 - 36.0 g/dL C) MCHC 33.4 LAB PLTCT(LOIN 150 - 450 x10E9/L C) Low PLT 120 LAB RDWCV(LOIN 11.5 - 14.5 % C) RDW-CV 14.4 Performed By: #### CBC #### [facility] [address] [place] [address] CALCIUM, IONIZED Collected: 03/24/2018 Status: F Source: [place] 3:05 AM [facility] REPOSITORY TYPE CODE TESTS RESULT OUT OF RANGE REFERENCE UNITS LAB CAION(LOINC 1.10 - 1.33 mmol/L ) 1.13 CALCIUM,IONI ZED Result Comment: The performance characteristics of ionized calcium tested in heparinized plasma or serum have been validated by the individual laboratory site where testing is performed. Testing on heparinized plasma or serum is not approved by the FDA; however, such approval is not necessary. Performed By: #### IONC1 #### [facility] [address] [place] [address] RENAL FUNCTION PANEL Collected: 03/24/2018 Status: F Source: [place] 3:05 AM [facility] REPOSITORY TYPE CODE TESTS RESULT OUT OF REFERENCE UNITS RANGE LAB GLU(LOINC) 74 - 99 mg/dL GLUCOSE High 139 LAB SOD(LOINC) 136 - 145 mmol/L SODIUM 139 LAB K(LOINC) 3.5 - 5.3 mmol/L POTASSIUM 3.6 LAB CHLOR(LOIN 98 - 107 mmol/L C) CHLORIDE 104 LAB BIC(LOINC) 21 - 32 mmol/L BICARBONATE 27 LAB ANGAP(LOIN 10 - 20 mmol/L C) ANION GAP 12 LAB UREA(LOINC 6 - 23 mg/dL ) UREA NITROGEN 21 LAB CREA(LOINC 0.50 - 1.05 mg/dL ) CREATININE 0.62 LAB GFRFN(LOIN >60 mL/min/1.7 C) 3m2 GFR-NON AM. >60 LAB GFRAA(LOIN >60 mL/min/1.7 C) 3m2 GFR- AM. >60 Result Comment: CALCULATIONS OF ESTIMATED GFR ARE PERFORMED USING THE MDRD STUDY EQUATION FOR THE IDMS-TRACEABLE CREATININE METHODS. CLIN CHEM 2007;53:766-72 LAB CA(LOINC) 8.6 - 10.6 mg/dL CALCIUM 8.7 LAB PHOS(LOINC) 2.5 - 4.9 mg/dL PHOSPHORUS 3.6 Result Comment: The performance characteristics of phosphorus testing in heparinized plasma have been validated by the individual laboratory site where testing is performed. Testing on heparinized plasma is not approved by the FDA; however, such approval is not necessary. LAB ALB(LOINC) 3.4 - 5.0 g/dL ALBUMIN 3.4 Performed By: #### RENAL #### [facility] [address] [place] [address] MAGNESIUM Collected: 03/24/2018 Status: F Source: [place] 3:05 AM [facility] REPOSITORY TYPE CODE TESTS RESULT OUT OF REFERENCE UNITS RANGE LAB MG(LOINC) 1.60 - 2.40 mg/dL High MAGNESIUM 2.62 Performed By: #### MG #### [facility] [address] [place] [address] COAGULATION SCREEN Collected: 03/24/2018 Status: F Source: [place] 3:05 AM [facility] REPOSITORY TYPE CODE TESTS RESULT OUT OF REFERENCE UNITS RANGE LAB PT(LOINC) 9.8 - 12.7 sec PROTHROMBIN TIME 11.9 LAB INR(LOINC) 0.9 - 1.1 PT, INR 1.1 LAB APTT(LOINC 25 - 36 sec ) APTT 25 Result Comment: THE APTT IS NO LONGER USED FOR MONITORING UNFRACTIONATED HEPARIN THERAPY. FOR MONITORING HEPARIN THERAPY, USE THE HEPARIN ASSAY. Performed By: #### COAGS #### [facility] [address] [address] GLUCOSE-POCT Collected: 03/24/2018 Status: F Source: [place] 2:56 AM [facility] REPOSITORY TYPE CODE TESTS RESULT OUT OF RANGE REFERENCE UNITS LAB GLUP(LOINC) 74 - 99 mg/dL High 134 GLUCOSE-POCT Performed By: #### GLUPO #### [facility] [address] [place] [address] ARTERIAL FULL PANEL Collected: 03/23/2018 Status: F Source: [place] 10:04 PM [facility] REPOSITORY TYPE CODE TESTS RESULT OUT OF REFERENCE UNITS RANGE LAB PHART(LOIN 7.38 - 7.42 C) pH High 7.43 LAB PCO2A(LOIN 38 - 42 mmHg C) PCO2 39 LAB PO2A(LOINC 85 - 95 mmHg ) PO2 High 98 LAB TEMP(LOINC degrees C ) PATIENT TEMPERATURE 37.0 Result Comment: NOTE: PATIENT RESULTS ARE NOT CORRECTED FOR TEMPERATURE. LAB SO2%A(LOINC) 94 - 100 % SO2 99 LAB HCTN(LOINC) 36.0 - % Low 46.0 HCT 26.0 LAB SODN(LOINC) 136 - 145 mmol/L SODIUM 137 LAB POTN(LOINC) 3.5 - 5.3 mmol/L Low POTASSIUM 3.3 LAB CHLN(LOINC) 98 - 107 mmol/L CHLORIDE 106 LAB IONCA(LOINC) 1.10 - mmol/L 1.33 CALCIUM,IONIZED 1.16 LAB GLUN(LOINC) 74 - 99 mg/dL GLUCOSE High 155 LAB LACTN(LOINC) 0.4 - 2.0 mmol/L LACTATE 1.4 LAB BSEXB(LOINC) -2.0 - 3.0 mmol/L BASE EXCESS-BLOOD 1.5 LAB BICAR(LOINC) 22.0 - mmol/L 26.0 BICARB, CALCULATED 25.9 LAB HGBNC(LOINC) 12.0 - g/dL Low 16.0 HGB,CALCULATED 8.8 LAB ANGPN(LOINC) 10 - 25 mmol/L Low ANION GAP 8 Performed By: #### AFPA3 #### [facility] [address] [place] [address] GLUCOSE-POCT Collected: 03/23/2018 Status: F Source: [place] 9:49 PM [facility] REPOSITORY TYPE CODE TESTS RESULT OUT OF RANGE REFERENCE UNITS LAB GLUP(LOINC) 74 - 99 mg/dL High 149 GLUCOSE-POCT Performed By: #### GLUPO #### [facility] [address] [place] [address] ARTERIAL FULL PANEL Collected: 03/23/2018 Status: F Source: [place] 6:29 [facility] REPOSITORY TYPE CODE TESTS RESULT OUT OF REFERENCE UNITS RANGE LAB PHART(LOIN 7.38 - 7.42 C) pH High 7.49 LAB PCO2A(LOIN 38 - 42 mmHg C) PCO2 Low 31 LAB PO2A(LOINC 85 - 95 mmHg ) PO2 Low 68 LAB TEMP(LOINC degrees C ) PATIENT TEMPERATURE 37.0 Result Comment: NOTE: PATIENT RESULTS ARE NOT CORRECTED FOR TEMPERATURE. LAB SO2%A(LOINC) 94 - 100 % SO2 97 LAB HCTN(LOINC) 36.0 - % Low 46.0 HCT 29.0 LAB SODN(LOINC) 136 - 145 mmol/L Low SODIUM 135 LAB POTN(LOINC) 3.5 - 5.3 mmol/L POTASSIUM 3.6 LAB CHLN(LOINC) 98 - 107 mmol/L CHLORIDE 105 LAB IONCA(LOINC) 1.10 - mmol/L Low 1.33 CALCIUM,IONIZED 1.01 LAB GLUN(LOINC) 74 - 99 mg/dL GLUCOSE High 183 LAB LACTN(LOINC) 0.4 - 2.0 mmol/L LACTATE 2.0 LAB BSEXB(LOINC) -2.0 - 3.0 mmol/L BASE EXCESS-BLOOD 0.7 LAB BICAR(LOINC) 22.0 - mmol/L 26.0 BICARB, CALCULATED 23.6 LAB HGBNC(LOINC) 12.0 - g/dL Low 16.0 HGB,CALCULATED 9.9 LAB ANGPN(LOINC) 10 - 25 mmol/L ANION GAP 10 Performed By: #### AFPA3 #### [facility] [address] [place] [address] CBC Collected: 03/23/2018 Status: F Source: [place] 6:25 [facility] REPOSITORY TYPE CODE TESTS RESULT OUT OF REFERENCE UNITS RANGE LAB WBCR(LOINC 4.4 - 11.3 x10E9/L ) WBC High 12.4 LAB NRBC(LOINC 0.0-0.0 /100 WBC ) NUCLEATED RBC 0.0 LAB RBCCT(LOIN 4.00 - 5.20 x10E12/L C) Low RBC 3.56 LAB HGB(LOINC) 12.0 - 16.0 g/dL Low HGB 10.8 LAB HCT(LOINC) 36.0 - 46.0 % Low HCT 32.1 LAB MCV(LOINC) 80 - 100 fL MCV 90 LAB MCHC2(LOIN 32.0 - 36.0 g/dL C) MCHC 33.6 LAB PLTCT(LOIN 150 - 450 x10E9/L C) Low PLT 116 LAB RDWCV(LOIN 11.5 - 14.5 % C) RDW-CV 14.0 Performed By: #### CBC #### [facility] [address] [place] [address] CBC Collected: 03/23/2018 Status: CANCELLED Source: [place] 6:24 [facility] REPOSITORY Order Comment: TEST CBC WAS CANCELLED, 03/24/2018 01:25 DUPLICATE ORDER. TYPE CODE TESTS RESULT OUT OF REFERENCE UNITS RANGE LAB WBCR(LOINC ) WBC Canceled LAB NRBC(LOINC ) NUCLEATED RBC Canceled LAB RBCCT(LOIN C) RBC Canceled LAB HGB(LOINC) HGB Canceled LAB HCT(LOINC) HCT Canceled LAB MCV(LOINC) MCV Canceled LAB MCHC2(LOIN C) MCHC Canceled LAB PLTCT(LOIN C) PLT Canceled LAB RDWCV(LOIN C) RDW-CV Canceled Performed By: #### CBC #### [facility] [address] [place] [address] GLUCOSE-POCT Collected: 03/23/2018 Status: F Source: [place] 4:22 PM [facility] REPOSITORY TYPE CODE TESTS RESULT OUT OF RANGE REFERENCE UNITS LAB GLUP(LOINC) 74 - 99 mg/dL High 142 GLUCOSE-POCT Performed By: #### GLUPO #### [facility] [address] [place] [id number] TH CHEST 1 VIEW Observed: 03/23/2018 Status: F Source: [place] 3:00 PM [facility] REPOSITORY Patient Name: MARSHALL FARRELL STUDY: CHEST 1 VIEW; 03/23/2018 3:00 pm INDICATION: Signs/Symptoms: s/p chest tube removal, r/o pnemo. COMPARISON: 03/23/2018, 3:44 a.m. ACCESSION NUMBER(S): [id number] ORDERING CLINICIAN: SHONNA RICHTER FINDINGS: Interval removal of right IJ [place]-Sissy catheter. Right IJ central venous catheter sheath is projecting over the distal SVC. Interval removal of right apical chest tube. Left subclavian pacer/defibrillator is stable. Patient is status post median sternotomy and cardiac valve replacement/repair. The cardiac silhouette size is enlarged, unchanged.There is perihilar congestion and mild interstitial edema with interval improvement. There is bibasilar atelectasis. No sizable pneumothorax. No acute osseous abnormality. IMPRESSION: 1. Interval removal of right apical chest tube with no sizable pneumothorax 2. Bibasilar atelectasis with suggestion of trace bilateral pleural effusion. 3. Interval improvement in perihilar congestion and interstitial pulmonary edema. Electronically signed by: XU MCGEE MD GLUCOSE-POCT Collected: 03/23/2018 Status: F Source: [place] 12:05 PM [facility] REPOSITORY TYPE CODE TESTS RESULT OUT OF RANGE REFERENCE UNITS LAB GLUP(LOINC) 74 - 99 mg/dL High 147 GLUCOSE-POCT Performed By: #### GLUPO #### [facility] [address] [place] [address] DAILY PROGRESS NOTE Observed: 03/23/2018 Status: COMPLETED Source: [facility]14 AM [facility] REPOSITORY Subjective Data: ID Statement: MARSHALL FARRELL is a 72 year old Female who is Hospital Day # 2 and ICU Day #2 and POD #1 for Mitral Valve replacement with 31 mm Epic valve;Aortic Valve replacement with 23 mm freestyle valve;Tricuspid valve repair with 31mm ATS ring;MAZE procedure;Left atrial appendage ligation. Overnight 03/22 - Extbated - ABG's stable - Weaned off of clevidipine and nitroglycerin. Objective Data: ? Objective Information T PRBPSpO2 [id number]% Date/Time03/23 8: 7: 7: 7:00 Range(36C - 38C ) (89 - 90 ) (9 - 24 ) (93% - 100% ) As of 23-Mar-2018 04:00:00, patient is on 4 L/min of oxygen via nasal cannula. Highest temp of 38 C was recorded at 03/23 8:00 Pain with Activity reported at 03/23 4:00: 2 Pain at Rest reported at 03/23 4:00: 2 Cardiac Hemodynamics Cardiac Output (L/min)5.1(4.4 - 6.2)03/23 7:00 Cardiac Index (L/min/m2)2.7(2.3 - 3.3)03/23 7:00 SVO2 %71(64 - 77)03/23 7:00 Core Temperature degrees C37.7(37.1 - 37.7)03/23 4:00 SVR (dyne sec/cm-5)800 03/23 4:00 Direct Arterial Blood Pressure [id number](90 - 154)03/23 7:00 Diastolic (mm Hg)59(50 - 85)03/23 7:00 Mean (mm Hg)76(67 - 112)03/23 7:00 Pulse Pressure (mm Hg)46(37 - 83)03/23 7:00 PAP [id number](34 - 51)03/23 7:00 Diastolic (mm Hg)26(19 - 38)03/23 7:00 Mean (mm Hg)34(27 - 45)03/23 7:00 ---- Intake and Output ----- Mn/Dy/Year TimeIntakeOutputNet Mar 23, 2018 6:00 [id number] Mar 22, 2018 10:00 [id number] The Intake and Output Totals for the last 24 hours are: [facility] [id number] Drain and tube details (included in I&O totals) 590 cc Chest Tube( 23-Mar-2018 06:00:00 ) 2215 cc Indwelling Catheter - Urethral( 23-Mar-2018 06:00:00 ) Weights 03/22 23:56: Weight in kg (Weight (kg)) 69.1 03/22 23:56: Weight in lbs ((lbs)) 152.3 03/22 23:56: BMI (kg/m2) (BMI (kg/m2)) 24.599 Physical Exam: Physical Exam: Neurological: a/o x3 Cardiovascular: DDD at 90 Respiratory/Thorax: ctab Genitourinary: Carbone in place, draining clear yellow urine Skin: warm, dry Musculoskeletal: symmetric muscle bulk bilaterally Eyes: eomi Head/Neck: RIJ MAC w/ PAC Psychological: appropriate affect Allergies: Allergies: ? sulfamethoxazole: Rash ? Cipro: Other Recent Lab Results: Results: CBC: 03/23/2018 03:01 \ Hgb / \ 11.5 L / WBC Plt 10.6 166 / Hct \ / 34.3 L \ RBC: 3.81 L MCV: 90 RFP: 03/23/2018 03:01 NA+ Cl- BUN / 140 107 14 / Glucose 162 H K+ HCO3- Creat \ 4.0 22 0.67 \ Calcium : 8.5 LAnion Gap : 15 Albumin : 3.8 Phos : 2.8 Coagulation: 03/23/2018 03:01 PT / 11.4 / -------< INR < 1.0 PTT\ 27 \ Fibrinogen: 242 Recent Arterial Blood Gas Results 03/23/2018 03:55 [id number] 24 h range: ( 75 - 488 ) pH7.42 24 h range: ( 7.32 - 7.46 ) tNH652 24 h range: ( 36 - 47 ) SO298 24 h range: ( 97 - 100 ) Base Excess1.9 24 h range: ( -3.8 - 3.9 ) Xthihmzzmkl10.6 24 h range: ( 21.4 - 28.5 ) Assessment and Plan: Daily Risk Screen: ? Does patient have a central line?yes ? Central Line Typenon-tunneled, pulmonary artery catheter ? Plan for non-tunneled central line removal today?yes ? Plan for pulmonary artery catheter removal today?yes ? Does patient have an indwelling urinary catheter?yes ? Plan for indwelling urinary catheter removal today?no ? The patient continues to require indwelling urinary catheterization for perioperative use for selected surgical procedures ? Is the patient intubated?no Other: Diagnosis: Plan NEURO: No history of neurologic deficits. Hx of depression on home venlafaxine. --> - Serial neuro and pain assessments - Prn fentanyl for pain - by mouth oxycodone and APAP for pain - PT Consult, OOB to chair as tolerated, chair position if not tolerated - CAM ICU score qshift - Sleep/wake cycle hygiene - Start home venlafaxine 35.5 mg daily for now CV: Patient has a history of moderate aortic insufficiency, , pAFib, moderate MR, moderate mitral stenosis (s/p balloon valvuloplasty), tachybrady syndrome (s/p PPM placement), HTN. LV function normal on postbypass echo. Arrived to ICU on NG 33.33 mcg/min, amiodarone 1 mg/min (was loaded in OR). Currently paced DDD @ 90. --> - Continuous EKG and ABP monitoring - Titrate gtts to maintain goal MAP 70-90 - Volume resuscitate as clinically indicated - Chest tubes to wall suction - will likely d/c later today - Maintain temporary pacer DDD @90 - Start ASA - D/c PAC and [place] - Came from OR on amio gtt 1 mg/min - decrease to 0.5 mg/min for now. Will reevaluate need for amio vs usage of home antiarrythmics for rhythm control with Dr. Blayne - Home PPM settings were DDD 60; came out of OR with PPM settings at 40. Will revert to DDD 60 on home PPM. - For now, hold home Digoxin 125 mcg daily, dofetilide 500 mcg daily, Lisinopril 10 mg daily, metoprolol 25 mg twice daily PULM: No history of pulmonary disease. Former smoker, unknown how many pack year. CXR with evidence of b/l pleural effusions and b/l pulmonary edema. --> - Wean FiO2 maintaining SpO2 >92%. - ABGs prn. - IS q1h and OOB to chair when extubated GI: Passed swallow study, on CLD. --> - ADAT - Continue PPI until extubate - Colace and miralax bowel regimen : No history of renal disease. Baseline serum creatinine 0.83. I/O neg 1.275L --> - IV 10mg lasix for now - will evaluate fluid status in afternoon - Continue carbone catheter for strict I/Os. - Goal UOP 0.5ml/kg/hr - RFP as clinically indicated - Replete electrolytes per SICU protocol ENDO: No hx of DM. 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 Rec'd 4 FFP, 2x5 pk platelets, 330 cell saver in OR. H/H and platelets acceptable.> - Monitor drain output volume and characteristics - CBC, coags, and fibrinogen post op and as clinically indicated - Start 81mg ASA. - SCDs for DVT prophylaxis. ID: Afebrile, no current indications of infection --> - Trend temp q4h - Periop Cefuroxime 1.5g x 5 doses. 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 Code StatusFull Code Signature/Cosignature/Attestation: Attending AttestationI saw and evaluated the patient. I personally obtained the schultz and critical portions of the history and physical exam or was physically present for schultz and critical portions performed by the resident/fellow. I reviewed the resident/fellow?s documentation and discussed the patient with the resident/fellow. I agree with the resident/fellow?s medical decision making as documented in the resident?s note. I personally evaluated the patient (as noted in the above attestation) on 23-Mar-2018 Comments/ Additional Findings lasix remove CTs start asa, subcutaneous heparin amio to .5 This critically ill patient continues to be at-risk for clinically significant deterioration / failure due to the above mentioned dysfunctional, unstable organ systems. I have personally identified and managed all complex critical care issues to prevent aforementioned clinical deterioration. Critical care time is spent at bedside and/or the immediate area and has included, but is not limited to, the review of diagnostic tests, labs, radiographs, serial assessments of hemodynamics, respiratory status, ventilatory management, and family updates. Time spent in procedures and teaching are reported separately. 35 minutes Electronic Signatures for Addendum Section: Carlos Cassidy) (Signed Addendum 01-Apr-2018 17:12) patient with hypervolemia and acute pulmonary edema following cardiac surgery with evidence of such on chest film, requiring active diuresis for management. Electronic Signatures: Maxi Redd (Resident)) (Signed 23-Mar-2018 11:37) Authored: Subjective Data, Objective Data, Assessment and Plan, Signature/Cosignature/Attestation Carlos Cassidy) (Signed 23-Mar-2018 12:23) Authored: Signature/Cosignature/Attestation Co-Signer: Subjective Data, Objective Data, Assessment and Plan, Signature/Cosignature/Attestation Last Updated: 01-Apr-2018 17:12 by Carlos Cassidy) GLUCOSE-POCT Collected: 03/23/2018 Status: F Source: [place] 7:19 AM [facility] REPOSITORY TYPE CODE TESTS RESULT OUT OF RANGE REFERENCE UNITS LAB GLUP(LOINC) 74 - 99 mg/dL High 180 GLUCOSE-POCT Performed By: #### GLUPO #### [facility] [address] [place] [address] ARTERIAL FULL PANEL Collected: 03/23/2018 Status: F Source: [place] 3:55 AM [facility] REPOSITORY TYPE CODE TESTS RESULT OUT OF REFERENCE UNITS RANGE LAB PHART(LOIN 7.38 - 7.42 C) pH 7.42 LAB PCO2A(LOIN 38 - 42 mmHg C) PCO2 41 LAB PO2A(LOINC 85 - 95 mmHg ) PO2 Low 78 LAB TEMP(LOINC degrees C ) PATIENT TEMPERATURE 37.0 Result Comment: NOTE: PATIENT RESULTS ARE NOT CORRECTED FOR TEMPERATURE. LAB SO2%A(LOINC) 94 - 100 % SO2 98 LAB HCTN(LOINC) 36.0 - % Low 46.0 HCT 33.0 LAB SODN(LOINC) 136 - 145 mmol/L SODIUM 141 LAB POTN(LOINC) 3.5 - 5.3 mmol/L POTASSIUM 4.0 LAB CHLN(LOINC) 98 - 107 mmol/L CHLORIDE High 108 LAB IONCA(LOINC) 1.10 - mmol/L 1.33 CALCIUM,IONIZED 1.15 LAB GLUN(LOINC) 74 - 99 mg/dL GLUCOSE High 161 LAB LACTN(LOINC) 0.4 - 2.0 mmol/L LACTATE 1.7 LAB BSEXB(LOINC) -2.0 - 3.0 mmol/L BASE EXCESS-BLOOD 1.9 LAB BICAR(LOINC) 22.0 - mmol/L 26.0 BICARB, High CALCULATED 26.6 LAB HGBNC(LOINC) 12.0 - g/dL Low 16.0 HGB,CALCULATED 11.2 LAB ANGPN(LOINC) 10 - 25 mmol/L ANION GAP 10 Performed By: #### AFPA3 #### [facility] [address] [place] [address] TH CHEST 1 VIEW Observed: 03/23/2018 Status: F Source: [place] 3:48 AM [facility] REPOSITORY Patient Name: MARSHALL FARRELL STUDY: TH CHEST 1 VIEW; 03/23/2018 3:48 am INDICATION: Signs/Symptoms: CT surgey. COMPARISON: 03/22/2018 ACCESSION NUMBER(S): [id number] ORDERING CLINICIAN: MAXI REDD FINDINGS: Patient has been extubated. CARDIOMEDIASTINAL SILHOUETTE: Patient status post median sternotomy. [place]-Sissy catheter overlies the right ventricular outflow tract LUNGS: Slight interval worsening in right basilar and perihilar edema. No pneumothorax. ABDOMEN: No remarkable upper abdominal findings. BONES: No acute osseous changes. IMPRESSION: 1. Slight interval worsening in right basilar airspace disease/atelectasis. Status post extubation Electronically signed by: Laci JUAREZ MD GLUCOSE-POCT Collected: 03/23/2018 Status: F Source: [place] 3:20 [facility] REPOSITORY TYPE CODE TESTS RESULT OUT OF RANGE REFERENCE UNITS LAB GLUP(LOINC) 74 - 99 mg/dL High 160 GLUCOSE-POCT Performed By: #### GLUPO #### [facility] [address] [place] [address] CALCIUM, IONIZED Collected: 03/23/2018 Status: F Source: [place] 3:01 [facility] REPOSITORY TYPE CODE TESTS RESULT OUT OF RANGE REFERENCE UNITS LAB CAION(LOINC 1.10 - 1.33 mmol/L ) 1.12 CALCIUM,IONI ZED Result Comment: The performance characteristics of ionized calcium tested in heparinized plasma or serum have been validated by the individual laboratory site where testing is performed. Testing on heparinized plasma or serum is not approved by the FDA; however, such approval is not necessary. Performed By: #### IONC1 #### [facility] [address] [place] [address] CBC Collected: 03/23/2018 Status: F Source: [place] 3:[address] [place] [address] REPOSITORY TYPE CODE TESTS RESULT OUT OF REFERENCE UNITS RANGE LAB WBCR(LOINC 4.4 - 11.3 x10E9/L ) WBC 10.6 LAB NRBC(LOINC 0.0-0.0 /100 WBC ) NUCLEATED RBC 0.0 LAB RBCCT(LOIN 4.00 - 5.20 x10E12/L C) Low RBC 3.81 LAB HGB(LOINC) 12.0 - 16.0 g/dL Low HGB 11.5 LAB HCT(LOINC) 36.0 - 46.0 % Low HCT 34.3 LAB MCV(LOINC) 80 - 100 fL MCV 90 LAB MCHC2(LOIN 32.0 - 36.0 g/dL C) MCHC 33.5 LAB PLTCT(LOIN 150 - 450 x10E9/L C) PLT 166 LAB RDWCV(LOIN 11.5 - 14.5 % C) RDW-CV 13.4 Performed By: #### CBC #### [facility] [address] [place] [address] MAGNESIUM Collected: 03/23/2018 Status: F Source: [place] 3:01 [facility] REPOSITORY TYPE CODE TESTS RESULT OUT OF REFERENCE UNITS RANGE LAB MG(LOINC) 1.60 - 2.40 mg/dL High MAGNESIUM 2.80 Performed By: #### MG #### [facility] [address] [place] [address] RENAL FUNCTION PANEL Collected: 03/23/2018 Status: F Source: [place] 3:01 [facility] REPOSITORY TYPE CODE TESTS RESULT OUT OF REFERENCE UNITS RANGE LAB GLU(LOINC) 74 - 99 mg/dL GLUCOSE High 162 LAB SOD(LOINC) 136 - 145 mmol/L SODIUM 140 LAB K(LOINC) 3.5 - 5.3 mmol/L POTASSIUM 4.0 LAB CHLOR(LOIN 98 - 107 mmol/L C) CHLORIDE 107 LAB BIC(LOINC) 21 - 32 mmol/L BICARBONATE 22 LAB ANGAP(LOIN 10 - 20 mmol/L C) ANION GAP 15 LAB UREA(LOINC 6 - 23 mg/dL ) UREA NITROGEN 14 LAB CREA(LOINC 0.50 - 1.05 mg/dL ) CREATININE 0.67 LAB GFRFN(LOIN >60 mL/min/1.7 C) 3m2 GFR-NON AM. >60 LAB GFRAA(LOIN >60 mL/min/1.7 C) 3m2 GFR- AM. >60 Result Comment: CALCULATIONS OF ESTIMATED GFR ARE PERFORMED USING THE MDRD STUDY EQUATION FOR THE IDMS-TRACEABLE CREATININE METHODS. CLIN CHEM 2007;53:766-72 LAB CA(LOINC) 8.6 - 10.6 mg/dL CALCIUM Low 8.5 LAB PHOS(LOINC) 2.5 - 4.9 mg/dL PHOSPHORUS 2.8 Result Comment: The performance characteristics of phosphorus testing in heparinized plasma have been validated by the individual laboratory site where testing is performed. Testing on heparinized plasma is not approved by the FDA; however, such approval is not necessary. LAB ALB(LOINC) 3.4 - 5.0 g/dL ALBUMIN 3.8 Performed By: #### RENAL #### [facility] [address] [place] [address] COAGULATION SCREEN Collected: 03/23/2018 Status: F Source: [place] 3:01 [facility] REPOSITORY TYPE CODE TESTS RESULT OUT OF REFERENCE UNITS RANGE LAB PT(LOINC) 9.8 - 12.7 sec PROTHROMBIN TIME 11.4 LAB INR(LOINC) 0.9 - 1.1 PT, INR 1.0 LAB APTT(LOINC 25 - 36 sec ) APTT 27 Result Comment: THE APTT IS NO LONGER USED FOR MONITORING UNFRACTIONATED HEPARIN THERAPY. FOR MONITORING HEPARIN THERAPY, USE THE HEPARIN ASSAY. Performed By: #### COAGS #### [facility] [address] [place] [address] DISCHARGE PLANNING Observed: 03/23/2018 Status: UNK Source: [facility] 12:00 AM [facility]OSPITALS REPOSITORY Discharge Needs Assessment: ? Discharge Planning Assessment [id number] ? Discharge Planning Assessment Completed byAurea Hall RN CC Adult Information: ? Lives Withspouse ? Financial Concernsnone Patient Learning: ? Factors that Impact Ability to Learnnone(1) Other Learner: ? Learnerspouse(2) ? Factors that Impact Ability to Learnnone(3) Other Factors: ? Functional Screen: In the recent/past 2-4 weeks, patient or family have noticedno issues that require a rehabilitation consult at this time(4) Discharge Needs: ? [facility] Discharge Plannin03-22-18 patient admitted to cticu post op valve replacements--hemodynamically stable and discharge disposition unknown at this time Industrial Insulator Note: 03/25/2018. Met with patient to discuss discharge planning. Patient is a 72 year old female from home s/p cardiac surgery. Patient lives with her spouse. Independent in a;; ADL's. Requires no assist device for ambulation Patient does feel safe at home and denies nay issues with making follow up appointments or getting her medications. Patient denies being a diabetic. No forms of dialysis. Patient denies prior home care. No home oxygen or CPAP machine. Primary care is managed by Dr. Michael Vora. Local pharmacy [place], [place]. Patient provided a Moving Right Along after Heart Surgery booklet and a home care providers list. Will continue to monitor patient for all home going needs. Aurea Hall RN CC 03/28/18 1003 Nursing Discharge Note: Patient was discharged home today with new home care. Patient's discharge instructions, medications, follow-up appointments, wound care and healthy lifestyles were reviewed with patient. Patient verbally understood discharge instructions and had no questions or concerns. One prescription for percocet was handed to patient and the rest was electronically submitted to patient's pharmacy. VS were stable at time of discharge and patient was taken off bus driver/monitor. Both IVs were discontinued and intact. Currently, patient is waiting on transport to be taken to her ride. Fartun Diaz, DANDY Electronic Signatures: Johnnie Hall (CLIN COOR) (Signed 25-Mar-2018 08:52) Authored: Discharge Planning Note Martín Lindsay (STAFF N) (Signed 23-Mar-2018 00:02) Authored: Discharge Planning Note Mai Diaz (RN) (Signed 28-Mar-2018 10:31) Authored: Discharge Planning Note Last Updated: 28-Mar-2018 10:31 by Mai Diaz (RN) References: 1. Data Referenced From 5. Education 03/22/2018 11:52 PM 2. Data Referenced From 5. Education 03/22/2018 6:22 AM 3. Data Referenced From Patient Profile - Preop v2 03/22/2018 6:22 AM 4. Data Referenced From Admission Risk Screen - Adult 03/22/2018 11:52 PM PATIENT PROFILE - Observed: 03/22/2018 Status: UNK Source: [facility] V2 11:56 PM [facility] REPOSITORY Profile: Initial Info: How to be AddressedJoy(1) Spoken Language PreferredEnglish (1) Source of Informationpatient Are you currently using the Personal Electronic Health Record or Showpadno (1) Stated Reason for Admissionsurgery Arrived FromOR Employment Statusretired(2) Current or Previous Servicenone(2) Patient Belongingsnone Medications Brought to Hospitalno General Health: Weight in kg69.1 kilogram(s) Weight in gua263.3 pound(s) Height in cm167.6 centimeter(s) BMI (kg/m2)24.599 square meter Weight Methodactual (measured) Scale Typestanding Height Methodheight measured Blood Avoidance/Restrictionsnone(1) Previous Transfusion Reactionno(1) RSP Based Care: How would you like to participate in your care?updated to plan of care and status daily What is the number one concern for you during this hospitalization?pain control What is the most important thing we can do to support you during this hospitalization?be nice to me Is there anything we need to know to best care for you?not at this time Substance: Current or Former Substance Use never: Cigarette/Tobacco(1), Alcohol(1), Street Drugs(1) Health Mgmt: Symptoms/Conditions Managed at [place] Relationship/Environ: Primary Source of Support/Comfortchild(alexis) Lives Withalone Living Arrangementshouse Resource/Environmental Concernsnone [place]ticipated [place] [facility] Anticipated at Transitionnone Significant IndicatorsComplete Information Review: ? Allergies, Home Meds and Significant Events have been Reviewed and Verified with Patient/Familyyes ALLERGY, INTOLERANCE, ADVERSE EVENT: Allergies: ? sulfamethoxazole: Drug, Rash, Active ? Cipro: Drug, Other, Active Electronic Signatures: Martín Lindsay (STAFF N) (Signed 23-Mar-2018 00:00) Authored: Profile, Additional Information Last Updated: 23-Mar-2018 00:00 by Martín Lindsay (STAFF N) References: 1. Data Referenced From Patient Profile - Preop v2 03/22/2018 6:22 AM 2. Data Referenced From Patient Profile - Adult v2 09/27/2017 6:07 PM ADMISSION RISK SCREEN Observed: 03/22/2018 Status: UNK Source: [facility] ADULT 11:52 PM HOSPITALS REPOSITORY Allergies: Allergies: ? sulfamethoxazole: Rash ? Cipro: Other Patient Verification: ? New W ID Band Applied in my Departmentno ? Type of ID Patient is WearingW wristband, but not applied here ? Patient Transferred from Other Facility ([facility], [facility],etc)no ? Patient Identity Verified Bypatient ? ID Band FULL Name, include Middle, spelling matches patient's ID used for verificationyes ? ID Band Matches Patient ID used for Verficationyes ? ID Band MRN Matches EMR MRNyes Advance Directive: ? Advance Directive Medicalno (1) ? Advance Directive Information Givenpatient/family declined Falls Screen: Type of Assessmentadmission Moderate Risk Factorsaltered elimination, patient care equipment (scds, iv?s, chest tubes, carbone, etc), sensory deficits High Risk Factorsgait instability, symptoms due to meds (sedatives, hypnotics, new diuretics and new laxatives) Risk for Injury Associated with Fallcoagulation ? blood thinners (Coumadin, heparin gtt), coagulopathy, risk of surgical complications post surgery (recent abdominal, thoracic surgery, lower limb amputation) Fall Risk Conclusionhigh falls risk with risk for associated injury [place] Safety InterventionsWDL *orient to call system *instruct to call for assistance before getting out of bed *non-slip footwear when patient is out of bed *call kennedy in reach *personal items and telephone in reach *physically safe environment (no spills or clutter) *bed in lowest position with wheels locked *appropriate side rails in place *room/bathroom lighting operational, light cord in reach *appropriate signage on door, call kennedy in reach Family Violence Screen: ? Are you or have you been threatened or abused physically, emotionally, or sexually by anyone?no ? Do you feel UNSAFE going back to the place where you are living?no ? Clinical assessment: Are there any apparent signs of injuries/behaviors that could be related to abuse/neglectno ? Social Service Consult for abuse/neglect needed this visit?no Functional screen: ? Functional Screen: In the recent/past 2-4 weeks, patient or family have noticedno issues that require a rehabilitation consult at this time Learning Assessment (Patient): ? Patient is Able to be Assessed for Learningyes ? Factors Influencing Readiness to Learnacuteness of illness; pain ? Factors that Impact Ability to Learnnone ? Devices/Methods Used to Communicatenone ? Learning Preferencesindividual instruction ? Cultural Considerationsnone ? Developmental Considerationsnone ? Orthodoxy Considerationsnone Learning Assessment (Other Learner): ? Other learner availableno Suicide/Depression Screen: ? During the past month, have you often been bothered by feeling down, depressed or hopeless?no (1) ? During the past month, have you often had little interest or pleasure in doing things?no (1) ? Have you had any thoughts of harming yourself?no (1) ? Have you had any thoughts of harming anyone else?no (1) Adult Nutrition Screen: ? Have you recently lost weight without tryingno ? Have you been eating poorly because of a decreased appetiteno ? MST Score0 ? RiskMST = 0 or 1 Not at risk. Eating well with little or no weight loss ? Nutrition Consult needed this visit?no ? Can Patient Participate in Room Service?yes, with assistance ? Patient requires Paper Dishes/Plastic Utensilsno Pain Screen: ? Pain Scalenumerical 0-10 (1) ? Pain Scale Educationteaching provided (1) ? Current Pain Level0 = None ? Acceptable Pain Level5 = Moderate ? Expression of Pain (nonverbal)none ? Chronic Painno (1) Spiritual Screen: ? Are there any cultural, spiritual, judaism practices/values/needs that are important for us to know?no CAGE: Is this an injured patient at a Trauma Center ([facility] [place] [facility] / [facility]): no Vaccinations: Vaccination - Influenza Vaccination Screen: ? Is it flu season? (between and )No Vaccination - Pneumonia Vaccination Screen: ? Patient has received a previous pneumonia vaccine:no/unknown... ? Pneumonia vaccine NOT indicated due to:patient/caregiver refusal at this time Aldo: Skin - Aldo Scale: ? Aldo: Sensory Perception (response to environment)(3) slightly limited ? Aldo: Moisture (degree skin exposed to moisture)(4) rarely moist ? Aldo: Activity (ability to walk)(1) bedfast ? Aldo: Mobility (amount/control of body movement)(3) slightly limited ? Aldo: Nutrition (quality of food intake)(2) probably inadequate ? Aldo: Friction and Shear(3) no apparent problem ? Aldo: Score16 ? Skin Intervention Orders (Nursing orders will be generated)elevate heels, up in chair < 1 hr intervals, turn side to side every 2 hrs, assess for therapeutic equipment, assess pressure points, hygiene care, toilet/ADL every 2 hrs awake, toilet/ADL every 4 hrs asleep, educate prevent/treat pressure ulcer Significant Indicatiors: Significant Indicators: Complete Pressure Injury: Pressure Injury Present on Admissionno Electronic Signatures: Martín Lindsay (STAFF N) (Signed 22-Mar-2018 23:56) Authored: Admission Risk Screens, Vaccinations, Aldo, Pressure Injury Last Updated: 22-Mar-2018 23:56 by Martín Lindsay (STAFF N) References: 1. Data Referenced From Patient Profile - Preop v2 03/22/2018 6:22 AM ARTERIAL FULL PANEL Collected: 03/22/2018 Status: F Source: [place] 10:42 PM [facility]OSPITALS REPOSITORY TYPE CODE TESTS RESULT OUT OF REFERENCE UNITS RANGE LAB PHART(LOIN 7.38 - 7.42 C) pH 7.42 LAB PCO2A(LOIN 38 - 42 mmHg C) PCO2 42 LAB PO2A(LOINC 85 - 95 mmHg ) PO2 High 102 LAB TEMP(LOINC degrees C ) PATIENT TEMPERATURE 37.0 Result Comment: NOTE: PATIENT RESULTS ARE NOT CORRECTED FOR TEMPERATURE. LAB SO2%A(LOINC) 94 - 100 % SO2 99 LAB HCTN(LOINC) 36.0 - % Low 46.0 HCT 32.0 LAB SODN(LOINC) 136 - 145 mmol/L SODIUM 140 LAB POTN(LOINC) 3.5 - 5.3 mmol/L Low POTASSIUM 3.3 LAB CHLN(LOINC) 98 - 107 mmol/L CHLORIDE High 109 LAB IONCA(LOINC) 1.10 - mmol/L Low 1.33 CALCIUM,IONIZED 1.08 LAB GLUN(LOINC) 74 - 99 mg/dL GLUCOSE High 179 LAB LACTN(LOINC) 0.4 - 2.0 mmol/L LACTATE 1.5 LAB BSEXB(LOINC) -2.0 - 3.0 mmol/L BASE EXCESS-BLOOD 2.4 LAB BICAR(LOINC) 22.0 - mmol/L 26.0 BICARB, High CALCULATED 27.2 LAB HGBNC(LOINC) 12.0 - g/dL Low 16.0 HGB,CALCULATED 10.9 LAB ANGPN(LOINC) 10 - 25 mmol/L Low ANION GAP 7 Performed By: #### AFPA3 #### [facility] [address] [place] [address] GLUCOSE-POCT Collected: 03/22/2018 Status: F Source: [place] 10:34 PM [facility]OS[facility]ITALS REPOSITORY TYPE CODE TESTS RESULT OUT OF RANGE REFERENCE UNITS LAB GLUP(LOINC) 74 - 99 mg/dL High 167 GLUCOSE-POCT Performed By: #### GLUPO #### [facility] [address] [place] [address] ARTERIAL FULL PANEL Collected: 03/22/2018 Status: F Source: [place] 8:18 PM [facility]OSPITALS REPOSITORY TYPE CODE TESTS RESULT OUT OF REFERENCE UNITS RANGE LAB PHART(LOIN 7.38 - 7.42 C) pH Low 7.37 LAB PCO2A(LOIN 38 - 42 mmHg C) PCO2 High 47 LAB PO2A(LOINC 85 - 95 mmHg ) PO2 Low 75 LAB TEMP(LOINC degrees C ) PATIENT TEMPERATURE 37.0 Result Comment: NOTE: PATIENT RESULTS ARE NOT CORRECTED FOR TEMPERATURE. LAB SO2%A(LOINC) 94 - 100 % SO2 97 LAB HCTN(LOINC) 36.0 - % Low 46.0 HCT 31.0 LAB SODN(LOINC) 136 - 145 mmol/L SODIUM 141 LAB POTN(LOINC) 3.5 - 5.3 mmol/L Low POTASSIUM 3.4 LAB CHLN(LOINC) 98 - 107 mmol/L CHLORIDE High 109 LAB IONCA(LOINC) 1.10 - mmol/L Low 1.33 CALCIUM,IONIZED 1.06 LAB GLUN(LOINC) 74 - 99 mg/dL GLUCOSE High 181 LAB LACTN(LOINC) 0.4 - 2.0 mmol/L LACTATE 1.5 LAB BSEXB(LOINC) -2.0 - 3.0 mmol/L BASE EXCESS-BLOOD 1.5 LAB BICAR(LOINC) 22.0 - mmol/L 26.0 BICARB, High CALCULATED 27.2 LAB HGBNC(LOINC) 12.0 - g/dL Low 16.0 HGB,CALCULATED 10.5 LAB ANGPN(LOINC) 10 - 25 mmol/L Low ANION GAP 8 Performed By: #### AFPA3 #### [facility] [address] [place] [id number] GLUCOSE-POCT Collected: 03/22/2018 Status: F Source: [facility] 7:40 [facility] REPOSITORY TYPE CODE TESTS RESULT OUT OF RANGE REFERENCE UNITS LAB GLUP(LOINC) 74 - 99 mg/dL High 163 GLUCOSE-POCT Performed By: #### GLUPO #### [facility] [address] [place] [id number] ANTICOAGULATION MONITORING Observed: 03/22/2018 Status: UNK Source: [facility] 5:02 PM [facility]PITALS REPOSITORY Today's INR [id number] IO INR1.1 Target INR range2-3 SourceLab Value History of Present Illness Patient identification verified with 2 patient identifiers. Anticoagulation Monitoring Service: [facility]. Enrollment/Re-enrollment date: September 04, 2018. The patient is being seen as a follow-up for anticoagulation monitoring. Target INR 2-3. Monitoring practitioner Lonnie Crane MD. INR monitoring is per AMS protocol. The patient is on anticoagulation due to atrial fibrillation/flutter. The patient is currently taking warfarin Tablet strength and color: 5 mg(Roane) Interval History: Patient was last seen: February 15, 2018. Previous INR was 2.4. No change was made in weekly dosage at last visit. Incoming total weekly dose 47.5 mg. Today's Clinic INR: Lab value INR 1.1. Since last visit, the patient reports no bleeding. Denies. The patient did not experience clinically relevant bleeding. Denies. The patient did not experience other minor bleeding. Denies. Since last visit, The patient has not experienced thrombotic event. Denies. Denies. The patient reports no change in medication. The patient stopped or started steroids. Denies. She reports no change in alcohol consumption. Denies. She reports no change in Vitamin K consumption. Denies. The patient has taken Warfarin as directed. She missed 1 or more doses for a procedure. Pt has been taking as directed and holding warfarin x 5 days prior to surgery with Dr. Pulido on 03/22. Management: The patient's INR is subtherapeutic. Will maintain dose. Pt holding warfarin prior to surgery. The patient is not currently being bridged. Next follow up appointment in 1 week(s). Pt need sppt. at [place] 1 weeks after discharge from hospital. Outgoing total weekly dose 47.5 mg. Patient instructed to call in interim with questions, concerns and changes. Patient educated on interactions between medications and warfarin. Patient educated on dietary consistency in vitamin k consu mption. Patient educated on affects of alcohol consumption while taking warfarin. Patient educated on signs of bleeding/clotting. Patient educated on compliance with dosing, follow up appointments, and prescribed plan of care. Pt had appt. at [facility] n 03/21 but went to the lab on first floor for lab draw. I called and spoke to Pt and interviewed her over the phone. Discussion/Summary You are currently taking Warfarin. Your tablet strength and color: 5 mg(Roane) Next Appointment: Sunday, April 01, 2018. Time: 10: 45 am. Location: [facility], . Your INR today is lower than your target range, you may be at risk for forming blood clots. Maintain your dose as you were taking it. Visit information Please call in interim with questions, concerns and changes. Do tell your provider when you get sick, hurt, or get a cut that will not stop bleeding. Taking a new medication may change your INR. Please inform your provider of any medication changes. Your INR may change because of how much Vitamin K you eat. Your INR may change because of how much alcohol you drink. It is important to check your INR on a regular basis and keep your appointments. Knowing your INR number is the only way of knowing if you're taking the amount of warfarin that is correct for you. If you have any bleeding, trauma, falls and/or other medical concerns, call your doctor or seek medical attention right away. Results/Data Coumadin Printed in Appendix #1 below. *Diagnosis/Problems 1. Paroxysmal atrial fibrillation (427.31) (I48.0) 2. Atrial fibrillation (427.31) (I48.91) 3. 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) Signatures Electronically signed by : Martín Rizzo R.N.; Mar 22 2018 5:02PM EST (Author) Appendix #1 Coumadin Patient: MARSHALL FARRELL; : 1945; [id number] 02:[id number] 03:02PM IO PT/INR PT + INR, Plasma PT/INR (POC) Coagulation Screen Current Dose New Dose Recheck in Patient Notified Comments IO INR1.1 PT, INR1.6 1.0 1.1 2.7 Target INR range2-3 GLUCOSE-POCT Collected: 03/22/2018 Status: F Source: [facility] 4:33 PM [facility] REPOSITORY TYPE CODE TESTS RESULT OUT OF RANGE REFERENCE UNITS LAB GLUP(LOINC) 74 - 99 mg/dL High 126 GLUCOSE-POCT Performed By: #### GLUPO #### [facility] [address] [place] [address] ARTERIAL FULL PANEL Collected: 03/22/2018 Status: F Source: [place] 3:44 PM [facility] REPOSITORY TYPE CODE TESTS RESULT OUT OF REFERENCE UNITS RANGE LAB PHART(LOIN 7.38 - 7.42 C) pH High 7.43 LAB PCO2A(LOIN 38 - 42 mmHg C) PCO2 39 LAB PO2A(LOINC 85 - 95 mmHg ) PO2 Low 80 LAB TEMP(LOINC degrees C ) PATIENT TEMPERATURE 37.0 Result Comment: NOTE: PATIENT RESULTS ARE NOT CORRECTED FOR TEMPERATURE. LAB SO2%A(LOINC) 94 - 100 % SO2 98 LAB HCTN(LOINC) 36.0 - % Low 46.0 HCT 33.0 LAB SODN(LOINC) 136 - 145 mmol/L SODIUM 142 LAB POTN(LOINC) 3.5 - 5.3 mmol/L POTASSIUM 3.9 LAB CHLN(LOINC) 98 - 107 mmol/L CHLORIDE High 110 LAB IONCA(LOINC) 1.10 - mmol/L 1.33 CALCIUM,IONIZED 1.14 LAB GLUN(LOINC) 74 - 99 mg/dL GLUCOSE High 153 LAB LACTN(LOINC) 0.4 - 2.0 mmol/L LACTATE 1.8 LAB BSEXB(LOINC) -2.0 - 3.0 mmol/L BASE EXCESS-BLOOD 1.5 LAB BICAR(LOINC) 22.0 - mmol/L 26.0 BICARB, CALCULATED 25.9 LAB HGBNC(LOINC) 12.0 - g/dL Low 16.0 HGB,CALCULATED 11.2 LAB ANGPN(LOINC) 10 - 25 mmol/L ANION GAP 10 Performed By: #### AFPA3 #### [facility] [address] [place] [address] GLUCOSE-POCT Collected: 03/22/2018 Status: F Source: [place] 3:43 [facility] REPOSITORY TYPE CODE TESTS RESULT OUT OF RANGE REFERENCE UNITS LAB GLUP(LOINC) 74 - 99 mg/dL High 149 GLUCOSE-POCT Result Comment: Glu2: Arterial Performed By: #### GLUPO #### [facility] [address] [place] [address] CALCIUM, IONIZED Collected: 03/22/2018 Status: F Source: [place] 3:25 [facility] REPOSITORY TYPE CODE TESTS RESULT OUT OF RANGE REFERENCE UNITS LAB CAION(LOINC 1.10 - 1.33 mmol/L ) Low 1.07 CALCIUM,IONI ZED Result Comment: The performance characteristics of ionized calcium tested in heparinized plasma or serum have been validated by the individual laboratory site where testing is performed. Testing on heparinized plasma or serum is not approved by the FDA; however, such approval is not necessary. Performed By: #### IONC1 #### [facility] [address] [place] [address] CBC Collected: 03/22/2018 Status: F Source: [place] 3:25 [facility] REPOSITORY TYPE CODE TESTS RESULT OUT OF REFERENCE UNITS RANGE LAB WBCR(LOINC 4.4 - 11.3 x10E9/L ) WBC 9.0 LAB NRBC(LOINC 0.0-0.0 /100 WBC ) NUCLEATED RBC 0.0 LAB RBCCT(LOIN 4.00 - 5.20 x10E12/L C) Low RBC 3.83 LAB HGB(LOINC) 12.0 - 16.0 g/dL Low HGB 11.7 LAB HCT(LOINC) 36.0 - 46.0 % Low HCT 34.4 LAB MCV(LOINC) 80 - 100 fL MCV 90 LAB MCHC2(LOIN 32.0 - 36.0 g/dL C) MCHC 34.0 LAB PLTCT(LOIN 150 - 450 x10E9/L C) Low PLT 147 LAB RDWCV(LOIN 11.5 - 14.5 % C) RDW-CV 13.2 Performed By: #### CBC #### [facility] [address] [place] [address] MAGNESIUM Collected: 03/22/2018 Status: F Source: [place] [address] [place] [address] REPOSITORY TYPE CODE TESTS RESULT OUT OF REFERENCE UNITS RANGE LAB MG(LOINC) 1.60 - 2.40 mg/dL High MAGNESIUM 3.79 Performed By: #### MG #### [facility] [address] [place] [address] RENAL FUNCTION PANEL Collected: 03/22/2018 Status: F Source: [place] [address] [place] [address] REPOSITORY TYPE CODE TESTS RESULT OUT OF REFERENCE UNITS RANGE LAB GLU(LOINC) 74 - 99 mg/dL GLUCOSE High 152 LAB SOD(LOINC) 136 - 145 mmol/L SODIUM 142 LAB K(LOINC) 3.5 - 5.3 mmol/L POTASSIUM 4.0 LAB CHLOR(LOIN 98 - 107 mmol/L C) CHLORIDE 107 LAB BIC(LOINC) 21 - 32 mmol/L BICARBONATE 25 LAB ANGAP(LOIN 10 - 20 mmol/L C) ANION GAP 14 LAB UREA(LOINC 6 - 23 mg/dL ) UREA NITROGEN 16 LAB CREA(LOINC 0.50 - 1.05 mg/dL ) CREATININE 0.67 LAB GFRFN(LOIN >60 mL/min/1.7 C) 3m2 GFR-NON AM. >60 LAB GFRAA(LOIN >60 mL/min/1.7 C) 3m2 GFR- AM. >60 Result Comment: CALCULATIONS OF ESTIMATED GFR ARE PERFORMED USING THE MDRD STUDY EQUATION FOR THE IDMS-TRACEABLE CREATININE METHODS. CLIN CHEM 2007;53:766-72 LAB CA(LOINC) 8.6 - 10.6 mg/dL CALCIUM 9.2 LAB PHOS(LOINC) 2.5 - 4.9 mg/dL PHOSPHORUS 3.0 Result Comment: The performance characteristics of phosphorus testing in heparinized plasma have been validated by the individual laboratory site where testing is performed. Testing on heparinized plasma is not approved by the FDA; however, such approval is not necessary. LAB ALB(LOINC) 3.4 - 5.0 g/dL ALBUMIN 4.1 Performed By: #### RENAL #### [facility] [address] [place] [address] FIBRINOGEN Collected: 03/22/2018 Status: F Source: [place] 3:25 [facility] REPOSITORY TYPE CODE TESTS RESULT OUT OF REFERENCE UNITS RANGE LAB FIBRN(LOIN 200 - 400 mg/dL C) FIBRINOGEN 242 Performed By: #### FIB #### [facility] [address] [place] [address] COAGULATION SCREEN Collected: 03/22/2018 Status: F Source: [place] 3:25 [facility] REPOSITORY TYPE CODE TESTS RESULT OUT OF REFERENCE UNITS RANGE LAB PT(LOINC) 9.8 - 12.7 sec PROTHROMBIN TIME 12.3 LAB INR(LOINC) 0.9 - 1.1 PT, INR 1.1 LAB APTT(LOINC 25 - 36 sec ) APTT 28 Result Comment: THE APTT IS NO LONGER USED FOR MONITORING UNFRACTIONATED HEPARIN THERAPY. FOR MONITORING HEPARIN THERAPY, USE THE HEPARIN ASSAY. Performed By: #### COAGS #### [facility] [address] [place] [address] TH CHEST 1 VIEW Observed: 03/22/2018 Status: F Source: [place] 3:22 PM [facility] REPOSITORY Patient Name: MARSHALL FARRELL STUDY: CHEST 1 VIEW; 03/22/2018 3:22 pm INDICATION: Signs/Symptoms: CT surgery. COMPARISON: 03/08/2018 ACCESSION NUMBER(S): [id number] ORDERING CLINICIAN: MAXI REDD FINDINGS: ET tube is terminating slightly above the clavicular heads. Enteric tube is in place with the tip not included. Right IJ [place]-Sissy catheter is terminating in the main pulmonary artery. Right-sided chest tube and mediastinal drains are in place. Patient is status post median sternotomy. The cardiac silhouette size is enlarged, unchanged. The left subclavian pacer/defibrillator is stable in positioning. Perihilar congestion and mild interstitial pulmonary edema. There is no sizable pneumothorax. No acute osseous abnormality. IMPRESSION: 1. Postsurgical changes and medical appliances as described above. 2. Interstitial pulmonary edema. Electronically signed by: XU MCGEE MD HISTORY AND PHYSICAL Observed: 03/22/2018 Status: COMPLETED [facility]35 [facility] REPOSITORY History of Present Illness: HPI: HPI: Marshall Farrell is a 72 year old female with a past medical history significant for rheumatic disease as a child, mitral stenosis (s/p balloon valvuloplasty in 2015), severe mitral regurgitation, moderate tricuspid regurgitation, aortic regurgitation with preserved LV and RV function, and paroxysmal atrial fibrillation with peripheral emboli to right and left leg but no cerebral symptoms. She remains on treatment for atrial fibrillation with dofetilide. Her most recent ECHO (January 2017) showed normal ejection fraction with moderate aortic stenosis (dimensionless index of 0.36), mild to moderate tricuspid regurgitation, and moderate mitral valve stenosis. Since taking difetilide, she notes a dull ache around the apex region of the heart that lasts a minute, occurs 5-10x a day, and has no associated symptoms. She denies SOB at rest, MARKS syncope, LH, edema, orthopnea, fevers/chills, nausea/vomiting. She was admitted to [facility] s/p MVR, AVR, TVR, resection of left atrial appendage with Maze procedure with Dr. Pulido on 03/22/2018. 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 tab Mon/Wed/Fri and 2 tabs on remaining days, dofetilide 500 mcg daily Procedure/Surgeon: Mitral Valve replacement with 31 mm Epic valve, Aortic Valve replacement with 23 mm freestyle valve, Tricuspid valve repair with 31mm ATS ring, MAZE procedure,Left atrial appendage ligation w/ Dr. Pulido. 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 Vee, TEG normalized CPB time: 213 minutes Cross clap time: 172 minutes Abx: 1230, 1.5g cerfuroxime Echo post: Normal biventricular function. No post-bypass stenosis of any valves. Chest tubes/Drains: 2 mediastinal chest tubes, 1 mediastinal reece drain, 1 right pleural chest tube Temporary wires location/setting: A/V 90-20-10 Fluids: Crystalloid: 2L Colloid: Products: 4 FFP. 10 pk plts. Cellsaver: 330 mL EBL: 500 mL UOP: 1.5L Comorbidities: ? Comorbid Conditionsatrial fibrillation, hypertension ? Type of Atrial FibrillationParoxysmal Allergies: ? sulfamethoxazole: Rash ? Cipro: Other Medications Prior to Admission: Admission Medication Reconciliation has not been completed for this patient. Objective: Objective Information: ? Objective Information T PRBPSpO2 [id number]/7097% Date/Time03/22 5: 5: 5: 5: 5:59 Range(36.5C - 36.5C ) (59 - 59 ) (16 - 16 ) (154 - 154 )/ (70 - 70 ) (97% - 97% ) Pain at Rest reported at 03/22 5:59: 0 Weights 03/22 5:59: Med Calc Weight (kg) (MED CALC WEIGHT (kg)) 69.1 03/22 5:59: Weight in kg (Weight (kg)) 69.1 03/22 5:59: Weight in lbs ((lbs)) 152.3 03/22 5:59: BMI (kg/m2) (BMI (kg/m2)) 24.599 Recent Lab Results: Results: CBC: 03/22/2018 13:10 \ Hgb / \ 9.0 L / WBC Plt 10.2 132 L / Hct \ / 26.2 L \ RBC: 2.92 L MCV: 90 Coagulation: 03/22/2018 13:10 PT / 18.0 H / -------< INR < 1.6 H PTT\ 30 \ Fibrinogen: 159 L Recent Arterial Blood Gas Results 03/22/2018 14:05 [id number] 24 h range: ( 95 - 488 ) pH7.35 24 h range: ( 7.32 - 7.46 ) [id number] 24 h range: ( 36 - 46 ) SO299 24 h range: ( 99 - 100 ) Base Excess-1.9 24 h range: ( -3.8 - 3.9 ) Btmcgxxmpun15.7 24 h range: ( 21.4 - 28.5 ) Assessment and Plan: Other: Diagnosis: Plan NEURO: No history of neurologic deficits. Hx of depression on home venlafaxine. Patient is intubated and sedated on propofol infusion. --> - Serial neuro and pain assessments - Continue propofol until NMB reversal, then daily sedation vacation at minimum - NMB reversal when normothermic and hemodynamically stable. - Prn fentanyl for pain - PT Consult, OOB to chair as tolerated, chair position if not tolerated - CAM ICU score qshift - Sleep/wake cycle hygiene - hold home venlafaxine 35.5 mg daily for now CV: Patient has a history of moderate aortic insufficiency, , pAFib, moderate MR, moderate mitral stenosis (s/p balloon valvuloplasty), tachybrady syndrome (s/p PPM placement), HTN. LV function normal on postbypass echo. Arrived to ICU on NG 33.33 mcg/min, amiodarone 1 mg/min (was loaded in OR). Currently paced DDD @ 90. --> - Continuous EKG and ABP monitoring - Titrate gtts to maintain goal MAP 70-90, CI >2.2. - Volume resuscitate as clinically indicated - Chest tubes to wall suction. - Maintain Pacer DDD @90 - will discuss with Dr. Pulido when it is ok to check underlying rhythm. - Start ASA tomorrow - Start statin tomorrow - hold home Digoxin 125 mcg daily, dofetilide 500 mcg daily, Lisinopril 10 mg daily, metoprolol 25 mg twice daily PULM: No history of pulmonary disease. Former smoker, unknown how many pack year. Currently intubated on ventilator. --> - f/u post op CXR - ETT 6.7cm above aristides, will adjust accordingly. - Once NMB reversed begin CPAP trials and extubate when criteria met. - Wean FiO2 maintaining SpO2 >92%. - ABGs prn. - IS q1h and OOB to chair when extubated GI: NPO. No history of GERD. OGT in place. --> - Continue PPI until extubate - NPO with expectation of extubation - Colace and miralax bowel regimen : No history of renal disease. Baseline serum creatinine 0.83 --> - Continue carbone catheter for strict I/Os. - Goal UOP 0.5ml/kg/hr - RFP as clinically indicated - Replete electrolytes per SICU protocol ENDO: No hx of DM. Hx of acquired hypothyroidism s/p thyroid surgery for follicular carcioma--> - Maintain BG <180, insulin per SICU protocol - Hold levothyroxine PO 100mcg for now HEME: Acute blood loss anemia and thrombocytopenia. Rec'd 4 FFP, 2x5 pk platelets, 330 cell saver in OR. --> - Monitor drain output volume and characteristics - CBC, coags, and fibrinogen post op and as clinically indicated - Start 81mg ASA. - SCDs for DVT prophylaxis. ID: Afebrile, no current indications of infection --> - Trend temp q4h - Periop Cefuroxime 1.5g x 5 doses. 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 Code StatusFull Code Signatures/Attestation/Certification: Attending AttestationI saw and evaluated the patient. I personally obtained the schultz and critical portions of the history and physical exam or was physically present for schultz and critical portions performed by the resident/fellow. I reviewed the resident/fellow?s documentation and discussed the patient with the resident/fellow. I agree with the resident/fellow?s medical decision making as documented in the resident?s note. I personally evaluated the patient (as noted in the above attestation) on 22-Mar-2018 Comments/ Additional Findings MVR,AVR,TVr, MAZE, WILBUR ligation no bleeding CI>3 High pressures on admit - increasing propofol and adding clevidipine to NTG. CXR with pulm vas congestion - making urine. once pressures settled will reverse, wake, and get extubated this evening as indicated This critically ill patient continues to be at-risk for clinically significant deterioration / failure due to the above mentioned dysfunctional, unstable organ systems. I have personally identified and managed all complex critical care issues to prevent aforementioned clinical deterioration. Critical care time is spent at bedside and/or the immediate area and has included, but is not limited to, the review of diagnostic tests, labs, radiographs, serial assessments of hemodynamics, respiratory status, ventilatory management, and family updates. Time spent in procedures and teaching are reported separately. Critical Care PatientI have reviewed and evaluated the most recent data and results, personally examined the patient, and formulated the plan of care as presented above. This patient was critically ill and required continued critical care treatment. Teaching and any separately billable procedures are not included in the time calculation. Billing Provider Critical Care Time35 minute(s) Primary Critical Care Issue/Treatment (See Assessment and Plan for greater detail)-- This patient has undergone a major operation or significant procedure and must have intensive monitoring and management to diagnose or prevent life or limb threatening deterioration. Please see assessment and plan above for greater detail. Attending Provider ? Inpatient Certification StatementI certify this patient?s need for inpatient care based on the above documentation including; the order to admit as inpatient, the anticipated length of stay, diagnosis, problem list and plan of care, and discharge plan. Electronic Signatures for Addendum Section: Maxi Redd (Resident)) (Signed Addendum 29-Aug-2018 11:21) Physical exam on admission: neuro - intubated, sedated on propofol infusion cv - DDD paced at 90. no appreciable murmurs pulm - intubated, sedated. adequate saturations - Carbone in place, draining clear yellow urine GI - OGT in place Thorax - CT draining sanguinous fluid HEENT - RIJ with PAC in place psych - ZCA Electronic Signatures: Maxi Redd (Resident)) (Signed 22-Mar-2018 16:12) Authored: History of Present Illness, Comorbidities, Allergies, Medications Prior to Admission, Objective, Assessment and Plan, Signatures/Attestation/Certification Carlos Cassidy) (Signed 22-Mar-2018 17:40) Authored: Signatures/Attestation/Certification Co-Signer: History of Present Illness, Comorbidities, Allergies, Medications Prior to Admission, Objective, Assessment and Plan, Signatures/Attestation/Certification Last Updated: 23-Mar-2018 11:21 by Maxi Redd (Resident)) POST OPERATIVE NOTE - Observed: 03/22/2018 Status: COMPLETED Source: [facility] 2:18 PM [facility] REPOSITORY Post Operative Note: PreOp Diagnosis: Mitral stenosis and mitral regurgitation, aortic stenosis, tricuspid regurgitation, a-fib Post-Procedure Diagnosis: Mitral stenosis and mitral regurgitation, aortic stenosis, tricuspid regurgitation, a-fib Procedure: Mitral Valve replacement with 31 mm Epic valve Aortic Valve replacement with 23 mm freestyle valve Tricuspid valve repair with 31mm ATS ring MAZE procedure Left atrial appendage ligation Surgeon: Blayne Resident/Fellow/Other Award Machine Operator: leo Dias notte, everhart Estimated Blood Loss (mL): 500 Specimen: yes. Left atrial appendage, mitral valve leaflets, aortic valve leaflets Findings: Mitral stenosis and mitral regurgitation, aortic stenosis, tricuspid regurgitation, a-fib Patient Returned To/Condition: CTICU/Stable Drains and/or Catheters: 2 mediastinal chest tubes 1 mediastinal reece drain 1 right pleural chest tube Additional Details: Atrial and Ventricular temporary pacing wires (90-20-10) Cross clamp time 172 minutes, pump time 213 minutes Last dose of antibiotics given at 1230 (1.5 gms of cefuroxime) Electronic Signatures: Louis Pulido) (Signed 23-Mar-2018 17:30) Co-Signer: Signature/Cosignature/Attestation, Post Operative Note Leisa Cassidy (PAC) (Signed 22-Mar-2018 14:21) Authored: Signature/Cosignature/Attestation, Post Operative Note Last Updated: 23-Mar-2018 17:30 by Louis Pulido) COOX PANEL, ARTERIAL Collected: 03/22/2018 Status: F Source: [place] [address] [place] [address] REPOSITORY TYPE CODE TESTS RESULT OUT OF RANGE REFERENCE UNITS LAB HGBXC(LOINC 12.0 - 16.0 g/dL ) Low HGB 8.7 LAB O2CX1(LOINC 94.0 - 98.0 % ) OXY 96.4 HGB LAB COHG1(LOINC % ) Abnormal CO 2.1 HGB Result Comment: REF VALUES NONSMOKERS 0.5-1.5% SMOKERS 0.5-10.0% LAB METC1(LOINC) 0.0 - 1.5 % MET HGB 0.6 LAB DOXHG(LOINC) 0.0 - 5.0 % DEOXY HGB 0.8 Performed By: #### COOXA #### [facility] [address] [place] [address] ARTERIAL FULL PANEL Collected: 03/22/2018 Status: F Source: [facility] [address] [place] [address] REPOSITORY TYPE CODE TESTS RESULT OUT OF REFERENCE UNITS RANGE LAB PHART(LOIN 7.38 - 7.42 C) pH Low 7.35 LAB PCO2A(LOIN 38 - 42 mmHg C) PCO2 High 43 LAB PO2A(LOINC 85 - 95 mmHg ) PO2 High 109 LAB TEMP(LOINC degrees C ) PATIENT TEMPERATURE 37.0 Result Comment: NOTE: PATIENT RESULTS ARE NOT CORRECTED FOR TEMPERATURE. LAB FIO2(LOINC) % FIO2 73 LAB SO2%A(LOINC) 94 - 100 % SO2 99 LAB HCTN(LOINC) 36.0 - % Low 46.0 HCT 21.0 LAB SODN(LOINC) 136 - 145 mmol/L SODIUM 141 LAB POTN(LOINC) 3.5 - 5.3 mmol/L POTASSIUM 4.3 LAB CHLN(LOINC) 98 - 107 mmol/L CHLORIDE High 110 LAB IONCA(LOINC) 1.10 - mmol/L Low 1.33 CALCIUM,IONIZED 1.04 LAB GLUN(LOINC) 74 - 99 mg/dL GLUCOSE High 150 LAB LACTN(LOINC) 0.4 - 2.0 mmol/L LACTATE High 2.5 LAB BSEXB(LOINC) -2.0 - 3.0 mmol/L BASE EXCESS-BLOOD -1.9 LAB BICAR(LOINC) 22.0 - mmol/L 26.0 BICARB, CALCULATED 23.7 LAB HGBNC(LOINC) 12.0 - g/dL Low 16.0 HGB,CALCULATED 7.1 LAB ANGPN(LOINC) 10 - 25 mmol/L ANION GAP 12 Performed By: #### [id number] #### [facility] [address] [place] [id number] PLATELETS Collected: 03/22/2018 Status: F Source: [place] [id number] [place] [address] REPOSITORY TYPE CODE TESTS RESULT OUT OF REFERENCE UNITS RANGE LAB PLT(LOINC) PLATELETS ORDER RECD Result Comment: If this patient is Rh Negative and if the Platelet product transfused is Rh Positive, review the use of WinRho Prophylaxis for this patient. Performed By: #### PLT #### [facility] [address] [place] [id number] PLASMA Collected: 03/22/2018 Status: F Source: [place] [address]:[id number] [place] [address] REPOSITORY TYPE CODE TESTS RESULT OUT OF REFERENCE UNITS RANGE LAB FFP(LOINC) PLASMA ORDER RECD Performed By: #### FFP #### [facility] [address] [place] [id number] ACT-HIGH RANGE Collected: 03/22/2018 Status: F Source: [facility] 1:[address] [place] [address] REPOSITORY TYPE CODE TESTS RESULT OUT OF REFERENCE UNITS RANGE LAB ACTPO(LOINC 91 - 152 SECONDS ) ACT-HIGH 111 RANGE Performed By: #### ACTP #### [facility] [address] [place] [id number] ARTERIAL FULL PANEL Collected: 03/22/2018 Status: F Source: [place] [id number] [place] [address] REPOSITORY TYPE CODE TESTS RESULT OUT OF REFERENCE UNITS RANGE LAB PHART(LOIN 7.38 - 7.42 C) pH Low 7.35 LAB PCO2A(LOIN 38 - 42 mmHg C) PCO2 41 LAB PO2A(LOINC 85 - 95 mmHg ) PO2 95 LAB TEMP(LOINC degrees C ) PATIENT TEMPERATURE 37.0 Result Comment: NOTE: PATIENT RESULTS ARE NOT CORRECTED FOR TEMPERATURE. LAB FIO2(LOINC) % FIO2 48 LAB SO2%A(LOINC) 94 - 100 % SO2 99 LAB HCTN(LOINC) 36.0 - % Low 46.0 HCT 18.0 LAB SODN(LOINC) 136 - 145 mmol/L SODIUM 142 LAB POTN(LOINC) 3.5 - 5.3 mmol/L POTASSIUM 3.9 LAB CHLN(LOINC) 98 - 107 mmol/L High CHLORIDE 109 LAB IONCA(LOINC) 1.10 - mmol/L Low 1.33 CALCIUM,IONIZED 1.07 LAB GLUN(LOINC) 74 - 99 mg/dL High GLUCOSE 150 LAB LACTN(LOINC) 0.4 - 2.0 mmol/L High LACTATE 2.8 LAB BSEXB(LOINC) -2.0 - 3.0 mmol/L Low BASE EXCESS-BLOOD -2.8 LAB BICAR(LOINC) 22.0 - mmol/L 26.0 BICARB, CALCULATED 22.6 LAB HGBNC(LOINC) 12.0 - g/dL Low 16.0 alert HGB,CALCULATED 6.1 LAB ANGPN(LOINC) 10 - 25 mmol/L ANION GAP 14 Performed By: #### [id number] #### [facility] [address] [place] [address] COOX PANEL, ARTERIAL Collected: 03/22/2018 Status: F Source: [place] 1:38 [facility] REPOSITORY TYPE CODE TESTS RESULT OUT OF RANGE REFERENCE UNITS LAB HGBXC(LOINC 12.0 - 16.0 g/dL ) Low HGB 8.0 LAB O2CX1(LOINC 94.0 - 98.0 % ) OXY 95.1 HGB LAB COHG1(LOINC % ) Abnormal CO 2.0 HGB Result Comment: REF VALUES NONSMOKERS 0.5-1.5% SMOKERS 0.5-10.0% LAB METC1(LOINC) 0.0 - 1.5 % High MET HGB 1.6 LAB DOXHG(LOINC) 0.0 - 5.0 % DEOXY HGB 1.3 Performed By: #### COOXA #### [facility] [address] [place] [address] ACT-HIGH RANGE Collected: 03/22/2018 Status: F Source: [place] 1:14 [facility] REPOSITORY TYPE CODE TESTS RESULT OUT OF REFERENCE UNITS RANGE LAB ACTPO(LOINC 91 - 152 SECONDS ) ACT-HIGH 137 RANGE Performed By: #### ACTP #### [facility] [address] [facility] [place] [address] COOX PANEL, ARTERIAL Collected: 03/22/2018 Status: F Source: [place] 1:12 PM [facility] REPOSITORY TYPE CODE TESTS RESULT OUT OF RANGE REFERENCE UNITS LAB HGBXC(LOINC 12.0 - 16.0 g/dL ) Low HGB 9.2 LAB O2CX1(LOINC 94.0 - 98.0 % ) OXY 96.4 HGB LAB COHG1(LOINC % ) Abnormal CO 2.0 HGB Result Comment: REF VALUES NONSMOKERS 0.5-1.5% SMOKERS 0.5-10.0% LAB METC1(LOINC) 0.0 - 1.5 % MET HGB 1.3 LAB DOXHG(LOINC) 0.0 - 5.0 % DEOXY HGB 0.3 Performed By: #### COOXA #### [facility] [address] [place] [address] ARTERIAL FULL PANEL Collected: 03/22/2018 Status: F Source: [place] 1:12 PM [facility] REPOSITORY TYPE CODE TESTS RESULT OUT OF REFERENCE UNITS RANGE LAB PHART(LOIN 7.38 - 7.42 C) pH Low 7.37 LAB PCO2A(LOIN 38 - 42 mmHg C) PCO2 Low 37 LAB PO2A(LOINC 85 - 95 mmHg ) PO2 High 305 LAB TEMP(LOINC degrees C ) PATIENT TEMPERATURE 37.0 Result Comment: NOTE: PATIENT RESULTS ARE NOT CORRECTED FOR TEMPERATURE. LAB FIO2(LOINC) % FIO2 63 LAB SO2%A(LOINC) 94 - 100 % SO2 100 LAB HCTN(LOINC) 36.0 - % Low 46.0 HCT 20.0 LAB SODN(LOINC) 136 - 145 mmol/L SODIUM 138 LAB POTN(LOINC) 3.5 - 5.3 mmol/L POTASSIUM 3.6 LAB CHLN(LOINC) 98 - 107 mmol/L CHLORIDE High 112 LAB IONCA(LOINC) 1.10 - mmol/L 1.33 CALCIUM,IONIZED 1.12 LAB GLUN(LOINC) 74 - 99 mg/dL GLUCOSE High 126 LAB LACTN(LOINC) 0.4 - 2.0 mmol/L LACTATE High 2.6 LAB BSEXB(LOINC) -2.0 - 3.0 mmol/L Low BASE EXCESS-BLOOD -3.5 LAB BICAR(LOINC) 22.0 - mmol/L Low 26.0 BICARB, CALCULATED 21.4 LAB HGBNC(LOINC) 12.0 - g/dL Low 16.0 HGB,CALCULATED 6.8 LAB ANGPN(LOINC) 10 - 25 mmol/L Low ANION GAP 8 Performed By: #### [email or web address] #### [facility] [address] [place] [address] CBC Collected: 03/22/2018 Status: F Source: [facility] 1:[facility] REPOSITORY TYPE CODE TESTS RESULT OUT OF REFERENCE UNITS RANGE LAB WBCR(LOINC 4.4 - 11.3 x10E9/L ) WBC 10.2 LAB NRBC(LOINC 0.0-0.0 /100 WBC ) NUCLEATED RBC 0.0 LAB RBCCT(LOIN 4.00 - 5.20 x10E12/L C) Low RBC 2.92 LAB HGB(LOINC) 12.0 - 16.0 g/dL Low HGB 9.0 LAB HCT(LOINC) 36.0 - 46.0 % Low HCT 26.2 LAB MCV(LOINC) 80 - 100 fL MCV 90 LAB MCHC2(LOIN 32.0 - 36.0 g/dL C) MCHC 34.4 LAB PLTCT(LOIN 150 - 450 x10E9/L C) Low PLT 132 LAB RDWCV(LOIN 11.5 - 14.5 % C) RDW-CV 13.2 Performed By: #### CBC #### [facility] [address] [place] [address] COAGULATION SCREEN Collected: 03/22/2018 Status: F Source: [facility]:10 [facility] REPOSITORY TYPE CODE TESTS RESULT OUT OF REFERENCE UNITS RANGE LAB PT(LOINC) 9.8 - 12.7 sec PROTHROMBIN High TIME 18.0 LAB INR(LOINC) 0.9 - 1.1 PT, INR High 1.6 LAB APTT(LOINC 25 - 36 sec ) APTT 30 Result Comment: THE APTT IS NO LONGER USED FOR MONITORING UNFRACTIONATED HEPARIN THERAPY. FOR MONITORING HEPARIN THERAPY, USE THE HEPARIN ASSAY. Performed By: #### COAGS #### [facility] [address] [place] [address] FIBRINOGEN Collected: 03/22/2018 Status: F Source: [facility] 1:10 PM [facility] REPOSITORY TYPE CODE TESTS RESULT OUT OF REFERENCE UNITS RANGE LAB FIBRN(LOIN 200 - 400 mg/dL C) Low FIBRINOGEN 159 Performed By: #### FIB #### [facility] [address] [place] [id number] ACT-HIGH RANGE Collected: 03/22/2018 Status: F Source: [place] 12:44 [facility] REPOSITORY TYPE CODE TESTS RESULT OUT OF REFERENCE UNITS RANGE LAB ACTPO(LOINC 91 - 152 SECONDS ) High ACT-HIGH 467 RANGE Performed By: #### ACTP #### [facility] [address] [place] [id number] COOX PANEL, ARTERIAL Collected: 03/22/2018 Status: F Source: [place] 12:37 [facility] REPOSITORY TYPE CODE TESTS RESULT OUT OF RANGE REFERENCE UNITS LAB HGBXC(LOINC 12.0 - 16.0 g/dL ) Low HGB 9.9 LAB O2CX1(LOINC 94.0 - 98.0 % ) OXY 97.2 HGB LAB COHG1(LOINC % ) Abnormal CO 1.9 HGB Result Comment: REF VALUES NONSMOKERS 0.5-1.5% SMOKERS 0.5-10.0% LAB METC1(LOINC) 0.0 - 1.5 % MET HGB 0.8 LAB DOXHG(LOINC) 0.0 - 5.0 % DEOXY HGB 0.0 Performed By: #### COOXA #### [facility] [address] [place] [id number] ARTERIAL FULL PANEL Collected: 03/22/2018 Status: F Source: [place] 12:37 [facility] REPOSITORY TYPE CODE TESTS RESULT OUT OF REFERENCE UNITS RANGE LAB PHART(LOIN 7.38 - 7.42 C) pH Low 7.33 LAB PCO2A(LOIN 38 - 42 mmHg C) PCO2 High 46 LAB PO2A(LOINC 85 - 95 mmHg ) PO2 High 326 LAB TEMP(LOINC degrees C ) PATIENT TEMPERATURE 37.0 Result Comment: NOTE: PATIENT RESULTS ARE NOT CORRECTED FOR TEMPERATURE. LAB FIO2(LOINC) % FIO2 75 LAB SO2%A(LOINC) 94 - 100 % SO2 100 LAB HCTN(LOINC) 36.0 - % Low 46.0 HCT 22.0 LAB SODN(LOINC) 136 - 145 mmol/L SODIUM 136 LAB POTN(LOINC) 3.5 - 5.3 mmol/L POTASSIUM 5.2 LAB CHLN(LOINC) 98 - 107 mmol/L CHLORIDE High 109 LAB IONCA(LOINC) 1.10 - mmol/L Low 1.33 CALCIUM,IONIZED 0.94 LAB GLUN(LOINC) 74 - 99 mg/dL GLUCOSE High 157 LAB LACTN(LOINC) 0.4 - 2.0 mmol/L LACTATE 1.3 LAB BSEXB(LOINC) -2.0 - 3.0 mmol/L BASE EXCESS-BLOOD -1.7 LAB BICAR(LOINC) 22.0 - mmol/L 26.0 BICARB, CALCULATED 24.3 LAB HGBNC(LOINC) 12.0 - g/dL Low 16.0 HGB,CALCULATED 7.5 LAB ANGPN(LOINC) 10 - 25 mmol/L Low ANION GAP 8 Performed By: #### [email or web address] #### [facility] [address] [place] [id number] ACT-HIGH RANGE Collected: 03/22/2018 Status: F Source: [facility] 12:22 [facility] REPOSITORY TYPE CODE TESTS RESULT OUT OF REFERENCE UNITS RANGE LAB ACTPO(LOINC 91 - 152 SECONDS ) High ACT-HIGH 477 RANGE Performed By: #### ACTP #### [facility] [address] [place] [id number] ARTERIAL FULL PANEL Collected: 03/22/2018 Status: F Source: [place] 12:19 PM [facility] REPOSITORY TYPE CODE TESTS RESULT OUT OF REFERENCE UNITS RANGE LAB PHART(LOIN 7.38 - 7.42 C) pH Low 7.32 LAB PCO2A(LOIN 38 - 42 mmHg C) PCO2 High 45 LAB PO2A(LOINC 85 - 95 mmHg ) PO2 High 267 LAB TEMP(LOINC degrees C ) PATIENT TEMPERATURE 37.0 Result Comment: NOTE: PATIENT RESULTS ARE NOT CORRECTED FOR TEMPERATURE. LAB FIO2(LOINC) % FIO2 65 LAB SO2%A(LOINC) 94 - 100 % SO2 100 LAB HCTN(LOINC) 36.0 - % Low 46.0 HCT 23.0 LAB SODN(LOINC) 136 - 145 mmol/L Low SODIUM 135 LAB POTN(LOINC) 3.5 - 5.3 mmol/L High POTASSIUM alert 6.3 LAB CHLN(LOINC) 98 - 107 mmol/L High CHLORIDE 109 LAB IONCA(LOINC) 1.10 - mmol/L Low 1.33 CALCIUM,IONIZED 0.96 LAB GLUN(LOINC) 74 - 99 mg/dL High GLUCOSE 116 LAB LACTN(LOINC) 0.4 - 2.0 mmol/L LACTATE 1.0 LAB BSEXB(LOINC) -2.0 - 3.0 mmol/L Low BASE EXCESS-BLOOD -2.9 LAB BICAR(LOINC) 22.0 - mmol/L 26.0 BICARB, CALCULATED 23.2 LAB HGBNC(LOINC) 12.0 - g/dL Low 16.0 HGB,CALCULATED 7.8 LAB ANGPN(LOINC) 10 - 25 mmol/L Low ANION GAP 9 Performed By: #### [email or web address] #### [facility] [address] [place] [id number] COOX PANEL, ARTERIAL Collected: 03/22/2018 Status: F Source: [facility] 12:19 [facility] REPOSITORY TYPE CODE TESTS RESULT OUT OF RANGE REFERENCE UNITS LAB HGBXC(LOINC 12.0 - 16.0 g/dL ) Low HGB 10.2 LAB O2CX1(LOINC 94.0 - 98.0 % ) OXY 96.8 HGB LAB COHG1(LOINC % ) Abnormal CO 2.0 HGB Result Comment: REF VALUES NONSMOKERS 0.5-1.5% SMOKERS 0.5-10.0% LAB METC1(LOINC) 0.0 - 1.5 % MET HGB 1.1 LAB DOXHG(LOINC) 0.0 - 5.0 % DEOXY HGB 0.1 Performed By: #### COOXA #### [facility] [address] [place] [address] COOX PANEL, ARTERIAL Collected: 03/22/2018 Status: F Source: [facility] 11:59 [facility] REPOSITORY TYPE CODE TESTS RESULT OUT OF RANGE REFERENCE UNITS LAB HGBXC(LOINC 12.0 - 16.0 g/dL ) Low HGB 10.3 LAB O2CX1(LOINC 94.0 - 98.0 % ) OXY 96.9 HGB LAB COHG1(LOINC % ) Abnormal CO 1.7 HGB Result Comment: REF VALUES NONSMOKERS 0.5-1.5% SMOKERS 0.5-10.0% LAB METC1(LOINC) 0.0 - 1.5 % MET HGB 1.1 LAB DOXHG(LOINC) 0.0 - 5.0 % DEOXY HGB 0.3 Performed By: #### COOXA #### [facility] [address] [place] [address] ARTERIAL FULL PANEL Collected: 03/22/2018 Status: F Source: [facility] 11:59 [facility] REPOSITORY TYPE CODE TESTS RESULT OUT OF REFERENCE UNITS RANGE LAB PHART(LOIN 7.38 - 7.42 C) pH Low 7.35 LAB PCO2A(LOIN 38 - 42 mmHg C) PCO2 39 LAB PO2A(LOINC 85 - 95 mmHg ) PO2 High 374 LAB TEMP(LOINC degrees C ) PATIENT TEMPERATURE 37.0 Result Comment: NOTE: PATIENT RESULTS ARE NOT CORRECTED FOR TEMPERATURE. LAB FIO2(LOINC) % FIO2 65 LAB SO2%A(LOINC) 94 - 100 % SO2 100 LAB HCTN(LOINC) 36.0 - % Low 46.0 HCT 24.0 LAB SODN(LOINC) 136 - 145 mmol/L SODIUM 136 LAB POTN(LOINC) 3.5 - 5.3 mmol/L POTASSIUM High 5.9 LAB CHLN(LOINC) 98 - 107 mmol/L CHLORIDE High 109 LAB IONCA(LOINC) 1.10 - mmol/L Low 1.33 CALCIUM,IONIZED 0.96 LAB GLUN(LOINC) 74 - 99 mg/dL GLUCOSE High 129 LAB LACTN(LOINC) 0.4 - 2.0 mmol/L LACTATE 0.8 LAB BSEXB(LOINC) -2.0 - 3.0 mmol/L Low BASE EXCESS-BLOOD -3.8 LAB BICAR(LOINC) 22.0 - mmol/L Low 26.0 BICARB, CALCULATED 21.5 LAB HGBNC(LOINC) 12.0 - g/dL Low 16.0 HGB,CALCULATED 8.2 LAB ANGPN(LOINC) 10 - 25 mmol/L ANION GAP 11 Performed By: #### [email or web address] #### [facility] [address] [place] [address] ACT-HIGH RANGE Collected: 03/22/2018 Status: F Source: [facility] 11:59 [facility] REPOSITORY TYPE CODE TESTS RESULT OUT OF REFERENCE UNITS RANGE LAB ACTPO(LOINC 91 - 152 SECONDS ) High ACT-HIGH 569 RANGE Performed By: #### ACTP #### [facility] [address] [place] [address] ACT-HIGH RANGE Collected: 03/22/2018 Status: F Source: [place] 11:22 [facility] REPOSITORY TYPE CODE TESTS RESULT OUT OF REFERENCE UNITS RANGE LAB ACTPO(LOINC 91 - 152 SECONDS ) High ACT-HIGH 653 RANGE Performed By: #### ACTP #### [facility] [address] [place] [address] COOX PANEL, ARTERIAL Collected: 03/22/2018 Status: F Source: [place] 11:20 [facility] REPOSITORY TYPE CODE TESTS RESULT OUT OF RANGE REFERENCE UNITS LAB HGBXC(LOINC 12.0 - 16.0 g/dL ) Low HGB 10.7 LAB O2CX1(LOINC 94.0 - 98.0 % ) OXY 97.5 HGB LAB COHG1(LOINC % ) Abnormal CO 2.0 HGB Result Comment: REF VALUES NONSMOKERS 0.5-1.5% SMOKERS 0.5-10.0% LAB METC1(LOINC) 0.0 - 1.5 % MET HGB 0.7 LAB DOXHG(LOINC) 0.0 - 5.0 % Low DEOXY HGB -0.2 Performed By: #### COOXA #### [facility] [address] [place] [address] ARTERIAL FULL PANEL Collected: 03/22/2018 Status: F Source: [place] 11:20 [facility] REPOSITORY TYPE CODE TESTS RESULT OUT OF REFERENCE UNITS RANGE LAB PHART(LOIN 7.38 - 7.42 C) pH Low 7.33 LAB PCO2A(LOIN 38 - 42 mmHg C) PCO2 High 44 LAB PO2A(LOINC 85 - 95 mmHg ) PO2 High 434 LAB TEMP(LOINC degrees C ) PATIENT TEMPERATURE 37.0 Result Comment: NOTE: PATIENT RESULTS ARE NOT CORRECTED FOR TEMPERATURE. LAB FIO2(LOINC) % FIO2 65 LAB SO2%A(LOINC) 94 - 100 % SO2 100 LAB HCTN(LOINC) 36.0 - % Low 46.0 HCT 25.0 LAB SODN(LOINC) 136 - 145 mmol/L SODIUM 136 LAB POTN(LOINC) 3.5 - 5.3 mmol/L POTASSIUM High 5.8 LAB CHLN(LOINC) 98 - 107 mmol/L CHLORIDE High 110 LAB IONCA(LOINC) 1.10 - mmol/L Low 1.33 CALCIUM,IONIZED 0.97 LAB GLUN(LOINC) 74 - 99 mg/dL GLUCOSE High 150 LAB LACTN(LOINC) 0.4 - 2.0 mmol/L LACTATE 0.7 LAB BSEXB(LOINC) -2.0 - 3.0 mmol/L Low BASE EXCESS-BLOOD -2.7 LAB BICAR(LOINC) 22.0 - mmol/L 26.0 BICARB, CALCULATED 23.2 LAB HGBNC(LOINC) 12.0 - g/dL Low 16.0 HGB,CALCULATED 8.5 LAB ANGPN(LOINC) 10 - 25 mmol/L Low ANION GAP 9 Performed By: #### [email or web address] #### [facility] [address] [place] [id number] COOX PANEL, ARTERIAL Collected: 03/22/2018 Status: F Source: [place] 10:45 [facility] REPOSITORY TYPE CODE TESTS RESULT OUT OF RANGE REFERENCE UNITS LAB HGBXC(LOINC 12.0 - 16.0 g/dL ) Low HGB 9.7 LAB O2CX1(LOINC 94.0 - 98.0 % ) OXY 97.1 HGB LAB COHG1(LOINC % ) Abnormal CO 1.9 HGB Result Comment: REF VALUES NONSMOKERS 0.5-1.5% SMOKERS 0.5-10.0% LAB METC1(LOINC) 0.0 - 1.5 % MET HGB 0.9 LAB DOXHG(LOINC) 0.0 - 5.0 % DEOXY HGB 0.1 Performed By: #### COOXA #### [facility] [address] [place] [id number] ARTERIAL FULL PANEL Collected: 03/22/2018 Status: F Source: [place] 10:45 [facility] REPOSITORY TYPE CODE TESTS RESULT OUT OF REFERENCE UNITS RANGE LAB PHART(LOIN 7.38 - 7.42 C) pH Low 7.34 LAB PCO2A(LOIN 38 - 42 mmHg C) PCO2 High 44 LAB PO2A(LOINC 85 - 95 mmHg ) PO2 High 397 LAB TEMP(LOINC degrees C ) PATIENT TEMPERATURE 37.0 Result Comment: NOTE: PATIENT RESULTS ARE NOT CORRECTED FOR TEMPERATURE. LAB FIO2(LOINC) % FIO2 65 LAB SO2%A(LOINC) 94 - 100 % SO2 100 LAB HCTN(LOINC) 36.0 - % Low 46.0 HCT 22.0 LAB SODN(LOINC) 136 - 145 mmol/L Low SODIUM 135 LAB POTN(LOINC) 3.5 - 5.3 mmol/L POTASSIUM 5.2 LAB CHLN(LOINC) 98 - 107 mmol/L CHLORIDE High 109 LAB IONCA(LOINC) 1.10 - mmol/L Low 1.33 CALCIUM,IONIZED 0.97 LAB GLUN(LOINC) 74 - 99 mg/dL GLUCOSE High 145 LAB LACTN(LOINC) 0.4 - 2.0 mmol/L LACTATE 0.7 LAB BSEXB(LOINC) -2.0 - 3.0 mmol/L Low BASE EXCESS-BLOOD -2.1 LAB BICAR(LOINC) 22.0 - mmol/L 26.0 BICARB, CALCULATED 23.7 LAB HGBNC(LOINC) 12.0 - g/dL Low 16.0 HGB,CALCULATED 7.5 LAB ANGPN(LOINC) 10 - 25 mmol/L Low ANION GAP 8 Performed By: #### [email or web address] #### [facility] [address] [place] [address] COOX PANEL, ARTERIAL Collected: 03/22/2018 Status: F Source: [place] 10:15 [facility] REPOSITORY TYPE CODE TESTS RESULT OUT OF RANGE REFERENCE UNITS LAB HGBXC(LOINC 12.0 - 16.0 g/dL ) Low HGB 10.1 LAB O2CX1(LOINC 94.0 - 98.0 % ) OXY 97.5 HGB LAB COHG1(LOINC % ) Abnormal CO 1.7 HGB Result Comment: REF VALUES NONSMOKERS 0.5-1.5% SMOKERS 0.5-10.0% LAB METC1(LOINC) 0.0 - 1.5 % MET HGB 0.8 LAB DOXHG(LOINC) 0.0 - 5.0 % Low DEOXY HGB -0.1 Performed By: #### COOXA #### [facility] [address] [place] [address] ARTERIAL FULL PANEL Collected: 03/22/2018 Status: F Source: [place] 10:15 [facility] REPOSITORY TYPE CODE TESTS RESULT OUT OF REFERENCE UNITS RANGE LAB PHART(LOIN 7.38 - 7.42 C) pH 7.41 LAB PCO2A(LOIN 38 - 42 mmHg C) PCO2 38 LAB PO2A(LOINC 85 - 95 mmHg ) PO2 High 488 LAB TEMP(LOINC degrees C ) PATIENT TEMPERATURE 37.0 Result Comment: NOTE: PATIENT RESULTS ARE NOT CORRECTED FOR TEMPERATURE. LAB FIO2(LOINC) % FIO2 70 LAB SO2%A(LOINC) 94 - 100 % SO2 100 LAB HCTN(LOINC) 36.0 - % Low 46.0 HCT 24.0 LAB SODN(LOINC) 136 - 145 mmol/L SODIUM 140 LAB POTN(LOINC) 3.5 - 5.3 mmol/L POTASSIUM 5.0 LAB CHLN(LOINC) 98 - 107 mmol/L CHLORIDE High 111 LAB IONCA(LOINC) 1.10 - mmol/L Low 1.33 CALCIUM,IONIZED 0.99 LAB GLUN(LOINC) 74 - 99 mg/dL GLUCOSE High 136 LAB LACTN(LOINC) 0.4 - 2.0 mmol/L LACTATE 0.8 LAB BSEXB(LOINC) -2.0 - 3.0 mmol/L BASE EXCESS-BLOOD -0.4 LAB BICAR(LOINC) 22.0 - mmol/L 26.0 BICARB, CALCULATED 24.1 LAB HGBNC(LOINC) 12.0 - g/dL Low 16.0 HGB,CALCULATED 8.2 LAB ANGPN(LOINC) 10 - 25 mmol/L ANION GAP 10 Performed By: #### [email or web address] #### [facility] [address] [place] [address] ACT-HIGH RANGE Collected: 03/22/2018 Status: F Source: [place] 10:12 [facility] REPOSITORY TYPE CODE TESTS RESULT OUT OF REFERENCE UNITS RANGE LAB ACTPO(LOINC 91 - 152 SECONDS ) High ACT-HIGH 642 RANGE Performed By: #### ACTP #### [facility] [address] [place] [address] ABO/RH GROUP TEST Collected: 03/22/2018 Status: F Source: [facility] 9:50 [facility] REPOSITORY TYPE CODE TESTS RESULT OUT OF RANGE REFERENCE UNITS LAB ABORH(LOINC ) ABO TYPE B LAB RH(LOINC) RH TYPE POS Performed By: #### VERAB #### [facility] [address] [place] [id number] PLATELETS Collected: 03/22/2018 Status: F Source: [place] [id number] [place] [address] REPOSITORY TYPE CODE TESTS RESULT OUT OF REFERENCE UNITS RANGE LAB PLT(LOINC) PLATELETS ORDER RECD Result Comment: If this patient is Rh Negative and if the Platelet product transfused is Rh Positive, review the use of WinRho Prophylaxis for this patient. Performed By: #### PLT #### [facility] [address] [place] [id number] PLASMA Collected: 03/22/2018 Status: F Source: [place] 9:[address] [place] [address] REPOSITORY TYPE CODE TESTS RESULT OUT OF REFERENCE UNITS RANGE LAB FFP(LOINC) PLASMA ORDER RECD Performed By: #### FFP #### [facility] [address] [place] [id number] VENOUS FULL PANEL Collected: 03/22/2018 Status: F Source: [place] [id number] [place] [address] REPOSITORY TYPE CODE TESTS RESULT OUT OF REFERENCE UNITS RANGE LAB PHVEN(LOIN 7.33 - 7.43 C) pH 7.39 LAB PCO2V(LOIN 41 - 51 mmHg C) PCO2 43 LAB PO2V(LOINC 35 - 45 mmHg ) PO2 High 60 LAB TEMP(LOINC degrees C ) PATIENT TEMPERATURE 37.0 Result Comment: NOTE: PATIENT RESULTS ARE NOT CORRECTED FOR TEMPERATURE. LAB FIO2(LOINC) % FIO2 75 LAB SO2%V(LOINC) 45 - 75 % SO2 High 95 LAB HCTN(LOINC) 36.0 - % Low 46.0 HCT 25.0 LAB SODN(LOINC) 136 - 145 mmol/L SODIUM 140 LAB POTN(LOINC) 3.5 - 5.3 mmol/L POTASSIUM 4.4 LAB CHLN(LOINC) 98 - 107 mmol/L CHLORIDE High 110 LAB IONCA(LOINC) 1.10 - mmol/L Low 1.33 CALCIUM,IONIZED 1.01 LAB GLUN(LOINC) 74 - 99 mg/dL GLUCOSE High 128 LAB LACTN(LOINC) 0.4 - 2.0 mmol/L LACTATE 0.7 LAB BSEXB(LOINC) -2.0 - 3.0 mmol/L BASE EXCESS-BLOOD 0.8 LAB BICVN(LOINC) 22.0 - mmol/L 26.0 BICARB, CALCULATED 26.0 LAB HGBNC(LOINC) 12.0 - g/dL Low 16.0 HGB,CALCULATED 8.5 LAB ANGPN(LOINC) 10 - 25 mmol/L Low ANION GAP 8 Performed By: #### [email or web address] #### [facility] [id number] [place] [address] COOX PANEL,VENOUS Collected: 03/22/2018 Status: F Source: [place] 9:49 [facility] REPOSITORY TYPE CODE TESTS RESULT OUT OF RANGE REFERENCE UNITS LAB COHGV(LOINC % ) Abnormal CO 2.2 HGB Result Comment: REF VALUES NONSMOKERS 0.5-1.5% SMOKERS 0.5-10.0% LAB METCV(LOINC) 0.0 - 1.5 % MET HGB 1.1 Performed By: #### COOXV #### [facility] [id number] [place] [id number] ACT-HIGH RANGE Collected: 03/22/2018 Status: F Source: [place] 9:29 [facility] REPOSITORY TYPE CODE TESTS RESULT OUT OF REFERENCE UNITS RANGE LAB ACTPO(LOINC 91 - 152 SECONDS ) High ACT-HIGH 645 RANGE Performed By: #### ACTP #### [facility] [id number] [place] [id number] COOX PANEL, ARTERIAL Collected: 03/22/2018 Status: F Source: [place] 9:28 [facility] REPOSITORY TYPE CODE TESTS RESULT OUT OF RANGE REFERENCE UNITS LAB HGBXC(LOINC 12.0 - 16.0 g/dL ) Low HGB 10.7 LAB O2CX1(LOINC 94.0 - 98.0 % ) OXY 97.5 HGB LAB COHG1(LOINC % ) Abnormal CO 1.8 HGB Result Comment: REF VALUES NONSMOKERS 0.5-1.5% SMOKERS 0.5-10.0% LAB METC1(LOINC) 0.0 - 1.5 % MET HGB 0.9 LAB DOXHG(LOINC) 0.0 - 5.0 % Low DEOXY HGB -0.3 Performed By: #### COOXA #### [facility] [id number] [place] [id number] ARTERIAL FULL PANEL Collected: 03/22/2018 Status: F Source: [place] 9:[facility] REPOSITORY TYPE CODE TESTS RESULT OUT OF REFERENCE UNITS RANGE LAB PHART(LOIN 7.38 - 7.42 C) pH High 7.45 LAB PCO2A(LOIN 38 - 42 mmHg C) PCO2 Low 36 LAB PO2A(LOINC 85 - 95 mmHg ) PO2 High 379 LAB TEMP(LOINC degrees C ) PATIENT TEMPERATURE 37.0 Result Comment: NOTE: PATIENT RESULTS ARE NOT CORRECTED FOR TEMPERATURE. LAB FIO2(LOINC) % FIO2 75 LAB SO2%A(LOINC) 94 - 100 % SO2 100 LAB HCTN(LOINC) 36.0 - % Low 46.0 HCT 27.0 LAB SODN(LOINC) 136 - 145 mmol/L SODIUM 139 LAB POTN(LOINC) 3.5 - 5.3 mmol/L POTASSIUM 3.5 LAB CHLN(LOINC) 98 - 107 mmol/L CHLORIDE High 110 LAB IONCA(LOINC) 1.10 - mmol/L Low 1.33 CALCIUM,IONIZED 0.98 LAB GLUN(LOINC) 74 - 99 mg/dL GLUCOSE High 110 LAB LACTN(LOINC) 0.4 - 2.0 mmol/L LACTATE 0.7 LAB BSEXB(LOINC) -2.0 - 3.0 mmol/L BASE EXCESS-BLOOD 1.1 LAB BICAR(LOINC) 22.0 - mmol/L 26.0 BICARB, CALCULATED 25.0 LAB HGBNC(LOINC) 12.0 - g/dL Low 16.0 HGB,CALCULATED 9.2 LAB ANGPN(LOINC) 10 - 25 mmol/L Low ANION GAP 8 Performed By: #### [email or web address] #### [facility] [id number] [place] [address] ACT-HIGH RANGE Collected: 03/22/2018 Status: F Source: [place] 9:[facility] REPOSITORY TYPE CODE TESTS RESULT OUT OF REFERENCE UNITS RANGE LAB ACTPO(LOINC 91 - 152 SECONDS ) High ACT-HIGH 500 RANGE Performed By: #### ACTP #### [facility] [id number] [place] [address] COOX PANEL, ARTERIAL Collected: 03/22/2018 Status: F Source: [place] 9:[facility] REPOSITORY TYPE CODE TESTS RESULT OUT OF RANGE REFERENCE UNITS LAB HGBXC(LOINC 12.0 - 16.0 g/dL ) HGB 12.4 LAB O2CX1(LOINC 94.0 - 98.0 % ) OXY HGB 97.3 LAB COHG1(LOINC % ) CO HGB 1.5 Result Comment: REF VALUES NONSMOKERS 0.5-1.5% SMOKERS 0.5-10.0% LAB METC1(LOINC) 0.0 - 1.5 % MET HGB 0.7 LAB DOXHG(LOINC) 0.0 - 5.0 % DEOXY HGB 0.5 Performed By: #### COOXA #### [facility] [id number] [place] [address] ARTERIAL FULL PANEL Collected: 03/22/2018 Status: F Source: [place] 9:[facility] REPOSITORY TYPE CODE TESTS RESULT OUT OF REFERENCE UNITS RANGE LAB PHART(LOIN 7.38 - 7.42 C) pH High 7.46 LAB PCO2A(LOIN 38 - 42 mmHg C) PCO2 Low 36 LAB PO2A(LOINC 85 - 95 mmHg ) PO2 High 320 LAB TEMP(LOINC degrees C ) PATIENT TEMPERATURE 37.0 Result Comment: NOTE: PATIENT RESULTS ARE NOT CORRECTED FOR TEMPERATURE. LAB FIO2(LOINC) % FIO2 67 LAB SO2%A(LOINC) 94 - 100 % SO2 100 LAB HCTN(LOINC) 36.0 - % Low 46.0 HCT 33.0 LAB SODN(LOINC) 136 - 145 mmol/L SODIUM 139 LAB POTN(LOINC) 3.5 - 5.3 mmol/L POTASSIUM 3.8 LAB CHLN(LOINC) 98 - 107 mmol/L CHLORIDE High 109 LAB IONCA(LOINC) 1.10 - mmol/L Low 1.33 CALCIUM,IONIZED 1.05 LAB GLUN(LOINC) 74 - 99 mg/dL GLUCOSE High 108 LAB LACTN(LOINC) 0.4 - 2.0 mmol/L LACTATE 0.7 LAB BSEXB(LOINC) -2.0 - 3.0 mmol/L BASE EXCESS-BLOOD 1.9 LAB BICAR(LOINC) 22.0 - mmol/L 26.0 BICARB, CALCULATED 25.6 LAB HGBNC(LOINC) 12.0 - g/dL Low 16.0 HGB,CALCULATED 11.2 LAB ANGPN(LOINC) 10 - 25 mmol/L Low ANION GAP 8 Performed By: #### AFPA3 #### [facility] [address] [place] [address]. 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 The left ventricular cavity size is normal. The left ventricular septal wall thickness is moderately increased. Left ventricular diastol ic filling was not assessed. Left Atrium: The left atrium is severely dilated. There is no definite left atrial thrombus present. There is no evidence of a patent foramen ovale. Right Ventricle: The right ventricle is normal in size. There is normal right ventricular global systolic function. Right Atrium: The right atrium is normal in size. Pacemaker wire in place. Aortic Valve: The aortic valve is trileaflet. There is moderate to severe aortic valve cusp calcification. There is evidence of severe aortic valve stenosis. There is moderate aortic valve regurgitation. Mitral Valve: The mitral valve is severely thickened. There is evidence of mild mitral valve stenosis. There is moderate mitral valve regurgitation. Rheumatic appearing mitral valve. Anterior leaflet with hockey stick sign. Tricuspid Valve: The tricuspid valve is structurally normal. There is mild tricuspid regurgitation. Pulmonic Valve: The pulmonic valve was not assessed. There is trace pulmonic valve regurgitation. Pericardium: There is no pericardial effusion noted. Aorta: The aortic root is normal. There is dilatation of ascending aorta to the upper limits of normal. CONCLUSIONS: 1. The left ventricular systolic function is normal. 2. Moderately increased left ventricular septal thickness. 3. The left atrium is severely dilated. 4. The mitral valve is severely thickened. 5. Moderate mitral valve regurgitation. 6. Severe aortic valve stenosis. 7. There is moderate to severe aortic valve cusp calcification. 8. There is moderate aortic valve regurgitation. 9. No left atrial thrombus. 10. There is no evidence of a patent foramen ovale. POST CARDIOPULMONARY BYPASS REPORT: Patient is being paced. Patient is on an epinephrine drip. LV function is unchanged from pre-pump exam. RV function is unchanged from pre- pump exam. A stentless bioprosthetic valve is now seen in the ao rtic position, is well seated, with good leaflet motion. There is no aortic regurgitation. There is no elle-prosthetic aortic regurgitation. A bioprosthetic valve is now seen in the mitral position, is well seated, with good leaflet motion. There is no mitral regurgitation. There is no elle-prosthetic mitral regurgitation. A tricuspid ring is now in place and is well seated. There is no evidence of tr icuspid stenosis. There is trace tricuspid regurgitation. No evidence of post aortic cannulation dissection. QUANTITATIVE DATA SUMMARY: [id number] Everett Vee MD Electronically signed on 03/22/2018 at 4:24:22 PM Final ACT-HIGH RANGE Collected: 03/22/2018 Status: F Source: [place] 8:37 AM [facility] REPOSITORY TYPE CODE TESTS RESULT OUT OF REFERENCE UNITS RANGE LAB ACTPO(LOINC 91 - 152 SECONDS ) ACT-HIGH 105 RANGE Performed By: #### ACTP #### [facility] [address] [place] [address] COOX PANEL, ARTERIAL Collected: 03/22/2018 Status: F Source: [place] 8:34 AM [facility] REPOSITORY TYPE CODE TESTS RESULT OUT OF RANGE REFERENCE UNITS LAB HGBXC(LOINC 12.0 - 16.0 g/dL ) HGB 13.0 LAB O2CX1(LOINC 94.0 - 98.0 % ) OXY 96.8 HGB LAB COHG1(LOINC % ) Abnormal CO 1.7 HGB Result Comment: REF VALUES NONSMOKERS 0.5-1.5% SMOKERS 0.5-10.0% LAB METC1(LOINC) 0.0 - 1.5 % MET HGB 1.2 LAB DOXHG(LOINC) 0.0 - 5.0 % DEOXY HGB 0.3 Performed By: #### COOXA #### [facility] [address] [place] [address] ARTERIAL FULL PANEL Collected: 03/22/2018 Status: F Source: [place] 8:34 AM [facility] TYPE CODE TESTS RESULT OUT OF REFERENCE UNITS RANGE LAB PHART(LOIN 7.38 - 7.42 C) pH High 7.44 LAB PCO2A(LOIN 38 - 42 mmHg C) PCO2 42 LAB PO2A(LOINC 85 - 95 mmHg ) PO2 High 224 LAB TEMP(LOINC degrees C ) PATIENT TEMPERATURE 37.0 Result Comment: NOTE: PATIENT RESULTS ARE NOT CORRECTED FOR TEMPERATURE. LAB FIO2(LOINC) % FIO2 67 LAB SO2%A(LOINC) 94 - 100 % SO2 100 LAB HCTN(LOINC) 36.0 - % Low 46.0 HCT 35.0 LAB SODN(LOINC) 136 - 145 mmol/L SODIUM 139 LAB POTN(LOINC) 3.5 - 5.3 mmol/L POTASSIUM 3.8 LAB CHLN(LOINC) 98 - 107 mmol/L CHLORIDE High 108 LAB IONCA(LOINC) 1.10 - mmol/L Low 1.33 CALCIUM,IONIZED 1.09 LAB GLUN(LOINC) 74 - 99 mg/dL GLUCOSE High 102 LAB LACTN(LOINC) 0.4 - 2.0 mmol/L LACTATE 0.6 LAB BSEXB(LOINC) -2.0 - 3.0 mmol/L BASE High EXCESS-BLOOD 3.9 LAB BICAR(LOINC) 22.0 - mmol/L 26.0 BICARB, High CALCULATED 28.5 LAB HGBNC(LOINC) 12.0 - g/dL Low 16.0 HGB,CALCULATED 11.9 LAB ANGPN(LOINC) 10 - 25 mmol/L Low ANION GAP 6 Performed By: #### AFPA3 #### [facility] [address] [place] [address] CBC Collected: 03/22/2018 Status: F Source: [place] 8:30 AM [facility] REPOSITORY TYPE CODE TESTS RESULT OUT OF REFERENCE UNITS RANGE LAB WBCR(LOINC 4.4 - 11.3 x10E9/L ) WBC 4.4 LAB NRBC(LOINC 0.0-0.0 /100 WBC ) NUCLEATED RBC 0.0 LAB RBCCT(LOIN 4.00 - 5.20 x10E12/L C) RBC 4.32 LAB HGB(LOINC) 12.0 - 16.0 g/dL HGB 13.0 LAB HCT(LOINC) 36.0 - 46.0 % HCT 37.0 LAB MCV(LOINC) 80 - 100 fL MCV 86 LAB MCHC2(LOIN 32.0 - 36.0 g/dL C) MCHC 35.1 LAB PLTCT(LOIN 150 - 450 x10E9/L C) PLT 185 LAB RDWCV(LOIN 11.5 - 14.5 % C) RDW-CV 13.1 Performed By: #### CBC #### [facility] [address] [place] [address] COAGULATION SCREEN Collected: 03/22/2018 Status: F Source: [place] 8:30 AM [facility]POS[facility] TYPE CODE TESTS RESULT OUT OF REFERENCE UNITS RANGE LAB PT(LOINC) 9.8 - 12.7 sec PROTHROMBIN TIME 11.6 LAB INR(LOINC) 0.9 - 1.1 PT, INR 1.0 LAB APTT(LOINC 25 - 36 sec ) APTT 28 Result Comment: THE APTT IS NO LONGER USED FOR MONITORING UNFRACTIONATED HEPARIN THERAPY. FOR MONITORING HEPARIN THERAPY, USE THE HEPARIN ASSAY. Performed By: #### COAGS #### [facility] [address] [place] [address] FIBRINOGEN Collected: 03/22/2018 Status: F Source: [place] 8:30 AM [facility] REPOSITORY TYPE CODE TESTS RESULT OUT OF REFERENCE UNITS RANGE LAB FIBRN(LOIN 200 - 400 mg/dL C) FIBRINOGEN 334 Performed By: #### FIB #### [facility] [address] [place] [address] PREOP CHECKLIST Observed: 03/22/2018 Status: UNK Source: [place] 6:30 AM [facility] REPOSITORY Preop Checklist: Preop Checklist: ? Arrival [id number] ? Arrival Time05:59 ? Procedure TypeAVR / MVR / TVR : ligation left atrial JOAN ? NPO [id number] 22:30 ? ID Band Onyes ? Allergy Bandyes ? Consent Signedpending ? H&P Completepending ? Anesthesia Assessment Completedpending ? EKG Performednot ordered ? Chest X-Ray Performednot ordered ? Chlorhexadine Bath Givencompleted at home ? Soap and water bath with hair shampoo the night before surgeryno ? SCD's Appliedyes ? BETTY Hose Appliednot ordered ? Denturesnot applicable ? Prostheticsnot applicable ? Hearing Aidsnot applicable ? Valuables Securedplaced in locker ? Glasses / Contactssent with family ? Bowel Prepno Cardiovascular Assessment: ? Apicalregular ? Radial Pulsespalpable ? Pedal Pulsespalpable ? Extremitieswarm Respiratory Assessment: ? Respirationsunlabored regular ? Air Exchangegood, equal ? Breath Soundsclear Neurological Assessment: ? Level of Consciousnessalert, oriented ? Mobilitymoves all extremities ? Age Appropriateyes ? Emotional Statuscalm Preop Education: ? Surgical Site Infection Preventionyes ? Pain Scales and Managementyes Language / Communication: ? Language / CommunicationEnglish Electronic Signatures: Jenny Alvraez) (Signed 22-Mar-2018 06:33) Authored: Preop Checklist Last Updated: 22-Mar-2018 06:33 by Jenny Alvarez (DANDY) PATIENT PROFILE - Observed: 03/22/2018 Status: UNK Source: [place] PREOP V2 6:22 AM [facility] REPOSITORY Profile: Initial Info: How to be AddressedJoy Spoken Language PreferredEnglish Are you currently using the Personal Electronic Health Record or Showpadno Are you interested in learning more about Sugar Free MediaC[employer]back Chintai for the management of your healthdeclined Stated Reason for Admissionvalve repair Primary Contact Name and Numberscott Lyle - Patient Belongingsnone Medications Brought to Hospitalyes Medication Dispositionsent home with family General Health: Patient or Family Member Reaction to Anesthesiapatient reaction Patient Reaction to Anesthesianausea and vomiting Blood Avoidance/Restrictionsnone Previous Transfusion Reactionno Health Mgmt: Symptoms/Conditions Managed at Homecancer; cardiovascular Cancer Symptoms/Conditionsthyroid Cardiovascular Symptoms/Conditionsdysrhythmia; valvular disease Cardiovascular Symptoms/Conditions Commentpacemaker, 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, aortic stenosis , afib with ablation 2015 Barriers to Managing Healthnone Relationship/Environ: Lives Withspouse(1) Living Arrangementshouse(1) Resource/Environmental Concernsnone Anticipated Transition [place] [facility] Anticipated at Transitionnone Substance: Current or Former Substance Use never: Cigarette/Tobacco, e-Cigarette/Vaping, Alcohol, Street Drugs Risk Screens: Advance Directive Medicalno During the past month, have you often been bothered by feeling down, depressed or hopeless?no During the past month, have you often had little interest or pleasure in doing things?no Have you had any thoughts of harming yourself?no Have you had any thoughts of harming anyone else?no Patient is Able to be Assessed for Learningyes Factors Influencing Readiness to Learnanxiety Factors that Impact Ability to Learncomprehension, visual problems Devices/Methods Used to Communicatenone Learning Preferencesverbal instruction; individual instruction Cultural Considerationsnone Developmental Considerationsnone Orthodoxy Considerationsnone Other learner availableyes... Learnerspouse Factors Influencing Readiness to Learnrequests information Factors that Impact Ability to Learnnone Devices/Methods Used to Communicatenone Learning Preferencesindividual instruction, verbal instruction Cultural Considerationsnone Developmental Considerationsnone Orthodoxy Considerationsnone Falls RiskPatient location auto qualifies him/her for HIGH RISK. Are there any cultural, spiritual, judaism practices/values/needs that are important for us to know?no Do you want a visit/item from Pastoral Care?no Would you like your Court Messenger/Biological Science Technician Fish notified?no Pain Scalenumerical 0-10 Pain Scale Educationteaching provided Current Pain Level0 = None Acceptable Pain Level5 = Moderate Chronic Painno Information Review: ? Allergies, Home Meds and Significant Events have been Reviewed and Verified with Patient/Familyyes Allergy, Intolerance, Adverse Event: Allergies: ? sulfamethoxazole: Drug, Rash, Active ? Cipro: Drug, Other, Active Significant Events: 27-Sep-2017 ? thyroidectomy: Past Surgical History, Active, early 27-Sep-2017 ? HIPPA Password: Past Medical History, Active, [place]jas 27-Sep-2017 ? a-fib: Past Medical History, Active 31-May-2009 ? rhematic fever: Past Medical History, Active 31-May-2009 ? thyroid CA: Past Medical History, Active 31-May-2009 ? pace maker: Past Medical History, Active 27-Sep-2017 ? .Influenza- Influenza Virus: Immunizations, Active, 27-Sep-2017 ? .Pneumonia- Pneumococcal polysaccharide vaccine: Immunizations, Active, 2016 Electronic Signatures: Jenny Alvarez) (Signed 22-Mar-2018 06:30) Authored: Profile, Additional Information Last Updated: 22-Mar-2018 06:30 by Jenny Alvarez (RN) References: 1. Data Referenced From Patient Profile - Adult v2 09/27/2017 06:07 PM OPERATIVE REPORT Observed: 03/22/2018 Status: UNK Source: [place] 12:00 [place] [address] Patient Name: MARSHALL FARRELL : 1945 Date of Service: 03/22/2018 Patient Location: [place] [address] Patient Type: I Surgeon: Louis Pulido MD Report Type: Operative Reports PREOPERATIVE DIAGNOSIS: 1. Mitral stenosis and regurgitation. 2. Aortic stenosis and regurgitation. 3. Tricuspid regurgitation. 4. Paroxysmal atrial fibrillation. POSTOPERATIVE DIAGNOSIS: 1. Mitral stenosis and regurgitation. 2. Aortic stenosis and regurgitation. 3. Tricuspid regurgitation. 4. Paroxysmal atrial fibrillation. OPERATION/PROCEDURE: 1. Mitral valve replacement: #31 Epic. 2. Aortic valve replacement: #23 freestyle. 3. Tricuspid valve repair: #31 ATS ring. 4. Maze procedure. SURGEON: Louis Pulido MD SHIP MANAGER(S): Mr. Dias. ANESTHESIA: General endotracheal. INDICATIONS: This is a 72-year-old female who had a known history of rheumatic fever and valvular heart disease as a result. She had done well through life, but recently had undergone mitral balloon valvuloplasty for severe mitral stenosis. She recovered somewhat, but slowly experienced class 3 heart failure symptoms. Echocardiography demonstrated diffusely thickened mitral valve leaflets with severe central mitral regurgitation and restricted motion with a peak gradient of 15. There was moderate aortic regurgitation with moderately severe aortic stenosis and again diffusely thickened leaflets with evidence of severe aortic stenosis. There was moderate tricuspid regurgitation with a moderately dilated tricuspid annulus. The right and left ventricular function were normal, and coronary anatomy was unobstructed in a right dominant system. The patient was accordingly referred for surgical intervention. Of note, the patient had undergone cardioversion for her paroxysmal atrial fibrillation in the past. FINDINGS: Intraoperative ERNE corroborated all of the above. The tricuspid valve was approximately 35 mm in diameter in this 1.8 sq m woman. Ejection fraction was approximately 60% with good right ventricular function as well. There was a severely restricted opening of the mitral valve with diffusely thickened leaflets and some calcification along the posterior annulus. The aortic valve was trileaflet and also diffusely thickened with significant stenosis and regurgitation. The patient had a permanent dual-chamber pacemaker in place. Under blood cardioplegic arrest, the maze procedure was performed with isolation of the right pulmonary veins, isolation of the left pulmonary veins, transection and removal of left atrial appendage with a communication between the left superior pulmonary vein and its top. A cryolesion was fashioned from the right inferior pulmonary vein down to P2 of the mitral annulus. The mitral valve was replaced after resection of most of the posterior leaflet with preservation of the tertiary chords and resection of most of the anterior leaflet with retention of the most anterior chords. These were the only chords identifiable as the papillary muscles grew directly into the underside of these very thickened and calcified leaflets. A 31 mm Epic stented porcine prosthesis was implanted. Attention was then turned to the aortic root which was opened several centimeters distal to the sinotubular ridge. The aortic valve was trileaflet, diffusely thickened and calcified with retraction. The valve was removed and replaced with a 23 mm Freestyle bioprosthetic aortic root in the modified subcoronary position. Tricuspid valve was then exposed, demonstrating a broadly dilated structure, especially in the region of the posterior leaflet with no evident leaflet or chordal defect. A 31 mm ATS ring was implanted and interrupted at the site of the conducting bundle. The patient easily weaned from bypass under AV sequential pacing with a total cross-clamp time of 173 minutes, bypass time 213 minutes, and lowest systemic temperature of 28 degrees centigrade. Postoperative RENE demonstrated a competent aortic valve, competent mitral valve, competent tricuspid valve, with appropriate air freeing. Ventricular wall motion was preserved. PROCEDURE: Following achievement of adequate general anesthesia, the patient was placed in the supine position; the chest, groins, and legs were prepped with Betadine and draped in a sterile fashion. The heart was exposed through a midline sternotomy and after appropriate pericardial retraction, the patient was heparinized and bicavally cannulated for bypass. Under warm and cold antegrade and retrograde blood cardioplegic arrest, the maze procedure was performed with the AtriCure bipolar radiofrequency clamp and the linear cryoprobe. The mitral valve was exposed across the atrial septum with good exposure. Most of the anterior leaflet was removed due to its inherent bulk which would have interfered with the implantation of a porcine prosthesis and the same for the posterior leaflet with preservation of the chords as described above. A 31 mm Epic porcine prosthesis was implanted and secured with circumferentially placed, horizontally mattressed, doubly pledgeted 2-0 Tycron sutures passed in the ventricular to the atrial side. A reinforcing suture was added at the level of the left fibrous trigone. A vent was passed across the valve prior to closure of the atrial septum. The proximal aortic root was opened several centimeters distal to the sinotubular ridge, and the gulkana valve sharply resected. All calcium was debrided, and the ventricle and aortic root copiously irrigated with saline. A 23 mm Freestyle bioprosthetic aortic root was placed in a modified subcoronary position with interrupted 2-0 Tycron for the inflow suture line and running 4-0 Prolene for the outflow suture line. Great care was taken to avoid the coronary ostia. The gulkana aorta was closed with double-layered 4-0 Prolene reinforced with topical Coseal. The tricuspid valve was repaired with a 31 mm ATS ring interrupted at the site of the conducting bundle with circumferentially placed, horizontally mattressed, nonpledgeted 2-0 Tycron sutures. Right atrial wall was then closed and the cross-clamp removed with vents in the root and left ventricle. After a brief period of reperfusion, the patient weaned. Following careful attention to hemostasis, protamine was administered. Temporary pacing wires were placed, and pleural pericardial flaps were closed about the heart. A Reece drain was left through the transverse pericardial sinus in addition to chest tubes inside and outside to loosely close pericardium. An additional chest tube was placed in the right pleural space. Sternum was reapproximated with interrupted wires, skin and subcutaneous tissue were closed in layers, and the patient returned to the surgical ICU in stable condition. Louis Pulido MD EST TT: 03/23/2018 10:51 AM EST DICTATION NUMBER: [id number] SPH[facility] JOB NUMBER: [id number] CC: Lonnie Crane MD, MICHAEL DALLAS Electronically Signed by Dr. Louis Pulido 03/23/2018 12:19:43 PM [facility] SURGICAL PATHOLOGY Observed: 03/22/2018 Status: F Source: [facility] 12:00 AM [facility] REPOSITORY Name MARSHALL FARRELL Pathologist: KOBE ESPARZA MD Date of Procedure: 03/22/2018 Date Received: 03/22/2018 Date Reported 03/25/2018 Submitting Physician: LOUIS PULIDO MD Location: [facility] Other External # FINAL DIAGNOSIS A. LEFT ATRIAL APPENDAGE: -- SEGMENT OF THIN WALLED MYOCARDIUM AND SURROUNDING STRUCTURES CONSISTENT WITH ATRIAL APPENDAGE. B. AORTIC VALVE LEAFLETS: -- THIN SEGMENT OF DEGENERATING FIBROCOLLAGENOUS TISSUE WITH CALCIFICATIONS. C. MITRAL VALVE LEAFLETS: -- THIN SEGMENT OF DEGENERATING AND HYALINIZED FIBROCOLLAGENOUS TISSUE. Electronically Signed Out By KOBE ESPARZA MD/[facility] By the signature on this report, the individual or group listed as making the Final Interpretation/Diagnosis certifies that they have reviewed this case. Clinical History: Aortic stenosis, mitral stenosis Specimens Submitted As: A: LEFT ATRIAL APPENDAGE B: AORTIC VALVE LEAFLETS C: MITRAL VALVE LEAFLETS Gross Description: Gross Impression: A:Received in formalin, labeled with the patient's name and hospital number and atrial appendage is one segment of brown yellow tissue measuring 5.5 x 3.5 x 2.0 cm. Photographs have been taken.The specimen is serially sectioned and patient financial representative sections are submitted in 3 cassettes. HR B: Received in formalin, labeled with the patient's name and hospital number and aortic valve leaflets are detached leaflets of a semilunar valve, measuring 4.0 x 3.0 x 1.0 cm. The leaflets are enlarged and fibrotic in consistency. The surface of the leaflets are white-mullen and smooth without vegetations . Perforations are not present . Calcifications are present . Photographs have been taken. Gas Line Servicer sections are submitted in one cassette following decalcification. HR C: Received in formalin, labeled with the patient's name and hospital number and mitral valve leaflets are detached leaflets of a atrioventricular valve, measuring 5.0 x 3.0 x 2.0 cm. The leaflets are enlarged and fibrotic in consistency. The surface of the leaflets are white-mullen and smooth with one brown vegetation measuring 0.5 x 0.4 cm . Perforations are not present . Calcifications are present . Photographs have been taken. Gas Line Servicer sections are submitted in one cassette following decalcification. HR hr/03/22/2018 Performed By: #### [facility] #### [facility] Surgical Pathology Department [address] [facility] [address] COAGULATION SCREEN Collected: 03/21/2018 Status: F Source: [place] 2:21 PM [facility]ITALS REPOSITORY Order Comment: STAT LABS FAXED SPOKE WITH [facility], 03/22/2018 13:10 TYPE CODE TESTS RESULT OUT OF REFERENCE UNITS RANGE LAB PT(LOINC) 9.8 - 12.7 sec PROTHROMBIN TIME 12.2 LAB INR(LOINC) 0.9 - 1.1 PT, INR 1.1 LAB APTT(LOINC 25 - 36 sec ) APTT High 38 Result Comment: THE APTT IS NO LONGER USED FOR MONITORING UNFRACTIONATED HEPARIN THERAPY. FOR MONITORING HEPARIN THERAPY, USE THE HEPARIN ASSAY. Performed By: #### COAGS #### [facility] [address] [place] [address] URINALYSIS Collected: 03/10/2018 Status: F Source: [place] 9:23 AM [facility] REPOSITORY TYPE CODE TESTS RESULT OUT OF RANGE REFERENCE UNITS LAB COLU(LOIN STRAW,YELLOW C) COLOR STRAW LAB APPRU(BRITTANI CLEAR NC) APPEARANCE CLEAR LAB SPGRU(BRITTANI 1.005 - 1.035 NC) SPECIFIC GRAVITY 1.009 LAB NUPUR(LOINC 5.0 - 8.0 ) pH 6.0 LAB PROTU(BRITTANI NEGATIVE mg/dL NC) PROTEIN NEGATIVE LAB GLUCU(BRITTANI NEGATIVE mg/dL NC) GLUCOSE NEGATIVE LAB BLDU(LOIN NEGATIVE C) BLOOD NEGATIVE LAB KETU(LOIN NEGATIVE mg/dL C) KETONES NEGATIVE LAB BILIU(BRITTANI NEGATIVE NC) BILIRUBIN NEGATIVE LAB UROU2(BRITTANI 0.0 - 1.9 mg/dL NC) UROBILINOGEN <2.0 LAB NITRU(BRITTANI NEGATIVE NC) NITRITE NEGATIVE LAB LEUKU(BRITTANI NEGATIVE NC) LEUKOCYTE Abnormal ESTERASE TRACE Performed By: #### UA #### [facility] [address] [place] [address] UA MICROSCOPIC Collected: 03/10/2018 Status: F Source: [place] 9:23 AM [facility] REPOSITORY TYPE CODE TESTS RESULT OUT OF REFERENCE UNITS RANGE LAB WBCUR(LOINC 0-5 /HPF ) WBC 1 LAB RBCUR(LOINC 0-5 /HPF ) RBC 1 LAB EPSQE(LOINC /HPF ) SQUAMOUS <1 EPITH. CELLS LAB MUCOU(LOINC /LPF ) MUCUS 1+ Performed By: #### UAMIC #### [facility] [address] [place] [address] URINE Observed: 03/10/2018 Status: F Source: [place] CULTURE,BACTERIAL 9:23 AM HOSPITALS REPOSITORY PATIENT: MARSHALL FARRELL LOCATION: [id number] BILL#: [id number] : 47 AGE: SEX: F ORDERED BY: JOSE VIZCAINO SOURCE: URINE COLLECTED: 03/10/18 09:23 ANTIBIOTICS AT ART.: RECEIVED : 03/10/18 17:18 SITE: Clean Catch/Voided R E S U L T S URINE CULTURE,BACTERIAL FINAL 03/11/18 10:06 MIXED URETHRAL PRASAD. Performed By: #### URINC #### [facility] [address] [place] [address] TH CHEST 2 VIEW PA Observed: 03/08/2018 Status: F Source: [place] AND LAT 3:31 PM HOSPITALS REPOSITORY Patient Name: MARSHALL FARRELL STUDY: CHEST 2 VIEW PA AND LAT; 03/08/2018 3:31 pm INDICATION: Signs/Symptoms: AVR,MVR. COMPARISON: 10/31/2015 ACCESSION NUMBER(S): [id number] ORDERING CLINICIAN: LOUIS PULIDO FINDINGS: Left subclavian dual lead pacer/defibrillator is stable in positioning. The cardiac silhouette size is enlarged, stable. Mild biapical scarring. Calcified lymph nodes in the left lung hilum. There is no focal consolidation, edema or pneumothorax. No sizeable pleural effusion. No acute osseous abnormality. IMPRESSION: No radiographic evidence of acute cardiopulmonary process. Electronically signed by: XU MCGEE MD Observed: 03/08/2018 Status: F Source: [place] STAPH/MRSA SCREEN 3:03 PM HOSPITALS REPOSITORY PATIENT: MARSHALL FARRELL LOCATION: [facility] BILL#: [id number] : 47 AGE: SEX: F ORDERED BY: LOUIS PULIDO SOURCE: ANTERIOR NARES COLLECTED: 03/08/18 15:03 ANTIBIOTICS AT ART.: RECEIVED : 03/08/18 18:46 SITE: Nasal R E S U L T S STAPH/MRSA SCREEN FINAL 03/10/18 10:19 NO Staphylococcus aureus ISOLATED. Performed By: #### STAPH #### [facility] [address] [place] [address] URINALYSIS Collected: 03/08/2018 Status: F Source: [place] [address]:[address] [place] [address] REPOSITORY TYPE CODE TESTS RESULT OUT OF RANGE REFERENCE UNITS LAB COLU(LOIN STRAW,YELLOW C) COLOR YELLOW LAB APPRU(BRITTANI CLEAR NC) APPEARANCE CLEAR LAB SPGRU(BRITTANI 1.005 - 1.035 NC) High SPECIFIC GRAVITY 1.060 LAB NUPUR(LOINC 5.0 - 8.0 ) pH 5.0 LAB PROTU(BRITTANI NEGATIVE mg/dL NC) PROTEIN NEGATIVE LAB GLUCU(BRITTANI NEGATIVE mg/dL NC) GLUCOSE NEGATIVE LAB BLDU(LOIN NEGATIVE C) BLOOD Abnormal SMALL (1+) LAB KETU(LOIN NEGATIVE mg/dL C) KETONES NEGATIVE LAB BILIU(BRITTANI NEGATIVE NC) BILIRUBIN NEGATIVE LAB UROU2(BRITTANI 0.0 - 1.9 mg/dL NC) UROBILINOGEN <2.0 LAB NITRU(BRITTANI NEGATIVE NC) NITRITE NEGATIVE LAB LEUKU(BRITTANI NEGATIVE NC) LEUKOCYTE ESTERASE NEGATIVE Performed By: #### UA #### [facility] [address] [place] [address] UA MICROSCOPIC Collected: 03/08/2018 Status: F Source: [address] REPOSITORY TYPE CODE TESTS RESULT OUT OF RANGE REFERENCE UNITS LAB WBCUR(LOINC 0-5 /HPF ) WBC 1 LAB RBCUR(LOINC 0-5 /HPF ) Abnormal RBC 10 LAB MUCOU(LOINC /LPF ) MUCUS 1+ Performed By: #### UAMIC #### [facility] [address] [place] [address] COMPREHENSIVE PANEL Collected: 03/08/2018 Status: F Source: [place] [address]:[address] [place] [address] REPOSITORY TYPE CODE TESTS RESULT OUT OF REFERENCE UNITS RANGE LAB GLU(LOINC) 74 - 99 mg/dL Low GLUCOSE 67 LAB SOD(LOINC) 136 - 145 mmol/L SODIUM 143 LAB K(LOINC) 3.5 - 5.3 mmol/L POTASSIUM 4.5 LAB CHLOR(LOIN 98 - 107 mmol/L C) CHLORIDE 106 LAB BIC(LOINC) 21 - 32 mmol/L BICARBONATE 31 LAB ANGAP(LOIN 10 - 20 mmol/L C) ANION GAP 11 LAB UREA(LOINC 6 - 23 mg/dL ) UREA NITROGEN 21 LAB CREA(LOINC 0.50 - 1.05 mg/dL ) CREATININE 0.83 LAB GFRFN(LOIN >60 mL/min/1.7 C) 3m2 GFR-NON AM. >60 LAB GFRAA(LOIN >60 mL/min/1.7 C) 3m2 GFR- AM. >60 Result Comment: CALCULATIONS OF ESTIMATED GFR ARE PERFORMED USING THE MDRD STUDY EQUATION FOR THE IDMS-TRACEABLE CREATININE METHODS. CLIN CHEM 2007;53:766-72 LAB CA(LOINC) 8.6 - 10.6 mg/dL CALCIUM 9.4 LAB ALB(LOINC) 3.4 - 5.0 g/dL ALBUMIN 4.3 LAB AP(LOINC) 33 - 136 U/L ALKALINE PHOSPHATASE 83 LAB TP(LOINC) 6.4 - 8.2 g/dL TOTAL PROTEIN 6.5 LAB AST(LOINC) 9 - 39 U/L AST 23 LAB TBILI(LOINC) 0.0 - 1.2 mg/dL BILIRUBIN,TOTAL 0.6 LAB ALT(LOINC) 7 - 45 U/L ALT 24 Result Comment: Patients treated with Sulfasalazine may generate falsely decreased results for ALT. Performed By: #### CMP #### [facility] [address] [place] [address] CBC AND DIFFERENTIAL Collected: 03/08/2018 Status: F Source: [place] 3:02 PM HOSPITALS REPOSITORY TYPE CODE TESTS RESULT OUT OF REFERENCE UNITS RANGE LAB WBCR(LOINC 4.4 - 11.3 x10E9/L ) WBC 7.0 LAB NRBC(LOINC 0.0-0.0 /100 WBC ) NUCLEATED RBC 0.0 LAB RBCCT(LOIN 4.00 - 5.20 x10E12/L C) RBC 5.01 LAB HGB(LOINC) 12.0 - 16.0 g/dL HGB 14.9 LAB HCT(LOINC) 36.0 - 46.0 % HCT 46.0 LAB MCV(LOINC) 80 - 100 fL MCV 92 LAB MCHC2(LOIN 32.0 - 36.0 g/dL C) MCHC 32.4 LAB PLTCT(LOIN 150 - 450 x10E9/L C) PLT 257 LAB RDWCV(LOIN 11.5 - 14.5 % C) RDW-CV 13.3 LAB NEUT(LOINC 40.0 - 80.0 % ) % NEUTROPHIL 71.6 LAB IG(LOINC) 0.0 - 0.9 % % AUTOMATED 0.3 IMMATURE GRAN Result Comment: Percent differential counts (%) should be interpreted in the context of the absolute cell counts (cells/L). LAB LYMPH(LOINC) 13.0 - 44.0 % % LYMPHOCYTE 18.5 LAB MONO(LOINC) 2.0 - 10.0 % % MONOCYTE 7.0 LAB EOS(LOINC) 0.0 - 6.0 % % EOSINOPHIL 2.0 LAB BASO(LOINC) 0.0 - 2.0 % % BASOPHIL 0.6 LAB #NEUT(LOINC) 1.60 - 5.50 x10E9/L NEUTROPHIL 5.02 LAB #LYMP(LOINC) 0.80 - 3.00 x10E9/L LYMPHOCYTE 1.30 LAB #MONO(LOINC) 0.05 - 0.80 x10E9/L MONOCYTE 0.49 LAB #EOS(LOINC) 0.00 - 0.40 x10E9/L EOSINOPHIL 0.14 LAB #BASO(LOINC) 0.00 - 0.10 x10E9/L BASOPHIL 0.04 Performed By: #### CBCDF #### [facility] [address] [place] [id number] COAGULATION SCREEN Collected: 03/08/2018 Status: F Source: [address] REPOSITORY TYPE CODE TESTS RESULT OUT OF REFERENCE UNITS RANGE LAB PT(LOINC) 9.8 - 12.7 sec PROTHROMBIN High TIME 29.7 LAB INR(LOINC) 0.9 - 1.1 PT, INR High 2.7 LAB APTT(LOINC 25 - 36 sec ) APTT High 42 Result Comment: THE APTT IS NO LONGER USED FOR MONITORING UNFRACTIONATED HEPARIN THERAPY. FOR MONITORING HEPARIN THERAPY, USE THE HEPARIN ASSAY. Performed By: #### COAGS #### [facility] [address] [place] [id number] TYPE + SCREEN Collected: 03/08/2018 Status: F Source: [place] 3:02 PM HOSPITALS REPOSITORY TYPE CODE TESTS RESULT OUT OF REFERENCE UNITS RANGE LAB ABORH(LOINC ) ABO TYPE B LAB RH(LOINC) RH TYPE POS LAB ABSC(LOINC) ANTIBODY NEG SCREEN Performed By: #### T+S #### [facility] [address] [place] [address] HEMOGLOBIN A1C Collected: 03/08/2018 Status: F Source: [place] 3:02 PM HOSPITALS REPOSITORY TYPE CODE TESTS RESULT OUT OF RANGE REFERENCE UNITS LAB HBA1C(LOINC % ) HGB A1C 5.5 Result Comment: Diagnosis of Diabetes-Adults Non-Diabetic: < or = 5.6% Increased risk for developing diabetes: 5.7-6.4% Diagnostic of diabetes: > or = 6.5% . Monitoring of Diabetes Age (y) Therapeutic Goal (%) Adults: >18 <7.0 Pediatrics: 13-18 <7.5 7-12 <8.0 0- 6 7.5-8.5 [place] [employer]. Diabetes Care 33(S1), Jul 2009. LAB ESAVG(LOINC) MG/DL EST.AVG.GLUCOSE 111 Performed By: #### HBA1E #### [facility] [address] [place] [address] URINE Observed: 03/08/2018 Status: F Source: [place] CULTURE,BACTERIAL 3:02 PM HOSPITALS REPOSITORY PATIENT: MARSHALL FARRELL [id number] : 47 AGE: SEX: F ORDERED BY: LOUIS PULIDO SOURCE: URINE COLLECTED: 03/08/18 15:02 ANTIBIOTICS AT ART.: RECEIVED : 03/08/18 17:53 SITE: Clean Catch/Voided R E S U L T S URINE CULTURE,BACTERIAL FINAL 03/09/18 10:45 MIXED URETHRAL PRASAD. Performed By: #### URINC #### [facility] [address] [place] [address] ANGIO OF HEART W C Observed: 03/08/2018 Status: F Source: [place] STRUCTURE/MORPH 11:49 AM HOSPITALS REPOSITORY Patient Name: MARSHALL FARRELL STUDY: TH CT ANGIO OF HEART W C STRUCTURE/MORPH; 03/08/2018 11:49 am INDICATION: Signs/Symptoms: . COMPARISON: None. ACCESSION NUMBER(S): [id number] ORDERING CLINICIAN: LOUIS PULIDO TECHNIQUE: Using multi-detector CT technology, axial, sequential imaging with prospective gating was performed of the chest following the intravenous administration of contrast material. A low-osmolar contrast agent was used (70 cc of Isovue 370). For optimization of anatomic evaluation, multiplanar reconstruction, maximum intensity projections, and advanced 3-D off-line postprocessing were performed on a dedicated stand-alone workstation under the direct supervision of the interpreting physician. CT Dose-Length Product (DLP): 240.5 mGy/cm CT Dose Reduction Employed: Yes (Prospective triggering, iterative reconstruction) FINDINGS: POTENTIAL STUDY LIMITATIONS: Study is slightly limited due to motion artifact.. CORONARY ARTERIES: CORONARY ANATOMY: There is normal origin of the coronary arteries. LEFT MAIN CORONARY ARTERY: The left main is normal sized vessel that bifurcates into the LAD and circumflex. There is no significant atherosclerotic change or stenotic disease. LEFT ANTERIOR DESCENDING ARTERY: The LAD is a normal size vessel that wraps around the apex. It gives rise to 3 acute diagonal branches. Assessment is slightly limited due to motion artifact. Within the limitations no definite evidence of atherosclerotic disease or significant stenosis. LEFT CIRCUMFLEX ARTERY: The LCX is a normal size vessel, which is non-dominant. It gives rise to 1 obtuse marginal branches. Assessment of RCA is limited due to motion artifact. Within the limitations no definite evidence of atherosclerotic disease or significant stenosis. RAMUS INTERMEDIUS: Not present. RIGHT CORONARY ARTERY: The RCA is a normal size vessel, which is dominant . It gives rise to a conus branch, robby branch, and 2 acute marginal branches. In its distal segment it bifurcates into the PDA and PV branch. Assessment of RCA is limited due to motion artifact. Within the limitations no definite evidence of atherosclerotic disease or significant stenosis. CARDIAC CHAMBERS: The cardiac chambers demonstrate normal atrioventricular and ventriculoarterial concordance, and systemic and pulmonary venous return. LEFT ATRIUM: Severely enlarged (37-cm2) RIGHT ATRIUM: Mildly enlarged (23.7-cm2) INTERATRIAL SEPTUM: Intact. LEFT VENTRICLE: Normal size (4.9-cm) RIGHT VENTRICLE: Normal size (4.3-cm) AORTIC VALVE: The aortic valve is trileaflet in morphology. There is calcification in the aortic valve. MITRAL VALVE: There is some calcification in the mitral valve annulus. THORACIC AORTA: There is fusiform dilation of the ascending thoracic aorta measuring 4.3 cm. There is bovine pattern of aortic arch vessels. Mild calcification in the aortic arch. There is no acute aortic pathology, such as dissection, intramural hematoma, or contained rupture. PERICARDIUM: There is no pericardial effusion of thickening. CHEST: The chest wall is normal. No significant lymphadenopathy or mass is seen in limited images of the mediastinum. Multiple calcified lymph nodes are identified in the mediastinum and left lung hilum. Limited imaging through the lungs reveals no gross abnormalities. No pleural effusion or pneumothorax. UPPER ABDOMEN: Limited imaging through the upper abdomen reveals no abnormalities of the visualized organs. IMPRESSION: 1. Limited study due to motion and inability to give nitrate. 2. Within the limitations, normal coronary anatomy without evidence of atherosclerotic changes or stenotic disease. 3. Fusiform dilation of the ascending thoracic aorta measuring 4.3 cm. 4. Calcification of the aortic valve in keeping with patient's known aortic valve stenosis. 5. Severe left and mild right atrial dilation. Electronically signed by: XU MCGEE MD UREA NITROGEN Collected: 03/01/2018 Status: F Source: [place] 1:02 [facility] REPOSITORY TYPE CODE TESTS RESULT OUT OF REFERENCE UNITS RANGE LAB UREA(LOINC) 6 - 23 mg/dL UREA NITROGEN 19 Performed By: #### UREA #### [facility] [address] [place] [address] CREATININE Collected: 03/01/2018 Status: F Source: [place] 1:02 [facility] REPOSITORY TYPE CODE TESTS RESULT OUT OF RANGE REFERENCE UNITS LAB CREA(LOINC 0.50 - 1.05 mg/dL ) CREATININE 0.92 LAB GFRFN(LOIN >60 mL/min/1.7 C) 3m2 GFR-NON Abnormal AM. 60 LAB GFRAA(LOIN >60 mL/min/1.7 C) 3m2 GFR- AM. 73 Result Comment: CALCULATIONS OF ESTIMATED GFR ARE PERFORMED USING THE MDRD STUDY EQUATION FOR THE IDMS-TRACEABLE CREATININE METHODS. CLIN CHEM 2007;53:766-72 Performed By: #### CREAT #### [facility] [address] [address] OFFICE VISIT (CARDIAC Observed: 02/18/2018 Status: UNK Source: [place] SURGERY) 10:29 AM HOSPITALS REPOSITORY Chief Complaint Patient is here for NPV surgical consultation for , moderate aortic regurgitation. Patient reports intermittent chest pressure and shortness of breath with exertion. She denies swelling of the lower e xtremities. PRIYANKA DaughertyN, RN-BC History of Present Illness There are no spiritual/cultural practices/values/needs that are important to know Initial Fall Risk Screening: MARSHALL has not fallen in the last 6 months. Her fall did not result in injury. MARSHALL does not have a fear of falling. She does not need assistance with sitting, standing or walking. Does not need ass istance walking in her home. She does not need assistance in an unfamiliar setting. The patient is not using an assistive device. Advance directives: Living Will: No living will on file. Healthcare POA: No healthcare proxy on file. Domestic Violence Screen: Does not feel threatened or abused physically, emotionally or sexually. Do you feel UNSAFE? The patient feels safe in the home. Review of Systems Constitutional: feeling tired. Cardiovascular: tightness or heavy pressure, shortness of breath and palpitations, but no chest pain, no lower extremity edema and no intermittent leg claudication. Respiratory: shortness of breath during exertion. Gastrointestinal: no nausea. Neurological: no dizziness. Endocrine: no diabetes mellitus. Active Problems Anxiety (300.00) (F41.9) Aortic stenosis (424.1) (I35.0) September 05, 2015: Moderate aortic valve thickening, with mild aortic valve stenosis and mild aortic valve regurgitation. Peak gradient 38 mmHg, mean gradient 22.5 mmHg, aortic valve area 1.45 cm. 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 Atrial fibrillation (427.31) (I48.91) Bone lesion (733.90) (M89.9) Bursitis of left hip (726.5) (M70.72) History of Catheter Ablation Atrial Fibrillation December 24, 2015: Catheter ablation of atrial fibrillation. Dr. Bertrand. Chronic cough (786.2) (R05) Hypothyroidism (244.9) (E03.9) Malignant neoplasm of thyroid gland (193) (C73) Added by Problem List Migration; 2013-02-17; Moved to 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 Warfarin anticoagulation (V58.61) (Z79.01) Past Medical History 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) May,: Peripheral embolization to the right ulnar artery and to the right peroneal artery. 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) Surgical History History of Catheter Ablation Atrial Fibrillation December 24, 2015: Catheter ablation of atrial fibrillation. Dr. Bertrand. History of Elective Cardioversion April,. January,. September,. History of Thyroid Surgery Total Thyroidectomy September 2004 History of Transluminal Valvular Angioplasty Mitral Valve October,. Family History Family history of Family history of lung cancer (V16.1) (Z80.1) Family history of lung cancer (V16.1) (Z80.1) Social History Exercises sporadically Walks 2 miles 3 -4 times weekly. Former smoker (V15.82) (Z87.891) Quit smoking 20-25 years ago. History of Full-time employment [employer] Retired Single-family home Allergies Sulfa Drugs Allergy; Rash; Updated By: Jennifer Paige; 01/24/2018 2:29:43 PM Current Meds Digoxin 125 MCG Oral Tablet; take 1 tablet by mouth once daily; Therapy: 92Xdl7313 to (Evaluate:11Rex8950) Requested for: 68Sye0879; Last Rx:86Mmz4369 Ordered Rx By: Lonnie Crane; Dispense: 90 Days ; #:90 TAB; Refill: 3;For: Atrial fibrillation; LARRY = N; Verified Transmission to [facility]; Last Updated By: Scar Aguillon; 12/10/2017 8:16:40 AM Multi For Her Oral Capsule; TAKE 1 CAPSULE DAILY; Therapy: (Recorded:36Wko4696) to Recorded Dispense: 0 Days ; #: Sufficient Capsule; Refill: 0;For: Health Maintenance; LARRY = N; Record; Last Updated By: Jennifer Paige; 04/17/2015 10:40:35 AM Levothyroxine Sodium 100 MCG Oral Tablet; TAKE 1 TABLET IN THE AM ON AN EMPTY STOMACH ( Don't forget appt. on 12/10/18).; Therapy: 63Kov8503 to (Evaluate:90Rpk6052) Requested for: 18Nov2017; Last Rx:[id number] Ordered Rx By: Sharif Srivastava; Dispense: 90 Days ; #:90 Tablet; Refill: 0;For: Hypothyroidism; LARRY = N; Verified Transmission to [facility] Dofetilide 500 MCG Oral Capsule; Take 1 capsule twice daily; Therapy: 11Jan2017 to (Evaluate:18Mdw0384) Requested for: 21Jan2018; Last Rx:21Jan2018; Status: ACTIVE - Retrospective By Protocol Authorization Ordered Rx By: Junior Bertrand; Dispense: 90 Days ; #:180 Capsule; Refill: 1;For: Paroxysmal atrial fibrillation; LARRY = N; Verified Transmission to [facility]; Last Updated By: Scar Aguillon; 01/21/2018 4:17:41 PM Lisinopril 10 MG Oral Tablet; TAKE 1 TABLET TWICE DAILY; Therapy: 90Olz0363 to (Evaluate:26Sep2018) Requested for: 01Oct2017; Last Rx:01Oct2017 Ordered Rx By: Lonnie Crane; Dispense: 90 Days ; #:180 Tablet; Refill: 3;For: Paroxysmal atrial fibrillation; LARRY = N; Verified Transmission to [facility] Metoprolol Tartrate 25 MG Oral Tablet; Take one tablet by mouth twice-a-day; Therapy: 32Eej1039 to (Last Rx:20Qql9953) Requested for: 75Qvy6935 Ordered Rx By: Lonnie Crane; Dispense: 0 Days ; #:180 Tablet; Refill: 3;For: Paroxysmal atrial fibrillation; LARRY = N; Verified Transmission to [facility] Warfarin Sodium 5 MG Oral Tablet; TAKE 1/2 TAB ON WEDNESDAY- WEDNESDAY AND WEDNESDAY 2 TABS ON REMAINING DAYS OR DIRECTED; Therapy: 33Cxp3674 to (Evaluate:43Ejw7008) Requested for: 16Aby3206; Last Rx:[id number] Ordered Rx By: Lonnie Crane; Dispense: 90 Days ; #:225 Tablet; Refill: 3;For: Paroxysmal atrial fibrillation; LARRY = N; Verified Transmission to [facility] Venlafaxine HCl - 37.5 MG Oral Tablet; TAKE 1 TABLET DAILY; Therapy: 04Pmc9937 to Recorded Dispense: 0 Days ; #: Sufficient Tablet; Refill: 0; LARRY = N; Record; Last Updated By: Jessica Chang; 08/31/2013 12:07:39 PM Vitals Vital Signs Recorded: 05Rse1466 08:54AM Heart Rate59 Pnbbgoun853, RUE, Sitting Rasdwenmo19, RUE, Sitting Dowfpu557 lb 8 oz BMI Bstkwtbxel92.2 BSA Calculated1.81 O2 Paaohslfad63, RA Systolic Jkddrkblug172, LUE, Sitting Diastolic Zmcwuxzgho16, LUE, Sitting Diagnoses/Problems Aortic stenosis (424.1) (I35.0) September 05, 2015: Moderate aortic valve thickening, with mild aortic valve stenosis and mild aortic valve regurgitation. Peak gradient 38 mmHg, mean gradient 22.5 mmHg, aortic valve area 1.45 cm. 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 Previously had peripheral emboli from atrial fibrillation to right arm and leg but no cerebral s ymptoms. We will need aortic and mitral valve replacement, tricuspid valve repair, resection of left atrial appendage with Maze procedure. She already has a pacemaker in place. Lengthy discussion held r egarding all of this and she would like to proceed expeditiously. She will need CT angiography plus study of the ascending aorta prior to surgery which will be scheduled for early to mid February. Patient Discussion/Summary The patient and patient's family was counseled regarding diagnostic results, instructions for management, prognosis, patient and family education, impressions and risks and benefits of treatment options . total time of encounter was 80 minutes and 50 minutes was spent counseling. cc: Lonnie Tomas MD ([place]) Dear Lonnie, I saw Marshall Farrell this morning, accompanied by her friend, in the ongoing evaluation of her valvular heart disease. As you well know, she has severe aortic stenosis, moderate mitral stenosis, severe mitral regurgitation, and moderate tricuspid regurgitation in the setting of atrial fibrillation but preserved left and right ventricular function. She should benefit from aortic and mitral valve repla cement and tricuspid valve repair with removal of the left atrial appendage. We would consider a Maze procedure as long as the other portions of this operation go well. We had an extensive conversation regarding the details and she would like to proceed as soon so that she can vacation in [place] in April. We will plan CT angiography of her coronaries as part of her PAT to avoid the need for a catheter if at all possible. We will also discontinue her Coumadin 5 days prior to surgery, but, given her history, we will bridge her to be safe. Please do not hesitate to call if you have any other questions. It was a pleasure to see Marshall this morning. Sincerely yours, Louis Pulido MD ... End of Encounter Meds Digoxin 125 MCG Oral Tablet; take 1 tablet by mouth once daily; Therapy: 24Iqf4042 to (Evaluate:94Afr2799) Requested for: 10Dec2017; Last Rx:90Yxb2920 Ordered Dofetilide 500 MCG Oral Capsule; Take 1 capsule twice daily; Therapy: 11Jan2017 to (Evaluate:77Ojy2295) Requested for: 21Jan2018; Last Rx:21Jan2018; Status: ACTIVE - Retrospective By Protocol Authorization Ordered Levothyroxine Sodium 100 MCG Oral Tablet; TAKE 1 TABLET IN THE AM ON AN EMPTY STOMACH ( Don't forget appt. on 12/10/18).; Therapy: 19Puk8578 to (Evaluate:91Hau6480) Requested for: 18Nov2017; Last Rx:18Nov2017 Ordered Lisinopril 10 MG Oral Tablet; TAKE 1 TABLET TWICE DAILY; Therapy: 15Gkl3785 to (Evaluate:26Sep2018) Requested for: 01Oct2017; Last Rx:01Oct2017 Ordered Metoprolol Tartrate 25 MG Oral Tablet; Take one tablet by mouth twice-a-day; Therapy: 41Xbx6050 to (Last Rx:99Qns4240) Requested for: 57Ksu7681 Ordered Multi For Her Oral Capsule; TAKE 1 CAPSULE DAILY; Therapy: (Recorded:02Reh3333) to Recorded Venlafaxine HCl - 37.5 MG Oral Tablet; TAKE 1 TABLET DAILY; Therapy: 86Mjz7430 to Recorded Warfarin Sodium 5 MG Oral Tablet; TAKE 1/2 TAB ON WEDNESDAY-WEDNESDAY AND WEDNESDAY 2 TABS ON REMAINING DAYS OR DIRECTED; Therapy: 09Rtg3051 to (Evaluate:25Vgv1562) Requested for: 08Dec2016; Last Rx:[id number] Ordered ANTICOAGULATION MONITORING Observed: 02/15/2018 Status: UNK Source: [facility] 2:45 PM HOSPITALS REPOSITORY Today's INR 02Qkx3897 IO INR2.4 Target INR range2-3 Source[facility] History of Present Illness Patient identification verified with 2 patient identifiers. Anticoagulation Monitoring Service: [facility]. Enrollment/Re-enrollment date: September 04, 2018. The patient is being seen as a follow-up for anticoagulation monitoring. Target INR 2-3. Monitoring practitioner Lonnie Crane MD. INR monitoring is per [facility] protocol. The patient is on anticoagulation due to atrial fibrillation/flutter. The patient is currently taking warfarin Tablet strength and color: 5 mg([place]) Interval History: Patient was last seen: February 01, 2018. Previous INR was 2.5. Incoming total weekly dose 47.5 mg. Today's Clinic INR: [facility] INR 2.4. Since last visit, the patient reports no bleeding. The patient did not experience clinically relevant bleeding. The patient did not experience other minor bleeding. Since last visit, The patient has not experienced thrombotic event. The patient reports no change in medication. The patient stopped or started steroids. She reports no change in alcohol consumption. She reports no change in Vitamin K consumption. The patient has taken Warfarin as directed. Management: The patient's INR is within target range. Will maintain dose. Next follow up appointment in 4 week(s). Outgoing total weekly dose 47.5 mg. Patient instructed to call in interim with questions, concerns and changes. Patient educated on interactions between medications and warfarin. Discussion/Summary You are currently taking Warfarin. Your tablet strength and color: 5 mg(Roane) Next Appointment: March 15, 2018. Time: 2: 30 pm. Location: [facility], . Your INR today is within range . You will continue to take your dose as instructed above. Visit information Please call in interim with questions, concerns and changes. Do tell your provider when you get sick, hurt, or get a cut that will not stop bleeding. Taking a new medication may change your INR. Please inform your provider of any medication changes. If you have any bleeding, trauma, falls and/or other medical concerns, call your doctor or seek medical attention right away. Results/Data Coumadin Printed in Appendix #1 below. *Diagnosis/Problems 1. Atrial fibrillation (427.31) (I48.91) Signatures Electronically signed by : Niranjan Cordoba R.N.; Feb 15 2018 2:45PM EST (Author) Appendix #1 Coumadin Patient: MARSHALL FARRELL; : 1945; [id number] 02:[id number] 02:[id number] 02:[id number] 04:[id number] 04:30HU38Qok2383 04:32AM IO PT/INR PT + INR, Plasma PT/INR (POC) Coagulation Screen Current Dose New Dose Recheck in Patient Notified Comments IO INR2.42.52.52.23.2 PT, INR3.0 Target INR -29-27-32-32-3 ECHOCARDIOGRAM Observed: 02/07/2018 Status: C Source: [place] 2:00 PM [facility], [address] [place] [address], [address] [address] and TRANSTHORACIC ECHOCARDIOGRAM REPORT Patient Name: MARSHALLKyler FARRELL Reading Physician: [id number] Stacie Rao MD Study Date: 02/07/2018 Referring Physician: Lonnie Crane MD MRN/PID: [id number] PCP: Accession/Order#: [id number] Department Location: [facility] Date of : 1945 Fellow: Gender: F Nurse: Admit Date: Infrastructure Technician: Laurent Nino RDCS Admission Status: Outpatient Additional Staff: Height: 170.18 cm CC Report to: Weight: 70.76 kg Study Type: Echocardiogram BSA: 1.82 m2 Blood Pressure: 118 /58 mmHg Diagnosis/ICD: I48.91* Unspecified atrial fibrillation Indication: Atrial fibrillation Procedure/CPT: Echo Complete w/Full Doppler (37142) Patient History: Pertinent History: A-Fib, Rheumatic fever, MV Valvuloplasty, Aortic stenosis, AI,ablation. Study Detail: The following Echo studies were performed: 2D, M-Mode, Doppler and color flow. Technically challenging study due to body habitus. PHYSICIAN INTERPRETATION: Left Ventricle: The left ventricular systolic function is normal, with an estimated ejection fraction of 60-65%. The left ventricular cavity size is normal. The left ventricular septal wall thickness is normal. There is moderate concentric left ventricular hypertrophy. Spectral Doppler shows a normal pattern of left ventricular diastolic filling. Left Atrium: The left atrium is mildly dilated. Right Ventricle: The right ventricle is normal in size. There is normal right ventricular global systolic function. A device is visualized in the right ventricle. Right Atrium: The right atrium is normal in size. Aortic Valve: The aortic valve is trileaflet. There is evidence of moderate to severe aortic valve stenosis. There is moderate to severe aortic valve regurgitation. The peak instantaneous gradient of the aortic valve is 63.4 mmHg. The mean gradient of the aortic valve is 38.0 mmHg. The AV max is 4m/s with an A VA of 1.1cm2 and a peak gradient of 63mmHg. Mitral Valve: The mitral valve is severely thickened. There is evidence of moderate mitral valve stenosis. The doppler estimated mean and peak diastolic pressure gradients are 6.0 mmHg and 13.8 mmHg res pectively. There is moderate mitral annular calcification. There is severe mitral valve regurgitation. 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 Tricuspid Valve: The tricuspid valve is structurally normal. There is moderate tricuspid regurgitation. The doppler estimated RVSP is moderately elevated at 42.4 mmHg. Pulmonic Valve: The pulmonic valve is structurally normal. There is physiologic pulmonic valve regurgitation. Pericardium: There is no pericardial effusion noted. Aorta: The aortic root is abnormal. The aorta is dilated at 4.2cm. CONCLUSIONS: 1. The left ventricular systolic function is normal with a 60-65% estimated ejection fraction. 2. There is moderate concentric left ventricular hypertrophy. 3. The mitral valve is severely thickened. 4. There is moderate mitral annular calcification. 5. 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 6. Severe mitral valve regurgitation. 7. Moderately elevated right ventricular systolic pressure. 8. There is moderate tricuspid regurgitation. 9. Moderate to severe aortic valve stenosis. 10. The AV max is 4m/s with an ZAK of 1.1cm2 and a peak gradient of 63mmHg. 11. There is moderate to severe aortic valve regurgitation. 12. The aorta is dilated at 4.2cm. QUANTITATIVE DATA SUMMARY: 2D MEASUREMENTS: Normal Ranges: IVSd: 1.80 cm (0.6-1.1cm) LVPWd: 1.00 cm (0.6-1.1cm) LVIDd: 4.50 cm (3.9-5.9cm) LVIDs: 2.70 cm LV Mass Index: 136.6 g/m2 LV % FS 40.0 % LA VOLUME: Normal Ranges: LA Volume Index: 63.2 ml/m2 M-MODE MEASUREMENTS: Normal Ranges: Ao Root: 3.30 cm (2.0-3.7cm) LAs: 4.80 cm (2.7-4.0cm) AORTA MEASUREMENTS: Normal Ranges: Asc Ao, d: 4.28 cm (2.1-3.4cm) LV SYSTOLIC FUNCTION BY 2D PLANIMETRY (MOD): Normal Ranges: EF-A4C View: 67.0 % (>55%) EF-A2C View: 70.4 % EF-Biplane: 69.2 % LV DIASTOLIC FUNCTION: Normal Ranges: MV Peak E: 1.71 m/s (0.7-1.2 m/s) MV Peak A: 1.49 m/s (0.42-0.7 m/s) E/A Ratio: 1.15 (1.0-2.2) MV e' 0.04 m/s (>8.0) MV A Dur: 218.00 msec E/e' Ratio: 42.75 (<8.0) MV DT: 387 msec (150-240 msec) PulmV Sys Sean: 29.40 cm/s PulmV Garcia Sean: 38.50 cm/s PulmV S/D Sean: 0.80 PulmV A Revs Sean: 21.70 cm/s MITRAL VALVE: Normal Ranges: MV Vmax: 1.86 m/s (<1.3m/s) MV peak P.8 mmHg (<5mmHg) MV mean P.0 mmHg (<48mmHg) MV DT: 387 msec (150-240msec) AORTIC VALVE:The Normal Ranges: AoV Vmax: 3.98 m/s (<1.7m/s) AoV Peak P.4 mmHg (<20mmHg) AoV Mean P.0 mmHg (1.7-11.5mmHg) LVOT Max Sean: 1.63 m/s (<1.1m/s) AoV VTI: 86.10 cm (18-25cm) LVOT VTI: 34.40 cm LVOT Diameter: 1.90 cm (1.8-2.4cm) AoV Area, VTI: 1.13 cm2 (2.5-5.5cm2) AoV Area,Vmax: 1.16 cm2 (2.5-4.5cm2) AoV Dimensionless Index: 0.40 AORTIC INSUFFICIENCY: AI Vmax: 4.54 m/s AI Half-time: 540 msec AI Decel Rate: 229.00 cm/s2 RIGHT VENTRICLE: RV 1 3.46 cm RV 2 2.15 cm RV 3 6.42 cm TAPSE: 21.0 mm RV s' 0.12 m/s TRICUSPID VALVE/RVSP: Normal Ranges: Peak TR Velocity: 3.30 m/s RV Syst Pressure: 46.6 mmHg (< 30mmHg) PULMONIC VALVE: Normal Ranges: PV Accel Time: 85 msec (>120ms) PV Max Sean: 0.9 m/s (0.6-0.9m/s) PV Max P.4 mmHg Pulmonary Veins: PulmV A Revs Sean: 21.70 cm/s PulmV Garcia Sean: 38.50 cm/s PulmV S/D Sean: 0.80 PulmV Sys Sean: 29.40 cm/s [id number] Stacie Rao MD Electronically signed on 02/07/2018 at 3:03:44 PM Final (Updated) ANTICOAGULATION MONITORING Observed: 02/01/2018 Status: UNK [facility]: [facility] 2:28 PM HOSPITALS REPOSITORY Today's INR [id number] IO INR2.5 Target INR range2-3 SourceAMS History of Present Illness Patient identification verified with 2 patient identifiers. Anticoagulation Monitoring Service: [facility]. Enrollment/Re-enrollment date: September 04, 2018. The patient is being seen as a follow-up for anticoagulation monitoring. Target INR 2-3. Monitoring practitioner Lonnie Crane MD. INR monitoring is per [facility]MS protocol. The patient is on anticoagulation due to atrial fibrillation/flutter. The patient is currently taking warfarin Tablet strength and color: 5 mg(Roane) Interval History: Patient was last seen: December 28, 2017. Previous INR was 2.5. Incoming total weekly dose 47.5 mg. Today's Clinic INR: [facility] INR 2.5. Since last visit, the patient reports no bleeding. The patient did not experience clinically relevant bleeding. The patient did not experience other minor bleeding. Since last visit, The patient has not experienced thrombotic event. The patient reports a change in medication. The patient stopped or started steroids. Patient reports that she was recently prescribed a Prednisone taper for treatment of a poison nicolette infection; patient reports that she has three doses of steroida l therapy remaining and then will complete treatment. No apparent effect on INR. She reports no change in alcohol consumption. She reports no change in Vitamin K consumption. The patient has taken Warfarin as directed. Management: The patient's INR is within target range. Will maintain dose. Next follow up appointment in 2 week(s). Outgoing total weekly dose 47.5 mg. Patient instructed to call in interim with questions, concerns and changes. Patient educated on interactions between medications and warfarin. Discussion/Summary You are currently taking Warfarin. Your tablet strength and color: 5 mg(Roane) Next Appointment: Thursday, February 15, 2018. Time: 2: 15 pm. Location: [facility], . Your INR today is within range . You will continue to take your dose as instructed above. Visit information Please call in interim with questions, concerns and changes. Do tell your provider when you get sick, hurt, or get a cut that will not stop bleeding. Taking a new medication may change your INR. Please inform your provider of any medication changes. If you have any bleeding, trauma, falls and/or other medical concerns, call your doctor or seek medical attention right away. Results/Data Coumadin Printed in Appendix #1 below. *Diagnosis/Problems 1. Atrial fibrillation (427.31) (I48.91) Signatures Electronically signed by : Tory Kent R.N.; Feb 01 2018 2:28PM EST (Author) Appendix #1 Coumadin Patient: MARSHALL FARRELL; : 1945; [id number] 02:[id number] 02:[id number] 04:[id number] 04:49EA75Zcj1029 03:56PM IO PT/INR PT + INR, Plasma PT/INR (POC) Coagulation Screen Current Dose New Dose Recheck in Patient Notified Comments IO INR2.52.52.23.22.1 PT, INR Target INR [id number] OFFICE VISIT Observed: 01/24/2018 Status: UNK Source: [place] (CARDIOLOGY) 2:48 PM HOSPITALS REPOSITORY Chief Complaint MARSHALL FARRELL is being seen for a cardiovascular evaluation. History of Present Illness This 72-year-old woman presents for annual reevaluation. She presents with rheumatic heart disease, and is now 2 years status post balloon mitral valvuloplasty for management of mitral stenosis. She is status post catheter ablation of atrial fibrillation in Nov, 2015. She has remained on treatment with dofetilide. Earlier this year, she missed several doses of dofetilide, and was hospitalized for repeat loading. She is doing quite well. The last echocardiogram was on January 28, 2017. The ejection fraction was normal. There was moderate aortic stenosis with a dimensionless index of 0.36. There was mild to moderate aortic regurgitation. Th ere was moderate mitral valve stenosis. There was mild to moderate tricuspid regurgitation. The RV systolic pressure was elevated at 48 mmHg. Peak aortic valve velocity was 3.8 m/s. There are no spiritual/cultural practices/values/needs that are important to know Initial Fall Risk Screening: MARSHALL has not fallen in the last 6 months. She does not need assistance with sitting, standing or walking. The patient is not using an assistive device. Tobacco Screening: MARSHALL does not use tobacco. Active Problems Aortic stenosis (424.1) (I35.0) September 05, 2015: Moderate aortic valve thickening, with mild aortic valve stenosis and mild aortic valve regurgitation. Peak gradient 38 mmHg, mean gradient 22.5 mmHg, aortic valve area 1.45 cm. 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 Atrial fibrillation (427.31) (I48.91) History of Catheter Ablation Atrial Fibrillation December 24, 2015: Catheter ablation of atrial fibrillation. Dr. Bertrand. 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 Warfarin anticoagulation (V58.61) (Z79.01) Anxiety (300.00) (F41.9) Bone lesion (733.90) (M89.9) Bursitis of left hip (726.5) (M70.72) Chronic cough (786.2) (R05) Hypothyroidism (244.9) (E03.9) Malignant neoplasm of thyroid gland (193) (C73) Added by Problem List Migration; 2013-02-17; Moved to [facility] Jun 23 2013 9:06PM Surgical History History of Catheter Ablation Atrial Fibrillation December 24, 2015: Catheter ablation of atrial fibrillation. Dr. Bertrand. History of Elective Cardioversion April,. January,. September,. History of Thyroid Surgery Total Thyroidectomy September 2004 History of Transluminal Valvular Angioplasty Mitral Valve October,. 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) Current Meds Digoxin 125 MCG Oral Tablet; take 1 tablet by mouth once daily; Therapy: 34Aaf6315 to (Evaluate:18Elr5046) Requested for: 86Vkq1653; Last Rx:78Jll3672 Ordered Rx By: Lonnie Crane; Dispense: 90 Days ; #:90 TAB; Refill: 3;For: Atrial fibrillation; LARRY = N; Verified Transmission to [facility]; Last Updated By: Movirtu; 12/10/2017 8:16:40 AM Multi For Her Oral Capsule; TAKE 1 CAPSULE DAILY; Therapy: (Recorded:64Tpa8171) to Recorded Dispense: 0 Days ; #: Sufficient Capsule; Refill: 0;For: Health Maintenance; LARRY = N; Record; Last Updated By: Jennifer Paige; 04/17/2015 10:40:35 AM Levothyroxine Sodium 100 MCG Oral Tablet; TAKE 1 TABLET IN THE AM ON AN EMPTY STOMACH ( Don't forget appt. on 12/10/18).; Therapy: 01Pzx8140 to (Evaluate:59Jet5361) Requested for: 18Nov2017; Last Rx:18Nov2017 Ordered Rx By: Sharif Srivastava; Dispense: 90 Days ; #:90 Tablet; Refill: 0;For: Hypothyroidism; LARRY = N; Verified Transmission to [facility] Dofetilide 500 MCG Oral Capsule; Take 1 capsule twice daily; Therapy: 11Jan2017 to (Evaluate:70Rpd7241) Requested for: 21Jan2018; Last Rx:21Jan2018; Status: ACTIVE - Retrospective By Protocol Authorization Ordered Rx By: Junior Bertrand; Dispense: 90 Days ; #:180 Capsule; Refill: 1;For: Paroxysmal atrial fibrillation; LARRY = N; Verified Transmission to [facility]; Last Updated By: Movirtu; 01/21/2018 4:17:41 PM Lisinopril 10 MG Oral Tablet; TAKE 1 TABLET TWICE DAILY; Therapy: 04Jzr0503 to (Evaluate:26Sep2018) Requested for: 01Oct2017; Last Rx:01Oct2017 Ordered Rx By: Lonnie Crane; Dispense: 90 Days ; #:180 Tablet; Refill: 3;For: Paroxysmal atrial fibrillation; LARRY = N; Verified Transmission to [facility] Metoprolol Tartrate 25 MG Oral Tablet; Take one tablet by mouth twice-a-day; Therapy: 25Bya7583 to (Last Rx:42Jzy9900) Requested for: 61Tsa6127 Ordered Rx By: Lonnie Crane; Dispense: 0 Days ; #:180 Tablet; Refill: 3;For: Paroxysmal atrial fibrillation; LARRY = N; Verified Transmission to [facility] Warfarin Sodium 5 MG Oral Tablet; TAKE 1/2 TAB ON WEDNESDAY- WEDNESDAY AND WEDNESDAY 2 TABS ON REMAINING DAYS OR DIRECTED; Therapy: 31Aug2013 to (Evaluate:03Dec2017) Requested for: 77Gep3382; Last Rx:08Dec2016 Ordered Rx By: Lonnie Crane; Dispense: 90 Days ; #:225 Tablet; Refill: 3;For: Paroxysmal atrial fibrillation; LARRY = N; Verified Transmission to [facility] Venlafaxine HCl - 37.5 MG Oral Tablet; TAKE 1 TABLET DAILY; Therapy: 31Aug2013 to Recorded Dispense: 0 Days ; #: Sufficient Tablet; Refill: 0; LARRY = N; Record; Last Updated By: Jessica Chang; 08/31/2013 12:07:39 PM Allergies Sulfa Drugs Allergy; Rash; Updated By: Jennifer Paige; 01/24/2018 2:29:43 PM Family History Family history of Family history of lung cancer (V16.1) (Z80.1) Family history of lung cancer (V16.1) (Z80.1) Social History Exercises sporadically Walks 2 miles 3 -4 times weekly. Former smoker (V15.82) (Z87.891) Quit smoking 20-25 years ago. History of Full-time employment [employer] Retired Single-family home Review of Systems Constitutional: feeling tired, but no fever, no chills, no recent weight gain and no recent weight loss. ENT: no hearing loss. Cardiovascular: as noted in HPI. Respiratory: shortness of breath during exertion and wheezing, but no orthopnea and no PND. Gastrointestinal: no change in bowel habits. Genitourinary: no incontinence. Musculoskeletal: no joint swelling and no joint stiffness. Vitals Vital Signs Recorded: 24Jan2018 02:18PM Heart Rate60 Omajtdjo569, LUE, Sitting Etbjwbfnu29, LUE, Sitting Height5 ft 7 in Yauoic920 lb 3 oz BMI Usbofdcqky67.46 BSA Calculated1.82 O2 Jnmxyoglcc48 Physical Exam On examination, she was alert and oriented, and in no distress. The neck veins were not distended. The lungs were clear to auscultation. The heart sounds were regular. S1 was loud. There was a grade 2 e jection systolic murmur at the base. There was a grade 2 diastolic decrescendo murmur along the lower left sternal border. There was a grade 3 apical systolic murmur. I did not detect a diastolic rumble . There was no hepatomegaly or ascites. There was no edema. Results/Data ECG on November 03, 2017 showed electronic atrial pacemaker and occasional PVC. Leftward axis. Diagnoses/Problems Aortic stenosis (424.1) (I35.0) September 05, 2015: Moderate aortic valve thickening, with mild aortic valve stenosis and mild aortic valve regurgitation. Peak gradient 38 mmHg, mean gradient 22.5 mmHg, aortic valve area 1.45 cm. 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 Moderate aortic regurgitation (424.1) (I35.1) History of Transluminal Valvular Angioplasty Mitral Valve October,. 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 Impressions Rheumatic heart disease with mitral stenosis and aortic stenosis, now status post mitral balloon valvuloplasty with moderate residual mitral stenosis and moderate mitral regurgitation. Moderate aortic stenosis. Clinically stable without recurrent atrial fibrillation on Tikosyn. Plan is to repeat an echocardiogram at yearly intervals. Ultimately, she might benefit from aortic and mitral valve replacement, plus tricuspid valve repair. We will continue close follow-up Orders Aortic stenosis, Atrial fibrillation, Rheumatic mitral stenosis with regurgitation Echocardiogram; Status:Hold For - Scheduling; Requested for:34Cvu9117; Perform:[facility] ([facility] Due:39Okh9417;Ordered; For:Aortic stenosis, Atrial fibrillation, Rheumatic mitral stenosis with regurgitation; Ordered By:Lonnie Crane; End of Encounter Meds Digoxin 125 MCG Oral Tablet; take 1 tablet by mouth once daily; Therapy: 31Vnh0822 to (Evaluate:50Alc3284) Requested for: 62Sba1376; Last Rx:10Dec2017 Ordered Dofetilide 500 MCG Oral Capsule; Take 1 capsule twice daily; Therapy: 11Jan2017 to (Evaluate:68Von4751) Requested for: 21Jan2018; Last Rx:21Jan2018; Status: ACTIVE - Retrospective By Protocol Authorization Ordered Levothyroxine Sodium 100 MCG Oral Tablet; TAKE 1 TABLET IN THE AM ON AN EMPTY STOMACH ( Don't forget appt. on 12/10/18).; Therapy: 73Scp1124 to (Evaluate:60Lzx7018) Requested for: 18Nov2017; Last Rx:18Nov2017 Ordered Lisinopril 10 MG Oral Tablet; TAKE 1 TABLET TWICE DAILY; Therapy: 88Tzo5435 to (Evaluate:26Sep2018) Requested for: 01Oct2017; Last Rx:01Oct2017 Ordered Metoprolol Tartrate 25 MG Oral Tablet; Take one tablet by mouth twice-a-day; Therapy: 03Tqn6542 to (Last Rx:32Shn6610) Requested for: 67Uzm8218 Ordered Multi For Her Oral Capsule; TAKE 1 CAPSULE DAILY; Therapy: (Recorded:65Mtk3272) to Recorded Venlafaxine HCl - 37.5 MG Oral Tablet; TAKE 1 TABLET DAILY; Therapy: 66Gkg2822 to Recorded Warfarin Sodium 5 MG Oral Tablet; TAKE 1/2 TAB ON WEDNESDAY-WEDNESDAY AND WEDNESDAY 2 TABS ON REMAINING DAYS OR DIRECTED; Therapy: 02Gph9690 to (Evaluate:78Yvt6222) Requested for: 19Xpt4680; Last Rx:85Gtc7612 Ordered Signatures Electronically signed by : Lonnie Crane MD; Jan 24 2018 2:48PM EST (Author) ANTICOAGULATION MONITORING Observed: 12/28/2017 Status: UNK Source: [facility] 2:46 PM HOSPITALS REPOSITORY Today's INR 67Sgc8524 IO INR2.5 Target INR range2-3 SourceAMS History of Present Illness Patient identification verified with 2 patient identifiers. Anticoagulation Monitoring Service: [facility]. Enrollment/Re-enrollment date: September 04, 2018. The patient is being seen as a follow-up for anticoagulation monitoring. Target INR 2-3. Monitoring practitioner Lonnie Crane MD. INR monitoring is per [facility]MS protocol. The patient is on anticoagulation due to atrial fibrillation/flutter. The patient is currently taking warfarin Tablet strength and color: 5 mg(Roane) Interval History: Patient was last seen: December 14, 2017. Previous INR was 2.2. Incoming total weekly dose 47.5 mg. Today's Clinic INR: AMS INR 2.5. Since last visit, the patient reports no bleeding. The patient did not experience clinically relevant bleeding. The patient did not experience other minor bleeding. Since last visit, The patient has not experienced thrombotic event. The patient reports no change in medication. She reports no change in alcohol consumption. She reports no change in Vitamin K consumption. The patient has taken Warfarin as directed. Management: The patient's INR is within target range. Will maintain dose. Next follow up appointment in 4 week(s). Outgoing total weekly dose 47.5 mg. Patient instructed to call in interim with questions, concerns and changes. Patient educated on compliance with dosing, follow up appointments, and prescribed plan of care. Discussion/Summary You are currently taking Warfarin. Your tablet strength and color: 5 mg(Roane) Next Appointment: January 25, 2018. Time: 2: 30 pm. Location: [facility], . Your INR today is within range . You will continue to take your dose as instructed above. Visit information Please call in interim with questions, concerns and changes. Do tell your provider when you get sick, hurt, or get a cut that will not stop bleeding. It is important to check your INR on a regular basis and keep your appointments. Knowing your INR number is the only way of knowing if you're taking the amount of warfarin that is correct for you. If you have any bleeding, trauma, falls and/or other medical concerns, call your doctor or seek medical attention right away. Results/Data Coumadin Printed in Appendix #1 below. *Diagnosis/Problems 1. Atrial fibrillation (427.31) (I48.91) Signatures Electronically signed by : Niranjan Cordoba R.N.; Dec 28 2017 2:46PM EST (Author) Reviewed by : Lonnie Crane MD; Dec 28 2017 2:50PM EST Appendix #1 Coumadin Patient: MARSHALL FARRELL; : 1945; [id number] 02:[id number] 04:[id number] 04:55TZ00Qnr9115 03:28BF75Lcd7376 04:34PM IO PT/INR PT + INR, Plasma PT/INR (POC) Coagulation Screen Current Dose New Dose Recheck in Patient Notified Comments IO INR2.52.23.22.12.6 PT, INR Target INR -13-00-32-32-3 PARATHYROID Collected: 12/10/2017 Status: F Source: [place] HORMONE,INTACT 12:49 [facility] REPOSITORY TYPE CODE TESTS RESULT OUT OF REFERENCE UNITS RANGE LAB PTH(LOINC) 18.5 - 88.0 pg/mL PARATHYROID HORMONE,INTACT 35.4 Result Comment: Patients receiving more than 5 mg/day of biotin may have interference in test results. A sample should be taken no sooner than eight hours after previous dose. Contact [phone] for additional information. Performed By: #### PTH #### [facility] [address] [place] [address] VITAMIN D, 25-HYDROXY Collected: 12/10/2017 Status: F Source: [place] 12:49 [facility] REPOSITORY TYPE CODE TESTS RESULT OUT OF REFERENCE UNITS RANGE LAB VTDOH(LOINC ng/mL ) VITAMIN D, 35 25-HYDROXY Result Comment: . DEFICIENCY: < 20 NG/ML INSUFFICIENCY: 20-29 NG/ML OPTIMUM LEVEL: 30-80 NG/ML POSSIBLE TOXICITY: > 80 NG/ML THIS ASSAY ACCURATELY QUANTIFIES THE SUM OF VITAMIN D3, 25-HYDROXY AND VIT D2,25-HYDROXY. Performed By: #### VTDOH #### [facility] [address] [place] [id number] THYROXINE,FREE Collected: 12/10/2017 Status: F Source: [place] 12:49 [facility] REPOSITORY TYPE CODE TESTS RESULT OUT OF RANGE REFERENCE UNITS LAB T4FRE(LOINC 0.78 - 1.48 ng/dL ) High 1.50 THYROXINE,FR EE Result Comment: Thyroxine Free testing is performed using different testing methodology at [facility] than at other [facility]. Direct result comparisons should only be made within the same method. . Patients receiving more than 5 mg/day of biotin may have interference in test results. A sample should be taken no sooner than eight hours after previous dose. Contact [phone] for additional information. Performed By: #### T4FRE #### [facility] [address] [place] [address] TSH Collected: 12/10/2017 Status: F Source: [place] 12:49 [facility] REPOSITORY TYPE CODE TESTS RESULT OUT OF RANGE REFERENCE UNITS LAB TSH2(LOINC) 0.44 - 3.98 mIU/L TSH 1.33 Result Comment: TSH testing is performed using different testing methodology at [facility] than at other [facility]. Direct result comparisons should only be made within the same method. . Patients receiving more than 5 mg/day of biotin may have interference in test results. A sample should be taken no sooner than eight hours after previous dose. Contact [phone] for additional information. Performed By: #### TSH2 #### [facility] [address] [place] [address] RENAL FUNCTION PANEL Collected: 12/10/2017 Status: F Source: [place] 12:49 [facility] REPOSITORY TYPE CODE TESTS RESULT OUT OF REFERENCE UNITS RANGE LAB GLU(LOINC) 74 - 99 mg/dL GLUCOSE High 103 LAB SOD(LOINC) 136 - 145 mmol/L SODIUM 143 LAB K(LOINC) 3.5 - 5.3 mmol/L POTASSIUM 4.5 LAB CHLOR(LOIN 98 - 107 mmol/L C) CHLORIDE 107 LAB BIC(LOINC) 21 - 32 mmol/L BICARBONATE 27 LAB ANGAP(LOIN 10 - 20 mmol/L C) ANION GAP 14 LAB UREA(LOINC 6 - 23 mg/dL ) UREA NITROGEN 18 LAB CREA(LOINC 0.50 - 1.05 mg/dL ) CREATININE 0.80 LAB GFRFN(LOIN >60 mL/min/1.7 C) 3m2 GFR-NON AM. >60 LAB GFRAA(LOIN >60 mL/min/1.7 C) 3m2 GFR- AM. >60 Result Comment: CALCULATIONS OF ESTIMATED GFR ARE PERFORMED USING THE MDRD STUDY EQUATION FOR THE IDMS-TRACEABLE CREATININE METHODS. CLIN CHEM 2007;53:766-72 LAB CA(LOINC) 8.6 - 10.6 mg/dL CALCIUM 9.2 LAB PHOS(LOINC) 2.5 - 4.9 mg/dL PHOSPHORUS 3.6 Result Comment: The performance characteristics of phosphorus testing in heparinized plasma have been validated by the individual laboratory site where testing is performed. Testing on heparinized plasma is not approved by the FDA; however, such approval is not necessary. LAB ALB(LOINC) 3.4 - 5.0 g/dL ALBUMIN 4.0 Performed By: #### RENAL #### [facility] [address] [place] [address] THYROGLOBULIN AND ANTI Collected: 12/10/2017 Status: F Source: [place] [facility]IN [facility] TYPE CODE TESTS RESULT OUT OF REFERENCE UNITS RANGE LAB ATHYR(LOINC 0 - 40 IU/mL ) <20 ANTI-THYROGL OBULIN AB LAB ATHYC(LOINC IU/mL ) SEE COMMENT COMMENT-ANTI -THYROGLOB. Result Comment: Anti-thyroglobulin antibodies not detected. Thyroglobulin levels can be accurately determined by immunoassay. Performed By: #### THYRB #### [facility] [address] [place] [address] THYROGLOBULIN Collected: 12/10/2017 Status: F Source: [place] 12:49 PM [facility] REPOSITORY TYPE CODE TESTS RESULT OUT OF REFERENCE UNITS RANGE LAB THYRG(LOIN 1.7 - 56.0 ng/mL C) THYROGLOBULIN Low <0.2 Result Comment: Patients receiving more than 5 mg/day of biotin may have falsely decreased thyroglobulin results. A sample should be taken no sooner than eight hours after previous dose. Alternatively, testing by an alternate method, Thyroglobulin, LC-MS/MS, may be considered. Performed By: #### THYRG #### [facility] [address] [place] [address] CNCO Observed: 11/16/2017 Status: COMPLETED Source: [place] 1:26 PM [facility] REPOSITORY HNO ID: [id number] Author: Mammography Coordinator Service: (none) Author Type: Physician Type: Letter Filed: 11/17/2017 11:34 PM Note Text: November 16, 2017 PID: [id number] Marshall Farrell [address] [place] [address] Dear Ms. Farrell, We are pleased to inform you that the results of your recent breast imaging exam on 11/16/2017 are normal. Your mammogram demonstrates that you have dense breast tissue, which could hide abnormalities. Dense breast tissue, in and of itself, is a relatively common condition. Therefore, this information is not provided to cause undue concern; rather, it is to raise your awareness and promote discussion with your health care provider regarding the presence of dense breast tissue in addition to other risk factors. Early detection of cancer is very important. We also understand recommendations regarding breast cancer screening are controversial. Please discuss with your primary care provider which strategy is best for you and whether a mammogram is right for you. Your imaging studies and report will be kept on file at [facility] as part of your permanent medical record and are available for your continuing care. Thank you for allowing us to help in meeting your health care needs. Sincerely, Dr. Sheridan Interpreting Radiologist [facility] (Normal over 40) BD DXA - AXIAL Observed: 11/16/2017 Status: F Source: [place] 1:23 PM [facility] REPOSITORY * * *Final Report* * * DATE OF EXAM: Nov 16 2017 1:23PM WRB 0804 - BD DXA - AXIAL SKELETON / PROCEDURE REASON: Encounter for screening for osteoporosis * * * * Physician Interpretation * * * * PROCEDURE: BD DXA - AXIAL SKELETON INDICATION: Encounter for screening for osteoporosis TECHNIQUE: Low dose AP spine and hip images COMPARISON: 05/07/2014 LUMBAR SPINE: The bone mineral density from L1 through L4 is 1.035 grams per square centimeter which yields a T-score of -0.1. This is not significantly changed. LEFT HIP: The bone mineral density of the total region of the hip is 0.969 grams per square centimeter which yields a T-score of 0.2. This is not significantly changed. LEFT FEMORAL NECK: The bone mineral density of the femoral neck is 0.767 grams per square centimeter which yields a T-score of -0.7. This is not significantly changed. RIGHT HIP: The bone mineral density of the total region of the hip is 0.968 grams per square centimeter which yields a T-score of 0.2. This is 5.5% worse. RIGHT FEMORAL NECK: The bone mineral density of the femoral neck is 0.720 grams per square centimeter which yields a T-score of -1.2. This is 3.3% worse. 10-year Fracture Risk (FRAX): Major osteoporotic fracture risk 9.4% Hip fracture risk 1.2% IMPRESSION: Osteopenia in the right femoral neck, marginally worse. [facility] ORG. CLASSIFICATION OF BONE MASS CLASSIFICATION T-SCORE Normal Greater than -1 Low Bone Mass Between -1 and -2.5 (Osteopenia) Osteoporosis Less than or equal to -2.5 Bed Control Specialist: KATHI Transcribe Date/Time: Nov 16 2017 3:50P Dictated by : MANINDER SWIFT MD This examination was interpreted and the report reviewed and electronically signed by: MANINDER SWIFT MD on Nov 16 2017 3:51PM EST [id number] PROGRESS Observed: 11/16/2017 Status: COMPLETED Source: [place] 1:01 PM [facility] REPOSITORY HNO ID: [id number] Author: Aimee Deal Service: (none) Author Type: (none) Type: Progress Notes Filed: 11/16/2017 1:23 PM Note Text: Marshall Farrell November 16, 2017 [id number] Double identification: Patient identified by name and Bone Density Completed. Aimee Deal patient told of radiation jk 1:00pm not MAUDE SCREENING Observed: 11/16/2017 Status: F Source: [place] 1:01 PM [facility] REPOSITORY * * *Final Report* * * DATE OF EXAM: Nov 16 2017 1:01PM [facility] - [facility] SCREENING / PROCEDURE REASON: Encounter for screening mammogram for malignant neoplasm of breast * * * * Physician Interpretation * * * * RESULT: #[id number] - [facility] SCREENING BILATERAL DIGITAL SCREENING MAMMOGRAM WITH CAD: 11/16/2017 HISTORY: Encounter For Screening Mammogram For Malignant Neoplasm Of Breast /priors available for comparison. RESULT: TECHNIQUE: The study was acquired using full field digital technology and interpreted from soft copy. Current study was also evaluated with a Computer Aided Detection (CAD). Comparison is made to exams dated: 10/26/2016 mammogram, 05/28/2015 mammogram, and 03/07/2014 mammogram - [facility]. The tissue of both breasts is extremely dense, which lowers the sensitivity of mammography. Cardiac device partially obscures visualization of the left axilla. No significant masses, calcifications, or other findings are seen in either breast. There has been no significant interval change. IMPRESSION: BENIGN FINDING There is no mammographic evidence of malignancy.A 1 year screening mammogram is recommended. The exam was reviewed by a staff physician. Samra Mccann M.D. jac hicks/benjy:11/16/2017 13:26:57 Guard Driver: Terra RAMIREZ)(Chantal), [facility] letter sent: Normal over 40 Mammogram BI-RADS: 2 Benign finding Bed Control Specialist: Benjy Transcribe Date/Time: Nov 16 2017 12:44P Dictated by: JENIFER MCCANN MD This examination was interpreted and the report reviewed and electronically signed by: SAMRA SHERIDAN MD on Nov 16 2017 1:26PM EST [id number] PROCEDURE Observed: 11/16/2017 Status: COMPLETED Source: [place] 12:43 PM [facility] REPOSITORY HNO ID: [id number] Author: Demetrius Rivas (Rt) Service: (none) Author Type: Field Service Rep Type: Procedures Filed: 11/16/2017 1:02 PM Note Text: Radiology Service Progress Note PATIENT NAME: Marshall Farrell DATE OF SERVICE: November 16, 2017 TIME: 12:43 PM PATIENT IDENTITY VERIFICATION COMPLETED USING TWO (2) METHODS: Patient confirmed name verbally and Date of . PATIENT GENDER DATA: Female. status: : No status: NO. PATIENT RELEVANT IMPLANT DATA REVIEWED: Not Applicable RADIOLOGY DEPARTMENT: [facility] DATA: Not applicable SIGNED BY: RT Evelyn November 16, 2017 12:43 PM PROGRESS Observed: 11/11/2017 Status: COMPLETED Source: [place] 1:00 PM [facility] REPOSITORY HNO ID: [id number] Author: Isabela Finley Service: (none) Author Type: Nurse Practitioner Type: Progress Notes Filed: 11/11/2017 2:07 PM Note Text: Marshall Farrell is a 72 year old who presents for her annual gynecologic exam without complaints. Looking for a way to go to [place] for the winter. Postmenopausal: Yes since age 51s HRT use: No. Last Pap: 2012 normal HPV: 2013 negative History of abnormal pap: No Last mammogram: 2017 normal History of abnormal mammogram: No Sexually active: No Hot flashes: Yes, occasional Night sweats: No Vaginal dryness: No Exercise:tries to walk on treadmill. Diet: balanced Seatbelt use: Yes Obstetric History T0 L2 SAB0 TAB0 Ectopic0 Multiple0 Live Births0 Comment: has one adopted son. 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 RESOLVED W/PACEMAKER - Neoplasm of uncertain behavior of other and unspecified endocrine glands Thyroid cancer - Paroxysmal atrial fibrillation (HCC) s/p ablation - Phlebitis and thrombophlebitis of other deep vessels of lower extremities 2008 DVT - Popliteal/Tibia - PMH - PAST MEDICAL HISTORY OF HERNIATED DISK 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 PAST SURGICAL HISTORY Procedure Laterality Date - COLONOSCOP W/ OR W/O [facility] SPEC 01/01/2003 Colonoscopy - COLONOSCOP W/ OR W/O [facility] SPEC 03/14/15 Colonoscopy - DANDC, DIAG AND/OR THERAPEUTIC Dilation AND curettage - PAST SURGICAL HISTORY OF 2000 PACEMAKER - THYROIDECTOMY 11/27 and 12/28 x2 for thyroid cancer FAMILY HISTORY Problem Relation Age of Onset - Heart Mother - Cancer Father LUNG - Stroke Maternal Aunt - Stroke Maternal Uncle - Breast Cancer Maternal Aunt old - 70's - Stroke Maternal Uncle - Brain Tumor [OTHER] Maternal Grandmother 68 - Cancer Maternal Grandfather 72 Intestinal - Cancer Maternal Aunt Non-hodkins lymphoma SOCIAL HISTORY Social History Substance Use Topics - Smoking status: Former Smoker Packs/day: 1.00 Years: 15.00 Types: Cigarettes Quit date: 07/26/1990 - Smokeless tobacco: Never Used - Alcohol use No REVIEW OF SYSTEMS Abdomen: No abdominal pain, nausea, vomiting, diarrhea, or constipation. No bloating, early satiety, indigestion, or increased flatulence. Bladder: No dysuria, gross hematuria, urinary frequency, urinary urgency, or incontinence Breast: No breast lumps, nipple d/c, overlying skin changes, redness or skin retraction Allergies and current medication updated:Yes EXAM: BP 100/56 Ht 5' 6.5 (1.69m) Wt 157 lb 6.4 oz (71.4kg) BMI 25.03 kg/(m2). GENERAL: pleasant, female in no apparent distress HEENT: Normocephalic, atraumatic, mucus membranes moist and no lesions NECK: Supple, full range of motion, no adenopathy and thyroid normal DERMATOLOGY: Normal, without lesions, non-icteric and non-hirsute BREAST: soft, non-tender, symmetric, no dominant mass, normal nipple-areolar complex, no lymphadenopathy and no nipple discharge CHEST: Normal inspiratory effort ABDOMEN: soft, non-tender and no masses PELVIC: external genitalia normal, normal Bartholin's glands, urethra, Neligh's glands, no vulvar lesions, no cervical lesions, physiologic discharge present, normal appearing perineal body and perianal region BIMANUAL: uterus normal size, shape and consistency, no adnexal masses and non-tender RECTOVAGINAL: deferred. NEURO: alert and oriented x3,exam grossly non-focal EXTREMITIES: normal ASSESSMENT/PLAN: 1) Health maintenance: Pap/HPV screening no longer needed Mammogram ordered Nutrition, exercise and routine health maintenance exams reviewed. Calcium/Vitamin D supplementation information provided. Colon cancer screening: up to date with screening BMD: ordered 2) Follow up one year or sooner as needed Isabela Finley APRN.CNP CNOV Observed: 11/11/2017 Status: COMPLETED Source: [place] 1:00 PM [facility] REPOSITORY Office Visit (WOOB) MARSHALL FARRELL ([id number]) 1945 F NFR Date Time Provider Department 11/11/17 1:00 PM ISABELA FINLEY ([employer]) WOOB During your visit today, we recorded the following information about you: Blood pressure Weight Height 100/56 71.4 kg 1.689 m Isabela Finley APRN.CNP 11/11/2017 2:07 PM Signed Marshall Smith Bud is a 72 year old who presents for her annual gynecologic exam without complaints. Looking for a way to go to [place] for the winter. Postmenopausal: Yes since age 51s HRT use: No. Last Pap: 2013 normal HPV: 2013 negative History of abnormal pap: No Last mammogram: 2017 normal History of abnormal mammogram: No Sexually active: No Hot flashes: Yes, occasional Night sweats: No Vaginal dryness: No Exercise:tries to walk on treadmill. Diet: balanced Seatbelt use: Yes Obstetric History T0 L2 SAB0 TAB0 Ectopic0 Multiple0 Live Births0 Comment: has one adopted son. 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 RESOLVED W/PACEMAKER - Neoplasm of uncertain behavior of other and unspecified endocrine glands Thyroid cancer - Paroxysmal atrial fibrillation (HCC) s/p ablation - Phlebitis and thrombophlebitis of other deep vessels of lower extremities 2008 DVT - Popliteal/Tibia - PMH - PAST MEDICAL HISTORY OF HERNIATED DISK 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 PAST SURGICAL HISTORY Procedure Laterality Date - COLONOSCOP W/ OR W/O [facility] SPEC 01/01/2003 Colonoscopy - COLONOSCOP W/ OR W/O [facility] SPEC 03/14/15 Colonoscopy - DANDamp;C, DIAG AND/OR THERAPEUTIC Dilation ANDamp; curettage - PAST SURGICAL HISTORY OF 2000 PACEMAKER - THYROIDECTOMY 11/27 and 12/28 x2 for thyroid cancer FAMILY HISTORY Problem Relation Age of Onset - Heart Mother - Cancer Father LUNG - Stroke Maternal Aunt - Stroke Maternal Uncle - Breast Cancer Maternal Aunt old - 70's - Stroke Maternal Uncle - Brain Tumor [OTHER] Maternal Grandmother 68 - Cancer Maternal Grandfather 72 Intestinal - Cancer Maternal Aunt Non-hodkins lymphoma SOCIAL HISTORY Social History Substance Use Topics - Smoking status: Former Smoker Packs/day: 1.00 Years: 15.00 Types: Cigarettes Quit date: 07/26/1990 - Smokeless tobacco: Never Used - Alcohol use No REVIEW OF SYSTEMS Abdomen: No abdominal pain, nausea, vomiting, diarrhea, or constipation. No bloating, early satiety, indigestion, or increased flatulence. Bladder: No dysuria, gross hematuria, urinary frequency, urinary urgency, or incontinence Breast: No breast lumps, nipple d/c, overlying skin changes, redness or skin retraction Allergies and current medication updated:Yes EXAM: BP 100/56 Ht 5' 6.5ANDquot; (1.69m) Wt 157 lb 6.4 oz (71.4kg) BMI 25.03 kg/(m2). GENERAL: pleasant, female in no apparent distress HEENT: Normocephalic, atraumatic, mucus membranes moist and no lesions NECK: Supple, full range of motion, no adenopathy and thyroid normal DERMATOLOGY: Normal, without lesions, non-icteric and non-hirsute BREAST: soft, non-tender, symmetric, no dominant mass, normal nipple-areolar complex, no lymphadenopathy and no nipple discharge CHEST: Normal inspiratory effort ABDOMEN: soft, non-tender and no masses PELVIC: external genitalia normal, normal Bartholin's glands, urethra, Neligh's glands, no vulvar lesions, no cervical lesions, physiologic discharge present, normal appearing perineal body and perianal region BIMANUAL: uterus normal size, shape and consistency, no adnexal masses and non-tender RECTOVAGINAL: deferred. NEURO: alert and oriented x3,exam grossly non-focal EXTREMITIES: normal ASSESSMENT/PLAN: 1) Health maintenance: Pap/HPV screening no longer needed Mammogram ordered Nutrition, exercise and routine health maintenance exams reviewed. Calcium/Vitamin D supplementation information provided. Colon cancer screening: up to date with screening BMD: ordered 2) Follow up one year or sooner as needed Isabela Finley APRN.ROD Referring Provider: SELF [[id number]] Allergies As of Date: 11/11/2017 (No Known Allergies) Date Reviewed: 11/11/2017 Reviewed by: Isabela Finley - Fully Assessed Reason for Visit: Well Woman [[id number]] Primary Visit Diagnosis:Encounter for gynecological examination (general) (routine) without abnormal findings [Z01.419] Other Visit Diagnoses:Encounter for screening mammogram for breast cancer [Z12.31] Encounter for screening for osteoporosis [Z13.820] Order(s):MAUDE SCREENING [[id number]] Order #: [id number] FUTURE venlafaxine ER (EFFEXOR XR) 37.5 mg 24 hr capsuleTake 1 capsule by mouth once daily.Disp: 90 capsuleRfl: 3 DXA-AXIAL SKELETON [[id number]] Order #: [id number] FUTURE Prescriptions as of 11/11/2017 Sig: VENLAFAXINE ER 37.5 MG CAPSUL* Take 1 capsule by mouth once * FLUOCINONIDE 0.05 % TOPICAL C* Apply 1 application to affect* LISINOPRIL 10 MG TABLET Take 1 tablet by mouth once d* * SYNTHROID 100 MCG TABLET Take one(1) tablet daily. * COUMADIN 5 MG TABLET Take two tablets daily. * COREG 6.25 MG TABLET Take one(1) tablet two(2) natan* * CALCIUM MAGNESIUM + D 500 MG-* Take 4 tablets daily. * VITAMIN C 500 MG TABLET Take one(1) tablet two(2) natan* * OMEGA 3-6-9 40 MG-60 MG-10 UN* Take one(1) tablet three time* * MULTIVITAMIN TABLET Take one(1) tablet two(2) natan* DIGOXIN 125 MCG TABLET Take 0.125 mg by mouth once d* METOPROLOL TARTRATE 25 MG TAB* Take 25 mg by mouth twice amairani* DOFETILIDE 500 MCG CAPSULE Take 500 mcg by mouth q 12 HR. Medication notes this encounter DIGOXIN 125 MCG TABLET >> Isabela Finley APRN.CNP 11/11/2017 1:21 PM >> ISABELA FINLEY [facility] Nov 11, 2017 1:21 PM Received from: External Pharmacy Received Sig: TAKE 1 TABLET BY MOUTH ONCE DAILY METOPROLOL TARTRATE 25 MG TABLET >> Isabela Finley APRN.[facility] 11/11/2017 1:22 PM >> ISABELA FINLEY [facility] Nov 11, 2017 1:22 PM Received from: External Pharmacy Received Sig: TAKE 1 TABLET BY MOUTH TWICE A DAY DOFETILIDE 500 MCG CAPSULE >> Isabela Finley APRN.[facility] 11/11/2017 1:22 PM >> ISABELA FINLEY [facility] Nov 11, 2017 1:22 PM Received from: External Pharmacy Received Sig: TAKE 1 CAPSULE BY MOUTH EVERY 12 HOURS MUPIROCIN 2 % NASAL OINTMENT >> Fauzia Jett MA 11/11/2017 1:06 PM >> FAUZIA JETT MA [facility] Nov 11, 2017 1:06 PM Not using ACIDOPHILUS 100 MILLION CELL-PECTIN, CITRUS 10 MG CAPSULE >> Fauzia Jett MA 11/11/2017 1:05 PM >> FAUZIA JETT MA [facility] Nov 11, 2017 1:05 PM Not taking GLUCOSAMINE CHONDROITIN MAXIMUM STRENGTH 500 MG-400 MG CAPSULE >> Fauzia PatelDAVID schultz 11/11/2017 1:05 PM >> FAUZIA JETT MA [facility] Nov 11, 2017 1:05 PM Not taking Problem List As Of Date 11/11/2017 Noted Resolved 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 Routine Gynecological Examination [Z01.419] INVALID FOR*01/23/2010 Class: Chronic More... Heart valve disease [I38] INVALID FOR* Priority: B More... Cystocele, Midline [N81.11] INVALID FOR* Hypothyroidism [E03.9] INVALID FOR* Priority: A More... Atrial fibrillation (HCC) [I48.91] INVALID FOR* Priority: A More... Pacemaker [Z95.0] INVALID FOR* More... Chronic anticoagulation [Z79.01] INVALID FOR* More... Prescriptions ordered this encounter Disp Refills Start End VENLAFAXINE ER 37.5 MG CAPSULE,EXTEN* 90 c* 3 11/11/2017 Route: ORAL Sig: Take 1 capsule by mouth once daily. Medications Discontinued During This Encounter mupirocin (BACTROBAN NASAL) 2 % nasa* 1 Tu* 2 08/27/2015 11/11/2017 Route: NASAL Sig: Use 1 application in the nose twice daily. Disc: Reason for discontinue is not on file. acidophilus-pectin, citrus (ACIDOPHI* 0 08/27/2015 11/11/2017 Class: Med Update Route: ORAL Sig: Take 1 capsule by mouth once daily. Disc: Reason for discontinue is not on file. gluc dias/chondro dias a/vit c/mn(GLUCOS* 0 12/24/2009 11/11/2017 Class: OTC Route: ORAL Sig: Take three tablets daily. Disc: Reason for discontinue is not on file. venlafaxine ER (EFFEXOR XR) 37.5 mg * 90 c* 3 10/26/2016 11/11/2017 Route: ORAL Sig: Take 1 capsule by mouth once daily. Disc: Reason for discontinue is not on file. Disposition: Return in 1 year (on 11/11/2018) for Annual Exam. Follow-up and Disposition History Recorded Encounter Status:Closed by ISABELA FINLEY on 11/11/17 BASIC METABOLIC PANEL Collected: 09/30/2017 Status: F Source: [place] 4:[address] [place] [address] REPOSITORY TYPE CODE TESTS RESULT OUT OF REFERENCE UNITS RANGE LAB GLU(LOINC) 74 - 99 mg/dL GLUCOSE 97 LAB SOD(LOINC) 136 - 145 mmol/L SODIUM 142 LAB K(LOINC) 3.5 - 5.3 mmol/L POTASSIUM 4.0 LAB CHLOR(LOIN 98 - 107 mmol/L C) CHLORIDE High 108 LAB BIC(LOINC) 21 - 32 mmol/L BICARBONATE 27 LAB ANGAP(LOIN 10 - 20 mmol/L C) ANION GAP 11 LAB UREA(LOINC 6 - 23 mg/dL ) UREA NITROGEN 21 LAB CREA(LOINC 0.50 - 1.05 mg/dL ) CREATININE 0.66 LAB GFRFN(LOIN >60 mL/min/1.7 C) 3m2 GFR-NON AM. >60 LAB GFRAA(LOIN >60 mL/min/1.7 C) 3m2 GFR- AM. >60 Result Comment: CALCULATIONS OF ESTIMATED GFR ARE PERFORMED USING THE MDRD STUDY EQUATION FOR THE IDMS-TRACEABLE CREATININE METHODS. CLIN CHEM 2007;53:766-72 LAB CA(LOINC) 8.6 - 10.6 mg/dL CALCIUM 8.8 Performed By: #### BMP #### [facility] [address] [place] [address] MAGNESIUM Collected: 09/30/2017 Status: F Source: [place] [address] [place] [address] REPOSITORY TYPE CODE TESTS RESULT OUT OF REFERENCE UNITS RANGE LAB MG(LOINC) 1.60 - 2.40 mg/dL MAGNESIUM 2.26 Performed By: #### MG #### [facility] [address] [place] [address] PT/INR Collected: 09/30/2017 Status: F Source: [place] [address] [place] [address] REPOSITORY TYPE CODE TESTS RESULT OUT OF REFERENCE UNITS RANGE LAB PT(LOINC) 9.8 - 12.7 sec PROTHROMBIN High TIME 33.7 LAB INR(LOINC) 0.9 - 1.1 PT, INR High 3.0 Performed By: #### PTINR #### [facility] [address] [place] [address] DAILY PROGRESS Observed: 09/29/2017 Status: COMPLETED Source: [facility] NOTE-EP 10:37 AM HOSPITALS REPOSITORY Service: EP Subjective Data: MARSHALL FARRELL is a 72 year old Female who is Hospital Day # 3. Additional Information: Pt examined at 9:10AM and tele reviewed. Feels well, walked in unit 3x yesterday and felt well. Denies CP/dypsnea/LH/palps. Objective Data: Objective Information: T P R BP SpO2 Value 36.2 80 18 126/70 92% Date/Time 09/29 8:00 09/29 8:00 09/29 8:00 09/29 8:00 09/29 8:00 Range (36.2C - 36.6C ) (60 - 80 ) (18 - 18 ) (109 - 149 )/ (55 - 74 ) (92% - 97% ) Pain reported at 09/28 23:30: 0 = None Tele reviewed: SR/AP, occas AP-CELLAR SUPERVISOR 60s-70s, PVCs, brief runs bigem PVCs EKG post 3rd dose 09/28/17 23:32--AP 64, rare AP-CELLAR SUPERVISOR beat, PVC, QT 440ms/QTc 444ms EKG post 4th dose 09/29/17 10:31AM--AP 60, QT/QTc 460ms PPM interro by device nurse: last interro 2 yrs ago! -Battery life ~2yrs -no V arrhythmias -2900 AMS episodes, longest 4 hrs -AP 57%, CELLAR SUPERVISOR 39% -leads: capture/sensing NL, impedances stable/NL -Will f/u in [facility] clinic in 6 mos, RN made appt (pt aware) Physical Exam: Constitutional: A+O x 3, no distress Eyes: Anicteric Head/Neck: NC/AT Respiratory/Thorax: CTAB Cardiovascular: RRR, occas ectopic, 3/6 LEBRON, 3/6 pansystolic M at mitral area, no diastolic M appreciated (examined in chair) Gastrointestinal: soft, NT/ND +bs Extremities: no LE edema Psychological: Appropriate speech and affect. Skin: Warm and dry Medication: Medications: Continuous Medications No continuous medications are active Scheduled Medications 1. Digoxin: 0.125 mg Oral Daily 2. Dofetilide: 500 microgram(s) Oral Every 12 Hours 3. Levothyroxine: 100 microgram(s) Oral Daily 4. Lisinopril: 10 mg Oral 2 Times a Day 5. Metoprolol Tartrate: 25 mg Oral Every 12 Hours 6. Venlafaxine: 37.5 mg Oral Daily 7. Warfarin: 5 mg Oral Once PRN Medications 1. Acetaminophen: 650 mg Oral Every 4 Hours Currently Suspended Medications 1. Warfarin: 7.5 mg Oral Daily Recent Lab Results: Results: I have reviewed these laboratory results: Basic Metabolic Panel 29-Sep-2017 04:14:00 Result Value Glucose, Serum 94 NA 141 K 4.1 CL 107 Bicarbonate, Serum 27 Anion Gap, Serum 11 BUN 21 CREAT 0.70 GFR-Non >60 GFR- >60 Calcium, Serum 9.2 PT + INR, Plasma Trending View Result 29-Sep-2017 04:14:00 28-Sep-2017 04:23:00 27-Sep-2017 15:32:00 Prothrombin Time, Plasma 38.2 H 32.6 H 30.8 H International Normalized Ratio, Plasma 3.4 H 2.9 H 2.8 H Magnesium, Serum 29-Sep-2017 04:14:00 Result Value Magnesium, Serum 2.30 Digoxin Level, Serum 27-Sep-2017 15:32:00 Result Value Digoxin Level, Serum 0.21 L Assessment and Plan: Assessment: -Persistent AF s/p PVI 12/08 and Tikosyn initiation>now more paroxsymal -[facility] 2004 ([facility]) for MARKS/MR: essentially NL cors -RHD, s/p balloon valvuloplasty for MS 11/08 ----Echo 02/08: EF 60-65%, DD, mod LAE, Rheumatic MV w/ mod MS/mod MR, mod /mild-mod AR (peak grad 58/mean 32), mild-mod AR, mild-mod TR, rvsp 48mm -Tachy-alden syndrome s/p dual PPM 1999, generator change (Guidant) 2006 -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 Coumadin 5mg today instead of usual dose 7.5 as INR is 3.4. PPM interrogation with last check 2 yrs ago, 2yrs battery life remaining-->d/w pt importance of routine f/u and RN made appt for device check in 6 mos at [facility]. -Cont Tikosyn 500mcg q12h -EKG 2hrs post each dose -Replete lytes PRN (K>4, Mg>2) -Cont coumadin / Daily INR -Cont rest of home meds except OTC Mag, which pt started on her own -Anticipate dc home after 6th dose tomorrow 09/30 if QTc remains stable PHARMACY: [facility] on [facility] in [place], *HVI team covers overnight, signout will be given EMILY Nicholson PA-C, [facility] Cardiac Electrophysiology Electronic Signatures: Junior Bertrand) (Signed 04-Oct-2017 13:28) Authored: Signature/Cosignature/Attestation Co-Signer: Service, Subjective Data, Objective Data, Assessment and Plan Tank Tiwari (PAC) (Signed 29-Sep-2017 14:52) Authored: Service, Subjective Data, Objective Data, Assessment and Plan Last Updated: 04-Oct-2017 13:28 by Junior Bertrand) PT/INR Collected: 09/29/2017 Status: F Source: [place] 4:14 AM [facility]ALS REPOSITORY TYPE CODE TESTS RESULT OUT OF REFERENCE UNITS RANGE LAB PT(LOINC) 9.8 - 12.7 sec PROTHROMBIN High TIME 38.2 LAB INR(LOINC) 0.9 - 1.1 PT, INR High 3.4 Performed By: #### PTINR #### [facility] [address] [place] [address] MAGNESIUM Collected: 09/29/2017 Status: F Source: [place] 4:14 AM [facility]ITALS REPOSITORY TYPE CODE TESTS RESULT OUT OF REFERENCE UNITS RANGE LAB MG(LOINC) 1.60 - 2.40 mg/dL MAGNESIUM 2.30 Performed By: #### MG #### [facility] [address] [place] [address] BASIC METABOLIC PANEL Collected: 09/29/2017 Status: F Source: [place] 4:14 AM [facility]ITALS REPOSITORY TYPE CODE TESTS RESULT OUT OF REFERENCE UNITS RANGE LAB GLU(LOINC) 74 - 99 mg/dL GLUCOSE 94 LAB SOD(LOINC) 136 - 145 mmol/L SODIUM 141 LAB K(LOINC) 3.5 - 5.3 mmol/L POTASSIUM 4.1 LAB CHLOR(LOIN 98 - 107 mmol/L C) CHLORIDE 107 LAB BIC(LOINC) 21 - 32 mmol/L BICARBONATE 27 LAB ANGAP(LOIN 10 - 20 mmol/L C) ANION GAP 11 LAB UREA(LOINC 6 - 23 mg/dL ) UREA NITROGEN 21 LAB CREA(LOINC 0.50 - 1.05 mg/dL ) CREATININE 0.70 LAB GFRFN(LOIN >60 mL/min/1.7 C) 3m2 GFR-NON AM. >60 LAB GFRAA(LOIN >60 mL/min/1.7 C) 3m2 GFR- AM. >60 Result Comment: CALCULATIONS OF ESTIMATED GFR ARE PERFORMED USING THE MDRD STUDY EQUATION FOR THE IDMS-TRACEABLE CREATININE METHODS. CLIN CHEM 2007;53:766-72 LAB CA(LOINC) 8.6 - 10.6 mg/dL CALCIUM 9.2 Performed By: #### BMP #### [facility] [address] [place] [address] DAILY PROGRESS Observed: 09/28/2017 Status: COMPLETED Source: [facility] NOTE-EP 8:40 AM HOSPITALS REPOSITORY Service: EP Subjective Data: MARSHALL FARRELL is a 72 year old Female who is Hospital Day # 2. Additional Information: Pt examined at 8:20AM and tele reviewed. Feels well, denies CP/dyspnea/LH/palps. Up in [place] yesterday w/o issues. 1st dose Tikosyn at 9PM last night. Objective Data: Objective Information: T P R BP SpO2 Value 36.6 69 18 108/73 94% Date/Time 09/28 7:00 09/28 7:00 09/28 7:00 09/28 7:00 09/28 7:00 Range (36.3C - 36.6C ) (59 - 69 ) (18 - 20 ) (108 - 163 )/ (69 - 81 ) (94% - 97% ) Pain reported at 09/27 23:45: 0 = None Tele reviewed: AP/ occas AP-CELLAR SUPERVISOR / SR 60s-70s, PVCs, brief runs V bigeminy EKG post 1st dose 09/27/17 23:57--AP, single AP-CELLAR SUPERVISOR beat, PVC, paced TARA 282ms, QRSD 92ms, QT 440ms/QTc ~431ms by Bazett EKG post 2nd dose 09/28/17 11:16AM--AP, AP/CELLAR SUPERVISOR 60bpm, QT/QTc 460ms by Bazett Physical Exam: Constitutional: A+O x 3, no distress Eyes: Anicteric Head/Neck: NC/AT Respiratory/Thorax: CTAB Cardiovascular: RRR, 3/6 LEBRON aortic area, 3/6 pansystolic M mitral area, no diastolic M appreciated today Gastrointestinal: soft, NT/ND +bs Extremities: no LE edema Psychological: Appropriate speech and affect. Skin: Warm and dry Medication: Medications: Continuous Medications No continuous medications are active Scheduled Medications 1. Digoxin: 0.125 mg Oral Daily 2. Dofetilide: 500 microgram(s) Oral Every 12 Hours 3. Levothyroxine: 100 microgram(s) Oral Daily 4. Lisinopril: 10 mg Oral 2 Times a Day 5. Metoprolol Tartrate: 25 mg Oral Every 12 Hours 6. Venlafaxine: 37.5 mg Oral Daily 7. Warfarin: 7.5 mg Oral Daily PRN Medications 1. Acetaminophen: 650 mg Oral Every 4 Hours Recent Lab Results: Results: I have reviewed these laboratory results: Basic Metabolic Panel Trending View Result 28-Sep-2017 04:23:00 27-Sep-2017 15:32:00 Glucose, Serum 99 96 NA 138 140 K 4.1 4.3 CL 106 107 Bicarbonate, Serum 25 23 Anion Gap, Serum 11 14 BUN 19 18 CREAT 0.75 0.72 GFR-Non >60 >60 GFR- >60 >60 Calcium, Serum 8.9 9.1 PT + INR, Plasma Trending View Result 28-Sep-2017 04:23:00 27-Sep-2017 15:32:00 Prothrombin Time, Plasma 32.6 H 30.8 H International Normalized Ratio, Plasma 2.9 H 2.8 H Magnesium, Serum Trending View Result 28-Sep-2017 04:23:00 27-Sep-2017 15:32:00 Magnesium, Serum 2.37 2.49 H Complete Blood Count 27-Sep-2017 15:32:00 Result Value White Blood Cell Count 8.0 Nucleated Erythrocyte Count 0.0 Red Blood Cell Count 4.84 HGB 14.6 HCT 44.8 MCV 93 MCHC 32.6 PLT 247 RDW-CV 13.1 Digoxin Level, Serum 27-Sep-2017 15:32:00 Result Value Digoxin Level, Serum 0.21 L Assessment and Plan: Assessment: -Persistent AF s/p PVI 12/08 and Tikosyn initiation>now more paroxsymal -[facility] 2004 ([facility]) for MARKS/MR: essentially NL cors -RHD, s/p balloon valvuloplasty for MS 11/08 ----Echo 02/08: EF 60-65%, DD, mod LAE, 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 RENE was canceled by echo lab yesterday as pt arrived for this in [place]. -Cont Tikosyn 500mcg q12h (CrCL>60ml/min by C-G equation on admission) -EKG 2hrs post each dose -Replete lytes PRN (K>4, Mg>2) -Cont coumadin / Daily INR -Cont rest of home meds except OTC Mag, which pt started on her own->has been on Effexor (for hot flashes) with Tik at home prior (is a class D-consider therapy modification) -Pt was given a 3-page Tikosyn education guide and is able to read (had been on Tikosyn up until ~3 wks ago) *HVI team covers overnight, signout will be given EMILY Nicholson, PA-C, [facility] Cardiac Electrophysiology Electronic Signatures: Junior Bertrand) (Signed 04-Oct-2017 13:27) Authored: Signature/Cosignature/Attestation Co-Signer: Service, Subjective Data, Objective Data, Assessment and Plan Tank Tiwari (PAC) (Signed 28-Sep-2017 12:21) Authored: Service, Subjective Data, Objective Data, Assessment and Plan Last Updated: 04-Oct-2017 13:27 by Junior Bertrand) PT/INR Collected: 09/28/2017 Status: F Source: [place] 4:23 [facility] REPOSITORY TYPE CODE TESTS RESULT OUT OF REFERENCE UNITS RANGE LAB PT(LOINC) 9.8 - 12.7 sec PROTHROMBIN High TIME 32.6 LAB INR(LOINC) 0.9 - 1.1 PT, INR High 2.9 Performed By: #### PTINR #### [facility] [address] [place] [address] BASIC METABOLIC PANEL Collected: 09/28/2017 Status: F Source: [place] 4:[facility] REPOSITORY TYPE CODE TESTS RESULT OUT OF REFERENCE UNITS RANGE LAB GLU(LOINC) 74 - 99 mg/dL GLUCOSE 99 LAB SOD(LOINC) 136 - 145 mmol/L SODIUM 138 LAB K(LOINC) 3.5 - 5.3 mmol/L POTASSIUM 4.1 LAB CHLOR(LOIN 98 - 107 mmol/L C) CHLORIDE 106 LAB BIC(LOINC) 21 - 32 mmol/L BICARBONATE 25 LAB ANGAP(LOIN 10 - 20 mmol/L C) ANION GAP 11 LAB UREA(LOINC 6 - 23 mg/dL ) UREA NITROGEN 19 LAB CREA(LOINC 0.50 - 1.05 mg/dL ) CREATININE 0.75 LAB GFRFN(LOIN >60 mL/min/1.7 C) 3m2 GFR-NON AM. >60 LAB GFRAA(LOIN >60 mL/min/1.7 C) 3m2 GFR- AM. >60 Result Comment: CALCULATIONS OF ESTIMATED GFR ARE PERFORMED USING THE MDRD STUDY EQUATION FOR THE IDMS-TRACEABLE CREATININE METHODS. CLIN CHEM 2007;53:766-72 LAB CA(LOINC) 8.6 - 10.6 mg/dL CALCIUM 8.9 Performed By: #### BMP #### [facility] [address] [place] [id number] MAGNESIUM Collected: 09/28/2017 Status: F Source: [place] 4:23 AM [facility]OSPITALS REPOSITORY TYPE CODE TESTS RESULT OUT OF REFERENCE UNITS RANGE LAB MG(LOINC) 1.60 - 2.40 mg/dL MAGNESIUM 2.37 Performed By: #### MG #### [facility] [address] [place] [address] DISCHARGE PLANNING Observed: 09/27/2017 Status: UNK Source: UNIVERSITY NOTE 6:19 PM HOSPITALS REPOSITORY Discharge Needs Assessment: ? Primary Care Physician Lety Vora; Cole - OP, Mending Carrier Adult Information: ? Reason for Admission as Stated by Patient agnes ? Primary Support Person During Hospitalization Lyn - [phone] ? Lives With spouse Patient Learning: ? Factors that Impact Ability to Learn visual problems(1) Other Factors: ? Functional Screen: In the recent/past 2-4 weeks, patient or family have noticed no issues that require a rehabilitation consult at this time(2) Discharge Needs: ? Services Anticipated at Discharge none ? Anticipated Discharge Disposition home ? Type of Equipment Currently in the Home None ? Anticipated Discharge Facility/Level of Care Needs Home Discharge Planning: Discharge Plannin09/27/17-18;27 Discharge Planning Note: 72 yo CF admitted to [facility] from [facility]. Patient lives at home independently with her , Lyn. She plans to return home upon discharge and family will provide transportation. Patient has no home health needs, patient states she will have enough help at home. Patient phone # [phone] Masha Parikh RN Industrial Insulator Note 09/28/17 1210 RN CC spoke with patient at the bedside. Demographics verified. Patient lives at home w/ her . Patient states that she is fully independent with all self care and ADLs. Patient has no DME at home and does not require any. Patient feels safe and is able to get all medications. Patient still drives and is able to get to all appts. Patient does not need any home health at d/c. Patient will have a ride home from friends/family. Will continue to follow. Maninder Wylie RN 09-29-2017 15:03 Discharge Planning Progress Note - ACM 14:54-IMM Letter delivered to patient, patient signed, dated, original to patient, copy to medical record. (Colby Arias ) Nursing Discharge Planning Note 09/30/17 2567 Patient provided with discharge instructions. Instructions reviewed with patient. Patient verbalized understanding. Tikosyn starter pack called into [facility] & patient picked up medication prior to d/c. Tikosyn full medication supply called into patient's own pharmacy. Follow- up appointments provided. VS stable. IV removed with tip intact & no complications. Removed from telemetry & ambulated with all belongings to [facility] where patient returned home. Ceci Ram RN Electronic Signatures: Ceci Ram (RN) (Signed 30-Sep-2017 11:39) Authored: Discharge Planning Note Masha Parikh (DANDY) (Signed 27-Sep-2017 18:32) Authored: Discharge Planning Note Maninder Wylie (CLIN COOR) (Signed 28-Sep-2017 12:13) Authored: Discharge Planning Note Last Updated: 30-Sep-2017 11:39 by Ceci Ram (RN) References: 1. Data Referenced From 3. Plan of Care - Adult 09/27/2017 5:59 PM 2. Data Referenced From Admission Risk Screen - Adult 09/27/2017 5:59 PM HISTORY AND PHYSICAL Observed: 09/27/2017 Status: COMPLETED Source: [place] 4:21 PM HOSPITALS REPOSITORY History of Present Illness: HPI: PCP: Michael Dallas CARDS: Cole EP: Jerzy 72yo F w/ Rheumatic MS s/p balloon mitral valvuloplasty 11/08 during an admit for symptomatic AF mgmt. Pt underwent PVI 12/08 and subsequent Tikosyn initiation (500mcg q12h). Pt has been on coumadin managed by [facility] coumadin clinic. Pt was traveling recently and forgot to bring her Tikosyn with her; she has missed at least 3 weeks of this thus per Dr Bertrand Tikosyn re-initiation admission was planned. Pt feels she went back into AF sometime while still traveling and sx include palps, MARKS and fatigue though sx are not as bad as prior to PVI. Due to a 1-month gap in recent INRs, pt was scheduled for RENE today 09/27/17 prior to admission but per [facility] lab this was canceled as pt arrived in [place]. Pt admits to occasional mild non-radiating MS chest tightness without assoc sx only when in AFib; has never had this when in [place] nor nocturnal/resting sx. Denies syncope/LH/PND/orthopnea/edema. 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 Denies hx CVA/TIA/seizures. No F/C/C or skin rashes. Wta has been stable. Denies bowel or bladder issues or changes. O/w all systems neg except as noted in HPI Comorbidities: ? Comorbid Conditions atrial fibrillation ? Type of Atrial Fibrillation Persistent Allergies: ? sulfamethoxazole: Rash ? Cipro: Other Medications Prior to Admission: Meds were reviewed and reconciled. Objective: Objective Information: VS reviewed and stable Baseline EKG 09/27/17 16:21--SR, 1st deg AV delay (TARA 240ms), PVCs x 3, QT 400ms/QTc 417ms by Bazett Physical Exam: Constitutional: Well developed, awake/alert/oriented x3, no distress Eyes: Anicteric Head/Neck: NC/AT Respiratory/Thorax: CTAB Cardiovascular: RRR w/ occas ectopic; 3/ LEBRON, 3/6 pansystolic M loudest mitral area, whiff of diastolic M L pectoral PPM site healed without evidence of infx or erosion Gastrointestinal: Soft, NT/ND, +BS Extremities: No LE edema Neurological: Power 5/5 x 4 Psychological: Appropriate speech, mood, and affect Skin: Warm and dry Recent Lab Results: Results: I have reviewed these laboratory results: Basic Metabolic Panel 27-Sep-2017 15:32:00 Result Value Glucose, Serum 96 NA 140 K 4.3 CL 107 Bicarbonate, Serum 23 Anion Gap, Serum 14 BUN 18 CREAT 0.72 GFR-Non >60 GFR- >60 Calcium, Serum 9.1 PT + INR, Plasma 27-Sep-2017 15:32:00 Result Value Prothrombin Time, Plasma 30.8 H International Normalized Ratio, Plasma 2.8 H Complete Blood Count 27-Sep-2017 15:32:00 Result Value White Blood Cell Count 8.0 Nucleated Erythrocyte Count 0.0 Red Blood Cell Count 4.84 HGB 14.6 HCT 44.8 MCV 93 MCHC 32.6 PLT 247 RDW-CV 13.1 Magnesium, Serum 27-Sep-2017 15:32:00 Result Value Magnesium, Serum 2.49 H Assessment and Plan: Assessment: -Persistent AF s/p PVI 12/08 and Tikosyn initiation>now more paroxsymal -[facility] 2004 ([facility]) for MARKS/MR: essentially NL cors -RHD, s/p balloon valvuloplasty for MS 11/08 ----Echo 7/17: EF 60-65%, DD, mod LAE, 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 Awaiting digoxin level o/w labs are acceptable (hold dig in AM until level reviewed). Cr CL is >60ml/min by C-G equation thus ordered Tikosyn 500mcg q12h to start tonight (same as home dose also) -Admit to [facility] for Tikosyn re-initiation per Dr Bertrand -Continuous tele / QTc monitoring -EKG 2hrs post each dose -Replete lytes PRN (K>4, Mg>2) -Cont coumadin / Daily INR -Cont rest of home meds except OTC Mag, which pt started on her own->has been on Effexor (for hot flashes) with Tik at home prior (is a class D-consider therapy modification) -Pt was given a 3-page Tikosyn education guide and is able to read (has been on Tikosyn up until ~3 wks ago) *HVI team covers overnight, signout will be given EMILY Nicholson, PA-C, [facility] Cardiac Electrophysiology Signatures/Attestation/Certification: Attending Provider ? Inpatient Certification Statement I certify this patient?s need for inpatient care based on the above documentation including; the order to admit as inpatient, the anticipated length of stay, diagnosis, problem list and plan of care, and discharge plan. Electronic Signatures: Junior Bertrand) (Signed 29-Sep-2017 13:00) Authored: Signatures/Attestation/Certification Co-Signer: Objective, Assessment and Plan Tank Tiwari (PAC) (Signed 28-Sep-2017 08:56) Authored: History of Present Illness, Comorbidities, Allergies, Medications Prior to Admission, Objective, Assessment and Plan Last Updated: 29-Sep-2017 13:00 by Junior Bertrand) EMR ADDON Collected: 09/27/2017 Status: F Source: [place] 4:02 [facility] REPOSITORY TYPE CODE TESTS RESULT OUT OF REFERENCE UNITS RANGE LAB EMRAC(LOIN C) ADDON CONFIRMATION REQUEST REC'D Performed By: #### EMRAD #### NO LOCATION NEEDED CBC Collected: 09/27/2017 Status: F Source: [address] REPOSITORY TYPE CODE TESTS RESULT OUT OF REFERENCE UNITS RANGE LAB WBCR(LOINC 4.4 - 11.3 x10E9/L ) WBC 8.0 LAB NRBC(LOINC 0.0-0.0 /100 WBC ) NUCLEATED RBC 0.0 LAB RBCCT(LOIN 4.00 - 5.20 x10E12/L C) RBC 4.84 LAB HGB(LOINC) 12.0 - 16.0 g/dL HGB 14.6 LAB HCT(LOINC) 36.0 - 46.0 % HCT 44.8 LAB MCV(LOINC) 80 - 100 fL MCV 93 LAB MCHC2(LOIN 32.0 - 36.0 g/dL C) MCHC 32.6 LAB PLTCT(LOIN 150 - 450 x10E9/L C) PLT 247 LAB RDWCV(LOIN 11.5 - 14.5 % C) RDW-CV 13.1 Performed By: #### CBC #### [facility] [address] [place] [address] MAGNESIUM Collected: 09/27/2017 Status: F Source: [address] REPOSITORY TYPE CODE TESTS RESULT OUT OF REFERENCE UNITS RANGE LAB MG(LOINC) 1.60 - 2.40 mg/dL High MAGNESIUM 2.49 Performed By: #### MG #### [facility] [address] [place] [address] BASIC METABOLIC PANEL Collected: 09/27/2017 Status: F Source: [address] REPOSITORY TYPE CODE TESTS RESULT OUT OF REFERENCE UNITS RANGE LAB GLU(LOINC) 74 - 99 mg/dL GLUCOSE 96 LAB SOD(LOINC) 136 - 145 mmol/L SODIUM 140 LAB K(LOINC) 3.5 - 5.3 mmol/L POTASSIUM 4.3 LAB CHLOR(LOIN 98 - 107 mmol/L C) CHLORIDE 107 LAB BIC(LOINC) 21 - 32 mmol/L BICARBONATE 23 LAB ANGAP(LOIN 10 - 20 mmol/L C) ANION GAP 14 LAB UREA(LOINC 6 - 23 mg/dL ) UREA NITROGEN 18 LAB CREA(LOINC 0.50 - 1.05 mg/dL ) CREATININE 0.72 LAB GFRFN(LOIN >60 mL/min/1.7 C) 3m2 GFR-NON AM. >60 LAB GFRAA(LOIN >60 mL/min/1.7 C) 3m2 GFR- AM. >60 Result Comment: CALCULATIONS OF ESTIMATED GFR ARE PERFORMED USING THE MDRD STUDY EQUATION FOR THE IDMS-TRACEABLE CREATININE METHODS. CLIN CHEM 2007;53:766-72 LAB CA(LOINC) 8.6 - 10.6 mg/dL CALCIUM 9.1 Performed By: #### BMP #### [facility] [address] [place] [address] PT/INR Collected: 09/27/2017 Status: F Source: [place] [address] [place] [address] REPOSITORY TYPE CODE TESTS RESULT OUT OF REFERENCE UNITS RANGE LAB PT(LOINC) 9.8 - 12.7 sec PROTHROMBIN High TIME 30.8 LAB INR(LOINC) 0.9 - 1.1 PT, INR High 2.8 Performed By: #### PTINR #### [facility] [address] [place] [address] DIGOXIN Collected: 09/27/2017 Status: F Source: [place] [address] REPOSITORY TYPE CODE TESTS RESULT OUT OF REFERENCE UNITS RANGE LAB DIGOX(LOINC 0.80 - 2.00 ng/mL ) Low DIGOXIN 0.21 Performed By: #### DIGOX #### [facility] [address] [place] [address] THYROID STIM HORMONE Collected: 09/23/2017 Status: F Source: [place] (TSH) 11:37 AM [facility] REPOSITORY TYPE CODE TESTS RESULT OUT OF RANGE REFERENCE UNITS LAB [id number] 0.358-3.74 uIU/mL Normal TSH 2.58 Performed By: #### L501.9520 #### [facility] [address] [place], [place], [address] ALLERGIES ALLERGIES DATE TYPE / CODE NAME / CODE REACTION SEVERITY SOURCE 07/06/2018 Drug sulfamethoxazole Rash Unknown [place] [facility] Allergy/416 /[id number](RXNO Hospital 280027(SNOM RM) Repository ED CT) 07/06/2018 Drug oxycodone/Y02482 Swelling Unknown [place] [facility] Allergy/416 1558(RXNORM) Hospital 294126(SNOM Repository ED CT) Drug NO KNOWN [facility] Class/[address] ALLERGIES [place] 1003(SNOMED Repository CT) ENCOUNTERS ENCOUNTERS ADMIT/DISCHARGE ACCOUNT ADMITTING ENCOUNTER LOCATION SOURCE NUMBER CLASS 07/12/2018 [id number] Ambulatory [facility] Repository 07/11/2018 [id number] Ambulatory [facility] ing:CR Repository 07/06/2018/07/06/20 [id number] Ambulatory BMSBuilding:B [place] [facility] MS.[facility] Repository 06/24/2018/06/24/20 [id number] Ambulatory [address] ing:CR Repository 06/21/2018 [id number] [facility] Repository 06/21/2018 [id number] Ambulatory [facility] ing:CR Repository 06/07/2018 [id number] [facility] Repository 05/26/2018 [id number] Ambulatory BMSBuilding:B [place] MS.[facility] Repository 05/24/2018 [id number] [facility] Repository 05/20/2018 [id number] Ambulatory BMS [facility] Repository 05/13/2018 [id number] [facility] Repository 05/06/2018 [id number] [facility] Repository 05/04/2018 [id number] Marilynn, Ms. Ambulatory [facility] Repository 04/28/2018 [id number] [facility] Repository 04/22/2018 [id number] Ambulatory [facility] Repository 04/22/2018 [id number] Blayne, Ambulatory [facility] Louis [facility] Repository 04/19/2018 [id number] [facility] Repository 04/12/2018 [id number] Ambulatory [facility] Repository 04/12/[id number] [facility] Repository 04/05/2018 [id number] [facility] Repository 03/30/2018/04/02/20 [id number] Grecia[facility] ing:EH3Cqxl: Repository NA209Mkc: 1 03/30/2018 [id number] Grecia, Ambulatory BMSBuilding:Juan Alberto Berrios MS.[facility] Repository 03/30/2018 [id number] Grecia, Ambulatory BMSBuilding:Juan Alberto Berrios MS.[facility] Repository 03/30/2018 [id number] Grecia, Ambulatory BMSBuilding:Juan Alberto Berrios MS.[facility] Repository 03/30/2018/04/02/20 [id number] Ambulatory BMSBuilding:[address] Repository 03/30/2018/04/02/20 [id number] Ambulatory BMSBuilding:[address] Repository 03/22/2018/03/28/20 [id number] Blayne, Inpatient UHCBuilding:[place] [address] [address] Louis Boykin Encounter W92Obyi: Hospitals V6456Dmk: Repository [id number] 03/08/2018 [id number] Ambulatory [facility] Repository 03/08/2018 [id number] Ambulatory [facility] Repository 03/08/2018 [id number] Ambulatory [facility] Repository 02/18/2018 [id number] Hector Pulido [facility] Repository 02/15/2018 [id number] [facility] Repository 02/07/2018 [id number] [facility] Repository 02/01/2018 [id number] [facility] Repository 01/24/[id number] [facility] Repository 12/28/2017 [id number] [facility] Repository 12/14/2017 [id number] [facility] Repository 12/01/2017 [id number] [facility] Repository 11/17/2017 [id number] [facility] Repository 11/16/2017/11/17/19 [id number] Ambulatory [address] [place] Repository 11/16/2017/11/17/19 [id number] Ambulatory [address] Repository 11/11/2017/11/17/19 [id number] Ambulatory [address] Repository 11/09/2017 [id number] [facility] Repository 11/03/2017 [id number] Ms. Marilynn Ambulatory [facility] Repository 11/02/2017 [id number] [facility] Repository 10/20/2017 [id number] [facility] Repository 10/13/2017 [id number] [facility] Repository 10/07/2017 [id number] [facility] Repository 09/27/2017/10/01/[id number] Jerzy Inpatient UHCBuilding:[address] Encounter Q82Nxux: [facility] O5292Uri: Repository [id number] 09/27/2017 [id number] Ambulatory [facility] Repository 09/24/2017 [id number] [facility] Repository 09/23/2017 [id number] Ambulatory [facility] ing:MFPLAB Repository 09/16/2017 [id number] [facility] Repository 09/09/2017 [id number] [facility] Repository 08/11/2017 [id number] [facility] Repository 07/28/2017 [id number] [facility] Repository 07/15/2017 [id number] [facility] Repository PAYERS PAYERS ENCOUNTER GUARANTOR PAYER SUBSCRIBER SOURCE 07/12/2018 [facility] Insurance[facility]MedicarePol [facility] W icy Number: [id number] Repository [place] [id number] [address] [place], [place] Date:Plan Name:[place], [place] [id number]: A [id number]: (HP) (HP) 07/12/2018 [facility] Insurance:AnthemPolic [facility] y Number: [id number] Repository [id number] [address] [place]a Date:Plan [place] Name:[facility] [id number] 07/11/2018 MARSHALL Smith Primary MELISSA Davidson [id number] Insurance:[facility]MPBrunswick Hospital CenterD[facility]: [facility] y Number: [id number] [place], [place] [id number] Repository [address]Fbr: 330) alyssa Date:6174-64-78DJ [phone] (HP) [address]O, [place] [address]YU: 07/11/2018 Secondary NOT GIVENUNK [place] Insurance:SELF PAY [facility] Number: Effective Repository Date:2018-06-25 07/06/2018 MARSHALL J Primary MELISSA [place] [id number] W Insurance:ANTHEMPBrunswick Hospital CenterDOB: [facility] y Number: [id number] [place], [place] [id number] Repository 14[address]Xvx: (330) alyssa Date:3385-66-20UU [phone] (HP) [address], [place] [address]MS: 07/06/2018 Secondary NOT GIVENUNK [place] Insurance:SELF PAY [facility] Number: Effective Repository Date:2018-05-26 06/24/2018 MARSHALL J Primary MELISSA [place] [id number] W Insurance:ANTHEMPBrunswick Hospital CenterDOB: [facility] y Number: [id number] [place], [place] [id number] Repository 94[address]Ztd: (783) alyssa Date:1005-38-18GP [phone] () [address]ATKFJU, [place] [address]AI: 06/24/2018 Secondary NOT GIVENUNK [place] Insurance:SELF PAY [facility] Number: Effective Repository Date:2018-06-21 06/21/2018 [facility]: [facility] W y Number: [id number] Repository [place] [id number] [address] [place], [place] layssa Date:Plan [place], [place] [id number]: Name:[facility] [id number] (HP) 06/21/2018 [facility] Insurance:MedicarePol SHERWINDOB: [facility] icy Number: [id number] Repository [id number] [address] [place] Date:Plan Name:[place] A [id number]: (HP) 06/21/2018 [facility] Insurance:[facility]: [facility] y Number: [id number] [place] [id number] Repository [address]Mpn: (522) alyssa Date:2041-90-93SI [phone] () [address]WVDXFWY, [place] [address]NC: 06/21/2018 Secondary NOT GIVENUNK [place] Insurance:SELF PAY [facility] Number: Effective Repository Date:2018-06-13 06/07/2018 [facility] Insurance:MedicarePol SHERWINDOB: Hospitals W icy Number: [id number] Repository [place] [id number] [address] [place] Date:Plan Name:[place], [place] [id number]: A [id number]: (HP) (HP) 06/07/2018 Secondary [facility] Insurance:MedicarePol [facility] Hospitals icy Number: [id number] Repository [id number] 0 W [place] Date:Plan Name:[place], [place] B [id number]: (HP) 06/07/2018 [facility] Insurance:AnthemPolic [facility]: Hospitals y Number: [id number] Repository [id number] 0 W [place] Date:Plan [place] Name:[facility] [id number] 05/26/2018 MARSHALL [facility] MELISSA A [place] [id number] W Insurance:[facility] HospitalB: [facility] y Number: [id number] [place] [id number] Repository [address]Qxl: 330) alyssa Date:1609-97-12WT [phone] () [address] [address]OM: 05/26/2018 [facility] [place] Insurance:SELF PAY [facility] Number: Effective Repository Date:2018-05-19 05/24/2018 [facility]: Insurance:MedicarePol SHERWINDOB: [facility] W icy Number: [id number] Repository [place] [id number] [address] [place] Date:Plan Name:[place], [place] [id number]: A [id number]: (HP) (HP) 05/24/2018 [facility] Insurance:AnthemPBrunswick Hospital CenterDOB: Hospitals y Number: [id number] Repository [id number] 0 W [place] a[place]a Date:Plan [place] Name:[facility] [id number] 05/20/2018 MARSHALL [facility] MELISSA A [place] [id number] W Insurance:ANTHEMPolic SHERWINDOB: [facility] y Number: [id number] [facility] RDM[place], [place] [id number] Repository [address]Aar: (729) alyssa Date:1108-73-68YT [phone] (HP) [facility] [address]241MKRJVBB, [place] [address]SD: 05/20/2018 Secondary NOT GIVENUNK [place] Insurance:SELF PAY [facility] Number: Effective Repository Date:2018-05-20 05/13/2018 [facility]: Insurance:AnthemPOrlando Health South Lake HospitalB: [facility] W y Number: [id number] Repository [place] [id number] [address] [place], [place] alyssa Date:Plan [place], [place] [id number]: Name:[facility] [id number] () 05/13/2018 [facility] Insurance:MedicareCurry General HospitalB: [facility] icy Number: [id number] Repository [id number] 0 [address] [place] Date:Plan Name:[place], [place] A [id number]: () 05/06/2018 [facility]: Insurance:MedicareCurry General HospitalB: [facility] W icy Number: [id number] Repository [place] [id number] [address] [place], [place] Date:Plan Name:[place], [place] [id number]: A [id number]: (HP) (HP) 05/06/2018 [facility] Insurance:AnthemPolic [facility]: Hospitals y Number: [id number] Repository [id number] 0 [address] [place] a[place]a Date:Plan [facility] [place] Name:Health [id number] 05/04/2018 [facility]: Insurance:AnthemPolic [facility]: [facility] W y Number: [id number] Repository APRIL [id number] 0 W [place] alyssa Date:Plan [place] [id number]: Name:[facility] [id number] (HP) 04/28/2018 [facility]: Insurance:MedicarePol SHERWINDOB: [facility] W icy Number: [id number] Repository [place] [id number] 0 W [place] Date:Plan Name:[facility] [place], [place] [id number]: A [id number]: (HP) (HP) 04/28/2018 [facility] Insurance:[facility]: Hospitals y Number: [id number] Repository [id number] 0 W [place] Date:Plan [place] Name:Health [id number] 04/22/2018 [facility]: Insurance:[facility]: [facility] W y Number: [id number] Repository [place] [id number] 0 W [place] alyssa Date:Plan [place] [id number]: Name:Health [id number] () 04/22/2018 [facility]: Insurance:[facility]: [facility] W y Number: [id number] Repository [place]IL [id number] 0 W [place] alyssa Date:Plan [place] [id number]: Name:[facility] [id number] (HP) 04/19/2018 [facility]: Insurance:[facility]: [facility] W y Number: [id number] Repository [place] [id number] 0 [address] [place] alyssa Date:Plan [place] [id number]: Name:[facility] [id number] () 04/12/2018 [facility]B: Insurance:AnthBroward Health Coral SpringsB: [facility] W y Number: [id number] Repository [place] [id number] 0 W [facility], [place] alyssa Date:Plan [place] [id number]: Name:Health [id number] () 04/12/2018 [facility]: Insurance:AnthBroward Health Coral SpringsB: [facility] W y Number: [id number] Repository [place] [id number] 0 W [facility], [place] alyssa Date:Plan [place] [id number]: Name:Health [id number] () 04/05/2018 [facility]: Insurance:AnthBroward Health Coral SpringsB: [facility] W y Number: [id number] Repository [place] [id number] 0 W [facility], [place] alyssa Date:Plan [place] [id number]: Name:Health [id number] () 03/30/2018 [place] [id number] Insurance:ANTHEMPolic [facility]: [facility] y Number: [id number] Hospital [place] [id number] Repository [address]Rvo: 330 alyssa Date:2951-00-27CT [phone] () [facility] [address], [place] [address]MG: 03/30/2018 [facility] [place] Insurance:MEDICARE A SHERWINDOB: Community [facility] Number: [id number] Hospital [id number] Repository Date:2018-03-30 03/30/2018 Tertiary NOT GIVENUNK [place] Insurance:SELF PAY [facility] Number: Effective Repository Date:2018-03-30 03/30/2018 MARSHALL Smith Primary MELISSA A [place] [id number] W Insurance:ANTHEMPolic SHERWINDOB: Community [place] y Number: [id number] [place], [place] [id number] Repository [address]Vnf: (330) alyssa Date:4609-02-45GS [phone] () [address]TPF[address] [place] [address]DM: 03/30/2018 Secondary NOT GIVENUNK [place] Insurance:SELF PAY [facility] Number: Effective Repository Date:2018-03-30 03/30/2018 MARSHALL Smith Primary MELISSA A [place] [id number] W Insurance:ANTHEMPolic SHERWINDOB: Community [place] y Number: [id number] [place], [place] [id number] Repository [address]Ydq: (330) alyssa Date:9772-68-29OI [phone] () [address]DICCYCE [place] [address]XD: 03/30/2018 Secondary NOT GIVENUNK [place] Insurance:SELF PAY [facility] Number: Effective Repository Date:2018-03-30 03/30/2018 MARSHALL Smith Primary MELISSA A [place] [id number] W Insurance:ANTHEMPolic SHERWINDOB: Community [place] y Number: [id number] [place], [place] [id number] Repository [address]Xvq: (330) alyssa Date:2892-79-68LP [phone] () [address]DCZHYTZ [place] [address]TA: 03/30/2018 Secondary NOT GIVENUNK [place] Insurance:SELF PAY [facility] Number: Effective Repository Date:2018-03-30 03/30/2018 MARSHALL Smith Primary MELISSA [place] [id number] W Insurance:ANTHEMPolic SHERWINDOB: Community [place] y Number: [id number] [place], [place] [id number] Repository [address]Snq: 330) alyssa Date:4087-18-15NV [phone] () [address]SGCXMTF, [place] [address]DL: 03/30/2018 Secondary MARSHALL Smith [place] Insurance:MEDICARE A SHERWINDOB: Community ONLYPolicy Number: [id number] Hospital [id number] Repository Date:2018-03-30 03/30/2018 Tertiary NOT GIVENUNK [place] Insurance:SELF PAY [facility] Number: Effective Repository Date:2018-03-30 03/30/2018 MARSHALL Smith [facility] MELISSA [place] [id number] W Insurance:ANTHEMPolic SHERWINDOB: [facility] y Number: [id number] [place], [place] [id number] Repository [address]Sql: (204) alyssa Date:5462-26-58TR [phone] () [address]OXJKPQB, [place] [address]DY: 03/30/2018 Secondary MARSHALL Smith [place] Insurance:MEDICARE A SHERWINDOB: [facility] Number: [id number] Hospital [id number] Repository Date:2018-03-30 03/30/2018 Tertiary NOT GIVENUNK [place] Insurance:SELF PAY [facility] Hospital Number: Effective Repository Date:2018-03-30 03/22/2018 [facility] Insurance:AnthemPolic SHERWINDOB: Hospitals W y Number: [id number] Repository [place] [id number] [address] [place], [place] alyssa Date:[place], [place] [id number]: Name:[facility] [id number] () 03/22/2018 Secondary [facility] Insurance:MedicarePol SHERWINDOB: Hospitals icy Number: [id number] Repository [id number] 0 W [place] Date:Plan [facility] [place] A [id number]: (HP) 03/08/2018 [facility]: Insurance:MedicarePol SHERWINDOB: Hospitals W icy Number: [id number] Repository APR[place] [id number] 0 W [place] Date:Plan Name:[facility], [place] [id number]: A [id number]: (HP) (HP) 03/08/2018 [facility] Insurance:[facility]: Hospitals y Number: [id number] Repository [id number] 0 W [place]a Date:Plan [place] Name:Health [id number] 03/08/2018 [facility]: Insurance:[facility]: [facility] W y Number: [id number] Repository [place]IL [id number] 0 W [place] alyssa Date:Plan [place] [id number]: Name:[facility] [id number] (HP) 03/08/2018 [facility] Insurance:MedicarePol SHERWINDOB: Hospitals icy Number: [id number] Repository [id number] 0 W [place] Date:Plan Name:[facility], [place] A [id number]: (HP) 03/08/2018 [facility]: Insurance:[facility]: Hospitals W y Number: [id number] Repository [place]IL [id number] 0 W [place] alyssa Date:[place] [id number]: Name:Health [id number] (HP) 02/18/2018 [facility]: Insurance:AnthemPolic [facility]: Hospitals W y Number: [id number] Repository [place]IL [id number] 0 W [place] alyssa Date:Plan [place] [id number]: Name:[facility] [id number] (HP) 02/15/2018 [facility]: Insurance:AnthemPBrunswick Hospital CenterDOB: [facility] W y Number: [id number] Repository [place] [id number] 0 W [place] a[place]a Date:Plan [place] [address]Tcs: Name:[facility] [id number] () 02/07/2018 [facility]: Insurance:AnthemPolic [facility]: [facility] W y Number: [id number] Repository [place] [id number] 0 W [place] a[place]a Date:Plan [place] [id number]: Name:Health [id number] (HP) 02/01/2018 [facility]: Insurance:AnthemPolic [facility]: [facility] W y Number: [id number] Repository [place] [id number] 0 W [place] a[place]a Date:Plan [place] [id number]: Name:Health [id number] (HP) 01/24/2018 [facility]: Insurance:AnthemPolic [facility]: Hospitals W y Number: [id number] Repository [place]IL [id number] 0 W [place] a[place]a Date:Plan [place] [address]Uec: Name:Health [id number] (HP) 12/28/2017 [facility]: Insurance:AnthemPOrlando Health South Lake HospitalB: [facility] W y Number: [id number] Repository APRIL [id number] 0 W [place] Date:Plan [place] [id number]: Name:Health [id number] (HP) 12/14/2017 [facility] Insurance:AnthemPOr[facility] South Lake HospitalB: [facility] W y Number: [id number] Repository APRIL [id number] 0 W [place] Date:Plan [place] [id number]: Name:Health [id number] (HP) 12/01/2017 [facility] CenterMOISEB: Insurance:AnthemPOrlando Health South Lake HospitalB: [facility] W y Number: [id number] Repository APRIL [id number] 0 W [place] Date:Plan [place] [id number]: Name:Health [id number] (HP) 11/17/2017 [facility]B: Insurance:AnthemPolic [facility]: [facility] W y Number: [id number] Repository APRIL [id number] 0 W [place] Date:Plan [place] [address]Owr: Name:Health [id number] (HP) 11/09/2017 [facility] RehabilitationB: Insurance:AnthemPolic [facility]: [facility] W y Number: [id number] Repository APRIL [id number] 0 W [place] Date:Plan [place] [address]Ula: Name:Health [id number] (HP) 11/03/2017 [facility]: Insurance:[facility]: [facility] W y Number: [id number] Repository APRIL [id number] 0 W [place] Date:Plan [place] [id number]: Name:Health [id number] (HP) 11/02/2017 [facility]: Insurance:[facility]: [facility] W y Number: [id number] Repository APRIL [id number] 0 W [place] a[place]a Date:Plan [place] [id number]: Name:Health [id number] (HP) 10/20/2017 [facility]: Insurance:[facility]: [facility] W y Number: [id number] Repository APRIL [id number] 0 W [place] a[place]a Date:Plan [place] [id number]: Name:Health [id number] (HP) 10/13/2017 [facility]B: Insurance:[facility]: [facility] W y Number: [id number] Repository APRIL [id number] 0 W [place], [place] a[place]a Date:[place] [id number]: Name:Health [id number] (HP) [facility] W y Number: [id number] Repository APRIL [id number] 0 [address] [place] Date:[place] [id number]: Name:Health [id number] (HP) [facility]/27/2017 [facility] W y Number: [id number] Repository APRIL [id number] 0 [address] [place] Date:[place] [id number]: Name:Health [id number] (HP) 09/27/2017 [facility] Insurance:MedicarePol SHERWINDOB: Hospitals icy Number: [id number] Repository [id number] 0 W APRIL Date:Plan Name:[facility] [place] [id number]: (HP) 09/27/2017 [facility] W y Number: [id number] Repository APRIL [id number] 0 [address] [place] Date:Plan [place] [id number]: Name:Health [id number] (HP) 09/24/2017 [facility] W y Number: [id number] Repository APRIL [id number] 0 [address] [place]a Date:[place] [id number]: Name:Health [id number] (HP) 09/23/2017 [place] [address] [address] Insurance:ANTHEMPolic SHERWINDOB: [facility] [place] y Number: [id number] [facility] [place] [id number] Repository 129[address]Pvs: [address] alyssa Date:[id number] () [id number], [place] [address]CK: 09/23/2017 Secondary NOT GIVENUNK [place] Insurance:SELF PAY [facility] Number: Effective Repository Date:2017-09-23 09/16/2017 [facility]AnthemPolic SHERWINDOB: [facility] W y Number: [id number] Repository APRIL [id number] 0 W [facility], [place] alyssa Date:[facility], [place] [id number]: Name:[place] [id number] () 09/09/2017 [facility]:AnthemPolic [place]: [facility] W y Number: [id number] Repository APRIL [id number] 0 W [facility], [place] a[place]a Date:[facility], [place] [id number]: Name:[facility] [id number] () 08/11/2017 [facility]:AnthemPolic SHERWINDOB: Hospitals W y Number: [id number] Repository APRIL [id number] 0 W [facility], [place] a[place]a Date[facility] [place] [id number]: Name:[facility] [id number] () 07/28/2017 [facility] W y Number: [id number] Repository APRIL [id number] [address] [place], [place] alyssa Date:[place], [place] [id number]: Name:[facility] [id number] () 07/15/2017 [facility] [place]: Insurance:[facility]: [facility] [id number] W y Number: [id number] Repository [place] [id number] 0 W [facility], [place] alyssa Date:[place], [place] [id number]: Name:[facility] [id number] ()
== END ==
PROVIDERS: Family Provider Family Medicine; PCP Family Medicine
DX: Z95.2 Presence of prosthetic heart valve (principal); I48.2 Chronic atrial fibrillation; E03.9 Hypothyroidism, unspecified; Z95.0 Presence of cardiac pacemaker; Z87.891 Personal history of nicotine dependence

== ENCOUNTER 2018-06-24 09:24 | Outpatient (RCR) | payer BC, SELFPAY ==
[2018-06-21 11:04] VITALS: BMI 24.0
== END 2018-06-24 23:59 ==
LOC: CR 09:24
PROVIDERS: Family Provider Family Medicine; PCP Family Medicine
DX: Z95.2 Presence of prosthetic heart valve (principal); Z98.890 Other specified postprocedural states
CPT/HCPCS: 93798

== ENCOUNTER 2018-07-25 09:15 | Outpatient (RCR) | payer BC, SELFPAY ==
[2018-06-21 11:04] VITALS: BMI 24.0
--- NOTE | 2018-07-20 11:38 | PCM.CR.ITP ---
Exercise - 30-day Assessment - Visit Date of Eval: 07/20/18 - Stages of Change Stages of Change:: Action - Exercise Prescription Mode:: Treadmill, Rower, Airdyne, NuStep Frequency (x/week): 3 Duration:: 30-45 METs - Progression: 0.5-1 MET as tolerated: 3.5 Target Heart Rate:: 104-111 with mx HR 110 - Hypertension Resting Blood Pressure:: 132/84 Peak Exercise Blood Pressure:: 154/82 Medication Changes:: No - Intervention Home Exercise/Activity Goal:: Moderate Exercise 30 min/day x 5 days/wk - Education Goals:: Warm-up, RPE KVNG Scale, S/S, Safe Exercise, Self-Monitoring - Exercise Program Goals Exercise Program Goals: Aerobic Activity >30 min Nutrition - 30-Day Assessment - Program Goals Nutrition Program Goals: LDL <70. Total Cholesterol <200. HDL >45. Triglycerides <150. HgbA1C <7%. BMI <25 - Visit Date of Eval: 07/20/18 - Stages of Change Stages of Change:: Action - Lipids Has the patient seen the dietitian?: No - Diabetes Diabetes:: No - Weight Management Weight:: 153 lb - Intervention Referral to dietitian:: No Referral to Diabetic Clinic:: No Will attend diet classes:: Yes - Education Attended class for:: Healthy eating Tobacco - Initial Assessment - Program Goals Tobacco Program Goals: Complete smoking cessation. Attend education classes. Improve Knowledge Test score - Learning Barriers Learning Barriers: Ready to Learn Tobacco - 30-Day Assessment - Program Goals Tobacco Program Goals: Complete smoking cessation. Attend education classes. Improve Knowledge Test score - Stage of Change Stages of Change:: Action - Learning Barriers Learning Barriers: Participates in education - Family Support Do you have family support?: Yes - Tobacco Use Tobacco Use: Non-smoker Do you use smokeless tobacco?: No - Intervention Smoking Cessation Referral:: No Education Schedule Given:: Yes - Education Attended class for:: Coronary artery disease, Risk factors, Sexuality, Medical compliance, Cardiac A&P, Angina signs & symptoms Psychosocial - Initial Assess - Target Goals Target Goals: Assess presence or absence of depression. Using a valid screening tool, maximizes coping skills. Positive support system - Psychosocial Test Tool Used:: HANDS Depression Questionnaire - Assistive Devices Fall Risk Assessed:: No Psychosocial - 30-Day Assess - Target Goals Target Goals: Assess presence or absence of depression. Using a valid screening tool, maximizes coping skills. Positive support system - Stages of Change Stages of Change:: Action - Psychosocial Test Tool Used:: HANDS Depression Questionnaire - Intervention PS - Interventions: Yes Attend Stress Management Classes, No Referral to Mental Health, No Referral to [facility] Case Management, No Referral to Physician, No Uses Stress Management Skills - Education Attended classes for:: Coping techniques, Signs & symptoms of depression, Stress management, Relaxation techniques - Patient/Program Goal Preventative Medication(s):: Aspirin, Clopidogrel, Beta harpal - Assistive Devices Assistive Devices:: None Fall Risk Assessed:: Yes Patient Health Questionnaire 30-Day Re-eval Assessment 1. Little interest or pleasure in doing things: Not at all 2. Feeling down, depressed, or hopeless: Not at all 3. Trouble falling or staying asleep, or sleeping too much: Several days 5. Poor appetite or overeating: Not at all 6. Feeling bad about yourself -- or that you are a failure or have let yourself or your family down: Not at all 7. Trouble concentrating on things, such as reading the newspaper or watching television: Not at all 8. Moving or speaking so slowly that other people could have noticed. Or the opposite - being so fidgety or restless that you have been moving around a lot more than usual: Not at all 9. Thoughts that you would be better off , or of hurting yourself in some way: Not at all How difficult have these problems made it for you to do your work, take care of things at home, or get along with other people?: Not difficult at all Total Score: 1 Self-Efficacy 30-Day Re-eval Assessment We would like to know how confident you are in doing certain activities. Please select your confidence level for:: Select your confidence level for the following using the scale 1-10 where 1 is not at all confident and 10 is totally confident. Your score is the average of all 6 responses. Fatigue: How confident are you that you can keep the fatigue caused by your disease from interfering with the things you want to do? Select Number: 8 Physical Discomfort or Pain: How confident are you that you can keep the physical discomfort or pain of your disease from interfering with the things you want to do? Emotional Distress: How confident are you that you can keep the emotional distress caused by your disease from interfering with the things you want to do? Select Number: 9 Other Symptoms or Health Problems: How confident are you that you can keep other symptoms or health problems from interfering with the things you want to do? Select Number: 9 Different Tasks and Activities: How confident are you that you can do the different tasks and activities needed to manage your health condition so as to reduce your need to see a doctor? Select Number: 10 Medication: How confident are you that you can do things other than just taking medication to reduce how much your illness affects your everyday life? Select Number: 9
[2018-07-20 11:43] VITALS: BP 132/84; BP 154/82
== END 2018-07-25 23:59 ==
LOC: CR 09:15
PROVIDERS: Family Provider Family Medicine; PCP Family Medicine
DX: Z95.2 Presence of prosthetic heart valve (principal); Z98.890 Other specified postprocedural states
CPT/HCPCS: 93798

== ENCOUNTER → 2018-08-09 13:21 | Outpatient (CLI) | payer BC, SELFPAY ==
[2018-07-26 01:26] VITALS: BMI 24.0
--- NOTE | 2018-08-09 13:28 | CT_ITS ---
STUDY: CT CHEST WITHOUT CONTRAST REASON FOR EXAM: Female, 73 years old. Thyroid cancer RADIATION DOSAGE (If Supplied By Facility): CTDIvol = ( 7.69 ) mGy, DLP = ( 260.87 ) mGycm TECHNIQUE: Transaxial imaging was performed without the administration of intravenous contrast material. Individualized dose optimization techniques were used for this CT. COMPARISON: None. FINDINGS: TRACHEA, THYROID, ESOPHAGUS: No tracheomalacia,stricture or wall thickening. Thyroid and esophagus are normal CARDIOVASCULAR SYSTEM: The thoracic aorta is grossly within normal limits. The pulmonary trunk and the left pulmonary arteries are also grossly within normal limits. The heart is not enlarged. There are no vascular developmental anomalies. ALEKSEY AND LYMPH NODES: Precarinal (1.9 x 1.2 cm) and subcarinal (2.2 x 1.3 cm) adenopathy. Calcified left hilar adenopathy. No hilar masses and no mediastinal, hilar, axillary or supraclavicular adenopathy LUNGS, LOW-ATTENUATION: Numerous bronchi with thick alamo is incidentally. These are suggestive of bronchitis. No evidence of traction bronchiectasis, honeycombing and emphysema. LUNGS, HIGH ATTENUATION: There are fibrotic changes in the right middle lobe. LUNGS, MOSAIC/CRAZY PAVING: Not evident PLEURA AND CHEST WALL: No plural effusions, pneumothoraces,rib fractures or any osteolytic/osteoblastic changes . The soft tissue chest wall including the breasts are normal UPPER ABDOMEN: A 1.8 x 0.9 cm the left adrenal nodule and a 1.4 cm left renal cyst.. CT/Chest without Contrast IMPRESSION: Minimally prominent pre and subcarinal adenopathy. No acute findings in the lungs. Electronically Signed: Nick Murphy MD at 7:51 EST Tel , Service support ,
== END ==
PROVIDERS: Family Provider Family Medicine; PCP Family Medicine; Referring Provider Nurse Practitioner Acute Care; Visit Provider Nurse Practitioner Acute Care
DX: R91.1 Solitary pulmonary nodule (principal)
CPT/HCPCS: 71250

== ENCOUNTER 2018-08-12 09:15 | Outpatient (RCR) | payer BC, SELFPAY ==
[2018-07-26 01:26] VITALS: BP 132/84; BP 154/82; BMI 24.0
[2018-08-19 09:37] VITALS: BP 152/88; BP 160/78
--- NOTE | 2018-08-19 09:37 | CR.ITP_ITS ---
General Information - General Information Admitting Diagnosis: S/P AVR - Education/Goals Cardiac Rehabilitation Goals: 1. Maintain the individual as the primary focus of care. 2. To improve the patient's quality of life. 3. Identification of cardiac risk factors and provide cardiac risk factor management. 4. Enhance the psychosocial status of the patient. 5. Reconditioning enough to allow the patient to resume customary activities. 6. Control symptoms of cardiac disease Scale for measuring improvement of personal goals: Enter appropriate number in Comments. 2 = Unchanged. 3 = Slightly Better. 4 = Moderate Improvement. 5 = Met my Goal Exercise - 60-Day Assessment - Visit Date of Eval: 08/19/18 Session #:: 20 - Stages of Change Stages of Change:: Action - Exercise Prescription Mode:: Treadmill, NuStep Frequency (x/week): 3 Duration:: 30-45 METs: 5 Target Heart Rate:: 104-111 Max HR 92 - Hypertension Resting Blood Pressure:: 152/88 Peak Exercise Blood Pressure:: 160/78 - Intervention Home Exercise/Activity Goal:: Sitting Time <3 hrs/day - Education Goals:: Warm-up, RPE KVNG Scale, S/S, Safe Exercise, Self-Monitoring - Exercise Program Goals Exercise Program Goals: Aerobic Activity >30 min, B/P <130/80 Nutrition - 60-Day Assessment - Program Goals Nutrition Program Goals: LDL <70. Total Cholesterol <200. HDL >45. Triglycerides <150. HgbA1C <7%. BMI <25 - Visit Date of Eval: 08/19/18 - Stages of Change Stages of Change:: Action - Lipids Has the patient seen the dietitian?: No - Weight Management Weight:: 68.946 kg - Intervention Referral to dietitian:: No Referral to Diabetic Clinic:: No Will attend diet classes:: Yes - Education Attended class for:: Signs & symptoms of hypoglycemia, Signs & symptoms of hyperglycemia, Relate diabetes to coronary artery disease, Healthy eating Tobacco - Initial Assessment - Program Goals Tobacco Program Goals: Complete smoking cessation. Attend education classes. Improve Knowledge Test score - Learning Barriers Learning Barriers: Ready to Learn Tobacco - 60-Day Assessment - Program Goals Tobacco Program Goals: Complete smoking cessation. Attend education classes. Improve Knowledge Test score - Stage of Change Stages of Change:: Action - Learning Barriers Learning Barriers: Participates in education - Family Support Do you have family support?: Yes - Tobacco Use Tobacco Use: Non-smoker - Intervention Smoking Cessation Referral:: No Individual Education/Counseling:: No Education Schedule Given:: Yes - Education Attended class for:: Tobacco triggers, Coronary artery disease, Risk factors, Sexuality, Medical compliance, Cardiac A&P, Angina signs & symptoms Psychosocial - Initial Assess - Target Goals Target Goals: Assess presence or absence of depression. Using a valid screening tool, maximizes coping skills. Positive support system - Psychosocial Test Tool Used:: HANDS Depression Questionnaire - Assistive Devices Fall Risk Assessed:: Yes Psychosocial - 60-Day Assess - Target Goals Target Goals: Assess presence or absence of depression. Using a valid screening tool, maximizes coping skills. Positive support system - Stages of Change Stages of Change:: Action - Psychosocial Test Tool Used:: HANDS Depression Questionnaire - Intervention PS - Interventions: Yes Attend Stress Management Classes, Yes Uses Stress Management Skills, No Referral to Mental Health, No Referral to [facility] Case Management, No Referral to Physician - Education Attended classes for:: Coping techniques, Signs & symptoms of depression, Stress management, Relaxation techniques - Assistive Devices Assistive Devices:: None Fall Risk Assessed:: Yes Patient Health Questionnaire 60-Day Re-eval Assessment 1. Little interest or pleasure in doing things: Not at all 2. Feeling down, depressed, or hopeless: Not at all 3. Trouble falling or staying asleep, or sleeping too much: Not at all 4. Feeling tired or having little energy: Not at all 5. Poor appetite or overeating: Not at all 6. Feeling bad about yourself -- or that you are a failure or have let yourself or your family down: Not at all 7. Trouble concentrating on things, such as reading the newspaper or watching television: Not at all 8. Moving or speaking so slowly that other people could have noticed. Or the opposite - being so fidgety or restless that you have been moving around a lot more than usual: Not at all 9. Thoughts that you would be better off , or of hurting yourself in some way: Not at all How difficult have these problems made it for you to do your work, take care of things at home, or get along with other people?: Not difficult at all Total Score: 0 Self-Efficacy 60-Day Re-eval Assessment We would like to know how confident you are in doing certain activities. Please select your confidence level for:: Select your confidence level for the followi ng using the scale 1-10 where 1 is not at all confident and 10 is totally confident. Your score is the average of all 6 responses. Fatigue: How confident are you that you can keep the fatigue caused by your disease from interfering with the things you want to do? Select Number: 8 Physical Discomfort or Pain: How confident are you that you can keep the physical discomfort or pain of your disease from interfering with the things you want to do? Select Number: 9 Emotional Distress: How confident are you that you can keep the emotional distress caused by your disease from interfering with the things you want to do? Select Number: 9 Other Symptoms or Health Problems: How confident are you that you can keep other symptoms or health problems from interfering with the things you want to do? Select Number: 10 Different Tasks and Activities: How confident are you that you can do the different tasks and activities needed to manage your health condition so as to reduce your need to see a doctor? Select Number: 10 Medication: How confident are you that you can do things other than just taking medication to reduce how much your illness affects your everyday life? Select Number: 10 Total Score:: 9
== END 2018-08-25 23:59 ==
LOC: CR 09:15
PROVIDERS: Family Provider Family Medicine; PCP Family Medicine
DX: Z95.2 Presence of prosthetic heart valve (principal); Z98.890 Other specified postprocedural states
CPT/HCPCS: 93798

== ENCOUNTER 2018-08-26 07:22 | Outpatient (RCR) | payer BC, SELFPAY ==
[2018-08-26 01:29] VITALS: BP 152/88; BP 160/78; BMI 23.5
== END 2018-09-22 23:59 ==
LOC: CR 07:22
PROVIDERS: Family Provider Family Medicine; PCP Family Medicine
DX: Z95.2 Presence of prosthetic heart valve (principal); Z98.890 Other specified postprocedural states
CPT/HCPCS: 93798

== ENCOUNTER → 2019-02-20 10:42 | Outpatient (CLI) | payer BC, SELFPAY ==
[2018-11-08 11:10] VITALS: BMI 24.6
[2019-02-20 12:51] LABS: Anion Gap 6 (5-15); BUN 24 mg/dL (7-18); BUN/Creat Ratio 35.5 RATIO (10-20); Calcium,Total 8.5 mg/dL (8.5-10.1); Chloride 106 mmol/L (98-107); Cholesterol 204 mg/dL (200); Creatinine, Serum 0.68 mg/dL (0.55-1.02); EST Glomerular Filtration Rate 91 mL/min (>60); Est Glom Filt Rate - Afr Amer 110 mL/min (>60); Glucose 75 mg/dL (74-106); High Density Lipoprotein 75 mg/dL; Potassium 4.4 mmol/L (3.5-5.1); Sodium Level 142 mmol/L (136-145); Triglycerides 63 mg/dL; Very Low Density Lipoprotein 13 mg/dL (5-40)
== END ==
PROVIDERS: Family Provider Family Medicine; PCP Family Medicine; Referring Provider Family Medicine; Visit Provider Family Medicine
DX: E03.9 Hypothyroidism, unspecified (principal); I48.91 Unspecified atrial fibrillation
CPT/HCPCS: 36415; 80048; 80061; 84443

== ENCOUNTER → 2019-03-30 11:55 | Outpatient (CLI) | payer BC, SELFPAY ==
[2018-11-08 11:10] VITALS: BMI 24.6
--- NOTE | 2019-03-30 12:01 | RAD_ITS ---
STUDY: X-RAY CHEST REASON FOR EXAM: Female, 73 years old. Pneumonia. TECHNIQUE: PA and lateral views of the chest. COMPARISON: Portable AP supine chest x-ray March 30, 2018. FINDINGS: The dual lead left subclavian cardiac pacemaker is unchanged. Endotracheal nasogastric tube seen on prior study have since been removed. There is hyperinflation of the lungs, consistent with obstructive lung disease. A calcified granuloma seen previously in the medial left apex is superimposed on the mediastinum and left fifth costovertebral junction. No acute infiltrate. There is no demonstrated pleural abnormality. Normal size heart. Sternal cerclage wires are present from a prior sternotomy. Calcified left hilar lymph nodes again noted. Normal visualized pulmonary arteries. There is stable mild atherosclerotic calcification of the aortic arch. There are stable degenerative changes of the visualized thoracic spine. Normal visualized ribs, clavicles, and shoulders. There is no demonstrated abnormality of the visualized soft tissue structures of the upper abdomen. RAD/Chest PA and Lateral IMPRESSION: 1. Hyperexpanded, suggesting obstructive pulmonary disease. 2. There are stable findings of old left calcified granulomatous disease, but no acute pneumonic infiltrate. The right lung base with adjacent pleural effusion seen on prior study of cleared. 3. Prior median sternotomy. Dual lead cardiac pacemaker again noted. No CHF. Electronically Signed: Dipak Kim MD at 12:59 EDT , Service support ,
== END ==
PROVIDERS: Family Provider Family Medicine; PCP Family Medicine; Referring Provider Family Medicine; Visit Provider Family Medicine
DX: J18.9 Pneumonia, unspecified organism (principal)
CPT/HCPCS: 71046

== ENCOUNTER 2019-07-12 21:26 | Inpatient (IN) | payer BC, MEDICARE, SELFPAY ==
[2018-11-08 11:10] VITALS: BMI 24.6
[2019-07-12] VITALS (8 sets, daily range): BP systolic 121–161; BP diastolic 92–109; PULSE 88–134; RESP 21–30; TEMP 36.5; O2SAT 93–96; BMI 25.0; BMI 25.2; BMI 25.3
--- NOTE | 2019-07-12 21:47 | EKG12_ITS ---
Test Reason : REPEAT Blood Pressure : / mmHG Vent. Rate : 108 BPM Atrial Rate : 108 BPM P-R Int : 000 ms QRS Dur : 164 ms QT Int : 460 ms P-R-T Axes : 116 -82 099 degrees QTc Int : 616 ms Ventricular-paced rhythm Abnormal ECG Confirmed by ERIN AVILA, AMAN ([id number]), medical transcription editor GLENNY RENTERIA ([id number]) on 07/17/2019 11:56:03 AM Referred By: Bryce Child Confirmed By:EVAN KHAN MD
--- NOTE | 2019-07-12 21:56 | RAD_ITS ---
STUDY: X-RAY CHEST REASON FOR EXAM: Female, 74 years old. Chest pain TECHNIQUE: Single AP portable view of the chest. COMPARISON: March 30, 2019. FINDINGS: There is stable pacemaker device on the left. There are monitoring devices. There are groundglass and interstitial increased opacities in the mid and lower lungs. There is no demonstrated pleural abnormality. Sternal cerclage wires are present from a prior sternotomy. There is cardiac enlargement. There are calcified mediastinal lymph nodes. Normal visualized pulmonary arteries. Normal visualized aortic arch and descending thoracic aorta. There is demineralization of the osseous structures. Normal visualized ribs, clavicles, and shoulders. There is no demonstrated abnormality of the visualized soft tissue structures of the upper abdomen. RAD/Chest 1 View (Portable) IMPRESSION: Bilateral edema or infiltrates. Cardiac enlargement. Electronically Signed: Shahbaz Bates MD at 22:13 EST , Service support ,
[2019-07-12] MEDS: Aspirin 81 MG TAB.CHEW 324 MG PO (21:57)
[2019-07-12 22:05] LABS: Absolute Lymphocyte Count 1.08 X10^3/uL (0.83-4.51); Absolute Neutrophil Count 10.8 X10^3/uL (2.0-7.7); Basophil# 0.04 X10^3/uL; Basophil% 0.3 % (0-1); Eosinophil# 0.13 X10^3/uL; Hematocrit 43.1 % (37-47); Hemoglobin 14.3 g/dL (12.0-15.0); Lymphocyte # 1.08 X10^3/ul (4.0); Lymphocyte % 8.5 % (19-41); Mean Corp Hgb Conc 33.2 g/dL (32-36); Mean Corpuscular Hgb 30.4 pg (27.0-32.0); Mean Corpuscular Volume 91.7 fL (81-99); Mean Platelet Vol. 10.4 fl (6.2-12.0); Monocyte# 0.54 X10^3/uL; Monocyte% 4.3 % (0-10); NRBC Flagged by Analyzer 0 % (0-5); Neutrophil # 10.82 X10^3/uL (2.7-7.7); Neutrophil % 85.7 % (47-70); Platelet Count 241 K/mm3 (150-450); RBC Distribution Width SD 43.2 fl (35.1-43.9); White Blood Count 12.6 K/mm3 (4.4-11.0)
[2019-07-12] MEDS: dilTIAZem 25 MG/5 ML Vial 10 MG IV BOLUS (22:05)
[2019-07-12 22:14] LABS: International Normalized Ratio 3.4; Prothrombin Time (Protime)PT. 34.9 SECONDS (11.7-14.9)
--- NOTE | 2019-07-12 22:21 | ED.DCSUM_ITS ---
- ER Visit Summary Date of Service: 07/12/19 Chief Complaint: Shortness of breath History of Present Illness: The patient is a 74 F presenting with shortness of breath that started today. She states that she has not felt well throughout the day. She has shortness of breath that is worsened with exertion. She has right lateral chest pain that has been intermittent. She has nausea with no vomiting. She has had diarrhea throughout the day. She complains of generalized weakness and fatigue. She denies fever or cough. She has felt lightheaded with no syncope. Denies other complaints. Physical Examination: Vitals are stable. Patient is afebrile. Alert no acute distress. HEENT exam is unremarkable. Neck is supple. Lungs are diminished bilaterally. Heart is irregular and tachycardic Abdomen is soft nontender nondistended. Extremities are unremarkable. Skin is warm and dry. No focal neurologic deficit. Remainder of exam is unremarkable. Emergency Department Course and Treatment: She was given aspirin, Cardizem. EKG shows A. fib with RVR rate of 120 with left bundle branch block. Chest x-ray shows bilateral edema or infiltrates. Cardiac enlargement. CBC shows white count 12.6. Chemistries normal except glucose 145. Troponin is negative. INR 3.4. Repeat EKG shows paced rhythm rate of 108. Patient was given Lasix IV. Discussed with the hospitalist for admission. Disposition: Admission Impression: CHF exacerbation This note was generated with [employer] dictation software. It may contain incorrect words, spelling, and punctuation that were not noted in review of the chart prior to signing ED Disposition - Plan for ED Patient: Referrals: Michael Dallas MD [Primary Care Provider] -
[2019-07-12 22:23] LABS: Anion Gap 7 (5-15); BUN 18 mg/dL (7-18); BUN/Creat Ratio 20.5 RATIO (10-20); Calcium,Total 9.3 mg/dL (8.5-10.1); Chloride 107 mmol/L (98-107); Creatinine, Serum 0.88 mg/dL (0.55-1.02); EST Glomerular Filtration Rate 67 mL/min (>60); Est Glom Filt Rate - Afr Amer 81 mL/min (>60); Estimated Creatinine Clearance 55.37 ml/min; Glucose 145 mg/dL (74-106); Sodium Level 140 mmol/L (136-145)
--- NOTE | 2019-07-12 22:32 | EKG12_ITS ---
Test Reason : SOB Blood Pressure : / mmHG Vent. Rate : 120 BPM Atrial Rate : 144 BPM P-R Int : 162 ms QRS Dur : 132 ms QT Int : 332 ms P-R-T Axes : -14 011 186 degrees QTc Int : 469 ms Suspect unspecified pacemaker failure Atrial Fibrillation with v paced rhythm Left bundle branch block Abnormal ECG Confirmed by ERIN AVILA, AMAN ([id number]), managing editor GLENNY RENTERIA ([id number]) on 07/17/2019 11:57:15 AM Referred By: Bryce Child Confirmed By:EVAN KHAN MD
[2019-07-12] MEDS: Ondansetron 4 MG/2 ML Vial IV (22:38)
--- NOTE | 2019-07-12 22:53 | PCM.HP.STD ---
Problem List (1) Heart failure Status: Acute (2) Atrial fibrillation with RVR Status: Acute (3) Lung nodule Status: Chronic (4) Lymphadenopathy Status: Chronic (5) Dyspnea Status: Acute (6) Atrial fibrillation Status: Chronic (7) Valvular heart disease Status: Chronic (8) Hypothyroidism Status: Chronic Qualifiers: (9) Atrial fibrillation with RVR Status: Acute (10) Mitral stenosis Status: Chronic History of Present Illness Date of Admission: 07/12/19 Chief Complaint: shortness of breath The patient is a 74 year old F with a significant history of follicular carcinoma status post thyroidectomy; rheumatic heart fever; bioprosthetic heart valve replacement( 2 sunita); and one valve repair; follicular carcinoma status post thyroidectomy; atrial fibrillation status post ablation; and atrial flutter who presents at the emergency department with 2 months of progressively worsening shortness of breath. Initially her shortness of breath used to okay at rest and it was markedly increased with mild exertion. However on the day of presentation her shortness of breath had progressed to the point where even at rest she had shortness of breath. She reports orthopnea on the day of presentation. Further she has paroxysmal nocturnal dyspnea. Also associated with her symptoms is weakness and palpitations. She has gained about 10 pounds in the last 3 months. She feels swelling at her lower abdomen. She reports of pain beneath her anterior right thoracic region beneath her ribs. At the emergency department she had a tachycardia with rates in the 120s; rhythm was probable A. fib. She was given Cardizem bolus and her rate became paced. She supposed to have an ablation at [facility] with Dr. Bertrand. He follows up with Dr. Crane at [facility]. BNP at the emergency department was 579.6. A chest x-ray showed bilateral edema or infiltrates; and cardiac enlargement. Past Medical History Past Medical History (Chronic Problems): Chronic Problems (Last Reviewed 07/13/19 @ 01:12 by Bryce Child MD) Lung nodule (Chronic) Lymphadenopathy (Chronic) Atrial fibrillation (Chronic) Valvular heart disease (Chronic) Hypothyroidism (Chronic) Mitral stenosis (Chronic) Medical History: Medical History (Last Reviewed 07/13/19 @ 05:18 by Bryce Child MD) Wheezing (Inactive) R06.2 Dyspnea (Acute) R06.00 Angioedema (Inactive) T78.3XXA Osteoma (Inactive) D16.9 Left leg pain (Inactive) M79.605 Atrial fibrillation (Chronic) I48.91 Valvular heart disease (Chronic) Hypothyroidism (Chronic) E03.9 Atrial fibrillation with RVR (Acute) I48.91 Acute CHF (Inactive) I50.9 Respiratory distress (Inactive) R06.00 Pneumonia (Inactive) J18.9 Acute respiratory insufficiency (Inactive) R06.89 Mitral stenosis (Chronic) I05.0 Pacemaker Z95.0 Allergies sulfamethoxazole Allergy (Verified 11/08/18 11:11) Rash oxycodone Adverse Reaction (Verified 11/08/18 11:11) Swelling Home Medications: Ambulatory Orders Medication Instructions Recorded Levothyroxine [Synthroid] 100 mcg PO DAILY 10/21/15 Venlafaxine HCl [Effexor] 37.5 mg PO DAILY 10/21/15 Warfarin [Coumadin] 5 mg PO DAILY 10/21/15 Dofetilide [Tikosyn] 500 mcg PO BID 03/30/18 Metoprolol Tartrate [Lopressor 25 mg PO BID 03/30/18 (beta harpal)] Multivit with Calcium,Iron,Min 1 tab PO DAILY 03/30/18 [Multiple Vitamins For Women] Surgical History: Surgical History (Last Reviewed 07/13/19 @ 05:18 by Bryce Child MD) H/O thyroidectomy Z98.890 Surgical History: - - 2 valve replacements; one valve repair Psychiatric History: No pertinent psych hx PATHOLOGIST ASSISTANT History: No pertinent PATHOLOGIST ASSISTANT history Lives: Spouse/ Significant Other Smoking Status: Former smoker - *Family History Maternal Family History: Family History (Last Reviewed 07/13/19 @ 05:18 by Bryce Child MD) Mother Liver disease Alcohol abuse Lung disease History Items: No pertinent history Paternal Family History: Family History (Last Reviewed 07/13/19 @ 05:18 by Bryce Child MD) Mother Liver disease Alcohol abuse Lung disease History Items: No pertinent history Review of Systems Constitutional: Reports: Weakness, Weight Change, Fatigue. Denies: Chills, Fever HEENT: Denies: Head Aches, Sinus Congestion, Sinus Drainage Cardiovascular: Reports: Chest Pain - Pain below right anterior rib, Orthopnea, Palpitations, Paroxysmal Noc. Dyspnea Respiratory: Reports: Shortness of Breath. Denies: Cough, Sputum production Gastrointestinal: Denies: Abdominal Pain, Nausea, Vomiting Genitourinary: Denies: Dysuria Musculoskeletal: Denies: Joint Pain, Joint Tenderness Skin: Denies: Rash, Wounds Neurological: Denies: Numbness, Tingling, Focal weakness Psychiatric: Denies: Anxiety, Depression, Homicidal Ideations, Suicidal Ideations Hematologic/ Lymphatic: Denies: Easy Bruising, Easy Bleeding VTE Information - Inpt Only VTE Present on Admission: No VTE Mechan Device Prophylaxis: None VTE Pharm Prophylaxis ordered?: No Reason prophylaxis not ordered:: Treatment Not Indicated Patient Problems: Active and Suspected Problems (Last Reviewed 07/13/19 @ 01:12 by Bryce Child MD) Heart failure (Acute) Atrial fibrillation with RVR (Acute) - Physical Exam Vitals/I&O's: Vital Signs Temp Pulse Resp BP Pulse Ox 97.7 F L 88 27 H 121/94 H 94 07/12/19 21:26 07/12/19 22:21 07/12/19 22:21 07/12/19 22:21 07/12/19 22:21 Oxygen Flow Rate (L/min) 2 Oxygen Delivery Method Nasal Cannula Weight: 72.575 kg Body Mass Index (BMI) 25.0 General: Alert, Oriented x3, Cooperative HEENT: Atraumatic, PERRLA, EOMI, Normocephalic Neck: Supple, Trachea Midline Lungs: No rhonchi, Rales Cardiovascular: Normal S1, Normal S2, No murmurs, Irregular Rate, Tachycardic Abdomen: Bowel Sounds Present, Soft, Non Tender Extremities: No edema, Capillary Refill Less than 3 Seconds Skin: No rashes, No breakdown Musculoskeletal: No Tenderness to Palpation of Joints or Extremities Neurological: Cranial nerves II-XII grossly intact Psych/Mental Status: Normal Affect, Appropriate Laboratory Results 07/12/19 21:50: WBC 12.6 H, RBC 4.70, Hgb 14.3, Hct 43.1, MCV 91.7, MCH 30.4, MCHC 33.2, RDW Std Deviation 43.2, RDW Coeff of Sara 13.0, Plt Count 241, MPV 10.4, Immature Gran % (Auto) 0.200, Neut % (Auto) 85.7 H, Lymph % (Auto) 8.5 L, [place] % (Auto) 4.3, Eos % (Auto) 1.0, Baso % (Auto) 0.3, Absolute Neuts (auto) 10.8 H, Absolute Lymphs (auto) 1.08, Nucleated RBC % 0 07/12/19 21:50: Sodium 140, Potassium 4.0, Chloride 107, Carbon Dioxide 26.0, Anion Gap 7, BUN 18, Creatinine 0.88, Estim Creat Clear Calc 55.37, Est GFR (MDRD) Af Amer 81, Est GFR (MDRD) Non-Af 67, BUN/Creatinine Ratio 20.5 H, Glucose 145 H, Calcium 9.3, Troponin I < 0.015 07/12/19 21:50: PT 34.9 H, INR 3.4 07/12/19 21:50: Digoxin Pending 07/12/19 21:50: B-Natriuretic Peptide Pending Assessment/Plan All Active Problems (Last Reviewed 07/13/19 @ 01:12 by Bryce Child MD) Heart failure (Acute) Atrial fibrillation with RVR (Acute) Dyspnea (Acute) Atrial fibrillation with RVR (Acute) The patient is a 74 year old F with a significant history of follicular carcinoma status post thyroidectomy; rheumatic heart fever; bioprosthetic heart valve replacement( 2 sunita); and one valve repair; follicular carcinoma status post thyroidectomy; atrial fibrillation status post ablation; and atrial flutter who presents emergency department with 2 months of progressively worsening shortness of breath congestive heart failure; and probable atrial fibrillation with RVR on presentation. Acute heart failure Review of records. Echocardiogram on 09/23/2016: Ejection fraction was 65%. Patient had some valvular insufficiencies at a time: Tricuspid; aortic; mitral and pulmonic however she reports that in February 2019 she had 2 heart valve replaced with a bioprosthetic materia and 1 valve repaired. BNP at the emergency department was 579.6. Received Lasix 40 mg IV push at the emergency department. Will put on Lasix 40 mg IV twice daily and will get an echocardiogram. Potassium supplementation while on Lasix. Initial EKG at the emergency department was reviewed. It showed A. fib with rapid ventricular response. Also it showed left bundle branch block; unchanged from previous. TSH returned elevated. Consult cardiology. Weight on admission to the floor; and then daily Strict I&O's CXR: Impression by radiologist: Bilateral edema or infiltrates. Cardiac enlargement. Chest x-ray was independently reviewed. I agree with images interpretation. Independently reviewed confirms. Monitor electrolytes and renal function Trend blood pressure Fluid restriction of 1500 mls daily 2 g cardiac diet Atrial fibrillation with RVR Received Cardizem IV bolus at the emergency department. Continue home Tikosyn. On telemetry. INR therapeutic; Coumadin continued repeat INR in a.m. Right rib pain Lasted about 4 hours, sharp. Likely muscle strain. Trend troponin. Hypothyroidism Patient with history of follicular carcinoma status post thyroidectomy on thyroid supplementation. TSH elevated. Continue home levothyroxine. Check free T4. Depression/anxiety Effexor continued DVT Prophylaxis Not indicated since patient is therapeutic on her home Coumadin. Coumadin continued. Code Visit Inpatient E&M: 32566 Init Hosp L3
[2019-07-12 22:55] LABS: BNP,B-Type NATRIURETIC PEPTIDE 579.6 pg/mL (0-100)
[2019-07-12 22:56] LABS: Digoxin Level 0.09 ng/mL (0.80-2.00)
[2019-07-12] MEDS: Furosemide 40 MG/4 ML Vial IV (23:05)
--- NOTE | 2019-07-12 23:45 | ECHOD_ITS ---
Reason For Study: SOB Procedure This was a 2D Doppler, Color Flow transthoracic echocardiogram. Exam performed portable in patient room. Left Ventricle Normal LV size. Concentric left ventricular hypertrophy. The estimated ejection fraction is 40-45 %. Unable to assess diastolic dysfunction. apical hypokinesis. Right Ventricle Normal RV size. There is a pacemaker lead in the right ventricle. Normal systolic function. Atria The left atrium is moderately enlarged. The right atrium is mildly enlarged. No doppler evidence for ASD. Mitral Valve There is no mitral valve stenosis. No mitral valve insufficiency. Bioprosthetic mitral valve. Tricuspid Valve There is no tricuspid stenosis. Pulmonary artery systolic pressure is 25 mmHg. Mild tricuspid valve insufficiency. Aortic Valve There is no aortic stenosis. No aortic valve insufficiency. Stable appearing bioprosthetic aortic valve apparatus. Pulmonic Valve There is no pulmonic valvular stenosis. Trivial pulmonic valve insufficiency. Great Vessels Mildly dilated aortic root. Pericardium/Pleural No pericardial effusion. MMode/2D Measurements & Calculations LVIDd: 3.6 cm IVSd: 1.6 cm LVOT diam: 1.9 cm LVIDs: 2.4 cm LVPWd: 1.4 cm LVOT area: 2.8 cm2 RVDd: 3.7 cm FS: 31.7 % Ao root diam: 4.5 cm LAV(MOD-bp): 70.9 ml LA A4 area: 26.4 cm2 LAV(MOD-bp) Indexed: 38.5 ml/m2 LAV(MOD-sp2): 46.5 ml LAV(MOD-sp4): 87.1 ml LA dimension(2D): 5.2 cm RA A4 area: 19.2 cm2 Doppler Measurements & Calculations MV E max jose alberto: 124.3 cm/sec MV V2 max: 146.0 cm/sec MV P1/2t max jose alberto: 141.5 cm/sec MV max P.5 mmHg MV P1/2t: 76.3 msec MV V2 mean: 86.8 cm/sec MV dec slope: 543.6 cm/sec2 MV mean P.6 mmHg MV V2 VTI: 27.0 cm MVA(P1/2t): 2.9 cm2 MVA(VTI): 1.4 cm2 Ao V2 max: 136.9 cm/sec LV V1 max: 97.8 cm/sec SV(LVOT): 39.0 ml Ao max P.7 mmHg LV V1 max P.1 mmHg Ao V2 mean: 89.8 cm/sec LV V1 mean P.1 mmHg Ao mean P.8 mmHg LV V1 mean: 64.9 cm/sec Ao V2 VTI: 20.5 cm LV V1 VTI: 13.8 cm ZAK(I,D): 1.9 cm2 ZAK(V,D): 2.0 cm2 PA V2 max: 80.1 cm/sec TR max jose alberto: 212.9 cm/sec TR max P.5 mmHg Interpretation Summary The estimated ejection fraction is 40-45 %. apical hypokinesis Unable to assess diastolic dysfunction. There is a pacemaker lead in the right ventricle. Mild tricuspid valve insufficiency. Bioprosthetic mitral valve. Stable appearing bioprosthetic aortic valve apparatus. Ordering Physician: Bryce Child Referring Physician: Michael Dallas Performed By: Iveth Howe RDCS
[2019-07-13] VITALS (16 sets, daily range): BP systolic 81–131; BP diastolic 44–89; PULSE 52–112; RESP 14–21; TEMP 36.3–36.8; O2SAT 92–98
[2019-07-13 00:54] LABS: Thyroid Stim Hormone (TSH) 9.54 uIU/mL (0.358-3.74)
[2019-07-13 01:59] LABS: Magnesium 2.1 mg/dL (1.6-2.6); T4 Free Direct 1.24 ng/dL (0.76-1.46)
[2019-07-13 02:45] LABS: Free T3 2.4 pg/mL (2.18-3.98)
[2019-07-13 03:44] LABS: Absolute Lymphocyte Count 1.06 X10^3/uL (0.83-4.51); Absolute Neutrophil Count 6.4 X10^3/uL (2.0-7.7); Basophil# 0.02 X10^3/uL; Basophil% 0.2 % (0-1); Eosinophil# 0.06 X10^3/uL; Eosinophils% 0.7 % (0-5); Hematocrit 40.6 % (37-47); Hemoglobin 13.3 g/dL (12.0-15.0); Lymphocyte # 1.06 X10^3/ul (4.0); Lymphocyte % 13.2 % (19-41); Mean Corp Hgb Conc 32.8 g/dL (32-36); Mean Corpuscular Hgb 30.2 pg (27.0-32.0); Mean Corpuscular Volume 92.1 fL (81-99); Mean Platelet Vol. 10.3 fl (6.2-12.0); Monocyte# 0.45 X10^3/uL; Monocyte% 5.6 % (0-10); NRBC Flagged by Analyzer 0 % (0-5); Neutrophil # 6.44 X10^3/uL (2.7-7.7); Neutrophil % 80.1 % (47-70); Platelet Count 222 K/mm3 (150-450); RBC Distribution Width CV 12.6 % (11.6-14.6); RBC Distribution Width SD 42.5 fl (35.1-43.9); Red Blood Count 4.41 M/mm3 (4.2-5.4); White Blood Count 8.1 K/mm3 (4.4-11.0)
[2019-07-13 03:52] LABS: Prothrombin Time (Protime)PT. 35.8 SECONDS (11.7-14.9)
[2019-07-13 04:05] LABS: International Normalized Ratio 3.6
[2019-07-13 04:38] LABS: Anion Gap 7 (5-15); BUN 16 mg/dL (7-18); Calcium,Total 8.4 mg/dL (8.5-10.1); Chloride 106 mmol/L (98-107); Cholesterol 173 mg/dL (200); EST Glomerular Filtration Rate 75 mL/min (>60); Est Glom Filt Rate - Afr Amer 91 mL/min (>60); Glucose 113 mg/dL (74-106); High Density Lipoprotein 54 mg/dL; Potassium 3.4 mmol/L (3.5-5.1); Sodium Level 140 mmol/L (136-145); Thyroid Stim Hormone (TSH) 3.12 uIU/mL (0.358-3.74); Triglycerides 70 mg/dL; Very Low Density Lipoprotein 14 mg/dL (5-40)
[2019-07-13] MEDS: Levothyroxine 100 MCG Tablet PO (05:37)
[2019-07-13] MEDS: Furosemide 20 MG/2 ML VIAL IV (05:44)
[2019-07-13] MEDS: Multivitamins,Ther W-Minerals Tablet 1 TABLET PO (09:36)
[2019-07-13] MEDS: Dofetilide 250 MCG Capsule 500 MCG PO (09:43)
--- NOTE | 2019-07-13 10:04 | PCM.CONS.C ---
<Javy Gupta - Last Filed: 07/13/19 10:04> Problem List (1) Heart failure Status: Acute (2) Atrial fibrillation with RVR Status: Acute (3) Dyspnea Status: Acute (4) Valvular heart disease Status: Chronic (5) Mitral stenosis Status: Chronic Reason for Consult Date of Consultation: 07/13/19 Reason for Consultation: MARKS, Atrial fibrillation History of Present Illness: The patient is a 74 year old F who presented to [facility] Emergency Department on 07/12/2019 for progressive shortness of breath on exertion and not feeling well. She has a past medical history of rheumatic fever, mitral stenosis, aortic valve disease, mitral valvuloplasty in 2015, presumedly mitral and aortic valve replacement February 2018 and tricuspid valve repair in February 2018, paroxysmal atrial fibrillation status post ablation in 2015, presumably Maze procedure in February 2018 with left atrial appendage ligation, and follicular cancer status post thyroidectomy. Patient states over the last 1 to 2 months she has noticed increased shortness of breath on exertion. She followed up with her primary director of technology, Dr. Nassar, at [facility]. Her pacemaker was interrogated and showed underlying atrial flutter. She was thus scheduled for an ablation procedure on 08/29/2019. Her shortness of breath continued to progress and she presented to the Emergency Department. Her Emergency Department work-up revealed an EKG showing possible atrial fibrillation with RVR and underlying left bundle branch block, chest x-ray showing edema and/or infiltrate, negative troponin, BNP of 579, and an INR of 3.4. She received IV Cardizem bolus. She became mildly hypotensive. She was started on IV diuretics. She was admitted for further management. Prior to admission patient was taking Tikosyn 250 mg p.o. twice daily and metoprolol 25 mg p.o. twice daily for rate control. Cardiology was consulted for further input. Past Medical History Allergies/Adverse Reactions: Allergies sulfamethoxazole Allergy (Verified 11/08/18 11:11) Rash oxycodone Adverse Reaction (Verified 11/08/18 11:11) Swelling Home Medications: Ambulatory Orders Medication Instructions Recorded Levothyroxine [Synthroid] 112 mcg PO DAILY 10/21/15 Venlafaxine HCl [Effexor] 37.5 mg PO DAILY 10/21/15 Warfarin [Coumadin] 5 mg PO DAILY 10/21/15 Dofetilide [Tikosyn] 250 mcg PO BID 03/30/18 Metoprolol Tartrate [Lopressor 25 mg PO BID 03/30/18 (beta harpal)] Multivit with Calcium,Iron,Min 1 tab PO DAILY 03/30/18 [Multiple Vitamins For Women] Past Medical History (Chronic Problems): Chronic Problems (Last Reviewed 07/13/19 @ 05:18 by Bryce Child MD) Lung nodule (Chronic) Lymphadenopathy (Chronic) Atrial fibrillation (Chronic) Valvular heart disease (Chronic) Hypothyroidism (Chronic) Mitral stenosis (Chronic) Surgical History: - - 2 valve replacements; one valve repair, ablation, left atrial appendage ligation Psychiatric History: No pertinent psych hx [employer] History: No pertinent [employer] history - *Family History Maternal Family History: Family History (Last Reviewed 07/13/19 @ 05:18 by Bryce Child MD) Mother Liver disease Alcohol abuse Lung disease History Items: No pertinent history Paternal Family History: Family History (Last Reviewed 07/13/19 @ 05:18 by Bryce Child MD) Mother Liver disease Alcohol abuse Lung disease History Items: No pertinent history Lives: Spouse/ Significant Other Smoking Status: Former smoker Review of Systems - Review of Systems General: Reports: Weakness. Denies: Fever, Fatigue HEENT: Denies: Vision Change Cardiovascular: Reports: Shortness of Breath, Shortness of Breath with Exertion, Orthopnea, PND, Palpitations. Denies: Chest Discomfort, Chest Discomfort at Rest, Chest Discomfort with Exertion, Chest Pressure, Chest Tightness, Shortness of Breath at Rest, Peripheral Edema, Lightheadedness, Dizziness, Near Syncope, Syncope, Claudication Respiratory: Denies: Cough Neurological: Denies: Dizziness Subjectve: Patient seen and evaluated. She does acknowledge improvement of shortness of breath since admission. She denies any chest pain prior to admission. Objective: Vital Signs Temp Pulse Resp BP Pulse Ox 98.0 F 60 14 89/56 L 93 07/13/19 09:31 07/13/19 09:31 07/13/19 09:31 07/13/19 09:31 07/13/19 09:31 Oxygen Flow Rate (L/min) 2 Oxygen Delivery Method Room Air Weight: 160 lb 11.472 oz Body Mass Index (BMI) 25.2 Intake and Output for Last 24 Hours 07/11/19 07/12/19 07/13/19 23:59 23:59 23:59 Intake Total 200 / 200 Output Total 1300 / 1300 Balance -1100 / -1100 General: Healthy Appearing, Awake, Alert, Oriented x 3, Cooperative, No Acute Distress HEENT: Atraumatic Oral: Moist Mucosa Neck: No JVD Lungs: Rhonchi - bilateral, mid, and lower Cardiovascular: Irregular Rhythm, Normal S2, No Rubs, No Gallops Murmur Murmur: Grade 2/6, LLSB Vascular: No Carotid Bruits Abdomen: Bowel Sounds Present, Soft, Non Tender Extremities: No Cyanosis, No Clubbing, No edema, Normal Capillary Refill Musculoskeletal: No Erythema Skin: No Rashes Neurological: No Focal Motor or Sensory Deficit Psych/Mental Status: Appropriate, Normal Affect 07/12/19 21:50: WBC 12.6 H, RBC 4.70, Hgb 14.3, Hct 43.1, MCV 91.7, MCH 30.4, MCHC 33.2, Plt Count 241, MPV 10.4, Immature Gran % (Auto) 0.200, Neut % (Auto) 85.7 H, Lymph % (Auto) 8.5 L, [place] % (Auto) 4.3, Eos % (Auto) 1.0, Baso % (Auto) 0.3, Absolute Neuts (auto) 10.8 H, Nucleated RBC % 0 07/12/19 21:50: Sodium 140, Potassium 4.0, Chloride 107, Carbon Dioxide 26.0, Anion Gap 7, BUN 18, Creatinine 0.88, Est GFR (MDRD) Af Amer 81, Est GFR (MDRD) Non-Af 67, BUN/Creatinine Ratio 20.5 H, Glucose 145 H, Calcium 9.3, Troponin I < 0.015 07/12/19 21:50: PT 34.9 H, INR 3.4 07/12/19 21:50: Digoxin 0.09 L 07/12/19 21:50: B-Natriuretic Peptide 579.6 H 07/13/19 01:29: Magnesium 2.1, Troponin I < 0.015 07/13/19 03:36: Sodium 140, Potassium 3.4 L, Chloride 106, Carbon Dioxide 27.0, Anion Gap 7, BUN 16, Creatinine 0.80, Est GFR (MDRD) Af Amer 91, Est GFR (MDRD) Non-Af 75, BUN/Creatinine Ratio 20.0, Glucose 113 H, Calcium 8.4 L, Triglycerides 70, Cholesterol 173, LDL Cholesterol 105, VLDL Cholesterol 14, HDL Cholesterol 54 07/13/19 03:36: WBC 8.1, RBC 4.41, Hgb 13.3, Hct 40.6, MCV 92.1, MCH 30.2, MCHC 32.8, Plt Count 222, MPV 10.3, Immature Gran % (Auto) 0.200, Neut % (Auto) 80.1 H, Lymph % (Auto) 13.2 L, [place] % (Auto) 5.6, Eos % (Auto) 0.7, Baso % (Auto) 0.2, Absolute Neuts (auto) 6.4, Nucleated RBC % 0 07/13/19 03:36: PT 35.8 H, INR 3.6 H* 07/13/19 03:36: Troponin I < 0.015 Rhythm: EKG: Echocardiogram from 09/23/2016: Interpretation Summary Moderate concentric left ventricular perjury. Estimate ejection fraction is 65%. The left atrium is severely enlarged. Moderate mitral annular calcification extending into the posterior leaflet. Moderate restriction with the mitral valve. Moderate to severe mitral valve stenosis. Peak transmitral valve gradient of 14 mmHg. Mean transmitral valve gradient of 8 mmHg. Mild (1+) tricuspid valve insufficiency. Right ventricular systolic pressure estimated be 35 mmHg. Moderate restriction of the aortic valve. Moderate aortic stenosis Mild (1+) aortic valve insufficiency. There is no comparison study available. Stress Test: Cardiac Cath: PCI: CT Surgery: Holter monitor: EPS: PPM: CXR: Chest CT Scan: Assessment/Plan 1. Congestive heart failure Patient does present with symptoms concerning for congestive heart failure. Her chest x-ray reveals edema versus infiltration. Her BNP is elevated at 579.6. She does acknowledge dyspnea on exertion, orthopnea, PND, and weight gain. This has been ongoing for 1-2 months. Prior to this she states that her pacemaker check revealed underlying atrial flutter. Thus, it appears that when she develops underlying atrial fibrillation/flutter she tends to present with fluid volume overload as she has previously. Her previous echocardiogram in our system, showed a preserved ejection fraction. She does acknowledge improvement in symptoms since admission. She will continue with diuretic therapy. In the long run, she should be discharged on diuretic therapy to control fluid volume. She should continue with beta-harpal therapy. She does acknowledge improved symptoms. She will transition to oral Lasix tomorrow at 20 mg p.o. daily. This can be titrated as needed/accordingly based on kidney function, electrolytes, and blood pressure. She will proceed with echocardiogram to evaluate LV function as well as valvular changes that may be contributing to her symptoms. Based on results, further recommendation will be made. Her troponin has been negative. She is not acknowledged chest pain prior to admission. She states prior to her recent open heart surgery for valvular replacement she underwent a heart catheterization that did not require intervention. At this time, her congestive heart failure does not appear to be coronary artery disease related. 2. Atrial fibrillation/flutter Patient states that she has been noted to be in underlying atrial flutter for the last 1-2 months. She is scheduled to undergo an ablation procedure with her primary director of technology Dr. Crane on 08/29/2019. In the interim, due to her faster heart rate, we will increase her metoprolol to 50 mg p.o. twice daily. Her blood pressure will need to be monitored closely. She does acknowledge that her home Tikosyn dosages 250 mg p.o. twice daily. She states this has been reduced presumably for QT prolongation. She will continue with electrolyte supplement as indicated. She will continue with Coumadin therapy. Given her previous history of mitral stenosis requiring valvular surgery she is not a candidate for factor Xa inhibitors. Her INR goal is 2?3. Her Coumadin will be adjusted per primary Coumadin clinic. Today it was noted to be 3.6. She does not present with overt symptoms of bleeding. Her hemoglobin was noted to be normal. 3. Hypotension This may be a result of IV Cardizem bolus and general diuresis. We will stop IV Lasix today and place hold parameters for increase metoprolol for systolics less than 90. We will continue to monitor. 4. Valvular heart disease Patient does acknowledge multiple valvular replacement and repairs. She undergo a repeat echocardiogram to ensure stability. Based on results, further recommendation be made. Patient's case was discussed further with Dr. Berry, who also personally evaluated patient. See his dictation for further details. Thank you for allowing us to participate in the patients plan of care, if you have any questions please do not hesitate to call. This note was generated using a voice recognition system and there may be incorrect words, spelling or punctuation that were not noted when reviewing the office note prior to saving. <Leonardo Berry - Last Filed: 07/13/19 15:49> Reason for Consult History of Present Illness: The patient is a 74 year old F [] Past Medical History - *Family History Maternal Family History: Family History (Last Reviewed 07/13/19 @ 05:18 by Bryce Child MD) Mother Liver disease Alcohol abuse Lung disease Paternal Family History: Family History (Last Reviewed 07/13/19 @ 05:18 by Bryce Child MD) Mother Liver disease Alcohol abuse Lung disease Objective: Vital Signs Temp Pulse Resp BP Pulse Ox 97.9 F 100 14 92/65 94 07/13/19 11:30 07/13/19 15:00 07/13/19 11:30 07/13/19 11:30 07/13/19 12:20 Oxygen Flow Rate (L/min) 2 Oxygen Delivery Method Room Air Weight: 160 lb 11.472 oz Body Mass Index (BMI) 25.2 Intake and Output for Last 24 Hours 07/11/19 07/12/19 07/13/19 23:59 23:59 23:59 Intake Total 600 / 600 Output Total 2200 / 2200 Balance -1600 / -1600 07/12/19 21:50: WBC 12.6 H, RBC 4.70, Hgb 14.3, Hct 43.1, MCV 91.7, MCH 30.4, MCHC 33.2, Plt Count 241, MPV 10.4, Immature Gran % (Auto) 0.200, Neut % (Auto) 85.7 H, Lymph % (Auto) 8.5 L, [place] % (Auto) 4.3, Eos % (Auto) 1.0, Baso % (Auto) 0.3, Absolute Neuts (auto) 10.8 H, Nucleated RBC % 0 07/12/19 21:50: Sodium 140, Potassium 4.0, Chloride 107, Carbon Dioxide 26.0, Anion Gap 7, BUN 18, Creatinine 0.88, Est GFR (MDRD) Af Amer 81, Est GFR (MDRD) Non-Af 67, BUN/Creatinine Ratio 20.5 H, Glucose 145 H, Calcium 9.3, Troponin I < 0.015 07/12/19 21:50: PT 34.9 H, INR 3.4 07/12/19 21:50: Digoxin 0.09 L 07/12/19 21:50: B-Natriuretic Peptide 579.6 H 07/13/19 01:29: Magnesium 2.1, Troponin I < 0.015 07/13/19 03:36: Sodium 140, Potassium 3.4 L, Chloride 106, Carbon Dioxide 27.0, Anion Gap 7, BUN 16, Creatinine 0.80, Est GFR (MDRD) Af Amer 91, Est GFR (MDRD) Non-Af 75, BUN/Creatinine Ratio 20.0, Glucose 113 H, Calcium 8.4 L, Triglycerides 70, Cholesterol 173, LDL Cholesterol 105, VLDL Cholesterol 14, HDL Cholesterol 54 07/13/19 03:36: WBC 8.1, RBC 4.41, Hgb 13.3, Hct 40.6, MCV 92.1, MCH 30.2, MCHC 32.8, Plt Count 222, MPV 10.3, Immature Gran % (Auto) 0.200, Neut % (Auto) 80.1 H, Lymph % (Auto) 13.2 L, [place] % (Auto) 5.6, Eos % (Auto) 0.7, Baso % (Auto) 0.2, Absolute Neuts (auto) 6.4, Nucleated RBC % 0 07/13/19 03:36: PT 35.8 H, INR 3.6 H* 07/13/19 03:36: Troponin I < 0.015 Rhythm: EKG: ECHO: Stress Test: Cardiac Cath: PCI: CT Surgery: Holter monitor: EPS: PPM: CXR: Chest CT Scan: Assessment/Plan Patient was seen, evaluated and discussed with Javy gupta APN. Please see Javy's note for full details. I agree with Javy's note. Patient came in with shortness of breath which seems to have resolved with Lasix and patient feels that she is almost at her baseline. Her blood pressure is on the low side and there is no evidence of volume overload at this time on physical examination. We will decrease the Lasix to 20 mg p.o. daily and increase the metoprolol to 50 mg p.o. twice daily as patient has episodes of rapid ventricular response with her A. fib. Decrease her Tikosyn to her home dose. Patient is scheduled for a flutter ablation on August 29. She does have apical hypokinesis which could be new. At some point, especially if she has persistent wall motion abnormalities then she could benefit from ischemic evaluation.
--- NOTE | 2019-07-13 11:41 | CASEMGMT ---
DANDY CHASE Assessment: Face to Face with patient for initial transition planning/care coordination assessment. DANDY CHASE introduced self and role at [facility], pt voices understanding and consents to assessment at this time. Pt is lying in bed in no distress at this time. Pt is A/Ox4 at this time and answers all questions appropriately at this time. Care providers, pharmacy, and demographics verified at this time. Presentation: SOB, CP under right breast, nausea, weakness since yesterday Admitting dx: CHF exacerbation PCP: Burt Specialists: Rosa Maria, JENNIFER cardio; linda Ugalde clinical secretary-ablation set up for 08/29/19 Preferred Pharmacy: [email or web address] Insurance: [employer]/MCR A Prescription Benefit: [employer] Living Will/HPOA: Pt states has LW/HPOA and is aware that they are not on file at [facility] at this time. Pt states that her , Justice Farrell, is HPOA. Pt encouraged to bring copies in when able, voices understanding. LNOK: Justice Farrell, Living Arrangements: Pt states lives with in 1 story home and states no concerns at home at this time. Pt states is independent with ADL's. Transportation: Pt states drives self and states no transportation concerns at this time. DME/HHC: Pt states no current DME or need for any at this time. Pt states no hx of HHC or SNF in the past. Pt states no concerns with going home at time of discharge. Pt states is retired. Pt states does not smoke or drink ETOH. Pt states no further concerns/needs at this time. CM to follow for any further discharge planning/needs. Advised pt to ask for CM if any further questions/concerns/needs arise, voices understanding. Pt Goal: Home Plan: [place] DANDY CHASE
--- NOTE | 2019-07-13 12:31 | PN_ITS ---
<Shonna Eric - Last Filed: 07/13/19 12:44> Patient Problems: Active and Suspected Problems (Last Reviewed 07/13/19 @ 05:18 by Bryce Child MD) Heart failure (Acute) Atrial fibrillation with RVR (Acute) Subjective: Patient seen and examined. Reports improvement in breathing. Denies chest pain, palpitations. - Physical Exam Vitals/I&O's: Vital Signs Temp Pulse Resp BP Pulse Ox 97.9 F 89 14 92/65 94 07/13/19 11:30 07/13/19 11:30 07/13/19 11:30 07/13/19 11:30 07/13/19 12:20 Oxygen Flow Rate (L/min) 2 Oxygen Delivery Method Room Air Weight: 160 lb 11.472 oz Body Mass Index (BMI) 25.2 Intake and Output for Last 24 Hours 07/11/19 07/12/19 07/13/19 23:59 23:59 23:59 Intake Total 600 / 600 Output Total 2200 / 2200 Balance -1600 / -1600 General: Alert, Oriented x3, Cooperative HEENT: Atraumatic, PERRLA, EOMI, Normocephalic Neck: Supple, No JVD, Negative Carotid Bruits Lungs: Clear to auscultation, Normal air movement Cardiovascular: Regular rate, Regular Rhythm, Normal S1, Normal S2, Murmur Abdomen: Bowel Sounds Present, Soft, Non Tender, Non-Distended Extremities: No clubbing, No cyanosis, No edema, Capillary Refill Less than 3 Seconds Skin: No rashes, No breakdown Musculoskeletal: No Tenderness to Palpation of Joints or Extremities Neurological: Cranial nerves II-XII grossly intact, Neuro grossly intact Psych/Mental Status: Normal Affect, Appropriate Laboratory Results 07/12/19 21:50: WBC 12.6 H, RBC 4.70, Hgb 14.3, Hct 43.1, MCV 91.7, MCH 30.4, MCHC 33.2, RDW Std Deviation 43.2, RDW Coeff of Sara 13.0, Plt Count 241, MPV 10.4, Immature Gran % (Auto) 0.200, Neut % (Auto) 85.7 H, Lymph % (Auto) 8.5 L, Hardeman % (Auto) 4.3, Eos % (Auto) 1.0, Baso % (Auto) 0.3, Absolute Neuts (auto) 10.8 H, Absolute Lymphs (auto) 1.08, Nucleated RBC % 0 07/12/19 21:50: Sodium 140, Potassium 4.0, Chloride 107, Carbon Dioxide 26.0, Anion Gap 7, BUN 18, Creatinine 0.88, Estim Creat Clear Calc 55.37, Est GFR (MDRD) Af Amer 81, Est GFR (MDRD) Non-Af 67, BUN/Creatinine Ratio 20.5 H, Glucose 145 H, Calcium 9.3, Troponin I < 0.015 07/12/19 21:50: PT 34.9 H, INR 3.4 07/12/19 21:50: Digoxin 0.09 L 07/12/19 21:50: B-Natriuretic Peptide 579.6 H 07/12/19 21:50: TSH 9.54 H 07/13/19 01:29: Magnesium 2.1, Troponin I < 0.015, Free T4 1.24, Free T3 pg/dL 2.4 07/13/19 03:36: Sodium 140, Potassium 3.4 L, Chloride 106, Carbon Dioxide 27.0, Anion Gap 7, BUN 16, Creatinine 0.80, Estim Creat Clear Calc 60.90, Est GFR (MDRD) Af Amer 91, Est GFR (MDRD) Non-Af 75, BUN/Creatinine Ratio 20.0, Glucose 113 H, Calcium 8.4 L, Triglycerides 70, Cholesterol 173, LDL Cholesterol 105, VLDL Cholesterol 14, HDL Cholesterol 54, TSH 3.12 07/13/19 03:36: WBC 8.1, RBC 4.41, Hgb 13.3, Hct 40.6, MCV 92.1, MCH 30.2, MCHC 32.8, RDW Std Deviation 42.5, RDW Coeff of Sara 12.6, Plt Count 222, MPV 10.3, Immature Gran % (Auto) 0.200, Neut % (Auto) 80.1 H, Lymph % (Auto) 13.2 L, Hardeman % (Auto) 5.6, Eos % (Auto) 0.7, Baso % (Auto) 0.2, Absolute Neuts (auto) 6.4, Absolute Lymphs (auto) 1.06, Nucleated RBC % 0 07/13/19 03:36: PT 35.8 H, INR 3.6 H* 07/13/19 03:36: Troponin I < 0.015 Current Medications Acetaminophen (Tylenol) 650 mg PO Q6H PRN PRN PRN Reason: Pain Score 1-10/Temp > 100.7 F Dofetilide (Tikosyn) 250 mcg PO BID [facility] Furosemide (Lasix) 20 mg PO DAILY [facility] Glucagon () 1 mg IM .X1 PRN PRN Reason: Hypoglycemia Dextrose (Dextrose 10%-Water) 250 mls @ 999 mls/hr IV .Q16M PRN; Protocol PRN Reason: HYPOGLYCEMIA Sodium Chloride () 250 mls @ 15 mls/hr IV .[id number] PRN PRN Reason: Saline Flush Sodium Chloride () 250 mls @ 15 mls/hr IV .[id number] PRN PRN Reason: Additional IVPB Infusion Levothyroxine Sodium (Synthroid) 100 mcg PO DAILY@0600 [facility] Last Admin: 07/13/19 05:37 Dose: 100 mcg Documented by: Melatonin (Melatonin) 3 mg PO QHS PRN PRN PRN Reason: INSOMNIA Metoprolol Tartrate (Lopressor (Beta Roque)) 50 mg PO BID [facility] Multivitamins/Minerals (Multivitamin With Minerals) 1 tablet PO DAILY@0800 [facility] Last Admin: 07/13/19 09:36 Dose: 1 tablet Documented by: Ondansetron HCl (Zofran) 4 mg IV Q8H PRN PRN PRN Reason: NAUSEA/VOMITING Potassium Chloride (K-Dur) 40 meq PO DAILYCM [facility] Last Admin: 07/13/19 09:35 Dose: 40 meq Documented by: Sodium Chloride () 10 - 40 ml IV UD PRN PRN Reason: SALINE FLUSH Venlafaxine HCl (Effexor Xr) 37.5 mg PO DAILY@2200 [facility] Warfarin Sodium (Coumadin (Pbkc)) 4 mg PO DAILY@1700 [facility] Last Admin: 07/13/19 10:02 Dose: Not Given Documented by: Warfarin Sodium (Coumadin (Pbkc)) 0.5 mg PO DAILY@1700 [facility] Last Admin: 07/13/19 10:02 Dose: Not Given Documented by: Medical Necessity - Tobacco Use Smoking Status: Former smoker Assessment/Plan All Active Problems (Last Reviewed 12/19/19 @ 05:18 by Bryce Child MD) Heart failure (Acute) Atrial fibrillation with RVR (Acute) Dyspnea (Acute) Atrial fibrillation with RVR (Acute) 1. Acute diastolic CHF-chest x-ray admission consistent with CHF. BNP 579. Echocardiogram September 2016 demonstrated an EF of 65%. Repeat echocardiogram pen ding. Strict I&O. Daily weight. IV Lasix discontinued. Continue p.o. Lasix 20 mg daily. 2. A.Fib/Atrial flutter with RVR, history of paroxysmal atrial fibrillation status post ablation-metoprolol increased to 50 mg twice daily per cardiology. Continue home Tikosyn regimen. INR 3.6. Coumadin on hold, trend INR. Patient has upcoming ablation in July with her primary supervisor blood. 3. Valvular heart disease-echocardiogram pending as noted above. 4. Acquired hypothyroidism, history of follicular carcinoma status post thyroidectomy-continue Synthroid regimen. 5. Depression-continue Effexor regimen. DVT prophylaxis-Coumadin This patient was seen by RAN Perdomo under the supervision of Dr. Marie. <Manolo Marie - Last Filed: 07/13/19 14:42> - Physical Exam Vitals/I&O's: Vital Signs Temp Pulse Resp BP Pulse Ox 97.9 F 89 14 92/65 94 07/13/19 11:30 07/13/19 11:30 07/13/19 11:30 07/13/19 11:30 07/13/19 12:20 Oxygen Flow Rate (L/min) 2 Oxygen Delivery Method Room Air Weight: 72.9 kg Body Mass Index (BMI) 25.2 Intake and Output for Last 24 Hours 07/11/19 07/12/19 07/13/19 23:59 23:59 23:59 Intake Total 600 / 600 Output Total 2200 / 2200 Balance -1600 / -1600 Laboratory Results 07/12/19 21:50: WBC 12.6 H, RBC 4.70, Hgb 14.3, Hct 43.1, MCV 91.7, MCH 30.4, MCHC 33.2, RDW Std Deviation 43.2, RDW Coeff of Sara 13.0, Plt Count 241, MPV 10.4, Immature Gran % (Auto) 0.200, Neut % (Auto) 85.7 H, Lymph % (Auto) 8.5 L, Hardeman % (Auto) 4.3, Eos % (Auto) 1.0, Baso % (Auto) 0.3, Absolute Neuts (auto) 10.8 H, Absolute Lymphs (auto) 1.08, Nucleated RBC % 0 07/12/19 21:50: Sodium 140, Potassium 4.0, Chloride 107, Carbon Dioxide 26.0, Anion Gap 7, BUN 18, Creatinine 0.88, Estim Creat Clear Calc 55.37, Est GFR (MDRD) Af Amer 81, Est GFR (MDRD) Non-Af 67, BUN/Creatinine Ratio 20.5 H, Glucose 145 H, Calcium 9.3, Troponin I < 0.015 07/12/19 21:50: PT 34.9 H, INR 3.4 07/12/19 21:50: Digoxin 0.09 L 07/12/19 21:50: B-Natriuretic Peptide 579.6 H 07/12/19 21:50: TSH 9.54 H 07/13/19 01:29: Magnesium 2.1, Troponin I < 0.015, Free T4 1.24, Free T3 pg/dL 2.4 07/13/19 03:36: Sodium 140, Potassium 3.4 L, Chloride 106, Carbon Dioxide 27.0, Anion Gap 7, BUN 16, Creatinine 0.80, Estim Creat Clear Calc 60.90, Est GFR (MDRD) Af Amer 91, Est GFR (MDRD) Non-Af 75, BUN/Creatinine Ratio 20.0, Glucose 113 H, Calcium 8.4 L, Triglycerides 70, Cholesterol 173, LDL Cholesterol 105, VLDL Cholesterol 14, HDL Cholesterol 54, TSH 3.12 07/13/19 03:36: WBC 8.1, RBC 4.41, Hgb 13.3, Hct 40.6, MCV 92.1, MCH 30.2, MCHC 32.8, RDW Std Deviation 42.5, RDW Coeff of Sara 12.6, Plt Count 222, MPV 10.3, Immature Gran % (Auto) 0.200, Neut % (Auto) 80.1 H, Lymph % (Auto) 13.2 L, Hardeman % (Auto) 5.6, Eos % (Auto) 0.7, Baso % (Auto) 0.2, Absolute Neuts (auto) 6.4, Absolute Lymphs (auto) 1.06, Nucleated RBC % 0 07/13/19 03:36: PT 35.8 H, INR 3.6 H* 07/13/19 03:36: Troponin I < 0.015 Current Medications Acetaminophen (Tylenol) 650 mg PO Q6H PRN PRN PRN Reason: Pain Score 1-10/Temp > 100.7 F Dofetilide (Tikosyn) 250 mcg PO BID [facility] Furosemide (Lasix) 20 mg PO DAILY [facility] Glucagon () 1 mg IM .X1 PRN PRN Reason: Hypoglycemia Dextrose (Dextrose 10%-Water) 250 mls @ 999 mls/hr IV .Q16M PRN; Protocol PRN Reason: HYPOGLYCEMIA Sodium Chloride () 250 mls @ 15 mls/hr IV .[id number] PRN PRN Reason: Saline Flush Sodium Chloride () 250 mls @ 15 mls/hr IV .[id number] PRN PRN Reason: Additional IVPB Infusion Levothyroxine Sodium (Synthroid) 100 mcg PO DAILY@0600 [facility] Last Admin: 07/13/19 05:37 Dose: 100 mcg Documented by: Melatonin (Melatonin) 3 mg PO QHS PRN PRN PRN Reason: INSOMNIA Metoprolol Tartrate (Lopressor (Beta Roque)) 50 mg PO BID [facility] Multivitamins/Minerals (Multivitamin With Minerals) 1 tablet PO DAILY@0800 [facility] Last Admin: 07/13/19 09:36 Dose: 1 tablet Documented by: Ondansetron HCl (Zofran) 4 mg IV Q8H PRN PRN PRN Reason: NAUSEA/VOMITING Potassium Ch[facility] ([facility]) [facility] Last Admin: 07/13/19 09:35 Dose: 40 meq Documented by: Sodium Chloride () 10 - 40 ml IV UD PRN PRN Reason: SALINE FLUSH Venlafaxine HCl (Effexor Xr) 37.5 mg PO DAILY@2200 [facility] Warfarin Sodium (Coumadin (Pbkc)) 4 mg PO DAILY@1700 [facility] Last Admin: 07/13/19 10:02 Dose: Not Given Documented by: Warfarin Sodium (Coumadin (Pbkc)) 0.5 mg PO DAILY@1700 [facility] Last Admin: 07/13/19 10:02 Dose: Not Given Documented by: Assessment/Plan This patient was seen in conjunction with RAN Perdomo . I have independently interviewed and examined the patient and reviewed pertinent historical, laboratory, and other data. Please refer to RAN Perdomo note for details of this patient's presentation, findings, and recommendations. I have reviewed RAN Perdomo note and concur with documented findings. In brief, patient is a 74-year-old lady admitted with progressive shortness of breath and bilateral lower extremity swelling and assessment of COPD with acute exacerbation made admitted to a monitored bed for further management. Patient was found to be hypotensive this a.m. resulting in patient antihypertensive medications be held Physical Examination: GENERAL: cooperative HEENT: Atraumatic; EYES; Anicteric, Normal Conjunctiva NECK; supple, normal thyroid, RESPIRATORY: Diminished to auscultation CARDIOVASCULAR: Regular S1 S2, GI: soft, normoactive bowel sounds, : No Renal angle tenderness; EXTREMITIES: edema, no clubbing, MUSCULOSKELETAL: no muscle waisting NEURO: Awake; no lateralizing signs. SKIN: No Rash PSYCH; Flat affect Assessment: Acute on chronic diastolic congestive heart failure with preserved ejection fraction 2. Paroxysmal atrial fibrillation/atrial flutter 3. Hypotension 4. Valvular heart disease 5. History of follicular carcinoma status post thyroidectomy 6. Iatrogenic hypothyroidism 7. Depression 8. Elevated INR Recommendations: 1. I have discussed the results of my overview and impressions with the patient 2. Options for management were reviewed Code Visit Inpatient E&M: 82417 Subs Hosp L3
[2019-07-13] MEDS: Metoprolol Tartrate 50 MG Tablet PO (21:22)
[2019-07-13] MEDS: Dofetilide 250 MCG Capsule PO (21:25)
[2019-07-13] MEDS: Venlafaxine XR 37.5 MG Capsule PO (21:25)
--- NOTE | 2019-07-14 02:32 | NURSING ---
Report given to DANDY Spears (M/S), relinquished care of pt at this time.
[2019-07-14 03:00] VITALS: PULSE 111
[2019-07-14 03:35] VITALS: BP 97/63; PULSE 103; RESP 16; TEMP 36.8; O2SAT 95
[2019-07-14] MEDS: Levothyroxine 100 MCG Tablet PO (05:59)
[2019-07-14 07:00] VITALS: PULSE 108
[2019-07-14 07:15] VITALS: O2SAT 96
[2019-07-14 08:24] VITALS: BP 97/62; PULSE 86
[2019-07-14] MEDS: Furosemide 20 MG Tablet PO (08:24)
[2019-07-14] MEDS: Metoprolol Tartrate 50 MG Tablet PO (08:24)
[2019-07-14] MEDS: Dofetilide 250 MCG Capsule PO (08:24)
[2019-07-14] MEDS: Multivitamins,Ther W-Minerals Tablet 1 TABLET PO (08:24)
--- NOTE | 2019-07-14 08:52 | PN_ITS ---
Progress Note Echocardiogram from [facility] from 02/07/2018: Conclusions: 1. The left ventricular systolic function is normal with a 60-65% estimate ejection fraction. 2. There is moderate concentric left ventricular perjury. 3. The mitral valve is severely thickened. 4. There is moderate mitral annular calcification. 5. 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 7. Moderately elevated right ventricular systolic pressure. 8. There is moderate tricuspid regurgitation. 9. Moderate to severe aortic valve stenosis. 10. The AV max is 4 m/s with an ZAK of 1.1 cm? and a peak gradient of 63 mmHg. 11. There is moderate to severe aortic valve regurgitation. 12. Aorta is dilated at 4.2 cm. Heart catheterization from January 2015 showed normal coronary arteries and normal LVF. STROKE Vital Signs/Narrative: Vital Signs Pulse BP Pulse Ox 07/14/19 08:24 86 97/62 07/14/19 07:15 96 07/14/19 07:00 108 H
--- NOTE | 2019-07-14 09:31 | PCM.DC ---
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; MVR 02/2018; Heart failure (Acute) Atrial fibrillation with RVR (Acute) You will use the following diet at home:: Cardiac Discharge Activity: Return to Normal Activity Call your doctor if you observe: Shortness of breath, Dizziness, Fainting spells, Chest pain, Increased palpitations (irregular heartbeat) Allergies/Adverse Reactions: Allergies sulfamethoxazole Allergy (Verified 11/08/18 11:11) Rash oxycodone Adverse Reaction (Verified 11/08/18 11:11) Swelling Medications to take at Discharge Levothyroxine [Synthroid] 112 mcg PO DAILY 10/21/15 Venlafaxine HCl [Effexor] 37.5 mg PO DAILY 10/21/15 Warfarin [Coumadin] 5 mg PO DAILY 10/21/15 Dofetilide [Tikosyn] 250 mcg PO BID 03/30/18 Multivit with Calcium,Iron,Min [Multiple Vitamins For Women] 1 tab PO DAILY 03/30/18 Furosemide [Lasix] 20 mg PO DAILY #30 tab 07/14/19 Metoprolol Tartrate [Lopressor (beta harpal)] 50 mg PO BID #60 tab 07/14/19 Potassium Chloride [K-Dur] 20 meq PO DAILYCM #30 tab 07/14/19 The following prescriptions were given: Potassium Chloride [K-Dur] 20 meq PO DAILYCM #30 tab Transmission Status: Pending to [id number] Furosemide [Lasix] 20 mg PO DAILY #30 tab Transmission Status: Pending to [id number] Metoprolol Tartrate [Lopressor (beta harpal)] 50 mg PO BID #60 tab Transmission Status: Pending to [id number] Primary Care Physician: Michael Dallas MD [Primary Care Provider] - Please follow up with your Primary Care Physician in: 1 Week Test Results: Test results from this visit will be discussed in further detail at your follow-up appointment, if applicable. Please Follow Up With: Primary Fingernail Sculptor When: As scheduled Proposed Discharge Date: 07/14/19
[2019-07-14 09:35] VITALS: BP 97/62; PULSE 82; RESP 16; TEMP 36.8; O2SAT 95
--- NOTE | 2019-07-14 10:07 | PHA.DC.MC ---
Pharmacy Service has performed discharge medication reconciliation and counseling for this patient. The patient's discharge medication list was reviewed for discrepancies and discrepancies were resolved. Home Medications Levothyroxine [Synthroid] 112 mcg PO DAILY 10/21/15 Venlafaxine HCl [Effexor] 37.5 mg PO DAILY 10/21/15 Warfarin [Coumadin] 5 mg PO DAILY 10/21/15 Dofetilide [Tikosyn] 250 mcg PO BID 03/30/18 Multivit with Calcium,Iron,Min [Multiple Vitamins For Women] 1 tab PO DAILY 03/30/18 Furosemide [Lasix] 20 mg PO DAILY #30 tab 07/14/19 Metoprolol Tartrate [Lopressor (beta harpal)] 50 mg PO BID #60 tab 07/14/19 Potassium Chloride [K-Dur] 20 meq PO DAILYCM #30 tab 07/14/19 The patient was counseled on the following discharge medications and changes in medications for homegoing were reviewed. 1. LASIX 2. K-DUR The Reason for Use, instructions for use, and potential side effects were reviewed for all new medications. The patient's questions regarding all of their medications were answered. The patient was able to verbally demonstrate an understanding of their discharge medications.
--- NOTE | 2019-07-14 10:36 | PCM.DC.SUM ---
<Shonna Eric - Last Filed: 07/14/19 10:47> Discharge Date and Diagnosis Date of Admission: 07/12/19 Date of Discharge: 07/14/19 - Primary Discharge Diagnosis 1. Acute heart failure with reduced ejection fraction 2. A.Fib/Atrial flutter with RVR, history of paroxysmal atrial fibrillation status post ablation 3. Valvular heart disease 4. Acquired hypothyroidism, history of follicular carcinoma status post thyroidectomy 5. 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 Cardiac enlargement. Electronically Signed: Shahbaz Bates MD at 22:13 EST , Service support , Dr. Berry- Cardiology Operations: None Procedures: 2-D Echocardiogram Summary of Care Provided: The patient is a 74 year old F admitted 07/12/2019 due to shortness of breath. 1. Acute heart failure with reduced ejection fraction-chest x-ray admission consistent with CHF. BNP 579. Echocardiogram September 2016 demonstrated an EF of 65%. Repeat echocardiogram completed and demonstrated EF 40 to 45%, apical hypokinesis, stable appearing bioprosthetic aortic valve. Continue Lasix 20 mg p.o. daily and 20 mill equivalents potassium supplementation at discharge. Given reduced ejection fraction compared to prior echocardiogram, cardiology recommending repeat echo following upcoming cardioversion to assess if reduced EF is secondary to arrhythmia, if EF remains reduced patient may require ischemic work-up. Follow-up with primary freight sorter in 1 to 2 weeks. 2. A.Fib/Atrial flutter with RVR, history of paroxysmal atrial fibrillation status post ablation-metoprolol increased to 50 mg twice daily per cardiology. Continue home Tikosyn regimen. Continue Coumadin. Patient has upcoming ablation in August with her primary freight sorter. 3. Valvular heart disease-stable bioprosthetic aortic valve as noted above. 4. Acquired hypothyroidism, history of follicular carcinoma status post thyroidectomy-continue Synthroid regimen. 5. Depression-continue Effexor regimen. General: Alert, Oriented x3, Cooperative HEENT: Atraumatic, PERRLA, EOMI, Normocephalic Neck: Supple, No JVD, Negative Carotid Bruits Lungs: Clear to auscultation, Normal air movement Cardiovascular: Regular rate, Regular Rhythm, Normal S1, Normal S2, Murmur Abdomen: Bowel Sounds Present, Soft, Non Tender, Non-Distended Extremities: No clubbing, No cyanosis, No edema, Capillary Refill Less than 3 Seconds Skin: No rashes, No breakdown Musculoskeletal: No Tenderness to Palpation of Joints or Extremities Neurological: Cranial nerves II-XII grossly intact, Neuro grossly intact Psych/Mental Status: Normal Affect, Appropriate Patient seen and examined prior to discharge. Physical assessment as noted above. Patient is stable for discharge with follow up recommendations as noted above. This patient was seen by RAN Perdomo under the supervision of Dr. Jackson. - Physical Exam Vitals/I&O's: Vital Signs Temp Pulse Resp BP Pulse Ox 98.3 F 82 16 97/62 95 07/14/19 09:35 07/14/19 09:35 07/14/19 09:35 07/14/19 09:35 07/14/19 09:35 Oxygen Flow Rate (L/min) 2 Oxygen Delivery Method Room Air Weight: 157 lb 10.088 oz Body Mass Index (BMI) 25.2 Intake and Output for Last 24 Hours 07/12/19 07/13/19 07/14/19 23:59 23:59 23:59 Intake Total 1050 / 1050 Output Total 2350 / 2350 Balance -1300 / -1300 Laboratory Results 07/14/19 06:58: PT 31.0 H, INR 3.0 Current Medications Acetaminophen (Tylenol) 650 mg PO Q6H PRN PRN PRN Reason: Pain Score 1-10/Temp > 100.7 F Dofetilide (Tikosyn) 250 mcg PO BID [facility] Last Admin: 07/14/19 08:24 Dose: 250 mcg Documented by: Furosemide (Lasix) 20 mg PO DAILY [facility] Last Admin: 07/14/19 08:24 Dose: 20 mg Documented by: Glucagon () 1 mg IM .X1 PRN PRN Reason: Hypoglycemia Dextrose (Dextrose 10%-Water) 250 mls @ 999 mls/hr IV .Q16M PRN; Protocol PRN Reason: HYPOGLYCEMIA Sodium Chloride () 250 mls @ 15 mls/hr IV .[id number] PRN PRN Reason: Saline Flush Sodium Chloride () 250 mls @ 15 mls/hr IV .[id number] PRN PRN Reason: Additional IVPB Infusion Levothyroxine Sodium (Synthroid) 100 mcg PO DAILY@0600 [facility] Last Admin: 07/14/19 05:59 Dose: 100 mcg Documented by: Melatonin (Melatonin) 3 mg PO QHS PRN PRN PRN Reason: INSOMNIA Metoprolol Tartrate (Lopressor (Beta Roque)) 50 mg PO BID [facility] Last Admin: 07/14/19 08:24 Dose: 50 mg Documented by: Multivitamins/Minerals (Multivitamin With Minerals) 1 tablet PO DAILY@0800 [facility] Last Admin: 07/14/19 08:24 Dose: 1 tablet Documented by: Ondansetron HCl (Zofran) 4 mg IV Q8H PRN PRN PRN Reason: NAUSEA/VOMITING Potassium Chloride (K-Dur) 40 meq PO DAILYCM [facility] Last Admin: 07/14/19 08:23 Dose: 40 meq Documented by: Sodium Chloride () 10 - 40 ml IV UD PRN PRN Reason: SALINE FLUSH Venlafaxine HCl (Effexor Xr) 37.5 mg PO DAILY@2200 [facility] Last Admin: 07/13/19 21:25 Dose: 37.5 mg Documented by: Warfarin Sodium (Coumadin (Pbkc)) 4 mg PO DAILY@1700 [facility] Last Admin: 07/13/19 10:02 Dose: Not Given Documented by: Warfarin Sodium (Coumadin (Pbkc)) 0.5 mg PO DAILY@1700 [facility] Last Admin: 07/13/19 10:02 Dose: Not Given Documented by: Discharge Diet: Low fat/ Low Cholesterol Discharge Activity: Return to Normal Activity Call your doctor if you observe: Shortness of breath, Dizziness, Fainting spells, Chest pain, Increased palpitations (irregular heartbeat) Home Medications: Medications to take at Discharge Levothyroxine [Synthroid] 112 mcg PO DAILY 10/21/15 Venlafaxine HCl [Effexor] 37.5 mg PO DAILY 10/21/15 Warfarin [Coumadin] 5 mg PO DAILY 10/21/15 Dofetilide [Tikosyn] 250 mcg PO BID 03/30/18 Multivit with Calcium,Iron,Min [Multiple Vitamins For Women] 1 tab PO DAILY 03/30/18 Furosemide [Lasix] 20 mg PO DAILY #30 tab 07/14/19 Metoprolol Tartrate [Lopressor (beta roque)] 50 mg PO BID #60 tab 07/14/19 Potassium Chloride [K-Dur] 20 meq PO DAILYCM #30 tab 07/14/19 Following Prescrptions Were Given to Patient: Potassium Chloride [K-Dur] 20 meq PO DAILYCM #30 tab Transmission Status: Received by [id number] Furosemide [Lasix] 20 mg PO DAILY #30 tab Transmission Status: Received by [id number] Metoprolol Tartrate [Lopressor (beta roque)] 50 mg PO BID #60 tab Transmission Status: Received by [id number] Primary Care Physician: Michael Dallas MD [Primary Care Provider] - Please follow up with your Primary Care Physician in: 1 Week Please Follow Up With: Primary Motorcycle Riding Instructor When: As scheduled Disposition: Home Minutes spent on discharge:: 35 Patient Condition:: Stable Medical Necessity - Tobacco Use Smoking Status: Former smoker Meaningful Use Info Meaningful Use Diagnoses (Choose all that apply): CHF - CHF LOUIS/ARB ordered at discharge?: No Reason LOUIS/ARB not ordered?: Drug Interaction Documented LVEF (%): 40 <Rell Jackson - Last Filed: 07/14/19 17:08> Discharge Date and Diagnosis - Secondary Discharge Diagnosis Chronic Problems (Last Updated 07/14/19 @ 08:53 by RAN Mclain) 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 I have independently interviewed and examined the patient and reviewed pertinent history, examination findings, laboratory and plan of management. I have reviewed the note and agree with the documented findings with the few additional points. In brief, patient is 74-year-old female admitted for acute Heart failure with preserved EF, EF 60 to 65%. BNP 579. Patient was found with A. fib with RVR with history of paroxysmal A. fib status post ablation. Metoprolol was increased to 50 mg twice daily. On Tikosyn and Coumadin. Echo in September 2016 shows EF 60 to 65%. Had echo this time which showed EF 40 to 45% with concentric LVH and stable appearing bioprosthetic mitral valve and stable appearing bioprosthetic aortic valve. The echo from January 2018 which showed EF 6065% with moderate concentric LVH. Moderate rheumatic MS with severely centrally directed MR with severe thickening of mitral valve. Moderately elevated RVSP, moderate TR. Moderate to severe aortic stenosis with aortic valve area 1.1 cm?. Moderate to severe aortic regurgitation. Aorta estimated 4.2 cm. Heart cath from January 2015 shows normal coronaries artery and normal EF. Discharge medication reconciliation done. Discharge follow-up instructions completed. Discharge process discussed with the patient and all questions were answered to patient's satisfaction. Total time spent, exact 35 minutes on discharge meds reconciliation, examination, review of imaging and blood test and discussion with the patient on follow-up instructions. I have discussed my assessment with SMALL ENGINE TRAINERShonna and orders have been reviewed. [] Subjective: Seen and examined. Patient has improvement in shortness of breath. No chest pain or palpitation or near syncope. Heart rate is controlled. Objective: General: Alert, Oriented x3, Cooperative HEENT: Atraumatic, PERRLA, EOMI, Normocephalic Neck: Supple, No JVD, Negative Carotid Bruits Lungs: Clear to auscultation, Normal air movement Cardiovascular: Irregular rhythm, Normal S1, Normal S2, systolic murmur over left lower sternal border. Abdomen: Bowel Sounds Present, Soft, Non Tender, Non-Distended Extremities: No clubbing, No cyanosis, No edema, Capillary Refill Less than 3 Seconds Skin: No rashes, No breakdown Musculoskeletal: No Tenderness to Palpation of Joints or Extremities Neurological: Cranial nerves II-XII grossly intact, Neuro grossly intact Psych/Mental Status: Normal Affect, Appropriate - Physical Exam Vitals/I&O's: Vital Signs Temp Pulse Resp BP Pulse Ox 98.3 F 82 16 97/62 95 07/14/19 09:35 07/14/19 09:35 07/14/19 09:35 07/14/19 09:35 07/14/19 09:35 Oxygen Flow Rate (L/min) 2 Oxygen Delivery Method Room Air Weight: 157 lb 10.088 oz Body Mass Index (BMI) 25.2 Intake and Output for Last 24 Hours 07/12/19 07/13/19 07/14/19 23:59 23:59 23:59 Intake Total 1050 / 1050 Output Total 2350 / 2350 Balance -1300 / -1300 Laboratory Results 07/14/19 06:58: PT 31.0 H, INR 3.0
--- NOTE | 2019-07-17 15:16 | CASEMGMT ---
DANDY CM Discharge Follow-up Phone Call: ALFREDO: Juan Strata: 3 Call Date: 07/17/19 Discharge Date: 07/14/19 Time of Call: [phone] ? Admitting Diagnosis: Acute HFrEF, Afib/flutter w/RVR Discharge follow-call placed to patient. Pt states she has been doing well since DC. States she gets SOB with activity but denies SOB at rest. States she is able to lie flat to sleep and has been taking her lasix as prescribed. Pt is aware of her f/u appointment with Dr. Dallas, states she has made an appointment to see her cigarette carton sealer in July and is scheduled for an ablation on Aug 29. Pt states she was able to obtain her medications and denied any questions regarding these or her discharge instructions. Lee Valenzuela RN
== END 2019-07-14 10:30 | disposition home or self-care (01) | DRG 292 ==
LOC: ED 22:05 → PCU 23:31
PROVIDERS: Admitting Provider Hospitalist; Emergency Provider Emergency Medicine; Family Provider Family Medicine; PCP Family Medicine; Referring Provider Hospitalist; Visit Provider Internal Medicine
DX: I50.21 Acute systolic (congestive) heart failure (principal); I48.92 Unspecified atrial flutter; E89.0 Postprocedural hypothyroidism; I48.0 Paroxysmal atrial fibrillation; F32.9 Major depressive disorder, single episode, unspecified; I49.5 Sick sinus syndrome; Z95.0 Presence of cardiac pacemaker; I08.3 Combined rheumatic disorders of mitral, aortic and tricuspid valves; Z95.3 Presence of xenogenic heart valve; Z85.850 Personal history of malignant neoplasm of thyroid; Z87.891 Personal history of nicotine dependence
CPT/HCPCS: 36415; 71045; 80048; 80061; 80162; 83735; 83880; 84439; 84443; 84481; 84484; 85025; 85610; 93005; 93306; 97161; 97162; 99285; A4216; J1940; J2405

== ENCOUNTER → 2021-01-11 14:52 | Outpatient (CLI) | payer BC, SELFPAY ==
[2019-07-12 23:47] VITALS: BMI 25.2
--- NOTE | 2021-01-11 07:21 | CT_ITS ---
STUDY: CT CHEST WITHOUT CONTRAST REASON FOR EXAM: Female, 75 years old. DYSPNEA, COUGH, PULMONARY NODULE -- HIGH RESOLUTION RADIATION DOSAGE (If Supplied By Facility): CTDIvol = ( 6.65 ) mGy, DLP = ( 268.71 ) mGycm TECHNIQUE: Transaxial imaging was performed without the administration of intravenous contrast material. Individualized dose optimization techniques were used for this CT. COMPARISON: 08/09/2018 FINDINGS: The lung becerra are clear except to note. Tiny area of fibrosis. Aspect of the left lung with some groundglass pattern in the lingula no evidence of for pulmonary or pleural nodule identified. The previously described multiple lymph nodes in the precarinal and infracarinal regions are again seen the largest one in the precarinal area measures 2 x 1.5 cm. There are calcified lymph nodes in the hilar regions. Calcifications in the tracheal and bronchial tree cartilage are seen There is no pleural effusion or pneumothorax .Normal unenhanced pulmonary arteries. Normal aorta arch and descending thoracic aorta. There is permanent pacemaker with multiple leads in position. Normal osseous structures. There is no demonstrated abnormality of the visualized upper abdomen. CT/Chest without Contrast IMPRESSION: Small lymph nodes in the pre and infracarinal regions Electronically Signed: Emily Garcia, at 11:19 EDT Tel , Service support ,
== END ==
PROVIDERS: PCP Family Medicine; Referring Provider Internal Medicine Pulmonary Disease; Visit Provider Internal Medicine Pulmonary Disease
DX: R06.00 Dyspnea, unspecified (principal); R91.1 Solitary pulmonary nodule; R05 Cough
CPT/HCPCS: 71250

== ENCOUNTER → 2022-01-20 | Outpatient (CLI) | payer MEDICARE, SELFPAY ==
[2022-01-20 18:11] LABS: Absolute Lymphocyte Count 0.91 X10^3/uL (0.83-4.51); Absolute Neutrophil Count 6.8 X10^3/uL (2.0-7.7); Basophil# 0.05 X10^3/uL; Basophil% 0.6 % (0-1); Eosinophil# 0.28 X10^3/uL; Eosinophils% 3.3 % (0-5); Hematocrit 41.6 % (37-47); Hemoglobin 13.3 g/dL (12.0-15.0); Lymphocyte # 0.91 X10^3/ul (0.83-4.51); Lymphocyte % 10.7 % (19-41); Mean Corpuscular Volume 90.8 fL (81-99); Mean Platelet Vol. 10.2 fl (6.2-12.0); Monocyte# 0.46 X10^3/uL; Monocyte% 5.4 % (0-10); NRBC Flagged by Analyzer 0 % (0-5); Neutrophil # 6.77 X10^3/uL (2.7-7.7); Neutrophil % 79.6 % (47-70); Platelet Count 297 K/mm3 (150-450); RBC Distribution Width SD 42.9 fl (35.1-43.9); Red Blood Count 4.58 M/mm3 (4.2-5.4); White Blood Count 8.5 K/mm3 (4.4-11.0)
[2022-01-20 18:53] LABS: AST(SGOT) 57 U/L (15-37); Alanine Aminotransfer ALT/SGPT 94 U/L (13-56); Albumin, Serum 3.1 g/dL (3.2-5.0); Alkaline Phosphatase 148 U/L (45-117); Anion Gap 7 (5-15); BUN 18 mg/dL (7-18); BUN/Creat Ratio 21.5 RATIO (10-20); Calcium,Total 8.5 mg/dL (8.5-10.1); Chloride 105 mmol/L (98-107); Creatinine, Serum 0.84 mg/dL (0.55-1.02); EST Glomerular Filtration Rate 71 mL/min (>60); Est Glom Filt Rate - Afr Amer 85 mL/min (>60); Globulin 3.2 g/dL (2.2-4.2); Glucose 104 mg/dL (74-106); Potassium 4.7 mmol/L (3.5-5.1); Protein, Total 6.3 g/dL (6.4-8.2); Sodium Level 140 mmol/L (136-145)
[2022-01-21 14:57] LABS: T4 Free Direct 1.33 ng/dL (0.76-1.46)
== END | disposition home or self-care (01) ==
PROVIDERS: PCP Family Medicine; Visit Provider Nurse Practitioner Family
DX: R53.83 Other fatigue (principal)
CPT/HCPCS: 36415; 80053; 84439; 84443; 85025

== ENCOUNTER → 2022-01-21 | Outpatient (CLI) | payer MEDICARE, SELFPAY ==
[2022-01-21 21:13] LABS: Probe Check PASS
== END | disposition home or self-care (01) ==
PROVIDERS: PCP Family Medicine; Visit Provider Nurse Practitioner Family
DX: U07.1 COVID-19 (principal)
CPT/HCPCS: 87635; U0003; U0005

== ENCOUNTER 2022-12-30 13:48 | Outpatient (RCR) | payer MEDICARE, SELFPAY ==
--- NOTE | 2022-12-30 15:32 | HP.PTEVAL ---
Patient's Visit Information MARSHALL CHAUHAN is a 77 year old F referred to Physical Therapy by RAN Olivera with a diagnosis of Neck pain. Date of Evaluation: 12/30/22 Physical Therapist: Kelvin Solano, PT, ATC - Visit Plan Frequency: 2x /Week Duration: 2-4 Weeks Plan: Trialed c/s traction 14#/7# 30/10 sec, x 10 min. assess benefit of Tx next Rx. [employer] DTR, postural edu, scap stab ex's, and HEP - Subjective Pt reports having neck pain for 8 months intermittently. Pt reports she tripped over her dog around [facility] and has had intermittent pain since. Pt reports she gets tingling and numbness in her hands on occasion. Pt reports she also gets shooting pain up the back of her neck and into the base of her skull at that point. Pt reports she is R hand dominant. Pt reports no recent x rays, but notes 2 months ago she had an ultrasound on her neck which revealed no significant findings. Pt notes sleep difficulty intermittently secondary to pain. Pt reports she experiences the pain usually when she rolls over in bed, or when she looks down at her phone. Pt reports she was diagnosed with a bulging disc years ago. 0/10 pain at rest, 7/10 pain at worst. - Pain Neck pain Pain Intensity (Out of 10): 0 Pain Intensity Range: 7 - Objective Neuro: B UE sensation is WNL to light touch. B bicipital reflex= 1/3. Palpation: Pt presents with significant guarding throughout her c/s and UT regions. ROM: C/S protraction and flexion are WNL. All other measurements are severely limited at this time. MMT: B elbow extension 3+/5. All other B UE MMT 5/5. Repeated movements: Repeated protraction is sitting increased pain, RRIS decreased pain. Special tests: apley distraction decreased all pain. - Balance/Special Test Scores Oswestry Neck Score: 5 - Goals Goal 1:: Decrease neck pain x 50% to aid with sleep Goal Time Frame: 4-6 Weeks Goal 2:: Increase c/s ROM x 1 grade to aid with IADL's Goal Time Frame: 4-6 Weeks Goal 3:: I with HEP Goal Time Frame: 4-6 Weeks - Rehabilitation Potential Physical Therapy Diagnosis: Pt has neck pain, limited ROM, and difficulty with sleep secondary to deg changes of the c/s Rehabilitation Potential: Good - Anticipated Interventions Patient/Client Instruction: Educate patient on: Condition, Plan of Care For the Purpose of:: To improve self management Therapeutic Exercise to Include: Strength training, Body mechanics, Postural training, Active ROM, Maria De Jesus Exercises, Scapular Strength/Stabilization For the Purpose of:: To decrease pain, To increase ROM Manual Therapy Techniques to Include: Mobilization, Soft tissue mobilization For the Purpose of:: To decrease pain, To increase ROM Intermittent cervical traction: Yes For the Purpose of:: To decrease pain Thank you for the opportunity to evaluate your patient. For Medicare and Medicare HMO plans, please review the plan of care and approve it. It will need to be FAXED BACK to us at [phone] for Medicare purposes. For Medicare only, by signing this I certify the plan of care. Please let me know if there are questions or concerns regarding this plan of care. Physician Signature: Date:
== END 2022-12-30 19:00 | disposition home or self-care (01) ==
LOC: PT 13:48
PROVIDERS: PCP Family Medicine; Referring Provider Nurse Practitioner Family; Visit Provider Nurse Practitioner Family
DX: M54.2 Cervicalgia (principal)
CPT/HCPCS: 97161

== ENCOUNTER → 2023-03-11 | Outpatient (CLI) | payer MEDICARE, SELFPAY ==
--- NOTE | 2023-03-11 10:40 | RAD_ITS ---
STUDY: X-RAY - LEFT WRIST REASON FOR EXAM: Female, 77 years old. Pain and swelling. TECHNIQUE: 3 view(s) of the wrist were obtained. COMPARISON: None. FINDINGS: Osteopenia. Mild arthrosis of the radiocarpal articulation. Normal radiocarpal articulation. Moderate arthrosis of the radial carpal row. Moderate arthrosis of the first CMC joint. Mild arthrosis of the visualized MCP and IP joints. Normal soft tissues. RAD/Wrist min 3 Views IMPRESSION: Osteopenia with osteoarthritic changes as described. No acute abnormality or erosive changes. Electronically Signed: Spike Pierce MD at 11:11 EDT ,
== END | disposition home or self-care (01) ==
LOC: MTRAD 10:26
PROVIDERS: PCP Family Medicine; Visit Provider Family Medicine
DX: M25.532 Pain in left wrist (principal)
CPT/HCPCS: 73110

== ENCOUNTER → 2024-01-21 | Outpatient (CLI) | payer MEDICARE, SELFPAY ==
--- NOTE | 2024-01-21 13:15 | RAD_ITS ---
STUDY: X-RAY CHEST REASON FOR EXAM: Female, 78 years old. Dyspnea. TECHNIQUE: Frontal and lateral views of the chest. COMPARISON: July 07, 2019 FINDINGS: Hyperinflation with mild interstitial prominence which has decreased since the prior study. Scattered healed parenchymal granulomatous calcifications are unchanged. There is no demonstrated pleural abnormality. Stable cardiomegaly with sternotomy wires, dual lead cardiac pacer and calcified hilar nodes. Aortic tortuosity with calcification unchanged. Stable osteopenia with diffuse mild thoracic spondylosis. . Normal visualized ribs, clavicles, and shoulders. No abnormality of the visualized soft tissue structures of the upper abdomen. RAD/Chest PA and Lateral IMPRESSION: Cardiomegaly with hyperinflation and patchy interstitial prominence. No active or acute cardiopulmonary disease. Electronically Signed: Spike Pierce MD at 14:24 EDT ,
== END | disposition home or self-care (01) ==
LOC: RAD 13:06
PROVIDERS: PCP Family Medicine; Referring Provider Family Medicine; Visit Provider Family Medicine
DX: J20.9 Acute bronchitis, unspecified (principal)
CPT/HCPCS: 71046

== ENCOUNTER → 2024-03-20 | Outpatient (CLI) | payer MEDICARE, SELFPAY ==
--- NOTE | 2024-03-20 14:47 | BI_ITS ---
MAMMOGRAPHY - BILATERAL SCREENING REASON FOR EXAM: Female, 78 years old. Routine annual screening examination. PERTINENT HISTORY: Non-contributory. TECHNIQUE: Digital bilateral breast boby (3D mammographic acquisition) in the CC and MLO projections. 2-D mediolateral oblique (MLO) and craniocaudad (CC) views of both breasts were obtained. CAD: Full Field Digital Mammography with Computer Added Detection was performed. COMPARISON: Comparison is made with prior outside examination from June 04, 2022. FINDINGS: Breast Composition: The breasts are extremely dense, which lowers the sensitivity of mammography. There are no dominant masses or suspicious calcifications. A pacemaker battery pack is seen in the left axilla. No other significant abnormalities are identified. There has been no significant change since the prior study. BI/SCRN MAMM (CAD)W/BOBY BILAT IMPRESSION: Stable bilateral screening mammogram. Yearly follow-up mammogram recommended. (A) ASSESSMENT CATEGORY: BIRADS Category 2: Benign. A letter regarding these results will be sent to the patient by the facility within 30 days. Approximately 10% of breast cancers are not detected by mammography. A normal mammogram should not delay biopsy of a clinically suspicious abnormality. [id number] Electronically Signed: Abran Mccarthy MD at 15:19 EDT ,
== END | disposition home or self-care (01) ==
LOC: OPBI 14:46
PROVIDERS: PCP Family Medicine; Referring Provider Family Medicine; Visit Provider Family Medicine
DX: Z12.31 Encounter for screening mammogram for malignant neoplasm of breast (principal)
CPT/HCPCS: 77063; 77067